=== PATIENT | female | born 1950 | race Caucasian/White ===

== ENCOUNTER 2020-08-18 10:41 | Inpatient (IN) ==
--- NOTE | 2020-08-18 11:08 | Emergency Department Note ---
Impression & Plan Sepsis, GI bleed, Anemia, Open abdominal wall wound ED Provider Note NAME: ODILIA SWANN AGE: 70 SEX: F : 1950 ARRIVES VIA: Ambulance INFORMANT: Patient, ED PROVIDER(S): Piyush Mercado MD Chief Complaint: Anemia, recent postoperative fever HPI: Patient was seen due to concern for abdominal abscess. The patient did have recent surgery completed at [facility] and was discharged on July 25. Patient is currently residing at [facility] related to blood work which did show the patient has had some anemia. The patient was admitted on August 01 for increased drainage from her midline wound. Patient underwent ERCP pancreatic sphincterotomy on August 03. Patient did receive tube feeds for time was placed on insulin drip due to concern for blood sugars. Midline wound continues to drain getting dressing changes 3 times daily. The patient did have positive blood cultures which grew Proteus for which the patient was continued on Vanco and Zosyn for 10 days in total. Patient was eventually tolerating by mouth and was discharged on August 17 to [facility] for further rehab. The patient does present today due to the concerns for fever and worsening drainage. Was concerned that the patient did have milky or purulent drainage coming from her SURJIT drain. The patient does have some nausea but no vomiting. The patient denies feeling feverish but the patient was worried to have a fever at [facility] 202. I did review the patient's blood work completed at [facility] on August 16 which showed a hemoglobin of 8.4. White count at that time was 11. ROS: See HPI for pertinent positives and negatives. A total of 10 systems were reviewed and otherwise negative. Past medical history: See below Surgical history: See below Social history: See below Physical Exam: GENERAL: Fatigued in appearance, wearing a mask. EYE EXAM: Normal conjunctiva. PERRL, no anisocoria and EOM's grossly intact w/o pain. NECK: Supple, no nuchal rigidity, no adenopathy, non-tender. No signs of meningismus. LUNGS: Clear to auscultation. Normal chest wall mechanics. HEART: NSR, no MRG. ABDOMEN: Upper ventral open wound approximately 5 x 5 cm with drainage noted, left upper quadrant SURJIT drain in place draining milky possibly purulent fluid. Mild discomfort present but without peritonitis. BACK: No CVA TTP. SKIN: No rashes and no bruising. UPPER EXTREMITIES: Upper extremities are grossly normal. LOWER EXTREMITIES: Grossly normal, 2+ symmetric bilateral lower extremity edema. NEURO EXAM: A&O x3, cranial nerves II-XII grossly intact, normal speech, moves all 4 extremities on command w/o issue. Differential diagnoses: Sepsis, UTI, pneumonia, metabolic, electrolyte abnormalities, cardiac sources, intracerebral event, toxicologic, neurologic, as well as other pathologies. Course: Patient was seen and evaluated the bedside. Full history physical exam was performed. EKG interpreted by me Imaging Studies: See below Cardiac monitoring: An order was placed for continuous cardiac monitoring. The monitor shows a rate of 72 with sinus rhythm. MDM: Patient was seen due to concern for fever and increasing drainage from the abdomen. Blood work is obtained along with broad-spectrum antibiotics. Given the patient's lower extremity swelling the patient's volume status was not aggressively resuscitated as the patient is not tachycardic and does not have hypotension. Complaint of shortness of breath. The patient did receive IV fluids with the administration of her medications. The patient also was consented for blood and the patient did receive 1 unit PRBCs. The patient did have a CAT scan which did show the patient still has fluid collections present but given the patient's fever and recent postoperative state I did speak with Dr. Alexandra with general surgery at [facility] who come accepted the patient for further evaluation and treatment. Patient did have a rectal exam performed which did show heme positive stool. Patient stool was dark in nature no bright red blood per rectum. Patient was ordered Protonix bolus and drip. The patient and family member are agreeable to transfer. Patient did finish her first unit of PRBCs and was given a second. Patient was subsequently transferred to [facility]. Critical Care: I have personally spent 180 minutes of critical care time in direct management of this patient. This includes bedside care, interpretation of diagnostic studies, and testing, discussion with consultants, patient, and family members, and other require inpatient management activities. This 180 minutes is in excess of all separately billable procedures. 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 Bermeo 02-06-19 S/P partial colectomy Family History Brother Diabetes Mother Cancer Father Hypertension Social History Smoking Status: Former smoker packs per day: 0.5; Years Smoked: 5; Second Hand Exposure: No; Hx Alcohol Use: No Hx Substance Use: No Preferred Language: Albanian Communication Ability: Effective Molecular Biology Scientist Required: No Beliefs That Will Affect Care: Shinto Shinto Beliefs: Evangelical and Spiritual marital status: Current Living Situation: Spouse current occupational status: retired Feels Safe at Home: Yes Assistive Devices: Cane and Glasses Allergies Allergies Allergy/AdvReac Type Severity Reaction Status Date / Time No Known Allergies Allergy Verified 08/18/20 13:45 Home Meds Home Medications Medication Instructions Recorded Confirmed docusate sodium 100 mg PO BID 01/08/18 08/18/20 atorvastatin 40 mg PO QAM 12/14/18 08/18/20 propranolol 80 mg PO QAM 12/14/18 08/18/20 echinacea 500 mg capsule 500 mg PO Q OTHER DAY cap 01/13/19 08/18/20 folic acid 1 mg tablet 1 mg PO QAM tab 01/13/19 08/18/20 insulin aspart U-100 100 unit/mL 20 unit SUBCUT TIDM 01/13/19 08/18/20 subcutaneous solution insulin glargine 100 unit/mL (3 44 units SUBCUT BID ml 01/13/19 08/18/20 mL) subcutaneous pen netarsudil 0.02 % eye drops 1 drops OP QPM 01/13/19 08/18/20 ondansetron 4 mg oral soluble film 4 mg PO Q8H PRN 01/13/19 08/18/20 spironolactone 100 mg tablet 100 mg PO QAM 01/28/19 08/18/20 calcium carbonate [Calcium 600] 600 mg PO QPM 01/30/19 08/18/20 cholecalciferol (vitamin D3) 25 mcg PO QAM 01/30/19 08/18/20 [Vitamin D3] cyanocobalamin (vitamin B-12) 1,000 mcg PO QAM 01/30/19 08/18/20 [Vitamin B-12] fluticasone propionate [Flonase 2 spray INTRANASAL PM 01/30/19 08/18/20 Allergy Relief] garlic 1,000 mg PO QAM 01/30/19 08/18/20 vitamin E 400 unit PO QAM 01/30/19 08/18/20 furosemide 20 mg tablet 40 mg PO QAM tab 04/07/19 08/18/20 aspirin 81 mg PO PM 08/01/20 08/18/20 clopidogrel 75 mg PO QAM 08/01/20 08/18/20 ginkgo biloba 60 mg PO QAM 08/01/20 08/18/20 magnesium hydroxide [Milk of 30 ml PO DAILY PRN 08/01/20 08/18/20 Magnesia] nitroglycerin 0.4 mg SUBLINGUAL Q5M PRN MDD up 08/01/20 08/18/20 to 3 tabs in 15 mins oxycodone 5 mg PO Q4H PRN 08/01/20 08/18/20 sennosides [senna] 8.6 mg PO DAILY PRN 08/01/20 08/18/20 Results & Data (ED) Vital Signs Vital Signs - 24 hr 08/18/20 10:44 08/18/20 10:53 08/18/20 11:26 Temperature 37.1 C Temperature Source Oral Pulse Rate 71 77 Pulse Rate from SpO2 Sensor Pulse Rhythm Regular Pulse Strength Normal Respiratory Rate 18 20 20 Respiratory Effort / Characteristics Non-Labored Spontaneous Non-Labored Respiratory Depth Normal Respiratory Pattern Regular Blood Pressure 130/63 130/63 Blood Pressure Mean 85 85 Blood Pressure Position Lying Pulse Oximetry 97 96 Oxygen Delivery Method Room Air Room Air Sepsis Recent Fever Within 48 Hours Yes Sepsis New/Unexplained Change in Mental Status No Sepsis Action Taken by Nursing No Action Required 08/18/20 12:02 08/18/20 12:39 08/18/20 12:56 Temperature Temperature Source Pulse Rate 72 Pulse Rate from SpO2 Sensor Pulse Rhythm Pulse Strength Respiratory Rate 16 20 20 Respiratory Effort / Characteristics Non-Labored Spontaneous Non-Labored Respiratory Depth Respiratory Pattern Blood Pressure 110/64 Blood Pressure Mean 79 Blood Pressure Position Pulse Oximetry 99 96 Oxygen Delivery Method Room Air Room Air Sepsis Recent Fever Within 48 Hours Sepsis New/Unexplained Change in Mental Status Sepsis Action Taken by Nursing 08/18/20 13:15 08/18/20 13:28 08/18/20 13:30 Temperature 37.3 C Temperature Source Oral Pulse Rate 74 73 Pulse Rate from SpO2 Sensor 73 Pulse Rhythm Pulse Strength Respiratory Rate 16 16 17 Respiratory Effort / Characteristics Non-Labored Respiratory Depth Respiratory Pattern Blood Pressure 153/50 H 153/50 H Blood Pressure Mean 84 84 Blood Pressure Position Lying Pulse Oximetry 96 95 95 Oxygen Delivery Method Sepsis Recent Fever Within 48 Hours Sepsis New/Unexplained Change in Mental Status Sepsis Action Taken by Nursing 08/18/20 13:44 08/18/20 13:45 08/18/20 14:00 Temperature 37.2 C Temperature Source Oral Pulse Rate 74 74 74 Pulse Rate from SpO2 Sensor 74 74 Pulse Rhythm Regular Pulse Strength Respiratory Rate 16 15 15 Respiratory Effort / Characteristics Non-Labored Respiratory Depth Respiratory Pattern Blood Pressure 147/49 H 147/49 H 123/61 Blood Pressure Mean 81 81 81 Blood Pressure Position Pulse Oximetry 95 95 95 Oxygen Delivery Method Room Air Sepsis Recent Fever Within 48 Hours Sepsis New/Unexplained Change in Mental Status Sepsis Action Taken by Nursing 08/18/20 14:16 08/18/20 14:31 08/18/20 14:35 Temperature Temperature Source Pulse Rate 73 77 Pulse Rate from SpO2 Sensor 74 Pulse Rhythm Pulse Strength Respiratory Rate 15 20 22 Respiratory Effort / Characteristics Respiratory Depth Respiratory Pattern Blood Pressure 155/49 H 153/56 H Blood Pressure Mean 84 88 Blood Pressure Position Pulse Oximetry 95 99 Oxygen Delivery Method Room Air Sepsis Recent Fever Within 48 Hours Sepsis New/Unexplained Change in Mental Status Sepsis Action Taken by Nursing 08/18/20 14:45 08/18/20 15:01 08/18/20 15:04 Temperature Temperature Source Pulse Rate 75 74 Pulse Rate from SpO2 Sensor Pulse Rhythm Pulse Strength Respiratory Rate 15 15 20 Respiratory Effort / Characteristics Non-Labored Respiratory Depth Respiratory Pattern Blood Pressure 168/57 H 154/52 H Blood Pressure Mean 94 86 Blood Pressure Position Pulse Oximetry 96 Oxygen Delivery Method Room Air Sepsis Recent Fever Within 48 Hours Sepsis New/Unexplained Change in Mental Status Sepsis Action Taken by Nursing 08/18/20 15:16 08/18/20 15:30 08/18/20 15:46 Temperature Temperature Source Pulse Rate 72 72 74 Pulse Rate from SpO2 Sensor Pulse Rhythm Pulse Strength Respiratory Rate 15 14 17 Respiratory Effort / Characteristics Respiratory Depth Respiratory Pattern Blood Pressure 154/48 H 141/51 H 143/53 H Blood Pressure Mean 83 81 83 Blood Pressure Position Pulse Oximetry Oxygen Delivery Method Sepsis Recent Fever Within 48 Hours Sepsis New/Unexplained Change in Mental Status Sepsis Action Taken by Nursing 08/18/20 16:00 08/18/20 16:13 08/18/20 16:43 Temperature 37.1 C 37.1 C Temperature Source Oral Oral Pulse Rate 71 72 69 Pulse Rate from SpO2 Sensor Pulse Rhythm Regular Pulse Strength Normal Respiratory Rate 16 16 16 Respiratory Effort / Characteristics Non-Labored Respiratory Depth Respiratory Pattern Blood Pressure 145/52 H 145/52 H 123/58 L Blood Pressure Mean 83 83 79 Blood Pressure Position Lying Pulse Oximetry 94 99 Oxygen Delivery Method Room Air Sepsis Recent Fever Within 48 Hours Sepsis New/Unexplained Change in Mental Status Sepsis Action Taken by Nursing 08/18/20 16:47 08/18/20 16:55 08/18/20 17:04 Temperature 37.1 C 37.0 C Temperature Source Oral Oral Pulse Rate 70 70 Pulse Rate from SpO2 Sensor Pulse Rhythm Regular Pulse Strength Normal Respiratory Rate 16 18 18 Respiratory Effort / Characteristics Non-Labored Respiratory Depth Respiratory Pattern Blood Pressure 141/43 H 140/52 L Blood Pressure Mean 75 81 Blood Pressure Position Lying Lying Pulse Oximetry 99 96 95 Oxygen Delivery Method Room Air Sepsis Recent Fever Within 48 Hours Sepsis New/Unexplained Change in Mental Status Sepsis Action Taken by Nursing 08/18/20 17:19 08/18/20 17:49 Temperature 37.0 C 36.8 C Temperature Source Oral Oral Pulse Rate 68 67 Pulse Rate from SpO2 Sensor Pulse Rhythm Regular Pulse Strength Normal Respiratory Rate 18 17 Respiratory Effort / Characteristics Respiratory Depth Respiratory Pattern Blood Pressure 145/47 H 143/48 H Blood Pressure Mean 79 79 Blood Pressure Position Lying Lying Pulse Oximetry 94 95 Oxygen Delivery Method Sepsis Recent Fever Within 48 Hours Sepsis New/Unexplained Change in Mental Status Sepsis Action Taken by Retirement Medications Current Medication List: was personally reviewed by me Laboratory Data Attestation: I reviewed the patient's lab results. Result diagrams: 08/18/20 11:44 08/18/20 11:44 Lab Results 08/18/20 08/18/20 08/18/20 Range/Units 11:44 11:44 11:44 WBC 17.99 H (4.8-10.8) K/uL RBC 2.30 L (4.2-5.4) M/uL Hgb 6.4 L* (12.0-16.0) g/dL Hct 21.2 L (37-47) % MCV 92.2 (80-100) fL MCH 27.8 (25-34) pg MCHC 30.2 L (32-36) g/dL RDW Std Deviation 51.8 H (36.4-46.3) fL RDW Coeff of Teresa 15.5 H (11.5-14.5) % Plt Count 491 H (130-400) K/uL MPV 11.0 H (7.4-10.4) fL Immature Gran % (Auto) 0.8 % Neut % (Auto) 62.2 % Lymph % (Auto) 19.8 % [place] % (Auto) 16.5 % Eos % (Auto) 0.1 % Baso % (Auto) 0.6 % Neut # (Auto) 11.20 H (1.4-6.5) K/uL Lymph # (Auto) 3.56 H (1.2-3.4) K/uL [place] # (Auto) 2.97 H (0.11-0.59) K/uL Eos # (Auto) 0.02 (0-0.5) K/uL Baso # (Auto) 0.10 (0-0.2) K/uL Immature Gran # (Auto) 0.14 H (0.00-0.02) K/uL Absolute Nucleated RBC 0.19 H (0-0) K/uL Nucleated RBC % (auto) 1.0 % Polychromasia 1+ PT Cancelled INR Cancelled APTT Cancelled PTT Ratio Cancelled Sodium (136-145) mmol/L Potassium (3.5-5.1) mmol/L Chloride (98-107) mmol/L Carbon Dioxide (21-32) mmol/L Anion Gap (3-11) BUN (7-18) mg/dl Creatinine (0.6-1.2) mg/dl Est Cr Clr Drug Dosing ml/min Est GFR ( Amer) ml/min Est GFR (Non-Af Amer) ml/min BUN/Creatinine Ratio (10-20) Glucose (70-99) mg/dl Lactate (0.4-2.0) mmol/L Calcium (8.5-10.1) mg/dl Magnesium (1.8-2.4) mg/dl Total Bilirubin (0.2-1) mg/dl AST (15-37) U/L ALT (12-78) U/L Alkaline Phosphatase (45-117) U/L Troponin I (0-0.045) ng/ml Total Protein (6.4-8.2) gm/dl Albumin (3.4-5.0) gm/dl Globulin (2.5-4.0) gm/dl Albumin/Globulin Ratio (0.9-2) Procalcitonin (0-0.5) ng/ml Urine Color Urine Appearance (Clear) Urine pH (4.5-7.5) Ur Specific [place] (1.000-1.030) Urine Protein (Negative) Urine Glucose (UA) (Negative) Urine Ketones (Negative) Urine Blood (Negative) Urine Nitrite (Negative) Urine Bilirubin (Negative) Urine Urobilinogen (Negative) Ur Leukocyte Esterase (Negative) POC Stool Occult Blood (Negative) COVID-19 Eval Order SARS-CoV-2, RNA, NAAT (NEGATIVE) Blood Type O Positive Antibody Screen NEGATIVE Crossmatch See Detail 08/18/20 08/18/20 08/18/20 Range/Units 11:44 11:44 11:44 WBC (4.8-10.8) K/uL RBC (4.2-5.4) M/uL Hgb (12.0-16.0) g/dL Hct (37-47) % MCV (80-100) fL MCH (25-34) pg MCHC (32-36) g/dL RDW Std Deviation (36.4-46.3) fL RDW Coeff of Teresa (11.5-14.5) % Plt Count (130-400) K/uL MPV (7.4-10.4) fL Immature Gran % (Auto) % Neut % (Auto) % Lymph % (Auto) % [place] % (Auto) % Eos % (Auto) % Baso % (Auto) % Neut # (Auto) (1.4-6.5) K/uL Lymph # (Auto) (1.2-3.4) K/uL [place] # (Auto) (0.11-0.59) K/uL Eos # (Auto) (0-0.5) K/uL Baso # (Auto) (0-0.2) K/uL Immature Gran # (Auto) (0.00-0.02) K/uL Absolute Nucleated RBC (0-0) K/uL Nucleated RBC % (auto) % Polychromasia PT INR APTT PTT Ratio Sodium 131 L (136-145) mmol/L Potassium 5.1 (3.5-5.1) mmol/L Chloride 99 (98-107) mmol/L Carbon Dioxide 25 (21-32) mmol/L Anion Gap 7.0 (3-11) BUN 44 H (7-18) mg/dl Creatinine 1.00 (0.6-1.2) mg/dl Est Cr Clr Drug Dosing 46.4 ml/min Est GFR ( Amer) 65.6 ml/min Est GFR (Non-Af Amer) 56.6 ml/min BUN/Creatinine Ratio 44.4 H (10-20) Glucose 241 H (70-99) mg/dl Lactate 2.2 H* (0.4-2.0) mmol/L Calcium 8.8 (8.5-10.1) mg/dl Magnesium 2.0 (1.8-2.4) mg/dl Total Bilirubin 0.3 (0.2-1) mg/dl AST 75 H (15-37) U/L ALT 57 (12-78) U/L Alkaline Phosphatase 197 H (45-117) U/L Troponin I < 0.015 (0-0.045) ng/ml Total Protein 6.3 L (6.4-8.2) gm/dl Albumin 1.5 L (3.4-5.0) gm/dl Globulin 4.8 H (2.5-4.0) gm/dl Albumin/Globulin Ratio 0.3 L (0.9-2) Procalcitonin 1.02 H (0-0.5) ng/ml Urine Color Urine Appearance (Clear) Urine pH (4.5-7.5) Ur Specific [place] (1.000-1.030) Urine Protein (Negative) Urine Glucose (UA) (Negative) Urine Ketones (Negative) Urine Blood (Negative) Urine Nitrite (Negative) Urine Bilirubin (Negative) Urine Urobilinogen (Negative) Ur Leukocyte Esterase (Negative) POC Stool Occult Blood (Negative) COVID-19 Eval Order SARS-CoV-2, RNA, NAAT (NEGATIVE) Blood Type Antibody Screen Crossmatch 08/18/20 08/18/20 08/18/20 Range/Units 12:01 12:01 12:32 WBC (4.8-10.8) K/uL RBC (4.2-5.4) M/uL Hgb (12.0-16.0) g/dL Hct (37-47) % MCV (80-100) fL MCH (25-34) pg MCHC (32-36) g/dL RDW Std Deviation (36.4-46.3) fL RDW Coeff of Teresa (11.5-14.5) % Plt Count (130-400) K/uL MPV (7.4-10.4) fL Immature Gran % (Auto) % Neut % (Auto) % Lymph % (Auto) % [place] % (Auto) % Eos % (Auto) % Baso % (Auto) % Neut # (Auto) (1.4-6.5) K/uL Lymph # (Auto) (1.2-3.4) K/uL [place] # (Auto) (0.11-0.59) K/uL Eos # (Auto) (0-0.5) K/uL Baso # (Auto) (0-0.2) K/uL Immature Gran # (Auto) (0.00-0.02) K/uL Absolute Nucleated RBC (0-0) K/uL Nucleated RBC % (auto) % Polychromasia PT INR APTT PTT Ratio Sodium (136-145) mmol/L Potassium (3.5-5.1) mmol/L Chloride (98-107) mmol/L Carbon Dioxide (21-32) mmol/L Anion Gap (3-11) BUN (7-18) mg/dl Creatinine (0.6-1.2) mg/dl Est Cr Clr Drug Dosing ml/min Est GFR ( Amer) ml/min Est GFR (Non-Af Amer) ml/min BUN/Creatinine Ratio (10-20) Glucose (70-99) mg/dl Lactate (0.4-2.0) mmol/L Calcium (8.5-10.1) mg/dl Magnesium (1.8-2.4) mg/dl Total Bilirubin (0.2-1) mg/dl AST (15-37) U/L ALT (12-78) U/L Alkaline Phosphatase (45-117) U/L Troponin I (0-0.045) ng/ml Total Protein (6.4-8.2) gm/dl Albumin (3.4-5.0) gm/dl Globulin (2.5-4.0) gm/dl Albumin/Globulin Ratio (0.9-2) Procalcitonin (0-0.5) ng/ml Urine Color Yellow Urine Appearance Clear (Clear) Urine pH 6.5 (4.5-7.5) Ur Specific [place] 1.028 (1.000-1.030) Urine Protein Negative (Negative) Urine Glucose (UA) Negative (Negative) Urine Ketones Negative (Negative) Urine Blood Negative (Negative) Urine Nitrite Negative (Negative) Urine Bilirubin Negative (Negative) Urine Urobilinogen Negative (Negative) Ur Leukocyte Esterase Negative (Negative) POC Stool Occult Blood (Negative) COVID-19 Eval Order Cov[facility] SARS-CoV-2, RNA, NAAT NEGATIVE (NEGATIVE) Blood Type Antibody Screen Crossmatch 08/18/20 08/18/20 08/18/20 Range/Units 12:37 15:18 15:50 WBC (4.8-10.8) K/uL RBC (4.2-5.4) M/uL Hgb (12.0-16.0) g/dL Hct (37-47) % MCV (80-100) fL MCH (25-34) pg MCHC (32-36) g/dL RDW Std Deviation (36.4-46.3) fL RDW Coeff of Teresa (11.5-14.5) % Plt Count (130-400) K/uL MPV (7.4-10.4) fL Immature Gran % (Auto) % Neut % (Auto) % Lymph % (Auto) % [place] % (Auto) % Eos % (Auto) % Baso % (Auto) % Neut # (Auto) (1.4-6.5) K/uL Lymph # (Auto) (1.2-3.4) K/uL [place] # (Auto) (0.11-0.59) K/uL Eos # (Auto) (0-0.5) K/uL Baso # (Auto) (0-0.2) K/uL Immature Gran # (Auto) (0.00-0.02) K/uL Absolute Nucleated RBC (0-0) K/uL Nucleated RBC % (auto) % Polychromasia PT 11.7 INR 1.2 H APTT 22.2 PTT Ratio 0.8 Sodium (136-145) mmol/L Potassium (3.5-5.1) mmol/L Chloride (98-107) mmol/L Carbon Dioxide (21-32) mmol/L Anion Gap (3-11) BUN (7-18) mg/dl Creatinine (0.6-1.2) mg/dl Est Cr Clr Drug Dosing ml/min Est GFR ( Amer) ml/min Est GFR (Non-Af Amer) ml/min BUN/Creatinine Ratio (10-20) Glucose (70-99) mg/dl Lactate 1.6 (0.4-2.0) mmol/L Calcium (8.5-10.1) mg/dl Magnesium (1.8-2.4) mg/dl Total Bilirubin (0.2-1) mg/dl AST (15-37) U/L ALT (12-78) U/L Alkaline Phosphatase (45-117) U/L Troponin I (0-0.045) ng/ml Total Protein (6.4-8.2) gm/dl Albumin (3.4-5.0) gm/dl Globulin (2.5-4.0) gm/dl Albumin/Globulin Ratio (0.9-2) Procalcitonin (0-0.5) ng/ml Urine Color Urine Appearance (Clear) Urine pH (4.5-7.5) Ur Specific [place] (1.000-1.030) Urine Protein (Negative) Urine Glucose (UA) (Negative) Urine Ketones (Negative) Urine Blood (Negative) Urine Nitrite (Negative) Urine Bilirubin (Negative) Urine Urobilinogen (Negative) Ur Leukocyte Esterase (Negative) POC Stool Occult Blood Positive A (Negative) COVID-19 Eval Order SARS-CoV-2, RNA, NAAT (NEGATIVE) Blood Type Antibody Screen Crossmatch Administered Medications Pantoprazole Sodium 40 mg/ (Dextrose) 100 mls @ 20 mls/hr IV Q5H LAURA Stop: 09/17/20 14:37 Last Admin: 08/18/20 16:27 Dose: 8 mg/hr, 20 mls/hr Documented by: [id number] Discontinued Medications Cefepime HCl (Maxipime) 20 mls @ 5 mls/min IV NOW STA Stop: 08/18/20 11:31 Last Admin: 08/18/20 12:11 Dose: 5 mls/min Documented by: [id number] Metronidazole (Flagyl) 500 mg in 100 mls @ 100 mls/hr IV NOW STA Stop: 08/18/20 12:28 Last Infusion: 08/18/20 13:34 Dose: 0 mls/hr Documented by: [id number] Admin: 08/18/20 12:19 Dose: 100 mls/hr Documented by: [id number] Vancomycin HCl 1,500 mg/ (Sodium Chloride) 530 mls @ 200 mls/hr IV NOW STA Stop: 08/18/20 14:08 Last Infusion: 08/18/20 15:31 Dose: 0 mls/hr Documented by: [id number] Infusion: 08/18/20 15:31 Dose: 0 mls/hr Documented by: [id number] Admin: 08/18/20 13:31 Dose: 200 mls/hr Documented by: [id number] Pantoprazole Sodium (Protonix Bolus/Drip) 0 mls @ 1 mls/hr IV ONE STA Stop: 08/18/20 14:24 Last Admin: 08/18/20 15:24 Dose: 1 mls/hr Documented by: [id number] Pantoprazole Sodium 80 mg/ (Dextrose) 120 mls @ 400 mls/hr IV NOW ONE Stop: 08/18/20 14:40 Last Infusion: 08/18/20 15:09 Dose: 0 mls/hr Documented by: [id number] Admin: 08/18/20 14:47 Dose: 400 mls/hr Documented by: [id number] Acetaminophen (Ofirmev) 1,000 mg in 100 mls @ 400 mls/hr IV NOW STA Stop: 08/18/20 14:37 Last Infusion: 08/18/20 15:08 Dose: 0 mls/hr Documented by: [id number] Admin: 08/18/20 14:46 Dose: 400 mls/hr Documented by: [id number] Ioversol (Optiray 320 100ml) 92 ml IV ONCE ONE Stop: 08/18/20 12:57 Last Admin: 08/18/20 12:57 Dose: 92 ml Documented by: [id number] Ondansetron HCl (Ondansetron Inj 2 Mg/Ml 2 Ml Vial) 4 mg IV NOW STA Stop: 08/18/20 14:24 Last Admin: 08/18/20 14:46 Dose: 4 mg Documented by: [id number] Imaging Data Radiologist's Impression: Chest X-Ray 08/18/20 11:08 XR chest 1V portable HISTORY: 70 years-old Female SEPSIS acute sepsis COMPARISON: Chest radiograph 08/01/2020 TECHNIQUE: Portable upright AP view of the chest FINDINGS: Cardiac silhouette is enlarged. Prior median sternotomy with CABG. No pneumothorax, large pleural effusion or overt pulmonary edema. A catheter pr ojects over the abdominal left upper quadrant. Degenerative changes of the shoulders and spine. IMPRESSION: Cardiomegaly without acute process. ACT 112: Negative or not required by law. The above report was generated using voice recognition software. It may contain grammatical, syntax or spelling errors. Electronically signed by: Jim Lugo M.D. 08/18/2020 11:21 AM Abdomen/Pelvis CT 08/18/20 11:11 CT abd pelvis IV con only CLINICAL HISTORY: recent surgery, purulent drainage COMPARISON STUDY: August 01, 2020 TECHNIQUE: A dose lowering technique was utilized adhering to the principles of ALARA. CT DOSE: 1159.38 mGycm FINDINGS: Limited exam due to beam hardening artifact from overlying patient's arms and patient body habitus. Lower chest: Minimal atelectasis at dependent portions of bilateral lower lobes.. Heavy coronary calcifications, possible stents. Liver: Cirrhotic appearance of the liver. No evidence of focal lesions or intrahepatic biliary dilatation. Gallbladder: Fluid-filled with questionable surrounding edema in gallbladder fossa which might be due to ascites. Spleen: Is surgically absent. Pancreas: Status post partial resection of the pancreas. Redemonstration of the hypoattenuating and possibly encapsulating collection within the anatomical region of pancreatic body containing areas of gas in slightly decreasing in size since prior study now measuring 7.3 x 4.9 cm (was measured 8.1 x 5.0 cm when measured in similar fashion). Left mid approach surgical drainage catheter with distal tip terminating at the inferior margin of this collection is again seen. Previously seen additional gas containing hypoattenuating collection within left upper quadrant decreased in size, now measuring 2.9 cm and does not contain gas (3/109). Previously seen gas containing elongated collection at the left anterior abdominal wall adjacent to the proximal aspect of the central surgical drainage significantly decreased in size and shows no evidence of gas collection. Adrenal glands: Unremarkable. Kidneys: No evidence of hydronephrosis or nephrolithiasis on the left. Status post right nephrectomy. Stable small amount of free fluid is seen within left renal bed. Pelvic viscera: Urinary bladder is fluid-filled. Uterus is normal for patient's age group. Bowel: Bowel loops are nondilated. Postoperative changes of partial right hemicolectomy with ileocolic anastomosis are again seen. Peritoneum: There is no intraperitoneal free air. Small amount ascites is again seen. Vasculature: Abdominal aorta shows heavy concentric calcifications of its wall within its distal aspect associated with luminal narrowing measuring 0.9 cm in diameter. Adenopathy: No definite retroperitoneal adenopathy seen however evaluation is limited due to ascites and mesenteric edema as well as beam hardening artifact. Skeletal structures: Multilevel degenerative changes of the spine. Redemonstration of the large abdominal wall wound/diastasis which is extending into the xiphoid process. Previously seen gas within the wound and surrounding subcutaneous soft tissue slightly decreased in size and appear to be slightly encapsulated with minimal interval enlargement of associated fluid collection. Previously seen extension of the gas from the wound to the peritoneal cavity is no longer visualized. Ill-defined fat stranding and few areas of fluid collection within inferior anterior abdominal wall appears similar to prior study. Mild interval worsening of the subcutaneous edema within bilateral flank region, example is seen on series 3 image 170. IMPRESSION: 1. Redemonstration of large abdominal wall wound/diastases. Mild prominence of fluid collection within the wound which appear to be slightly encapsulated and interval decrease in amount of gas within surrounding soft tissue. Previously seen intraperitoneal extension of the gas from the abdominal wound is no longer visualized. 2. Mild interval decrease in hypoattenuating collection within the anatomical region of pancreatic body and left upper quadrant. Stable position of left-sided mid abdominal approach surgical drainage. 3. Nondilated loops of bowel. 4. Status post pancreatic surgery, right nephrectomy and partial colectomy. 5. Ascites. 6. Liver cirrhosis 7. Additional findings as detailed above. ACT 112: Negative or not required by law. The above report was generated using voice recognition software. It may contain grammatical, syntax or spelling errors. Electronically signed by: Tasha Delvalle DO 08/18/2020 1:34 PM Discharge Plan Visit Data Chief Complaint: Abnormal Labs/Diagnostic Testing Stated Complaint: ABNORMAL LABS ED Provider: Piyush Mercado Discharge Problem: Sepsis, GI bleed, Anemia, Open abdominal wall wound Forms Stand Alone Forms: [facility] Prescriptions Prescriptions: No Action echinacea 500 mg capsule 500 mg PO Q OTHER DAY RF: 0 ondansetron 4 mg film 4 mg PO Q8H PRN (Reason: nausea and vomiting) RF: 0 Rhopressa 0.02 % drops 1 drops OP QPM RF: 0 spironolactone [Aldactone] 100 mg tablet 100 mg PO QAM RF: 0 cyanocobalamin (vitamin B-12) [Vitamin B-12] 1,000 mcg Tablet 1,000 mcg PO QAM RF: 0 garlic 1,000 mg Capsule 1,000 mg PO QAM RF: 0 calcium carbonate [Calcium 600] 600 mg calcium (1,500 mg) Tablet 600 mg PO QPM RF: 0 fluticasone propionate [Flonase Allergy Relief] 50 mcg/actuation [place],Suspension 2 spray INTRANASAL PM RF: 0 vitamin E 400 unit Capsule 400 unit PO QAM RF: 0 cholecalciferol (vitamin D3) [Vitamin D3] 25 mcg (1,000 unit) Tablet 25 mcg PO QAM RF: 0 docusate sodium 100 mg Tablet 100 mg PO BID RF: 0 folic acid 1 mg tablet 1 mg PO QAM RF: 0 Novolog U-100 Insulin aspart 100 unit/mL solution 20 unit SUBCUT TIDM RF: 0 Basaglar KwikPen U-100 Insulin 100 unit/mL (3 mL) insulin pen 44 units SUBCUT BID RF: 0 atorvastatin 40 mg tablet 40 mg PO QAM RF: 0 propranolol 80 mg capsule,extended release 24 hr 80 mg PO QAM RF: 0 furosemide 20 mg tablet 40 mg PO QAM RF: 0 sennosides [senna] 8.6 mg Tablet 8.6 mg PO DAILY PRN (Reason: Constipation) RF: 0 clopidogrel 75 mg tablet 75 mg PO QAM RF: 0 aspirin 81 mg Tablet,Delayed Release (Dr/Ec) 81 mg PO PM RF: 0 magnesium hydroxide [Milk of Magnesia] 400 mg/5 mL Suspension 30 ml PO DAILY PRN (Reason: Constipation) RF: 0 ginkgo biloba 60 mg Tablet 60 mg PO QAM RF: 0 nitroglycerin 0.4 mg Tablet, Sublingual 0.4 mg sublingual Q5M MDD up to 3 tabs in 15 mins PRN (Reason: Chest Pain) RF: 0 oxycodone 5 mg tablet 5 mg PO Q4H PRN (Reason: Pain) RF: 0 Discharge Problem: Sepsis Qualifiers: Sepsis type: sepsis due to unspecified organism Sepsis acute organ dysfunction status: unspecified Qualified Code(s): A41.9 - Sepsis, unspecified organism GI bleed Qualifiers: GI bleed type/associated pathology: melena Qualified Code(s): K92.1 - Melena Anemia Qualifiers: Anemia type: unspecified type Qualified Code(s): D64.9 - Anemia, unspecified Open abdominal wall wound Qualifiers: Encounter type: initial encounter Qualified Code(s): S31.109A - Unspecified open wound of abdominal wall, unspecified quadrant without penetration into peritoneal cavity, initial encounter
--- NOTE | 2020-08-18 11:23 | XRay Report ---
XR chest 1V portable HISTORY: 70 years-old Female SEPSIS acute sepsis COMPARISON: Chest radiograph 08/01/2020 TECHNIQUE: Portable upright AP view of the chest FINDINGS: Cardiac silhouette is enlarged. Prior median sternotomy with CABG. No pneumothorax, large pleural eff usion or overt pulmonary edema. A catheter projects over the abdominal left upper quadrant. Degenerat rich changes of the shoulders and spine. IMPRESSION: Cardiomegaly without acute process. ACT 112: Negative or not required by law. The above report was generated using voice recognition software. It may contain grammatical, syntax o r spelling errors. Electronically signed by: Jim Lugo M.D. 08/18/2020 11:21 AM
[2020-08-18] MEDS ORDERED: CEFEPIME 20 ML IV STA (11:28)
[2020-08-18] MEDS ORDERED: metroNIDAZOLE 500 MG/100 ML BAG IV STA (11:29)
[2020-08-18] MEDS ORDERED: VANCOMYCIN HCL 1,500 MG in SODIUM CHLORIDE 0.9% 500 ML IV STA (11:30)
[2020-08-18] MEDS ORDERED: SODIUM CHLORIDE 0.9% 250 ML IV PRN (11:38)
[2020-08-18 11:57] LABS: Hematocrit (blood only) 21.2 % (37-47); Hemoglobin 6.4 g/dL (12.0-16.0); Mean Corpuscular Hemoglobin 27.8 pg (25-34); Mean Corpuscular Hgb Conc 30.2 g/dL (32-36); Mean Corpuscular Volume 92.2 fL (80-100); Nucleated RBC # (auto) 0.19 K/uL (0-0); Platelet Count 491 K/uL (130-400); RDW Coefficient of Variation 15.5 % (11.5-14.5); RDW Standard Deviation 51.8 fL (36.4-46.3); White Blood Count 17.99 K/uL (4.8-10.8)
[2020-08-18 12:10] LABS: Alanine Aminotransferase 57 U/L (12-78); Albumin Level 1.5 gm/dl (3.4-5.0); Aspartate Aminotransferase 75 U/L (15-37); BUN Creatinine Ratio 44.4 (10-20); Blood Urea Nitrogen 44 mg/dl (7-18); Calcium 8.8 mg/dl (8.5-10.1); Carbon Dioxide 25 mmol/L (21-32); Chloride 99 mmol/L (98-107); Creatinine Clr Calc Pharmacy 46.4 ml/min; Est GFR (African American) 65.6 ml/min; Est GFR (Non-African American) 56.6 ml/min; Glucose 241 mg/dl (70-99); Potassium 5.1 mmol/L (3.5-5.1); Sodium 131 mmol/L (136-145)
[2020-08-18 12:15] LABS: Albumin Globulin Ratio 0.3 (0.9-2); Alkaline Phosphatase 197 U/L (45-117); Bilirubin,Total 0.3 mg/dl (0.2-1); Globulin 4.8 gm/dl (2.5-4.0); Total Protein 6.3 gm/dl (6.4-8.2); Troponin I < 0.015 ng/ml (0-0.045)
[2020-08-18 12:16] LABS: Basophils % (auto) 0.6 %; Eosinophils # (auto) 0.02 K/uL (0-0.5); Eosinophils % (auto) 0.1 %; Immature Granulocytes # (auto) 0.14 K/uL (0.00-0.02); Immature Granulocytes % (auto) 0.8 %; Lymphocytes # (auto) 3.56 K/uL (1.2-3.4); Lymphocytes % (auto) 19.8 %; Monocytes # (auto) 2.97 K/uL (0.11-0.59); Monocytes % (auto) 16.5 %; Neutrophils % (auto) 62.2 %; Polychromasia 1+
[2020-08-18] MEDS ORDERED: OPTIRAY 320 100ml IV ONE (12:56)
[2020-08-18 12:57] LABS: INR 1.2 (0.9-1.1); Partial Thromboplastin Ratio 0.8; Partial Thromboplastin Time 22.2 Seconds (21.0-31.0); Prothrombin Time 11.7 Seconds (9.0-12.0)
--- NOTE | 2020-08-18 13:36 | CT Scan Report ---
CT abd pelvis IV con only CLINICAL HISTORY: recent surgery, purulent drainage COMPARISON STUDY: August 01, 2020 TECHNIQUE: A dose lowering technique was utilized adhering to the principles of ALARA. CT DOSE: 1159.38 mGycm FINDINGS: Limited exam due to beam hardening artifact from overlying patient's arms and patient body habitus. Lower chest: Minimal atelectasis at dependent portions of bilateral lower lobes.. Heavy coronary calc ifications, possible stents. Liver: Cirrhotic appearance of the liver. No evidence of focal lesions or intrahepatic biliary dilata tion. Gallbladder: Fluid-filled with questionable surrounding edema in gallbladder fossa which might be due to ascites. Spleen: Is surgically absent. Pancreas: Status post partial resection of the pancreas. Redemonstration of the hypoattenuating and p ossibly encapsulating collection within the anatomical region of pancreatic body containing areas of gas in slightly decreasing in size since prior study now measuring 7.3 x 4.9 cm (was measured 8.1 x 5 .0 cm when measured in similar fashion). Left mid approach surgical drainage catheter with distal tip terminating at the inferior margin of th is collection is again seen. Previously seen additional gas containing hypoattenuating collection wit hin left upper quadrant decreased in size, now measuring 2.9 cm and does not contain gas (3/109). Previously seen gas containing elongated collection at the left anterior abdominal wall adjacent to t he proximal aspect of the central surgical drainage significantly decreased in size and shows no evid ence of gas collection. Adrenal glands: Unremarkable. Kidneys: No evidence of hydronephrosis or nephrolithiasis on the left. Status post right nephrectomy. Stable small amount of free fluid is seen within left renal bed. Pelvic viscera: Urinary bladder is fluid-filled. Uterus is normal for patient's age group. Bowel: Bowel loops are nondilated. Postoperative changes of partial right hemicolectomy with ileocoli c anastomosis are again seen. Peritoneum: There is no intraperitoneal free air. Small amount ascites is again seen. Vasculature: Abdominal aorta shows heavy concentric calcifications of its wall within its distal aspe ct associated with luminal narrowing measuring 0.9 cm in diameter. Adenopathy: No definite retroperitoneal adenopathy seen however evaluation is limited due to ascites and mesenteric edema as well as beam hardening artifact. Skeletal structures: Multilevel degenerative changes of the spine. Redemonstration of the large abdominal wall wound/diastasis which is extending into the xiphoid proce ss. Previously seen gas within the wound and surrounding subcutaneous soft tissue slightly decreased in size and appear to be slightly encapsulated with minimal interval enlargement of associated fluid collection. Previously seen extension of the gas from the wound to the peritoneal cavity is no longer visualized. Ill-defined fat stranding and few areas of fluid collection within inferior anterior abdominal wall a ppears similar to prior study. Mild interval worsening of the subcutaneous edema within bilateral fla nk region, example is seen on series 3 image 170. IMPRESSION: 1. Redemonstration of large abdominal wall wound/diastases. Mild prominence of fluid collection with in the wound which appear to be slightly encapsulated and interval decrease in amount of gas within s urrounding soft tissue. Previously seen intraperitoneal extension of the gas from the abdominal wound is no longer visualized. 2. Mild interval decrease in hypoattenuating collection within the anatomical region of pancreatic b elida and left upper quadrant. Stable position of left-sided mid abdominal approach surgical drainage. 3. Nondilated loops of bowel. 4. Status post pancreatic surgery, right nephrectomy and partial colectomy. 5. Ascites. 6. Liver cirrhosis 7. Additional findings as detailed above. ACT 112: Negative or not required by law. The above report was generated using voice recognition software. It may contain grammatical, syntax o r spelling errors. Electronically signed by: Tasha Delvalle DO 08/18/2020 1:34 PM
[2020-08-18] MEDS ORDERED: PANTOprazole 80 MG in DEXTROSE 5% 100 ML IV ONE (14:23)
[2020-08-18] MEDS ORDERED: PANTOPRAZOLE BOLUS/DRIP 1 EA IV STA (14:23)
[2020-08-18] MEDS ORDERED: ONDANSETRON INJ 2 MG/ML 2 ML VIAL IV STA (14:23)
[2020-08-18] MEDS ORDERED: ACETAMINOPHEN 1,000 MG/100 ML VIAL IV STA (14:23)
[2020-08-18 14:53] LABS: Appearance Urine Clear (Clear); Bilirubin Urine Negative (Negative); Blood Urine Negative (Negative); Color Urine Yellow; Glucose Urine UA Negative (Negative); Ketones Urine Negative (Negative); Leukocyte Esterase Urine Negative (Negative); Nitrite Urine Negative (Negative); Protein Urine Negative (Negative); Specific Gravity Urine 1.028 (1.000-1.030); Urobilinogen Urine Negative (Negative); pH Urine 6.5 (4.5-7.5)
[2020-08-18] MEDS: PANTOprazole 40 MG in DEXTROSE 5% 100 ML IV SCH ×2 (16:27→22:13)
[2020-08-18] MEDS ORDERED: SODIUM CHLORIDE 0.9% 1000ML 500 ML IV ONE (18:27)
--- NOTE | 2020-08-18 19:26 | Emergency Department Note ---
ED Visit Note Patient signed out to me awaiting disposition/transfer to [facility]. [facility] called back and state they will not have any beds available tonight and will take her sometime tomorrow. They recommend that she be admitted here overnight. I did speak with Dr. Young about the patient. He will see the patient for admission here overnight. . : Sepsis Qualifiers: Sepsis type: sepsis due to unspecified organism Sepsis acute organ dysfunction status: unspecified Qualified Code(s): A41.9 - Sepsis, unspecified organism GI bleed Qualifiers: GI bleed type/associated pathology: melena Qualified Code(s): K92.1 - Melena Anemia Qualifiers: Anemia type: unspecified type Qualified Code(s): D64.9 - Anemia, unspecified Open abdominal wall wound Qualifiers: Encounter type: initial encounter Qualified Code(s): S31.109A - Unspecified open wound of abdominal wall, unspecified quadrant without penetration into peritoneal cavity, initial encounter
[2020-08-18] MEDS ORDERED: PANTOprazole 40 MG in DEXTROSE 5% 100 ML IV SCH (21:25)
[2020-08-18] MEDS ORDERED: SODIUM CHLORIDE 0.9% 1000ML 1,000 ML IV SCH (21:25)
[2020-08-18] MEDS ORDERED: oxyCODONE HCL IR 5 MG TAB (IMMEDIATE RELEASE) PO PRN (21:25)
[2020-08-18] MEDS ORDERED: VANCOMYCIN CONSULT ACTIVE PRN (21:25)
[2020-08-18] MEDS ORDERED: SENNA 8.6 MG TAB PO PRN (21:25)
[2020-08-18] MEDS ORDERED: FLUTICASONE PROPIONATE NA SPR 16 GM BTL SCH (21:25)
[2020-08-18] MEDS ORDERED: ONDANSETRON INJ 2 MG/ML 2 ML VIAL IV PRN (21:25)
[2020-08-18] MEDS ORDERED: NITROGLYCERIN SL 0.4 MG/TAB TAB SL PRN ×2 (21:25)
[2020-08-18] MEDS ORDERED: ECHINACEA 500 MG PO SCH (21:25)
[2020-08-18] MEDS ORDERED: CEFEPIME CONSULT ACTIVE PRN (21:33)
[2020-08-18] MEDS ORDERED: ONDANSETRON 4 MG OD TAB PO PRN (21:35)
[2020-08-18] MEDS ORDERED: INSULIN ASPART 100 UNITS/ML 3 ML PEN SC SCH (22:00)
[2020-08-18] MEDS: metroNIDAZOLE 500 MG/100 ML BAG IV SCH (22:14)
[2020-08-18] MEDS: DOCUSATE SODIUM 100 MG CAP PO SCH (22:15)
[2020-08-18] MEDS: ACETAMINOPHEN 325 MG TAB PO PRN (22:24)
--- NOTE | 2020-08-18 22:27 | Pharmacy Report ---
Pharmacy Abx Dose Short Note - Date of Service August 18, 2020 - Assessment & Plan Assessment 70 year old F receiving Vancomycin, Cefepime and Metronidazole for treatment of an abdominal abscess * PMHx significant for T2DM, Cirrhosis and h/o colon cancer * Afebrile upon admission. Leukocytosis of 18k. Lactate elevated at 2.2, down to 1.6 after fluids. Procalcitonin elevated at 1.02. SCr elevated as well at 1. * Cultures are pending. Plan Vancomycin * Loading dose: 1500 mg (23 mg/kg) IV x 1 * Maintenance dose: 750 mg (12 mg/kg) IV every 12 hours * Goal trough level: ~15 mcg/mL * Trough level ordered for 08/20/20 prior to the 1300 dose Cefepime * Target dose: 2000 mg IV every 8 hours * Reduced dose to 2000 mg IV every 12 hours for CrCl between 30 and 60 mL/min Metronidazole * 500 mg IV every 8 hours Pharmacy will continue to follow and will adjust dose/frequency as necessary. Thank you.
[2020-08-18] MEDS: INSULIN GLARGINE SOLOSTAR 100 UNITS/ML 3 ML PEN SC SCH (22:38)
[2020-08-18 22:39] LABS: Hematocrit (blood only) 28.9 % (37-47); Hemoglobin 9.4 g/dL (12.0-16.0)
[2020-08-18] MEDS ORDERED: Nursing to Pharmacy Communication SCH (22:45)
[2020-08-18] MEDS: INSULIN ASPART 100 UNITS/ML 3 ML PEN SC SCH (23:48)
[2020-08-19] MEDS ORDERED: VANCOMYCIN HCL 750 MG in SODIUM CHLORIDE 0.9% 250 ML IV SCH (01:00)
[2020-08-19] MEDS ORDERED: VANCOMYCIN HCL 500 MG in SODIUM CHLORIDE 0.9% 250 ML IV STA (02:22)
--- NOTE | 2020-08-19 02:46 | History and Physical Report ---
DATE OF ADMISSION: 08/18/2020. CHIEF COMPLAINT: Abdominal infection. HISTORY OF PRESENT ILLNESS: This is a 70-year-old female with past medical history significant for type 2 diabetes, pancreatic fistula, cystic mass of pancreas, hypertension, CAD status post CABG, secondary esophageal varices, cirrhosis of liver with ascites, moderate malnutrition, GERD, malignant neoplasm of hepatic flexure, gastrointestinal hemorrhage associated with duodenal ulcer, obesity, osteoporosis, anemia due to chronic blood loss, metastatic colon cancer,status post nephrectomy, history of metformin adverse reaction. 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 She underwent open distal pancreatectomy and splenectomy on 07/13/2020 and postoperative course was complicated by fascial dehiscence requiring closure on 07/22/2020. She was discharged from [facility] on 07/25/2020. It looks like after discharge, she was extremely lethargic and at home her and home health nurses performed her dressing changes and when her drainage from her wound became excessive and also because of lethargy, she was brought to [facility] where she was treated with Zosyn, daptomycin, and CAT scan is showing fluid filled collection within the lesser sac measuring 8.1 cm, there is a surgical drain with it, and also peripheral enhancing intraabdominal collection abutting the anterior abdominal wall measuring 11.2 x 9.2 cm consistent with abscess. She was then transferred to [facility] for further care. At that time, she was also hyponatremic. At [facility], ID was consulted and also source controlled with IR-guided drainage, treated with vancomycin and Zosyn. GI was consulted and she was status post ERCP, pancreatic sphincterectomy, and stent placement in the ventral pancreatic duct to decrease the fluid collection in the lesser sac due to the pancreatic leak, which was found. An NG was placed past the leak at the time of the ERCP and in the hospital she required IV insulin drip. She also had a positive blood culture which grew Proteus and she was continued on vancomycin and Zosyn for 10 days total and during the period of her stay she also was on PPN, TPN for nutritional support. By 08/17/2020, she was tolerating Boost protein supplements and she was discharged to [facility] for further rehabilitation. At [facility], blood work showed some anemia and also the patient today had concerns of fever and worsening drainage from the drain,, and she was transported here. Here her hemoglobin was found to be 6.4. She has received 2 units of PRBC so far and the ER physician talked to Dr. Alexandra of general surgery at [facility] who accepted the patient for transfer, for further evaluation and treatment, but there were no beds available today, so [facility] called back and said to admit here overnight and possible transfer tomorrow to [place]. Her Hemoccult was also positive here. Currently, the patient is sleepy, but answering questions appropriately. She knows that she is in the [facility], awaiting transfer to [place]. The patient states she did not eat anything yesterday and today. Before that, she had Boost and also was able to eat some sandwich. Denies any abdominal pain currently. Denies any chest pain, no shortness of breath, no cough, no headache, no blurred visions, no nausea, no vomiting. She says she is moving her bowels okay. She is on Vital catheter now. She is currently not ambulating. Currently, hemodynamically stable. Received cefepime, Flagyl and vancomycin in the ER. Her white count is elevated at 17.9, hemoglobin was 6.4, after 2 of PRBCs is 9.4 now. Procalcitonin is 1.02. Urinalysis negative. SARS-CoV-2 negative. ALLERGIES: No known drug allergies. PAST MEDICAL HISTORY: As mentioned above. PAST SURGICAL HISTORY: Abdominal wall subcutaneous tumor removal in November 2018, CABG, , colonoscopy, multiple coronary angiograms, dilatation and curettage, EGDs multiple, EGD with endoscopic ultrasound, ERCP, exploration of abdomen on 07/22/2020, implantation of mesh for reinforcement of abdominal wall in November 2018, laparoscopic radical nephrectomy in February 2013, laparoscopic colectomy partially with anastomosis in November 2017, laser trabeculoplasty, partial removal of pancreas in July 2020, intracoronary stent placement, relieving of inner eye pressure, cataract surgery. MEDICATIONS: Currently, the patient is on aspirin 81 mg p.o. daily, atorvastatin 40 mg p.o. a.m., calcium carbonate 600 mg p.o. p.m., vitamin D mg 25 mcg p.o. a.m., Plavix 75 mg p.o. a.m., vitamin B12 1000 mcg p.o. a.m., Colace 100 mg p.o. b.i.d., echinacea 500 mg p.o. every other day, Flonase 2 sprays intranasal p.m., folic acid 1 mg p.o. a.m., furosemide 40 mg p.o. a.m., garlic 1000 mg p.o. q.a.m., ginkgo biloba 60 mg p.o. a.m., insulin aspart 20 units subcutaneous t.i.d. with meals, insulin glargine 44 units subcutaneous b.i.d., milk of magnesia 30 mL p.o. daily, p.r.n., nitroglycerin 0.4 mg sublingual p.r.n., netarsudil 0.02% eye drops q.p.m., Zofran 4 mg p.o. q. 8 hours p.r.n., oxycodone 5 mg p.o. q. 4 hours p.r.n., propranolol 80 mg p.o. a.m., Senokot 8.6 mg p.o. daily p.r.n., spironolactone 100 mg p.o. a.m., vitamin E 400 units p.o. a.m. FAMILY HISTORY: Significant for mother has kidney cancer, diabetes, heart disorder, hypertension; father has diabetes, [place], hypertension; sister has arthritis; aunt has breast cancer. SOCIAL HISTORY: , former smoker, quit in 1984, smoked quarter pack a day for 5 years. No alcohol currently. No drug use. REVIEW OF SYSTEMS: As per HPI. Rest of the review of systems negative. PHYSICAL EXAMINATION: GENERAL: Patient is somewhat drowsy, but alert and oriented. VITAL SIGNS: Temperature 36.3, pulse 61, respiratory rate 16, blood pressure 143/75, oxygen 96% on room air. HEENT: Pupils equal, round and reactive to light. Oral mucosa moist. NECK: No JVD, no neck masses. CARDIOVASCULAR: S1, S2 heard. Regular rate and rhythm. No murmur, no gallop. RESPIRATORY: Normal AP diameter. No accessory muscle use. No wheezing, no crackles. ABDOMEN: Surgical dressing seen and the drain. No distention, no guarding, no rigidity. CENTRAL NERVOUS SYSTEM: Somewhat drowsy, but alert and oriented. No facial droop. Speech is clear. Obeys simple commands. Moves extremities. EXTREMITIES: Pedal edema present, no erythema seen. LABORATORY DATA: WBC 7.9, hemoglobin 9.4, hematocrit 28.9, platelets 491. PT 11.7, INR 1.2, APTT 22.2. Sodium 131, potassium 5.1, chloride 199, bicarbonate 25, BUN 44, creatinine 1, serum glucose 241. Lactate 1.6, calcium 8.8, magnesium 2, total bilirubin 0.3, AST 75, ALT 57, alkaline phosphatase 197. Troponin I less than 0.015. Procalcitonin 1.02. Urinalysis negative. Occult stool, blood positive. SARS-CoV-2 RNA negative. IMAGING DATA: CT of the abdomen and pelvis is showing redemonstration of large abdominal wall wound diastasis, mild prominence of fluid collection within the wound, which appears to be slightly encapsulated and interval decrease in the amount of gas within surrounding soft tissue. Previously seen intraperitoneal extension of gas from the abdominal wound is no longer visualized. Mild decrease in the hypoattenuating collection within the anatomical region of the pancreatic body and left upper quadrant. Stable position of the left-sided mid abdominal approach surgical drainage. Nondilated loops of the bowel, status post pancreatic surgery, right nephrectomy, and partial colectomy, ascites, liver cirrhosis. Chest x-ray, cardiomegaly without acute process. EKG: Normal sinus rhythm at a rate of 76, nonspecific T waves. ASSESSMENT AND PLAN: 1. This is a 70-year-old female who recently underwent distal pancreatectomy and splenectomy, complicated by wound dehiscence requiring closure and readmission for fluid collection, abscess, status post drainage. Was discharged to [facility], comes back with some fever and increasing drainage from the abdominal surgical wound. [place] accepted in transfer, but awaiting bed. Meanwhile getting admitted to our hospital. . Abdominal surgical wound. The patient has lethargy,mostly encephalopathy from it. 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 Postoperative course complicated by fascial dehiscence requiring closure and also readmitted for possible pancreatic fistula and abscess formation, status post IR drainage and bacteremia with Proteus, treated with IV vancomycin and Zosyn for 10 days and discharged to [facility]. Again she comes back because of fevers and increasing drainage. Empirically started on cefepime, Flagyl and vancomycin. Hemodynamically stable currently. Lactic acid okay. [place] accepted in transfer, awaiting bed. Meanwhile, will monitor in the hospital. Placed on gentle fluids. 3. History of cirrhosis of liver with ascites. Currently, holding her diuretics. Getting gentle fluids and fluids from antibiotic. Monitor for any volume overload. 4. History of diabetes: Currently placed on Lantus 10 units b.i.d. and insulin sliding scale. Follow the blood sugars. 5. History of coronary artery disease, status post coronary artery bypass graft, currently holding aspirin and Plavix. Continue her propranolol. Currently asymptomatic. 6. Anemia, acute blood loss: Hemoccult positive. Hemoglobin was 6.4 on presentation and received 2 units of PRBCs. Repeat hemoglobin was 9.4. On Protonix drip, which will be continued.Follow labs 7. History of colon cancer, status post resection of the abdominal wall metastatic mass with abdominal wall reconstruction. 8. History of right renal mass: Status post nephrectomy. 9. History of esophageal varices: Currently on propranolol. 10. Hyperlipidemia: On statin. 11. Deep venous thrombosis prophylaxis: Sequential compression devices for now. DISPOSITION: Monitor in tele floor. Awaiting transfer to [place]. Level 1 full code. Job ID: [id number] [facility]
[2020-08-19] MEDS: PANTOprazole 40 MG in DEXTROSE 5% 100 ML IV SCH ×3 (02:55→13:23)
[2020-08-19] MEDS: metroNIDAZOLE 500 MG/100 ML BAG IV SCH ×2 (05:42→13:23)
[2020-08-19] MEDS: INSULIN ASPART 100 UNITS/ML 3 ML PEN SC SCH ×2 (05:52→12:29)
[2020-08-19 05:54] LABS: Basophils # (auto) 0.08 K/uL (0-0.2); Basophils % (auto) 0.6 %; Eosinophils # (auto) 0.22 K/uL (0-0.5); Eosinophils % (auto) 1.5 %; Hematocrit (blood only) 28.8 % (37-47); Hemoglobin 9.4 g/dL (12.0-16.0); Immature Granulocytes # (auto) 0.11 K/uL (0.00-0.02); Immature Granulocytes % (auto) 0.8 %; Lymphocytes # (auto) 2.51 K/uL (1.2-3.4); Lymphocytes % (auto) 17.6 %; Mean Corpuscular Hemoglobin 29.2 pg (25-34); Mean Corpuscular Hgb Conc 32.6 g/dL (32-36); Mean Corpuscular Volume 89.4 fL (80-100); Mean Platelet Volume 11.2 fL (7.4-10.4); Monocytes # (auto) 2.86 K/uL (0.11-0.59); Monocytes % (auto) 20.1 %; Neutrophils # (auto) 8.47 K/uL (1.4-6.5); Neutrophils % (auto) 59.4 %; Nucleated RBC # (auto) 0.31 K/uL (0-0); Nucleated RBC % (auto) 2.2 %; Platelet Count 395 K/uL (130-400); RDW Coefficient of Variation 16.6 % (11.5-14.5); RDW Standard Deviation 53.8 fL (36.4-46.3); Red Blood Count 3.22 M/uL (4.2-5.4); White Blood Count 14.25 K/uL (4.8-10.8)
--- NOTE | 2020-08-19 06:00 | Electrocardiogram Report ---
Test Reason : Blood Pressure : / mmHG Vent. Rate : 076 BPM Atrial Rate : 076 BPM P-R Int : 138 ms QRS Dur : 086 ms QT Int : 386 ms P-R-T Axes : 057 030 048 degrees QTc Int : 434 ms Normal sinus rhythm Low voltage QRS Borderline ECG When compared with ECG of 01-AUG-2020 14:10, Nonspecific T wave abnormality has improved Confirmed by Dlegado Zamorano ([id number]) on 08/19/2020 6:00:19 AM Referred By: Confirmed By:Delgado Zamorano
[2020-08-19 06:20] LABS: BUN Creatinine Ratio 38.8 (10-20); Calcium 8.1 mg/dl (8.5-10.1); Creatinine Clr Calc Pharmacy 72.5 ml/min; Est GFR (African American) 79.9 ml/min; Est GFR (Non-African American) 68.9 ml/min; Potassium 4.8 mmol/L (3.5-5.1)
[2020-08-19 06:25] LABS: Hypochromasia Present; Polychromasia 1+
[2020-08-19 07:44] LABS: Estimated Average Glucose 151 mg/dl; Hemoglobin A1C 6.9 % (4.5-5.6)
[2020-08-19] MEDS: DOCUSATE SODIUM 100 MG CAP PO SCH (08:53)
[2020-08-19] MEDS ORDERED: ATORVASTATIN 40 MG TAB PO SCH (09:00)
[2020-08-19] MEDS ORDERED: PROPRANOLOL HCL LA 80 MG CAPCR PO SCH (09:00)
[2020-08-19] MEDS ORDERED: CYANOCOBALAMIN 500 MCG TABLET (VITAMIN B-12) PO SCH (09:00)
[2020-08-19] MEDS ORDERED: FOLIC ACID 1 MG TAB PO SCH (09:00)
[2020-08-19] MEDS: ACETAMINOPHEN 325 MG TAB PO PRN ×2 (09:00→16:02)
[2020-08-19] MEDS ORDERED: CHOLECALCIFEROL 1,000 UNITS 25 MCG TAB PO SCH (09:00)
[2020-08-19] MEDS: INSULIN GLARGINE SOLOSTAR 100 UNITS/ML 3 ML PEN SC SCH (09:08)
[2020-08-19] MEDS ORDERED: CEFEPIME 2,000 MG in SYRINGE 0 ML IV SCH ×2 (10:00)
--- NOTE | 2020-08-19 10:04 | Hospitalist Progress Note ---
Date of Service August 19, 2020 Assessment & Plan (1) Sepsis: (2) Open abdominal wall wound: (3) Surgical wound, non healing: (4) GI bleed: (5) Anemia: This is a 70-year-old female who recently underwent distal pancreatectomy and splenectomy, complicated by wound dehiscence requiring closure and readmission for fluid collection, abscess, status post drainage. Was discharged to [facility], comes back with some fever and increasing drainage from the abdominal surgical wound. Joey accepted in transfer, but awaiting bed. Meanwhile getting admitted to our hospital. Concern for possible sepsis, POA Patient also found anemic, required 2 units of packed red blood cells in the emergency room, concern for GI bleed 1. Abdominal surgical wound. The patient has lethargy,mostly encephalopathy from it. 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 Postoperative course complicated by fascial dehiscence requiring closure and also readmitted for possible pancreatic fistula and abscess formation, status post IR drainage and bacteremia with Proteus, treated with IV vancomycin and Zosyn for 10 days and discharged to [facility]. Again she comes back because of fevers and increasing drainage. Empirically started on cefepime, Flagyl and vancomycin. Hemodynamically stable currently. Lactic acid okay. Joey accepted in transfer, awaiting bed. Meanwhile, will monitor in the hospital. Placed on gentle fluids. Mental status seems improved this morning. 3. History of cirrhosis of liver with ascites. Currently, holding her diuretic s. Getting gentle fluids and fluids from antibiotic. Monitor for any volume overload. 4. History of diabetes: Currently placed on Lantus 10 units b.i.d. and insulin sliding scale. Follow the blood sugars. 5. History of coronary artery disease, status post coronary artery bypass graft, currently holding aspirin and Plavix. Continue her propranolol. Currently asymptomatic. 6. Anemia, acute blood loss: Hemoccult positive. Hemoglobin was 6.4 on presentation and received 2 units of PRBCs. Repeat hemoglobin was 9.4. On Protonix drip, which will be continued.Follow labs 7. History of colon cancer, status post resection of the abdominal wall metastatic mass with abdominal wall reconstruction. 8. History of right renal mass: Status post nephrectomy. 9. History of esophageal varices: Currently on propranolol. 10. Hyperlipidemia: On statin. Deep venous thrombosis prophylaxis: Sequential compression devices for now. DISPOSITION: Monitor in tele floor. Awaiting transfer to [place]. Admission and Anticipated Discharge Date Admission Date: August 18, 2020 Subjective Patient seen in follow-up of postoperative abdominal wall wound, possible sepsis, Anemia, concern for GI bleed Patient had recent surgery in [facility], was supposed to be transferred from ER however due to lack of beds patient was admitted overnight currently laying in bed in no acute distress Denies any pain difficulty breathing or chest pain, no abdominal pain either Denies any dark stools Review of Systems Review of Systems: All systems reviewed & are unremarkable except as noted in HPI & below Physical Exam Physical Exam: GENERAL: obese elderly female in NAD HEENT: NC/AT,EOMI, Pupils equal, round and reactive to light. Oral mucosa moist. NECK: No JVD, no neck masses. CARDIOVASCULAR: S1, S2 heard. Regular rate and rhythm. No murmur, no gallop. RESPIRATORY: Normal AP diameter. No accessory muscle use. No wheezing, no crackles. ABDOMEN: Surgical dressing seen and the drain. No distention, no guarding, no rigidity. NEURO: alert and oriented and answering questions appropriately. No facial droop. Speech is clear. Moves extremities. EXTREMITIES: Pedal edema present, no erythema seen. Results & Data Results & Data ([facility]) Vital Signs (Past 12 Hours) Vital Signs Temp Pulse Pulse Resp BP Pulse Ox 08/19/20 08:05 36.8 C 68 20 146/59 H 96 08/19/20 03:46 36.8 C 65 20 112/72 95 08/19/20 00:19 64 08/18/20 23:02 36.3 C L 61 16 143/75 H 96 Laboratory Results 08/19/20 08/19/20 08/19/20 Range/Units 05:48 05:27 05:27 WBC (4.8-10.8) K/uL RBC (4.2-5.4) M/uL Hgb (12.0-16.0) g/dL Hct (37-47) % MCV (80-100) fL MCH (25-34) pg MCHC (32-36) g/dL RDW Std Deviation (36.4-46.3) fL RDW Coeff of Teresa (11.5-14.5) % Plt Count (130-400) K/uL MPV (7.4-10.4) fL Immature Gran % (Auto) % Neut % (Auto) % Lymph % (Auto) % Arthur % (Auto) % Eos % (Auto) % Baso % (Auto) % Neut # (Auto) (1.4-6.5) K/uL Lymph # (Auto) (1.2-3.4) K/uL Arthur # (Auto) (0.11-0.59) K/uL Eos # (Auto) (0-0.5) K/uL Baso # (Auto) (0-0.2) K/uL Immature Gran # (Auto) (0.00-0.02) K/uL Absolute Nucleated RBC (0-0) K/uL Nucleated RBC % (auto) % Polychromasia Hypochromasia PT INR APTT PTT Ratio Sodium 134 L (136-145) mmol/L Potassium 4.8 (3.5-5.1) mmol/L Chloride 105 (98-107) mmol/L Carbon Dioxide 25 (21-32) mmol/L Anion Gap 4.0 (3-11) BUN 33 H (7-18) mg/dl Creatinine 0.85 (0.6-1.2) mg/dl Est Cr Clr Drug Dosing 72.5 ml/min Est GFR ( Amer) 79.9 ml/min Est GFR (Non-Af Amer) 68.9 ml/min BUN/Creatinine Ratio 38.8 H (10-20) Glucose 188 H (70-99) mg/dl POC Glucose 199 H (70-99) mg/dl Estimat Average Glucose 151 mg/dl Hemoglobin A1c 6.9 H (4.5-5.6) % Lactate (0.4-2.0) mmol/L Calcium 8.1 L (8.5-10.1) mg/dl Magnesium 2.0 (1.8-2.4) mg/dl Total Bilirubin (0.2-1) mg/dl AST (15-37) U/L ALT (12-78) U/L Alkaline Phosphatase (45-117) U/L Troponin I (0-0.045) ng/ml Total Protein (6.4-8.2) gm/dl Albumin (3.4-5.0) gm/dl Globulin (2.5-4.0) gm/dl Albumin/Globulin Ratio (0.9-2) Procalcitonin (0-0.5) ng/ml Urine Color Urine Appearance (Clear) Urine pH (4.5-7.5) Ur Specific Walsh (1.000-1.030) Urine Protein (Negative) Urine Glucose (UA) (Negative) Urine Ketones (Negative) Urine Blood (Negative) Urine Nitrite (Negative) Urine Bilirubin (Negative) Urine Urobilinogen (Negative) Ur Leukocyte Esterase (Negative) POC Stool Occult Blood (Negative) COVID-19 Eval Order SARS-CoV-2, RNA, NAAT (NEGATIVE) Blood Type Antibody Screen Crossmatch 08/19/20 08/18/20 08/18/20 Range/Units 05:27 23:43 22:22 WBC 14.25 H (4.8-10.8) K/uL RBC 3.22 L (4.2-5.4) M/uL Hgb 9.4 L 9.4 L D (12.0-16.0) g/dL Hct 28.8 L 28.9 L (37-47) % MCV 89.4 (80-100) fL MCH 29.2 (25-34) pg MCHC 32.6 (32-36) g/dL RDW Std Deviation 53.8 H (36.4-46.3) fL RDW Coeff of Teresa 16.6 H (11.5-14.5) % Plt Count 395 (130-400) K/uL MPV 11.2 H (7.4-10.4) fL Immature Gran % (Auto) 0.8 % Neut % (Auto) 59.4 % Lymph % (Auto) 17.6 % Arthur % (Auto) 20.1 % Eos % (Auto) 1.5 % Baso % (Auto) 0.6 % Neut # (Auto) 8.47 H (1.4-6.5) K/uL Lymph # (Auto) 2.51 (1.2-3.4) K/uL Arthur # (Auto) 2.86 H (0.11-0.59) K/uL Eos # (Auto) 0.22 (0-0.5) K/uL Baso # (Auto) 0.08 (0-0.2) K/uL Immature Gran # (Auto) 0.11 H (0.00-0.02) K/uL Absolute Nucleated RBC 0.31 H (0-0) K/uL Nucleated RBC % (auto) 2.2 % Polychromasia 1+ Hypochromasia Present PT INR APTT PTT Ratio Sodium (136-145) mmol/L Potassium (3.5-5.1) mmol/L Chloride (98-107) mmol/L Carbon Dioxide (21-32) mmol/L Anion Gap (3-11) BUN (7-18) mg/dl Creatinine (0.6-1.2) mg/dl Est Cr Clr Drug Dosing ml/min Est GFR ( Amer) ml/min Est GFR (Non-Af Amer) ml/min BUN/Creatinine Ratio (10-20) Glucose (70-99) mg/dl POC Glucose 217 H (70-99) mg/dl Estimat Average Glucose mg/dl Hemoglobin A1c (4.5-5.6) % Lactate (0.4-2.0) mmol/L Calcium (8.5-10.1) mg/dl Magnesium (1.8-2.4) mg/dl Total Bilirubin (0.2-1) mg/dl AST (15-37) U/L ALT (12-78) U/L Alkaline Phosphatase (45-117) U/L Troponin I (0-0.045) ng/ml Total Protein (6.4-8.2) gm/dl Albumin (3.4-5.0) gm/dl Globulin (2.5-4.0) gm/dl Albumin/Globulin Ratio (0.9-2) Procalcitonin (0-0.5) ng/ml Urine Color Urine Appearance (Clear) Urine pH (4.5-7.5) Ur Specific Walsh (1.000-1.030) Urine Protein (Negative) Urine Glucose (UA) (Negative) Urine Ketones (Negative) Urine Blood (Negative) Urine Nitrite (Negative) Urine Bilirubin (Negative) Urine Urobilinogen (Negative) Ur Leukocyte Esterase (Negative) POC Stool Occult Blood (Negative) COVID-19 Eval Order SARS-CoV-2, RNA, NAAT (NEGATIVE) Blood Type Antibody Screen Crossmatch 07/08/21 07/08/21 07/08/21 Range/Units 21:47 15:50 15:18 WBC (4.8-10.8) K/uL RBC (4.2-5.4) M/uL Hgb (12.0-16.0) g/dL Hct (37-47) % MCV (80-100) fL MCH (25-34) pg MCHC (32-36) g/dL RDW Std Deviation (36.4-46.3) fL RDW Coeff of Teresa (11.5-14.5) % Plt Count (130-400) K/uL MPV (7.4-10.4) fL Immature Gran % (Auto) % Neut % (Auto) % Lymph % (Auto) % Arthur % (Auto) % Eos % (Auto) % Baso % (Auto) % Neut # (Auto) (1.4-6.5) K/uL Lymph # (Auto) (1.2-3.4) K/uL Arthur # (Auto) (0.11-0.59) K/uL Eos # (Auto) (0-0.5) K/uL Baso # (Auto) (0-0.2) K/uL Immature Gran # (Auto) (0.00-0.02) K/uL Absolute Nucleated RBC (0-0) K/uL Nucleated RBC % (auto) % Polychromasia Hypochromasia PT INR APTT PTT Ratio Sodium (136-145) mmol/L Potassium (3.5-5.1) mmol/L Chloride (98-107) mmol/L Carbon Dioxide (21-32) mmol/L Anion Gap (3-11) BUN (7-18) mg/dl Creatinine (0.6-1.2) mg/dl Est Cr Clr Drug Dosing ml/min Est GFR ( Amer) ml/min Est GFR (Non-Af Amer) ml/min BUN/Creatinine Ratio (10-20) Glucose (70-99) mg/dl POC Glucose 216 H (70-99) mg/dl Estimat Average Glucose mg/dl Hemoglobin A1c (4.5-5.6) % Lactate 1.6 (0.4-2.0) mmol/L Calcium (8.5-10.1) mg/dl Magnesium (1.8-2.4) mg/dl Total Bilirubin (0.2-1) mg/dl AST (15-37) U/L ALT (12-78) U/L Alkaline Phosphatase (45-117) U/L Troponin I (0-0.045) ng/ml Total Protein (6.4-8.2) gm/dl Albumin (3.4-5.0) gm/dl Globulin (2.5-4.0) gm/dl Albumin/Globulin Ratio (0.9-2) Procalcitonin (0-0.5) ng/ml Urine Color Urine Appearance (Clear) Urine pH (4.5-7.5) Ur Specific Walsh (1.000-1.030) Urine Protein (Negative) Urine Glucose (UA) (Negative) Urine Ketones (Negative) Urine Blood (Negative) Urine Nitrite (Negative) Urine Bilirubin (Negative) Urine Urobilinogen (Negative) Ur Leukocyte Esterase (Negative) POC Stool Occult Blood Positive A (Negative) COVID-19 Eval Order SARS-CoV-2, RNA, NAAT (NEGATIVE) Blood Type Antibody Screen Crossmatch 08/18/20 08/18/20 08/18/20 Range/Units 12:37 12:32 12:01 WBC (4.8-10.8) K/uL RBC (4.2-5.4) M/uL Hgb (12.0-16.0) g/dL Hct (37-47) % MCV (80-100) fL MCH (25-34) pg MCHC (32-36) g/dL RDW Std Deviation (36.4-46.3) fL RDW Coeff of Teresa (11.5-14.5) % Plt Count (130-400) K/uL MPV (7.4-10.4) fL Immature Gran % (Auto) % Neut % (Auto) % Lymph % (Auto) % Arthur % (Auto) % Eos % (Auto) % Baso % (Auto) % Neut # (Auto) (1.4-6.5) K/uL Lymph # (Auto) (1.2-3.4) K/uL Arthur # (Auto) (0.11-0.59) K/uL Eos # (Auto) (0-0.5) K/uL Baso # (Auto) (0-0.2) K/uL Immature Gran # (Auto) (0.00-0.02) K/uL Absolute Nucleated RBC (0-0) K/uL Nucleated RBC % (auto) % Polychromasia Hypochromasia PT 11.7 INR 1.2 H APTT 22.2 PTT Ratio 0.8 Sodium (136-145) mmol/L Potassium (3.5-5.1) mmol/L Chloride (98-107) mmol/L Carbon Dioxide (21-32) mmol/L Anion Gap (3-11) BUN (7-18) mg/dl Creatinine (0.6-1.2) mg/dl Est Cr Clr Drug Dosing ml/min Est GFR ( Amer) ml/min Est GFR (Non-Af Amer) ml/min BUN/Creatinine Ratio (10-20) Glucose (70-99) mg/dl POC Glucose (70-99) mg/dl Estimat Average Glucose mg/dl Hemoglobin A1c (4.5-5.6) % Lactate (0.4-2.0) mmol/L Calcium (8.5-10.1) mg/dl Magnesium (1.8-2.4) mg/dl Total Bilirubin (0.2-1) mg/dl AST (15-37) U/L ALT (12-78) U/L Alkaline Phosphatase (45-117) U/L Troponin I (0-0.045) ng/ml Total Protein (6.4-8.2) gm/dl Albumin (3.4-5.0) gm/dl Globulin (2.5-4.0) gm/dl Albumin/Globulin Ratio (0.9-2) Procalcitonin (0-0.5) ng/ml Urine Color Yellow Urine Appearance Clear (Clear) Urine pH 6.5 (4.5-7.5) Ur Specific Walsh 1.028 (1.000-1.030) Urine Protein Negative (Negative) Urine Glucose (UA) Negative (Negative) Urine Ketones Negative (Negative) Urine Blood Negative (Negative) Urine Nitrite Negative (Negative) Urine Bilirubin Negative (Negative) Urine Urobilinogen Negative (Negative) Ur Leukocyte Esterase Negative (Negative) POC Stool Occult Blood (Negative) COVID-19 Eval Order SARS-CoV-2, RNA, NAAT NEGATIVE (NEGATIVE) Blood Type Antibody Screen Crossmatch 08/18/20 08/18/20 08/18/20 Range/Units 12:01 11:44 11:44 WBC (4.8-10.8) K/uL RBC (4.2-5.4) M/uL Hgb (12.0-16.0) g/dL Hct (37-47) % MCV (80-100) fL MCH (25-34) pg MCHC (32-36) g/dL RDW Std Deviation (36.4-46.3) fL RDW Coeff of Teresa (11.5-14.5) % Plt Count (130-400) K/uL MPV (7.4-10.4) fL Immature Gran % (Auto) % Neut % (Auto) % Lymph % (Auto) % Arthur % (Auto) % Eos % (Auto) % Baso % (Auto) % Neut # (Auto) (1.4-6.5) K/uL Lymph # (Auto) (1.2-3.4) K/uL Arthur # (Auto) (0.11-0.59) K/uL Eos # (Auto) (0-0.5) K/uL Baso # (Auto) (0-0.2) K/uL Immature Gran # (Auto) (0.00-0.02) K/uL Absolute Nucleated RBC (0-0) K/uL Nucleated RBC % (auto) % Polychromasia Hypochromasia PT INR APTT PTT Ratio Sodium (136-145) mmol/L Potassium (3.5-5.1) mmol/L Chloride (98-107) mmol/L Carbon Dioxide (21-32) mmol/L Anion Gap (3-11) BUN (7-18) mg/dl Creatinine (0.6-1.2) mg/dl Est Cr Clr Drug Dosing ml/min Est GFR ( Amer) ml/min Est GFR (Non-Af Amer) ml/min BUN/Creatinine Ratio (10-20) Glucose (70-99) mg/dl POC Glucose (70-99) mg/dl Estimat Average Glucose mg/dl Hemoglobin A1c (4.5-5.6) % Lactate 2.2 H* (0.4-2.0) mmol/L Calcium (8.5-10.1) mg/dl Magnesium (1.8-2.4) mg/dl Total Bilirubin (0.2-1) mg/dl AST (15-37) U/L ALT (12-78) U/L Alkaline Phosphatase (45-117) U/L Troponin I (0-0.045) ng/ml Total Protein (6.4-8.2) gm/dl Albumin (3.4-5.0) gm/dl Globulin (2.5-4.0) gm/dl Albumin/Globulin Ratio (0.9-2) Procalcitonin 1.02 H (0-0.5) ng/ml Urine Color Urine Appearance (Clear) Urine pH (4.5-7.5) Ur Specific Walsh (1.000-1.030) Urine Protein (Negative) Urine Glucose (UA) (Negative) Urine Ketones (Negative) Urine Blood (Negative) Urine Nitrite (Negative) Urine Bilirubin (Negative) Urine Urobilinogen (Negative) Ur Leukocyte Esterase (Negative) POC Stool Occult Blood (Negative) COVID-19 Eval Order Covid19 IDNow atMTNC SARS-CoV-2, RNA, NAAT (NEGATIVE) Blood Type Antibody Screen Crossmatch 08/18/20 08/18/20 08/18/20 Range/Units 11:44 11:44 11:44 WBC 17.99 H (4.8-10.8) K/uL RBC 2.30 L (4.2-5.4) M/uL Hgb 6.4 L* (12.0-16.0) g/dL Hct 21.2 L (37-47) % MCV 92.2 (80-100) fL MCH 27.8 (25-34) pg MCHC 30.2 L (32-36) g/dL RDW Std Deviation 51.8 H (36.4-46.3) fL RDW Coeff of Teresa 15.5 H (11.5-14.5) % Plt Count 491 H (130-400) K/uL MPV 11.0 H (7.4-10.4) fL Immature Gran % (Auto) 0.8 % Neut % (Auto) 62.2 % Lymph % (Auto) 19.8 % Arthur % (Auto) 16.5 % Eos % (Auto) 0.1 % Baso % (Auto) 0.6 % Neut # (Auto) 11.20 H (1.4-6.5) K/uL Lymph # (Auto) 3.56 H (1.2-3.4) K/uL Arthur # (Auto) 2.97 H (0.11-0.59) K/uL Eos # (Auto) 0.02 (0-0.5) K/uL Baso # (Auto) 0.10 (0-0.2) K/uL Immature Gran # (Auto) 0.14 H (0.00-0.02) K/uL Absolute Nucleated RBC 0.19 H (0-0) K/uL Nucleated RBC % (auto) 1.0 % Polychromasia 1+ Hypochromasia PT Cancelled INR Cancelled APTT Cancelled PTT Ratio Cancelled Sodium 131 L (136-145) mmol/L Potassium 5.1 (3.5-5.1) mmol/L Chloride 99 (98-107) mmol/L Carbon Dioxide 25 (21-32) mmol/L Anion Gap 7.0 (3-11) BUN 44 H (7-18) mg/dl Creatinine 1.00 (0.6-1.2) mg/dl Est Cr Clr Drug Dosing 46.4 ml/min Est GFR ( Amer) 65.6 ml/min Est GFR (Non-Af Amer) 56.6 ml/min BUN/Creatinine Ratio 44.4 H (10-20) Glucose 241 H (70-99) mg/dl POC Glucose (70-99) mg/dl Estimat Average Glucose mg/dl Hemoglobin A1c (4.5-5.6) % Lactate (0.4-2.0) mmol/L Calcium 8.8 (8.5-10.1) mg/dl Magnesium 2.0 (1.8-2.4) mg/dl Total Bilirubin 0.3 (0.2-1) mg/dl AST 75 H (15-37) U/L ALT 57 (12-78) U/L Alkaline Phosphatase 197 H (45-117) U/L Troponin I < 0.015 (0-0.045) ng/ml Total Protein 6.3 L (6.4-8.2) gm/dl Albumin 1.5 L (3.4-5.0) gm/dl Globulin 4.8 H (2.5-4.0) gm/dl Albumin/Globulin Ratio 0.3 L (0.9-2) Procalcitonin (0-0.5) ng/ml Urine Color Urine Appearance (Clear) Urine pH (4.5-7.5) Ur Specific Walsh (1.000-1.030) Urine Protein (Negative) Urine Glucose (UA) (Negative) Urine Ketones (Negative) Urine Blood (Negative) Urine Nitrite (Negative) Urine Bilirubin (Negative) Urine Urobilinogen (Negative) Ur Leukocyte Esterase (Negative) POC Stool Occult Blood (Negative) COVID-19 Eval Order SARS-CoV-2, RNA, NAAT (NEGATIVE) Blood Type Antibody Screen Crossmatch 08/18/20 Range/Units 11:44 WBC (4.8-10.8) K/uL RBC (4.2-5.4) M/uL Hgb (12.0-16.0) g/dL Hct (37-47) % MCV (80-100) fL MCH (25-34) pg MCHC (32-36) g/dL RDW Std Deviation (36.4-46.3) fL RDW Coeff of Teresa (11.5-14.5) % Plt Count (130-400) K/uL MPV (7.4-10.4) fL Immature Gran % (Auto) % Neut % (Auto) % Lymph % (Auto) % Arthur % (Auto) % Eos % (Auto) % Baso % (Auto) % Neut # (Auto) (1.4-6.5) K/uL Lymph # (Auto) (1.2-3.4) K/uL Arthur # (Auto) (0.11-0.59) K/uL Eos # (Auto) (0-0.5) K/uL Baso # (Auto) (0-0.2) K/uL Immature Gran # (Auto) (0.00-0.02) K/uL Absolute Nucleated RBC (0-0) K/uL Nucleated RBC % (auto) % Polychromasia Hypochromasia PT INR APTT PTT Ratio Sodium (136-145) mmol/L Potassium (3.5-5.1) mmol/L Chloride (98-107) mmol/L Carbon Dioxide (21-32) mmol/L Anion Gap (3-11) BUN (7-18) mg/dl Creatinine (0.6-1.2) mg/dl Est Cr Clr Drug Dosing ml/min Est GFR ( Amer) ml/min Est GFR (Non-Af Amer) ml/min BUN/Creatinine Ratio (10-20) Glucose (70-99) mg/dl POC Glucose (70-99) mg/dl Estimat Average Glucose mg/dl Hemoglobin A1c (4.5-5.6) % Lactate (0.4-2.0) mmol/L Calcium (8.5-10.1) mg/dl Magnesium (1.8-2.4) mg/dl Total Bilirubin (0.2-1) mg/dl AST (15-37) U/L ALT (12-78) U/L Alkaline Phosphatase (45-117) U/L Troponin I (0-0.045) ng/ml Total Protein (6.4-8.2) gm/dl Albumin (3.4-5.0) gm/dl Globulin (2.5-4.0) gm/dl Albumin/Globulin Ratio (0.9-2) Procalcitonin (0-0.5) ng/ml Urine Color Urine Appearance (Clear) Urine pH (4.5-7.5) Ur Specific Walsh (1.000-1.030) Urine Protein (Negative) Urine Glucose (UA) (Negative) Urine Ketones (Negative) Urine Blood (Negative) Urine Nitrite (Negative) Urine Bilirubin (Negative) Urine Urobilinogen (Negative) Ur Leukocyte Esterase (Negative) POC Stool Occult Blood (Negative) COVID-19 Eval Order SARS-CoV-2, RNA, NAAT (NEGATIVE) Blood Type O Positive Antibody Screen NEGATIVE Crossmatch See Detail (1) Sepsis Sepsis acute organ dysfunction status: unspecified Sepsis type: sepsis due to unspecified organism Qualified Code(s): A41.9 - Sepsis, unspecified organism (2) Open abdominal wall wound Encounter type: initial encounter Qualified Code(s): S31.109A - Unspecified open wound of abdominal wall, unspecified quadrant without penetration into peritoneal cavity, initial encounter (3) GI bleed GI bleed type/associated pathology: melena Qualified Code(s): K92.1 - Melena (4) Anemia Anemia type: unspecified type Qualified Code(s): D64.9 - Anemia, unspecified
[2020-08-19] MEDS ORDERED: VANCOMYCIN HCL 1,250 MG in SODIUM CHLORIDE 0.9% 250 ML IV SCH (18:00)
--- NOTE | 2020-08-19 22:22 | Discharge Summary ---
Date of Service August 19, 2020 Admission HPI Per Admitting Provider This is a 70-year-old female with past medical history significant for type 2 diabetes, pancreatic fistula, cystic mass of pancreas, hypertension, CAD status post CABG, secondary esophageal varices, cirrhosis of liver with ascites, moderate malnutrition, GERD, malignant neoplasm of hepatic flexure, gastrointestinal hemorrhage associated with duodenal ulcer, obesity, osteoporosis, anemia due to chronic blood loss, metastatic colon cancer,status post nephrectomy, history of metformin adverse reaction. 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 She underwent open distal pancreatectomy and splenectomy on 07/13/2020 and postoperative course was complicated by fascial dehiscence requiring closure on 07/22/2020. She was discharged from [facility] on 07/25/2020. It looks like after discharge, she was extremely lethargic and at home her and home health nurses performed her dressing changes and when her drainage from her wound became excessive and also because of lethargy, she was brought to [facility] [address] where she was treated with Zosyn, daptomycin, and CAT scan is showing fluid filled collection within the lesser sac measuring 8.1 cm, there is a surgical drain with it, and also peripheral enhancing intraabdominal collection abutting the anterior abdominal wall measuring 11.2 x 9.2 cm consistent with abscess. She was then transferred to [facility] for further care. At that time, she was also hyponatremic. At [facility], ID was consulted and also source controlled with IR- guided drainage, treated with vancomycin and Zosyn. GI was consulted and she was status post ERCP, pancreatic sphincterectomy, and stent placement in the ventral pancreatic duct to decrease the fluid collection in the lesser sac due to the pancreatic leak, which was found. An NG was placed past the leak at the time of the ERCP and in the hospital she required IV insulin drip. She also had a positive blood culture which grew Proteus and she was continued on vancomycin and Zosyn for 10 days total and during the period of her stay she also was on PPN, TPN for nutritional support. By 08/17/2020, she was tolerating Boost protein supplements and she was discharged to [facility] for further rehabilitation. At [facility], blood work showed some anemia and also the patient today had concerns of fever and worsening drainage from the drain,, and she was transported here. Here her hemoglobin was found to be 6.4. She has received 2 units of PRBC so far and the ER physician talked to Dr. Alexandra of general surgery at [facility] who accepted the patient for transfer, for further evaluation and treatment, but there were no beds available today, so [facility] and said to admit here overnight and possible transfer tomorrow to [place]. Her Hemoccult was also positive here. Currently, the patient is sleepy, but answering questions appropriately. She knows that she is in the [facility], awaiting transfer to [place]. The patient states she did not eat anything yesterday and today. Before that, she had Boost and also was able to eat some sandwich. Denies any abdominal pain currently. Denies any chest pain, no shortness of breath, no cough, no headache, no blurred visions, no nausea, no vomiting. She says she is moving her bowels okay. She is on Vital catheter now. She is currently not ambulating. Currently, hemodynamically stable. Received cefepime, Flagyl and vancomycin in the ER. Her white count is elevated at 17.9, hemoglobin was 6.4, after 2 of PRBCs is 9.4 now. Procalcitonin is 1.02. Urinalysis negative. SARS-CoV-2 negative. Admission Exam Per Admitting Provider GENERAL: Patient is somewhat drowsy, but alert and oriented. VITAL SIGNS: Temperature 36.3, pulse 61, respiratory rate 16, blood pressure 143/75, oxygen 96% on room air. HEENT: Pupils equal, round and reactive to light. Oral mucosa moist. NECK: No JVD, no neck masses. CARDIOVASCULAR: S1, S2 heard. Regular rate and rhythm. No murmur, no gallop. RESPIRATORY: Normal AP diameter. No accessory muscle use. No wheezing, no crackles. ABDOMEN: Surgical dressing seen and the drain. No distention, no guarding, no rigidity. CENTRAL NERVOUS SYSTEM: Somewhat drowsy, but alert and oriented. No facial droop. Speech is clear. Obeys simple commands. Moves extremities. EXTREMITIES: Pedal edema present, no erythema seen. Principal Diagnosis Postoperative abdominal wound, possible sepsis Anemia, concern for GI bleed Discharge Exam GENERAL: obese elderly female in [facility] HEENT: NC/AT,EOMI, Pupils equal, round and reactive to light. Oral mucosa moist. NECK: No JVD, no neck masses. CARDIOVASCULAR: S1, S2 heard. Regular rate and rhythm. No murmur, no gallop. RESPIRATORY: Normal AP diameter. No accessory muscle use. No wheezing, no crackles. ABDOMEN: Surgical dressing seen and the drain. No distention, no guarding, no rigidity. NEURO: alert and oriented and answering questions appropriately. No facial droop. Speech is clear. Moves extremities. EXTREMITIES: Pedal edema present, no erythema seen. Discharge Data Allergies Allergy/AdvReac Type Severity Reaction Status Date / Time No Known Allergies Allergy Verified 08/18/20 13:45 Consultations 08/18/20 19:26 ED Decision to Admit Stat Ordered Studies 08/18/20 11:11 CT abd pelvis IV con only Stat IMPRESSION: 1. Redemonstration of large abdominal wall wound/diastases. Mild prominence of fluid collection within the wound which appear to be slightly encapsulated and interval decrease in amount of gas within surrounding soft tissue. Previously seen intraperitoneal extension of the gas from the abdominal wound is no longer visualized. 2. Mild interval decrease in hypoattenuating collection within the anatomical region of pancreatic body and left upper quadrant. Stable position of left-sided mid abdominal approach surgical drainage. 3. Nondilated loops of bowel. 4. Status post pancreatic surgery, right nephrectomy and partial colectomy. 5. Ascites. 6. Liver cirrhosis 7. Additional findings as detailed above. Hospital Course (1) Sepsis: (2) Open abdominal wall wound: (3) Surgical wound, non healing: (4) GI bleed: (5) Anemia: This is a 70-year-old female who recently underwent distal pancreatectomy and splenectomy, complicated by wound dehiscence requiring closure and readmission for fluid collection, abscess, status post drainage. Was discharged to [facility], comes back with some fever and increasing drainage from the abdominal surgical wound. [place] accepted in transfer, but awaiting bed. Meanwhile getting admitted to our hospital. Concern for possible sepsis, POA Patient also found anemic, required 2 units of packed red blood cells in the emergency room, concern for GI bleed 1. Abdominal surgical wound. The patient has lethargy,mostly encephalopathy from it. 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 Postoperative course complicated by fascial dehiscence requiring closure and also readmitted for possible pancreatic fistula and abscess formation, status post IR drainage and bacteremia with Proteus, treated with IV vancomycin and Zosyn for [address] [facility]. Again she comes back because of fevers and increasing drainage. Empirically started on cefepime, Flagyl and vancomycin. Hemodynamically stable currently. Lactic acid okay. [place] accepted in transfer, awaiting bed. Meanwhile, will monitor in the hospital. Placed on gentle fluids. Mental status seems improved this morning. 3. History of cirrhosis of liver with ascites. Currently, holding her diuretics. Getting gentle fluids and fluids from antibiotic. Monitor for any volume overload. 4. History of diabetes: Currently placed on Lantus 10 units b.i.d. and insulin sliding scale. Follow the blood sugars. 5. History of coronary artery disease, status post coronary artery bypass graft, currently holding aspirin and Plavix. Continue her propranolol. Currently asymptomatic. 6. Anemia, acute blood loss: Hemoccult positive. Hemoglobin was 6.4 on presentation and received 2 units of PRBCs. Repeat hemoglobin was 9.4. On Protonix drip, which will be continued.Follow labs 7. History of colon cancer, status post resection of the abdominal wall metastatic mass with abdominal wall reconstruction. 8. History of right renal mass: Status post nephrectomy. 9. History of esophageal varices: Currently on propranolol. 10. Hyperlipidemia: On statin. Deep venous thrombosis prophylaxis: Sequential compression devices for now. DISPOSITION: Monitor in tele floor. Plan to transfer to [facility]. Total Time Total Time Spent Total Time Spent (In Minutes): 35 Total Time Includes: Examination of the Patient, Discharge Planning, Medication Reconciliation and Communication With Other Providers Discharge Plan Discharge Items Patient Disposition: Transfer Acute Care Hospital Reason For Visit: ABNORMAL LABS, ABDOMINAL DRAINAGE Discharge Diagnosis: Postoperative abdominal wound, possible sepsis Anemia, concern for GI bleed Activity: Per Instructions section Non-emergency contact: Surgeon Call non-emergency contact if: you have any medication questions and your symptoms worsen Follow-up/Referrals: Zo Bhatt DO [Primary Care Provider] - Diet: Nothing by Mouth Addtl Attending Provider Instructions: Patient presents with postoperative abdominal wound, possible sepsis. Anemia with concern of GI bleed. Received 2 units of packed red blood cells in the emergency room. Currently on IV PPI, and IV broad-spectrum antibiotics. Recent surgery at [facility], and patient to be transferred back to [facility] in [place] for further care. Pending Studies at Discharge: No Stand-Alone Forms: My [facility] Skilled Items Patient informed of condition?: Yes DNR: No Discharge Level of Care: Other Communicable Disease: No Discharge Prognosis: Other Lines: Peripheral IV Urinary Catheter: Yes Medications and DC Order Prescriptions: Continued echinacea 500 mg capsule 500 mg PO Q OTHER DAY RF: 0 ondansetron 4 mg film 4 mg PO Q8H PRN (Reason: nausea and vomiting) RF: 0 Rhopressa 0.02 % drops 1 drops OP QPM RF: 0 spironolactone [Aldactone] 100 mg tablet 100 mg PO QAM RF: 0 cyanocobalamin (vitamin B-12) [Vitamin B-12] 1,000 mcg Tablet 1,000 mcg PO QAM RF: 0 garlic 1,000 mg Capsule 1,000 mg PO QAM RF: 0 calcium carbonate [Calcium 600] 600 mg calcium (1,500 mg) Tablet 600 mg PO QPM RF: 0 fluticasone propionate [Flonase Allergy Relief] 50 mcg/actuation [place],Suspension 2 spray INTRANASAL PM RF: 0 vitamin E 400 unit Capsule 400 unit PO QAM RF: 0 cholecalciferol (vitamin D3) [Vitamin D3] 25 mcg (1,000 unit) Tablet 25 mcg PO QAM RF: 0 docusate sodium 100 mg Tablet 100 mg PO BID RF: 0 folic acid 1 mg tablet 1 mg PO QAM RF: 0 Novolog U-100 Insulin aspart 100 unit/mL solution 20 unit SUBCUT TIDM RF: 0 Basaglar KwikPen U-100 Insulin 100 unit/mL (3 mL) insulin pen 44 units SUBCUT BID RF: 0 atorvastatin 40 mg tablet 40 mg PO QAM RF: 0 propranolol 80 mg capsule,extended release 24 hr 80 mg PO QAM RF: 0 furosemide 20 mg tablet 40 mg PO QAM RF: 0 sennosides [senna] 8.6 mg Tablet 8.6 mg PO DAILY PRN (Reason: Constipation) RF: 0 clopidogrel 75 mg tablet 75 mg PO QAM RF: 0 aspirin 81 mg Tablet,Delayed Release (Dr/Ec) 81 mg PO PM RF: 0 magnesium hydroxide [Milk of Magnesia] 400 mg/5 mL Suspension 30 ml PO DAILY PRN (Reason: Constipation) RF: 0 ginkgo biloba 60 mg Tablet 60 mg PO QAM RF: 0 nitroglycerin 0.4 mg Tablet, Sublingual 0.4 mg sublingual Q5M MDD up to 3 tabs in 15 mins PRN (Reason: Chest Pain) RF: 0 oxycodone 5 mg tablet 5 mg PO Q4H PRN (Reason: Pain) RF: 0 Discharge Orders: Discharge Order (Routine); Ordered 08/19/20 Ordered By: David Jackman Admission Data Admit Date/Time: 08/18/20 20:26 Attending Provider: David Jackman Admit Provider: Guru Jenkins Primary Care Provider: Zo Bhatt Other Providers: Guru Jenkins Other Interventions: Discharge Summary Assessment (RN) Last Done: 08/19/20 17:24
[2020-08-20] MEDS ORDERED: VANCOMYCIN TROUGH ONE ×2 (09:30→12:30)
== END 2020-08-19 17:45 | disposition short-term general hospital (02) | DRG 872 ==
LOC: ED 10:41 → 2S 20:26

== ENCOUNTER 2020-08-31 09:38 | Inpatient (IN) ==
[2020-08-31] MEDS ORDERED: PANTOprazole 40 MG in SYRINGE 0 ML IV ONE (09:43)
[2020-08-31] MEDS ORDERED: FAMOTIDINE 20MG/5ML IV PUSH IV STA (09:43)
[2020-08-31] MEDS ORDERED: SODIUM CHLORIDE 0.9% 250 ML IV PRN (09:51)
--- NOTE | 2020-08-31 10:00 | Emergency Department Note ---
Impression & Plan Acute upper gastrointestinal bleeding, Weakness, Anemia ED Provider Note NAME: ODILIA SWANN AGE: 70 SEX: F : 1950 ARRIVES VIA: Ambulance INFORMANT: Patient, EMS ED PROVIDER(S): Samuel Javed DO CHIEF COMPLAINT: GI bleeding HPI: The patient is a 70-year-old female who presented to the emergency department by ambulance for evaluation of GI bleeding. The patient had recent abdominal surgery. 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 She was admitted to our facility but then transferred to [facility]. She was transferred back to [facility] for rehab 3 days ago. She returns to the emergency department today because of low hemoglobin. She has been complaining of generalized weakness and swelling. She is also been complaining of dark stools over the last 24 hours. The patient herself states that she has no abdominal pain at this time. She does take Lovenox for DVT prophylaxis but also is on Plavix for a cardiac condition. She denies having any vomiting. She denies having any headache or chest pain. The patient was not seen by provider to the best of her knowledge but was sent to the emergency department because the abnormal labs. ROS: See above HPI for pertinent positives & negatives. A total of 10 systems reviewed and were otherwise negative. PAST MEDICAL HISTORY: See Below PAST SURGICAL HISTORY: See Below FAMILY HISTORY: See Below SOCIAL HISTORY: See Below HOME MEDICATIONS: See Below ALLERGIES: See Below VITALS: See Below PHYSICAL EXAMINATION: Patient is awake alert in no acute distress patient is resting comfortably and showing no signs of anxiety EYES: The conjunctivae are clear. The pupils are round and reactive. EARS, NOSE, MOUTH AND THROAT: The nose is without any evidence of any deformity NECK: The neck is nontender and supple. RESPIRATORY: Normal respiratory effort is noted there is no evidence of wheezing rhonchi or rales CARDIOVASCULAR: Regular rate and rhythm noted there no murmurs rubs or gallops normal S1 normal S2. GASTROINTESTINAL: The abdomen is soft and moderately distended. Abdominal wound is noted. There is packing in the superior portion of the wound. Abdominal retention sutures are still noted. There was no drainage or dehiscence. There is tenderness over the abdominal incision however there is no guarding or rigidity. Rectal exam revealed dark stool which was strongly heme positive. MUSCULOSKELETAL/EXTREMITIES: There is no evidence of gross deformity full range of motion is noted in the hips and shoulders. SKIN: Pedal edema was noted bilaterally. NEUROLOGIC: Patient is awake alert and oriented x3. MEDICAL DECISION MAKING: The patient is a 70-year-old female who presented to the emergency department for an evaluation of low hemoglobin. The patient is status post hemicolectomy with nephrectomy and pancreatectomy. She has a history of metastatic cancer. She had surgery at [facility] and was discharged from their facility back to inpatient rehab 3 days ago. She started having weakness and had outpatient labs which revealed a very low hemoglobin. The patient was sent to the emergency department today because of low hemoglobin. She was found to have signs of a GI bleed on physical exam. The patient was given a blood transfusion in the emergency department. I discussed the patient's laboratory and radiographic studies with her. She was also treated with IV antibiotics. I consented the patient for blood transfusion. I initially discussed her case with the [facility] hospitalist group. They recommended that we discussed the case with [facility] given her recent surgery and discharge. I did discuss the patient's case with her primary surgeon. At this time he does not feel the patient would require transfer back to [facility]. I discussed the case with the [facility] gastroenterology. They were able to follow in consultation if needed. I then talked to the [facility] hospitalist again and they agreed to evaluate the patient in the emergency department for further management and disposition. Triage Nursing notes reviewed. Prior medical records reviewed Vital Signs: reviewed and remarkable for no significant abnormalities Differential diagnosis: Diverticulosis, AVM, coagulopathy, colitis, inflammatory bowel disease, malignancy, Gloria-Fields tear, esophagitis, peptic ulcer disease, variceal bleed, gastritis, epistaxis, fissure, hemorrhoids, as well as other pathologies. ER treatment provided: See below Diagnostics interpreted by me: ECG: EKG was obtained in the emergency department. My interpretation is normal sinus rhythm at 80 bpm. There is no ectopy. There is no acute ST segment abnormalities noted. This was compared to a tracing from August 182020. No significant changes were noted. Cardiac Monitoring: An order was placed for continuous cardiac monitoring. The monitor shows a rate of 69 bpm with sinus rhythm. Laboratory studies: As stated above and show below. Imaging studies: See below Consultation(s): 1345: I discussed this case with Dottie who is on-call for the [facility] hospitalist group. They recommend transfer for further management and disposition. 1415: I discussed this case with Dr. Solis. He does recommend that we discussed this case with our GI physician to see if they are willing to follow along. 1450: I discussed this case with Ildefonso who is on-call for [facility] gastroenterology. 1500: I discussed this case with Dottie who is on-call for the [facility] hospitalist group again they will evaluate the patient in the emergency department. ED COURSE: Procedures: none PDMP:reviewed and no issues Critical Care: I have personally spent greater than 65 minutes of critical care time in the direct management of this patient. This includes bedside care, interpretation of diagnostic studies, and testing, discussion with consultants, patient, and family members, and other required patient management activities. This 65 minutes is in excess of all separately billable procedures. Past Med/Surg History Medical History CAD (coronary artery disease) Cirrhosis of liver Diabetes Flesh-eating bacteria right kidney four to five years ago as per pt GERD (gastroesophageal reflux disease) Glaucoma H/O colon cancer, stage IV Hyperlipidemia Hypertension Infection left arm - IV infiltration MRSA (methicillin resistant Staphylococcus aureus) abdomen - Peritoneal fluid Surgical History H/O abdominal surgery H/O: History of kidney removal right Hx of CABG vessels x3 s [place] 2018 Hx of cardiac cath 2018 S/P debridement (02/06/19) Left Arm Sharp Wound Debridement(Left) ; sharp excisional down to and including muscle; greater than [address] Bermeo 02-06-19 S/P partial colectomy Family History Brother Diabetes Mother Cancer Father Hypertension Social History Smoking Status: Former smoker packs per day: 0.5; Years Smoked: 5; Second Hand Exposure: No; Hx Alcohol Use: No Hx Substance Use: No Preferred Language: Colombian Communication Ability: Effective Hand Brush Filler Required: No Beliefs That Will Affect Care: None marital status: Current Living Situation: Spouse current occupational status: retired Feels Safe at Home: Yes Assistive Devices: Glasses Allergies Allergies Allergy/AdvReac Type Severity Reaction Status Date / Time No Known Allergies Allergy Verified 08/31/20 11:32 Home Meds Home Medications Medication Instructions Recorded Confirmed atorvastatin 40 mg tablet 40 mg PO QAM 12/14/18 08/31/20 propranolol 80 mg capsule,24 80 mg PO QAM 12/14/18 08/31/20 hr,extended release echinacea 500 mg capsule 500 mg PO Q OTHER DAY cap 01/13/19 08/31/20 folic acid 1 mg tablet 1 mg PO QAM tab 01/13/19 08/31/20 insulin aspart U-100 100 unit/mL 20 unit SUBCUT TIDM 01/13/19 08/31/20 subcutaneous solution (Novolog U-100 Insulin aspart) insulin glargine 100 unit/mL (3 44 units SUBCUT BID ml 01/13/19 08/31/20 mL) subcutaneous pen (Basaglar KwikPen U-100 Insulin) netarsudil 0.02 % eye drops 1 drops OP QPM 01/13/19 08/31/20 (Rhopressa) ondansetron 4 mg oral soluble film 4 mg PO Q8H PRN 01/13/19 08/31/20 spironolactone 100 mg tablet 100 mg PO QAM 01/28/19 08/31/20 (Aldactone) calcium carbonate 600 mg calcium 600 mg PO QPM 01/30/19 08/31/20 (1,500 mg) tablet (Calcium) cholecalciferol (vitamin D3) 25 25 mcg PO QAM 01/30/19 08/31/20 mcg (1,000 unit) tablet (Vitamin D3) cyanocobalamin (vitamin B-12) 1,000 mcg PO QAM 01/30/19 08/31/20 1,000 mcg tablet (Vitamin B-12) fluticasone propionate 50 2 spray INTRANASAL PM 01/30/19 08/31/20 mcg/actuation nasal spray,suspension (Flonase Allergy Relief) garlic 1,000 mg capsule 1,000 mg PO QAM 01/30/19 08/31/20 vitamin E 400 unit capsule 400 unit PO QAM 01/30/19 08/31/20 furosemide 20 mg tablet 40 mg PO QAM tab 04/07/19 08/31/20 aspirin 81 mg tablet,delayed 81 mg PO PM 08/01/20 08/31/20 release clopidogrel 75 mg tablet 75 mg PO QAM 08/01/20 08/31/20 magnesium hydroxide 400 mg/5 mL 30 ml PO DAILY PRN 08/01/20 08/31/20 oral suspension (Milk of Magnesia) nitroglycerin 0.4 mg sublingual 0.4 mg SUBLINGUAL Q5M PRN MDD up 08/01/20 08/31/20 tablet to 3 tabs in 15 mins oxycodone 5 mg tablet 5 mg PO Q4H PRN 08/01/20 08/31/20 sennosides 8.6 mg tablet (senna) 8.6 mg PO DAILY PRN 08/01/20 08/31/20 Results & Data (ED) Vital Signs Vital Signs - 24 hr 08/31/20 09:42 08/31/20 10:30 08/31/20 11:00 Temperature 37.2 C Temperature Source Oral Pulse Rate 79 75 73 Pulse Rate from SpO2 Sensor 79 75 73 Pulse Rhythm Regular Pulse Strength Normal Respiratory Rate 20 17 16 Respiratory Effort / Characteristics Non-Labored Spontaneous Respiratory Depth Normal Respiratory Pattern Regular Blood Pressure 120/49 L 128/73 117/54 L Blood Pressure Mean 72 91 75 Blood Pressure Position Lying Pulse Oximetry 98 97 98 Oxygen Delivery Method Room Air Sepsis Recent Fever Within 48 Hours No Sepsis New/Unexplained Change in Mental Status N/A Sepsis Action Taken by Nursing No Action Required 08/31/20 11:33 08/31/20 11:54 08/31/20 11:55 Temperature 37.2 C 37.0 C 37.2 C Temperature Source Oral Oral Oral Pulse Rate 84 71 82 Pulse Rate from SpO2 Sensor Pulse Rhythm Pulse Strength Respiratory Rate 20 19 19 Respiratory Effort / Characteristics Respiratory Depth Respiratory Pattern Blood Pressure 127/78 130/57 L 136/48 L Blood Pressure Mean 94 81 77 Blood Pressure Position Sitting Lying Lying Pulse Oximetry 98 97 98 Oxygen Delivery Method Sepsis Recent Fever Within 48 Hours Sepsis New/Unexplained Change in Mental Status Sepsis Action Taken by Nursing 08/31/20 12:10 08/31/20 12:30 08/31/20 12:40 Temperature 37.2 C Temperature Source Oral Pulse Rate 82 73 71 Pulse Rate from SpO2 Sensor 73 Pulse Rhythm Pulse Strength Respiratory Rate 19 15 14 Respiratory Effort / Characteristics Respiratory Depth Respiratory Pattern Blood Pressure 136/68 139/57 L 132/58 L Blood Pressure Mean 90 84 82 Blood Pressure Position Lying Lying Pulse Oximetry 98 97 97 Oxygen Delivery Method Sepsis Recent Fever Within 48 Hours Sepsis New/Unexplained Change in Mental Status Sepsis Action Taken by Nursing 08/31/20 13:00 08/31/20 13:30 08/31/20 13:40 Temperature Temperature Source Pulse Rate 73 73 73 Pulse Rate from SpO2 Sensor 73 73 Pulse Rhythm Regular Pulse Strength Normal Respiratory Rate 17 15 15 Respiratory Effort / Characteristics Respiratory Depth Respiratory Pattern Blood Pressure 143/58 H 144/58 H 144/58 H Blood Pressure Mean 86 86 86 Blood Pressure Position Lying Pulse Oximetry 98 98 98 Oxygen Delivery Method Sepsis Recent Fever Within 48 Hours Sepsis New/Unexplained Change in Mental Status Sepsis Action Taken by Nursing 08/31/20 14:00 08/31/20 14:30 08/31/20 15:00 Temperature Temperature Source Pulse Rate 70 71 68 Pulse Rate from SpO2 Sensor 70 71 69 Pulse Rhythm Pulse Strength Respiratory Rate 16 18 16 Respiratory Effort / Characteristics Respiratory Depth Respiratory Pattern Blood Pressure 139/60 141/61 H 135/71 Blood Pressure Mean 86 87 92 Blood Pressure Position Pulse Oximetry 97 98 98 Oxygen Delivery Method Sepsis Recent Fever Within 48 Hours Sepsis New/Unexplained Change in Mental Status Sepsis Action Taken by Nursing 08/31/20 15:30 08/31/20 15:54 08/31/20 16:00 Temperature 36.7 C Temperature Source Oral Pulse Rate 72 68 71 Pulse Rate from SpO2 Sensor 72 69 71 Pulse Rhythm Regular Pulse Strength Normal Respiratory Rate 18 17 17 Respiratory Effort / Characteristics Respiratory Depth Respiratory Pattern Blood Pressure 130/61 127/58 L 114/57 L Blood Pressure Mean 84 81 76 Blood Pressure Position Lying Pulse Oximetry 98 98 97 Oxygen Delivery Method Sepsis Recent Fever Within 48 Hours Sepsis New/Unexplained Change in Mental Status Sepsis Action Taken by Nursing 08/31/20 16:15 08/31/20 16:30 08/31/20 16:45 Temperature 37.1 C 37.1 C Temperature Source Oral Oral Pulse Rate 71 71 71 Pulse Rate from SpO2 Sensor 71 71 70 Pulse Rhythm Regular Regular Pulse Strength Normal Normal Respiratory Rate 18 12 17 Respiratory Effort / Characteristics Respiratory Depth Respiratory Pattern Blood Pressure 131/53 L 129/61 134/61 Blood Pressure Mean 79 83 85 Blood Pressure Position Lying Lying Pulse Oximetry 98 98 98 Oxygen Delivery Method Sepsis Recent Fever Within 48 Hours Sepsis New/Unexplained Change in Mental Status Sepsis Action Taken by Nursing 08/31/20 17:00 Temperature Temperature Source Pulse Rate 69 Pulse Rate from SpO2 Sensor 69 Pulse Rhythm Pulse Strength Respiratory Rate 14 Respiratory Effort / Characteristics Respiratory Depth Respiratory Pattern Blood Pressure 136/59 L Blood Pressure Mean 84 Blood Pressure Position Lying Pulse Oximetry 98 Oxygen Delivery Method Sepsis Recent Fever Within 48 Hours Sepsis New/Unexplained Change in Mental Status Sepsis Action Taken by Nursing Laboratory Data Result diagrams: 08/31/20 10:14 08/31/20 10:14 Lab Results 08/31/20 08/31/20 08/31/20 Range/Units 10:14 10:14 10:14 WBC 15.40 H (4.8-10.8) K/uL RBC 2.34 L (4.2-5.4) M/uL Hgb 6.6 L* (12.0-16.0) g/dL Hct 21.6 L (37-47) % MCV 92.3 (80-100) fL MCH 28.2 (25-34) pg MCHC 30.6 L (32-36) g/dL RDW Std Deviation 56.7 H (36.4-46.3) fL RDW Coeff of Teresa 17.4 H (11.5-14.5) % Plt Count 528 H (130-400) K/uL MPV 10.9 H (7.4-10.4) fL Immature Gran % (Auto) 0.3 % Neut % (Auto) 46.1 % Lymph % (Auto) 40.9 % [place] % (Auto) 10.4 % Eos % (Auto) 1.6 % Baso % (Auto) 0.7 % Neut # (Auto) 7.10 H (1.4-6.5) K/uL Lymph # (Auto) 6.30 H (1.2-3.4) K/uL [place] # (Auto) 1.60 H (0.11-0.59) K/uL Eos # (Auto) 0.24 (0-0.5) K/uL Baso # (Auto) 0.11 (0-0.2) K/uL Immature Gran # (Auto) 0.05 H (0.00-0.02) K/uL Absolute Nucleated RBC 0.10 H (0-0) K/uL Nucleated RBC % (auto) 0.7 % Polychromasia 1+ Hypochromasia Present PT 10.4 (9.0-12.0) Seconds INR 1.0 (0.9-1.1) APTT 20.9 L (21.0-31.0) Seconds PTT Ratio 0.8 Sodium (136-145) mmol/L Potassium (3.5-5.1) mmol/L Chloride (98-107) mmol/L Carbon Dioxide (21-32) mmol/L Anion Gap (3-11) BUN (7-18) mg/dl Creatinine (0.6-1.2) mg/dl Est Cr Clr Drug Dosing ml/min Est GFR ( Amer) ml/min Est GFR (Non-Af Amer) ml/min BUN/Creatinine Ratio (10-20) Glucose (70-99) mg/dl Calcium (8.5-10.1) mg/dl Total Bilirubin (0.2-1) mg/dl AST (15-37) U/L ALT (12-78) U/L Alkaline Phosphatase (45-117) U/L Troponin I (0-0.045) ng/ml Total Protein (6.4-8.2) gm/dl Albumin (3.4-5.0) gm/dl Globulin (2.5-4.0) gm/dl Albumin/Globulin Ratio (0.9-2) Lipase (73-393) U/L Specimen Hemolysis COVID-19 Eval Order SARS-CoV-2 (PCR) (Negative) Blood Type O Positive Antibody Screen NEGATIVE Crossmatch See Detail 08/31/20 08/31/20 08/31/20 Range/Units 10:14 12:10 12:10 WBC (4.8-10.8) K/uL RBC (4.2-5.4) M/uL Hgb (12.0-16.0) g/dL Hct (37-47) % MCV (80-100) fL MCH (25-34) pg MCHC (32-36) g/dL RDW Std Deviation (36.4-46.3) fL RDW Coeff of Teresa (11.5-14.5) % Plt Count (130-400) K/uL MPV (7.4-10.4) fL Immature Gran % (Auto) % Neut % (Auto) % Lymph % (Auto) % [place] % (Auto) % Eos % (Auto) % Baso % (Auto) % Neut # (Auto) (1.4-6.5) K/uL Lymph # (Auto) (1.2-3.4) K/uL [place] # (Auto) (0.11-0.59) K/uL Eos # (Auto) (0-0.5) K/uL Baso # (Auto) (0-0.2) K/uL Immature Gran # (Auto) (0.00-0.02) K/uL Absolute Nucleated RBC (0-0) K/uL Nucleated RBC % (auto) % Polychromasia Hypochromasia PT (9.0-12.0) Seconds INR (0.9-1.1) APTT (21.0-31.0) Seconds PTT Ratio Sodium 133 L (136-145) mmol/L Potassium 5.0 (3.5-5.1) mmol/L Chloride 100 (98-107) mmol/L Carbon Dioxide 30 (21-32) mmol/L Anion Gap 3.0 (3-11) BUN 37 H (7-18) mg/dl Creatinine 0.91 (0.6-1.2) mg/dl Est Cr Clr Drug Dosing 66.0 ml/min Est GFR ( Amer) 73.6 ml/min Est GFR (Non-Af Amer) 63.5 ml/min BUN/Creatinine Ratio 40.8 H (10-20) Glucose 297 H (70-99) mg/dl Calcium 9.7 (8.5-10.1) mg/dl Total Bilirubin 0.2 (0.2-1) mg/dl AST 60 H (15-37) U/L ALT 73 (12-78) U/L Alkaline Phosphatase 278 H (45-117) U/L Troponin I < 0.015 (0-0.045) ng/ml Total Protein 6.6 (6.4-8.2) gm/dl Albumin 1.9 L (3.4-5.0) gm/dl Globulin 4.7 H (2.5-4.0) gm/dl Albumin/Globulin Ratio 0.4 L (0.9-2) Lipase 185 (73-393) U/L Specimen Hemolysis COVID-19 Eval Order Covid19 at [facility] SARS-CoV-2 (PCR) NEGATIVE (Negative) Blood Type Antibody Screen Crossmatch Administered Medications Pantoprazole Sodium 40 mg/ (Dextrose) 100 mls @ 20 mls/hr IV Q5H LAURA Stop: 09/30/20 14:59 Last Admin: 08/31/20 15:50 Dose: 8 mg/hr, 20 mls/hr Documented by: [id number] Discontinued Medications Famotidine (Famotidine 20mg/5ml Iv Push) 20 mg IV ONE STA Stop: 08/31/20 09:44 Last Admin: 08/31/20 11:29 Dose: 20 mg Documented by: [id number] Pantoprazole Sodium 40 mg/ (Syringe) 10 mls @ 5 mls/min IV NOW ONE Stop: 08/31/20 09:44 Last Admin: 08/31/20 11:28 Dose: 5 mls/min Documented by: [id number] Cefoxitin Sodium (Mefoxin) 2,000 mg in 60 mls @ 100 mls/hr IV NOW STA; Protocol Stop: 08/31/20 14:45 Last Infusion: 08/31/20 15:15 Dose: 0 mls/hr Documented by: [id number] Admin: 08/31/20 14:42 Dose: 100 mls/hr Documented by: [id number] Ioversol (Optiray 320 100ml) 94 ml IV ONCE ONE Stop: 08/31/20 12:01 Last Admin: 08/31/20 12:01 Dose: 94 ml Documented by: [id number] Ondansetron HCl (Ondansetron Inj 2 Mg/Ml 2 Ml Vial) 4 mg IV NOW STA Stop: 08/31/20 13:56 Last Admin: 08/31/20 14:42 Dose: 4 mg Documented by: [id number] Imaging Data Radiologist's Impression: Chest X-Ray 08/31/20 09:42 XR chest 1V portable CLINICAL HISTORY: Chest Pain COMPARISON STUDY: August 18, 2020 FINDINGS: No pneumothorax. Minimal blunting of the left costophrenic angle could represent trace left pleural effusion or related to superimposition of soft tissue. No large infiltrates or consolidative lesions are seen. Lung volumes are decreased with crowded lung markings. Possible minimal atelectasis at the left base. Cardiomediastinal silhouette is within normal limits in size. No significant pulmonary vascular congestion.. Aorta is calcified. Osseous structures: Degenerative changes of the spine. Midline sternotomy wires and surgical clips projecting over cardiomediastinal silhouette are again seen. IMPRESSION: 1. Possible minimal left pleural effusion and minimal atelectasis at the left base. Evaluation is limited due to low inspiratory effort and patient body habitus. ACT 112: Negative or not required by law. The above report was generated using voice recognition software. It may contain grammatical, syntax or spelling errors. Electronically signed by: Tasha Delvalle DO 08/31/2020 10:46 AM Abdomen/Pelvis CT 08/31/20 10:01 CT abd pelvis IV con only CLINICAL HISTORY: Gastrointestinal hemorrhage ANEMIA COMPARISON STUDY: 08/18/2020 TECHNIQUE: The patient was scanned in a dynamic helical fashion during intravenous administration of 94 cc of Optiray 320 A dose lowering technique was utilized adhering to the principles of ALARA. CT DOSE: 1312.35 mGy.cm FINDINGS: Lower chest: There are mild dependent atelectatic changes Liver: The liver has a cirrhotic morphology. The hepatic and portal veins appear patent. Gallbladder: Unremarkable. Spleen: Not visualized presumed surgically absent Pancreas: The patient is status post a partial pancreatectomy. At the level of the pancreatic body there is a complex fluid collection containing air bubbles measuring 61 mm in diameter. This appears slightly smaller than on the preceding study. There is a pancreatic stent in place. Adrenal glands: Unremarkable. Kidneys: The right kidney appears surgically absent. No solid left renal masses are visualized. Bowel: There are no transition zones to indicate bowel obstruction. There is no evidence of acute diverticulitis. There are postsurgical changes present within the colon. The patient appears be status post a right hemicolectomy with ileocolic anastomosis Peritoneum: There is low volume ascites. There is no free intraperitoneal air. Vasculature: The abdominal aorta is normal in course and caliber. Adenopathy: There is a midline ventral abdominal wound likely postsurgical. There are small gas bubbles within the adjacent subcutaneous fat of the abdominal wall. There are multiple abdominal wall nodules likely secondary to prior injection sites. Pelvic viscera: The bladder, and pelvic viscera are unremarkable. Skeletal structures: No destructive osseous lesions are seen. IMPRESSION: 1. Postsurgical changes of a right hemicolectomy, splenectomy, right nephrectomy, and partial pancreatectomy 2. Hepatic cirrhosis and low volume ascites 3. Anterior abdominal wall wound/diastases with persistent gas and fluid within the base of the wound. 4. Further interval decrease in the size of the complex fluid collection containing gas at the level of the pancreatic body. 5. No evidence of bowel obstruction. No evidence of free air 6. Interval removal of the left-sided peritoneal drainage catheter. ACT 112: Negative or not required by law. Electronically signed by: Hamzah Castillo M.D. 08/31/2020 12:22 PM Discharge Plan Visit Data Chief Complaint: Abnormal Labs/Diagnostic Testing Stated Complaint: GI bleeding / low hemoglobin ED Provider: Samuel Javed Patient Disposition: Admitted As Inpatient Condition: Good Prescriptions Prescriptions: No Action echinacea 500 mg capsule 500 mg PO Q OTHER DAY RF: 0 ondansetron 4 mg film 4 mg PO Q8H PRN (Reason: nausea and vomiting) RF: 0 Rhopressa 0.02 % drops 1 drops OP QPM RF: 0 spironolactone [Aldactone] 100 mg tablet 100 mg PO QAM RF: 0 cyanocobalamin (vitamin B-12) [Vitamin B-12] 1,000 mcg Tablet 1,000 mcg PO QAM RF: 0 garlic 1,000 mg Capsule 1,000 mg PO QAM RF: 0 calcium carbonate [Calcium 600] 600 mg calcium (1,500 mg) Tablet 600 mg PO QPM RF: 0 fluticasone propionate [Flonase Allergy Relief] 50 mcg/actuation [place],Suspension 2 spray INTRANASAL PM RF: 0 vitamin E 400 unit Capsule 400 unit PO QAM RF: 0 cholecalciferol (vitamin D3) [Vitamin D3] 25 mcg (1,000 unit) Tablet 25 mcg PO QAM RF: 0 folic acid 1 mg tablet 1 mg PO QAM RF: 0 Novolog U-100 Insulin aspart 100 unit/mL solution 20 unit SUBCUT TIDM RF: 0 Basaglar KwikPen U-100 Insulin 100 unit/mL (3 mL) insulin pen 44 units SUBCUT BID RF: 0 atorvastatin 40 mg tablet 40 mg PO QAM RF: 0 propranolol 80 mg capsule,extended release 24 hr 80 mg PO QAM RF: 0 furosemide 20 mg tablet 40 mg PO QAM RF: 0 sennosides [senna] 8.6 mg Tablet 8.6 mg PO DAILY PRN (Reason: Constipation) RF: 0 clopidogrel 75 mg tablet 75 mg PO QAM RF: 0 aspirin 81 mg Tablet,Delayed Release (Dr/Ec) 81 mg PO PM RF: 0 magnesium hydroxide [Milk of Magnesia] 400 mg/5 mL Suspension 30 ml PO DAILY PRN (Reason: Constipation) RF: 0 nitroglycerin 0.4 mg Tablet, Sublingual 0.4 mg sublingual Q5M MDD up to 3 tabs in 15 mins PRN (Reason: Chest Pain) RF: 0 oxycodone 5 mg tablet 5 mg PO Q4H PRN (Reason: Pain) RF: 0
[2020-08-31 10:36] LABS: Partial Thromboplastin Ratio 0.8; Partial Thromboplastin Time 20.9 Seconds (21.0-31.0); Prothrombin Time 10.4 Seconds (9.0-12.0)
[2020-08-31 10:42] LABS: Hematocrit (blood only) 21.6 % (37-47); Hemoglobin 6.6 g/dL (12.0-16.0); Mean Corpuscular Hemoglobin 28.2 pg (25-34); Mean Corpuscular Hgb Conc 30.6 g/dL (32-36); Mean Corpuscular Volume 92.3 fL (80-100); Mean Platelet Volume 10.9 fL (7.4-10.4); Nucleated RBC % (auto) 0.7 %; Platelet Count 528 K/uL (130-400); RDW Coefficient of Variation 17.4 % (11.5-14.5); RDW Standard Deviation 56.7 fL (36.4-46.3); Red Blood Count 2.34 M/uL (4.2-5.4)
--- NOTE | 2020-08-31 10:48 | XRay Report ---
XR chest 1V portable CLINICAL HISTORY: Chest Pain COMPARISON STUDY: August 18, 2020 FINDINGS: No pneumothorax. Minimal blunting of the left costophrenic angle could represent trace left pleural effusion or relate d to superimposition of soft tissue. No large infiltrates or consolidative lesions are seen. Lung volumes are decreased with crowded lung markings. Possible minimal atelectasis at the left base. Cardiomediastinal silhouette is within normal limits in size. No significant pulmonary vascular congestion.. Aorta is calcified. Osseous structures: Degenerative changes of the spine. Midline sternotomy wires and surgical clips projecting over cardiomediastinal silhouette are again se en. IMPRESSION: 1. Possible minimal left pleural effusion and minimal atelectasis at the left base. Evaluation is li mited due to low inspiratory effort and patient body habitus. ACT 112: Negative or not required by law. The above report was generated using voice recognition software. It may contain grammatical, syntax o r spelling errors. Electronically signed by: Tasha Delvalle DO 08/31/2020 10:46 AM
[2020-08-31 10:54] LABS: Alanine Aminotransferase 73 U/L (12-78); Albumin Globulin Ratio 0.4 (0.9-2); Albumin Level 1.9 gm/dl (3.4-5.0); Alkaline Phosphatase 278 U/L (45-117); Aspartate Aminotransferase 60 U/L (15-37); BUN Creatinine Ratio 40.8 (10-20); Bilirubin,Total 0.2 mg/dl (0.2-1); Blood Urea Nitrogen 37 mg/dl (7-18); Calcium 9.7 mg/dl (8.5-10.1); Carbon Dioxide 30 mmol/L (21-32); Chloride 100 mmol/L (98-107); Est GFR (African American) 73.6 ml/min; Est GFR (Non-African American) 63.5 ml/min; Globulin 4.7 gm/dl (2.5-4.0); Glucose 297 mg/dl (70-99); Lipase 185 U/L (73-393); Sodium 133 mmol/L (136-145); Total Protein 6.6 gm/dl (6.4-8.2); Troponin I < 0.015 ng/ml (0-0.045)
[2020-08-31 11:36] LABS: Basophils # (auto) 0.11 K/uL (0-0.2); Basophils % (auto) 0.7 %; Eosinophils # (auto) 0.24 K/uL (0-0.5); Eosinophils % (auto) 1.6 %; Hypochromasia Present; Immature Granulocytes # (auto) 0.05 K/uL (0.00-0.02); Immature Granulocytes % (auto) 0.3 %; Lymphocytes % (auto) 40.9 %; Monocytes % (auto) 10.4 %; Neutrophils % (auto) 46.1 %; Polychromasia 1+
[2020-08-31] MEDS ORDERED: OPTIRAY 320 100ml IV ONE (12:00)
--- NOTE | 2020-08-31 12:23 | CT Scan Report ---
CT abd pelvis IV con only CLINICAL HISTORY: Gastrointestinal hemorrhage ANEMIA COMPARISON STUDY: 08/18/2020 TECHNIQUE: The patient was scanned in a dynamic helical fashion during intravenous administration of 94 cc of Optiray 320 A dose lowering technique was utilized adhering to the principles of ALARA. CT DOSE: 1312.35 mGy.cm FINDINGS: Lower chest: There are mild dependent atelectatic changes Liver: The liver has a cirrhotic morphology. The hepatic and portal veins appear patent. Gallbladder: Unremarkable. Spleen: Not visualized presumed surgically absent Pancreas: The patient is status post a partial pancreatectomy. At the level of the pancreatic body th ere is a complex fluid collection containing air bubbles measuring 61 mm in diameter. This appears sl ightly smaller than on the preceding study. There is a pancreatic stent in place. Adrenal glands: Unremarkable. Kidneys: The right kidney appears surgically absent. No solid left renal masses are visualized. Bowel: There are no transition zones to indicate bowel obstruction. There is no evidence of acute div erticulitis. There are postsurgical changes present within the colon. The patient appears be status p ost a right hemicolectomy with ileocolic anastomosis Peritoneum: There is low volume ascites. There is no free intraperitoneal air. Vasculature: The abdominal aorta is normal in course and caliber. Adenopathy: There is a midline ventral abdominal wound likely postsurgical. There are small gas bubbl es within the adjacent subcutaneous fat of the abdominal wall. There are multiple abdominal wall nodu les likely secondary to prior injection sites. Pelvic viscera: The bladder, and pelvic viscera are unremarkable. Skeletal structures: No destructive osseous lesions are seen. IMPRESSION: 1. Postsurgical changes of a right hemicolectomy, splenectomy, right nephrectomy, and partial pancrea tectomy 2. Hepatic cirrhosis and low volume ascites 3. Anterior abdominal wall wound/diastases with persistent gas and fluid within the base of the wound . 4. Further interval decrease in the size of the complex fluid collection containing gas at the level of the pancreatic body. 5. No evidence of bowel obstruction. No evidence of free air 6. Interval removal of the left-sided peritoneal drainage catheter. ACT 112: Negative or not required by law. Electronically signed by: Hamzah Castillo M.D. 08/31/2020 12:22 PM
--- NOTE | 2020-08-31 13:30 | History & Physical Report ---
Date of Service August 31, 2020 History of Present Illness Primary Care Provider: [facility] Allergies Allergy/AdvReac Type Severity Reaction Status Date / Time No Known Allergies Allergy Verified 08/31/20 11:32 Home Medications Medication Instructions Recorded Confirmed Type atorvastatin 40 mg tablet 40 mg PO QAM 12/14/18 08/31/20 History propranolol 80 mg capsule,24 80 mg PO QAM 12/14/18 08/31/20 History hr,extended release echinacea 500 mg capsule 500 mg PO Q OTHER DAY cap 01/13/19 08/31/20 History folic acid 1 mg tablet 1 mg PO QAM tab 01/13/19 08/31/20 History insulin aspart U-100 100 unit/mL 20 unit SUBCUT TIDM 01/13/19 08/31/20 History subcutaneous solution (Novolog U-100 Insulin aspart) insulin glargine 100 unit/mL (3 44 units SUBCUT BID ml 01/13/19 08/31/20 History mL) subcutaneous pen (Basaglar KwikPen U-100 Insulin) netarsudil 0.02 % eye drops 1 drops OP QPM 01/13/19 08/31/20 History (Rhopressa) ondansetron 4 mg oral soluble film 4 mg PO Q8H PRN 01/13/19 08/31/20 History spironolactone 100 mg tablet 100 mg PO QAM 01/28/19 08/31/20 History (Aldactone) calcium carbonate 600 mg calcium 600 mg PO QPM 01/30/19 08/31/20 History (1,500 mg) tablet (Calcium) cholecalciferol (vitamin D3) 25 25 mcg PO QAM 01/30/19 08/31/20 History mcg (1,000 unit) tablet (Vitamin D3) cyanocobalamin (vitamin B-12) 1,000 mcg PO QAM 01/30/19 08/31/20 History 1,000 mcg tablet (Vitamin B-12) fluticasone propionate 50 2 spray INTRANASAL PM 01/30/19 08/31/20 History mcg/actuation nasal spray,suspension (Flonase Allergy Relief) garlic 1,000 mg capsule 1,000 mg PO QAM 01/30/19 08/31/20 History vitamin E 400 unit capsule 400 unit PO QAM 01/30/19 08/31/20 History furosemide 20 mg tablet 40 mg PO QAM tab 04/07/19 08/31/20 History aspirin 81 mg tablet,delayed 81 mg PO PM 08/01/20 08/31/20 History release clopidogrel 75 mg tablet 75 mg PO QAM 08/01/20 08/31/20 History magnesium hydroxide 400 mg/5 mL 30 ml PO DAILY PRN 08/01/20 08/31/20 History oral suspension (Milk of Magnesia) nitroglycerin 0.4 mg sublingual 0.4 mg SUBLINGUAL Q5M PRN MDD up 08/01/20 08/31/20 History tablet to 3 tabs in 15 mins oxycodone 5 mg tablet 5 mg PO Q4H PRN 08/01/20 08/31/20 History sennosides 8.6 mg tablet (senna) 8.6 mg PO DAILY PRN 08/01/20 08/31/20 History Past Med/Surg History Medical History CAD (coronary artery disease) Cirrhosis of liver Diabetes Flesh-eating bacteria right kidney four to five years ago as per pt GERD (gastroesophageal reflux disease) Glaucoma H/O colon cancer, stage IV Hyperlipidemia Hypertension Infection left arm - IV infiltration MRSA (methicillin resistant Staphylococcus aureus) abdomen - Peritoneal fluid Surgical History H/O abdominal surgery H/O: History of kidney removal right Hx of CABG vessels x3 s [place] 2017 Hx of cardiac cath 2018 S/P debridement (02/06/19) Left Arm Sharp Wound Debridement(Left) ; sharp excisional down to and including muscle; greater than [address] 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 Required: No Beliefs That Will Affect Care: None marital status: Current Living Situation: Spouse current occupational status: retired Feels Safe at Home: Yes Assistive Devices: Glasses Results & Data Results & Data ([facility]) Vital Signs (Past 12 Hours) Vital Signs Temp Pulse Resp BP Pulse Ox 08/31/20 13:00 73 17 143/58 H 98 08/31/20 12:40 71 14 132/58 L 97 08/31/20 12:30 73 15 139/57 L 97 08/31/20 12:10 37.2 C 82 19 136/68 98 08/31/20 11:55 37.2 C 82 19 136/48 L 98 08/31/20 11:54 37.0 C 71 19 130/57 L 97 08/31/20 11:33 37.2 C 84 20 127/78 98 08/31/20 11:00 73 16 117/54 L 98 08/31/20 10:30 75 17 128/73 97 08/31/20 09:42 37.2 C 79 20 120/49 L 98 Diagnostic Findings Chest X-Ray 08/31/20 09:42 XR chest 1V portable CLINICAL HISTORY: Chest Pain COMPARISON STUDY: August 18, 2020 FINDINGS: No pneumothorax. Minimal blunting of the left costophrenic angle could represent trace left pleural effusion or related to superimposition of soft tissue. No large infiltrates or consolidative lesions are seen. Lung volumes are decreased with crowded lung markings. Possible minimal atelectasis at the left base. Cardiomediastinal silhouette is within normal limits in size. No significant pulmonary vascular congestion.. Aorta is calcified. Osseous structures: Degenerative changes of the spine. Midline sternotomy wires and surgical clips projecting over cardiomediastinal silhouette are again seen. IMPRESSION: 1. Possible minimal left pleural effusion and minimal atelectasis at the left base. Evaluation is limited due to low inspiratory effort and patient body habitus. ACT 112: Negative or not required by law. The above report was generated using voice recognition software. It may contain grammatical, syntax or spelling errors. Electronically signed by: Tasha Delvalle DO 08/31/2020 10:46 AM Abdomen/Pelvis CT 08/31/20 10:01 CT abd pelvis IV con only CLINICAL HISTORY: Gastrointestinal hemorrhage ANEMIA COMPARISON STUDY: 08/18/2020 TECHNIQUE: The patient was scanned in a dynamic helical fashion during intr avenous administration of 94 cc of Optiray 320 A dose lowering technique was utilized adhering to the principles of ALARA. CT DOSE: 1312.35 mGy.cm FINDINGS: Lower chest: There are mild dependent atelectatic changes Liver: The liver has a cirrhotic morphology. The hepatic and portal veins appear patent. Gallbladder: Unremarkable. Spleen: Not visualized presumed surgically absent Pancreas: The patient is status post a partial pancreatectomy. At the level of the pancreatic body there is a complex fluid collection containing air bubbles measuring 61 mm in diameter. This appears slightly smaller than on the preceding study. There is a pancreatic stent in place. Adrenal glands: Unremarkable. Kidneys: The right kidney appears surgically absent. No solid left renal masses are visualized. Bowel: There are no transition zones to indicate bowel obstruction. There is no evidence of acute diverticulitis. There are postsurgical changes present within the colon. The patient appears be status post a right hemicolectomy with ileocolic anastomosis Peritoneum: There is low volume ascites. There is no free intraperitoneal air. Vasculature: The abdominal aorta is normal in course and caliber. Adenopathy: There is a midline ventral abdominal wound likely postsurgical. There are small gas bubbles within the adjacent subcutaneous fat of the abdominal wall. There are multiple abdominal wall nodules likely secondary to prior injection sites. Pelvic viscera: The bladder, and pelvic viscera are unremarkable. Skeletal structures: No destructive osseous lesions are seen. IMPRESSION: 1. Postsurgical changes of a right hemicolectomy, splenectomy, right nephrectomy, and partial pancreatectomy 2. Hepatic cirrhosis and low volume ascites 3. Anterior abdominal wall wound/diastases with persistent gas and fluid within the base of the wound. 4. Further interval decrease in the size of the complex fluid collection containing gas at the level of the pancreatic body. 5. No evidence of bowel obstruction. No evidence of free air 6. Interval removal of the left-sided peritoneal drainage catheter. ACT 112: Negative or not required by law. Electronically signed by: Hamzah Castillo M.D. 08/31/2020 12:22 PM
[2020-08-31] MEDS ORDERED: ONDANSETRON INJ 2 MG/ML 2 ML VIAL IV STA (13:55)
[2020-08-31] MEDS ORDERED: cefOXitin 2,000 MG/60 ML BAG IV STA (14:10)
[2020-08-31] MEDS: PANTOprazole 40 MG in DEXTROSE 5% 100 ML IV SCH ×2 (15:50→20:42)
[2020-08-31] MEDS ORDERED: CONSULT PHARMACY STA (15:54)
--- NOTE | 2020-08-31 16:00 | History & Physical Report ---
Date of Service August 31, 2020 Assessment & Plan (1) GI bleed: Plan: Acute on chronic symptomatic anemia Likely Multifactorial: GI bleeding, anemia of chronic disease, post surgical GI bleeding (Positive FOBT) In setting Aspirin, Plavix, Lovenox use H/O esophageal varices, duodenal ulcer --CT ABD :Postsurgical changes of a right hemicolectomy, splenectomy, right nephrectomy, and partial pancreatectomy. Hepatic cirrhosis and low volume ascites. Anterior abdominal wall wound/diastases with persistent gas and fluid within the base of the wound. Further interval decrease in the size of the complex fluid collection containing gas at the level of the pancreatic body. No evidence of bowel obstruction. No evidence of free air. Interval removal of the left-sided peritoneal drainage catheter. -Hb:6.6 S/P 2 units PRBCs Hold Aspirin, Plavix and any anticoagulants Start on Protonix ggt, IV fluids GI consulted Monitor H&H and transfuse PRBCs as needed Keep her n.p.o. for now Likely plan for endoscopy tomorrow Unhealing Open abdominal wall wound CT ABD as above Recently completed a course of Bactrim Start on broad spectrum antibiotics Blood/Wound Cultures Appreciate Surgery Input Continue wound Care DM Type II: Will hold oral diabetic meds Last A1c:6.9 on 08/19/20 ISS, basal Insulin, Accu checks, Diabetic diet H/O Cirrhosis Hold home diuretics secondary to GI bleed Monitor volume status Resume diuretics as able CAD S/P CABG Hold aspirin, Plavix due to GI bleed Continue other home medications Currently denies any anginal symptoms Right renal Mass S/P nephrectomy DVT Px: SCDs Code Status DNI/DNR as per my discussion with patient History of Present Illness Chief Complaint: Abnormal Labs Primary Care Provider: Demetria Jones Patient is a 70-year-old female with complex medical history of diabetes mellitus, pancreatic fistula, cystic mass of the pancreas, hypertension, coronary artery disease S/P CABG, esophageal varices, cirrhosis of liver, GERD, malignant neoplasm of hepatic flexure, history of GI bleed, duodenal ulcer, obesity, chronic anemia, metastatic colon cancer S/P resection of abdominal wall metastatic mass with abdominal wall reconstruction, 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 Patient was discharged from [facility] to Rehab facility on 08/29/20 after being treated for pancreatic fistula, wound infection presents from rehab facility with history of generalized weakness, tiredness and abnormal Labs. Patient was noted to have Hb 6.6 and was brought to ED for evaluation of GI bleeding. Patient denies any use of NSAIDs. She is on aspirin, Plavix for coronary artery disease and on Lovenox for DVT prophylaxis while at rehab facility. Patient also noticed dark stools intermittently. She also reports having yellowish discharge from her abdominal wound but denies any significant abdominal pain, fever, chills, chest pain, dyspnea. ED physician discussed with who advised to follow up with GI at out facility. Denies any history of chest pain, SOB, dizziness, hemoptysis, epistaxis, fever, chills, headache, change in vision, nausea, vomiting, dysuria. She aslo reports diarrhea 1-2 BMs per day since last few days. She prefers to be DNI/DNR.She was tested Positive for fecal occult while in ED. Allergies Allergy/AdvReac Type Severity Reaction Status Date / Time No Known Allergies Allergy Verified 08/31/20 11:32 Home Medications Medication Instructions Recorded Confirmed Type atorvastatin 40 mg tablet 40 mg PO QAM 12/14/18 08/31/20 History propranolol 80 mg capsule,24 80 mg PO QAM 12/14/18 08/31/20 History hr,extended release echinacea 500 mg capsule 500 mg PO Q OTHER DAY cap 01/13/19 08/31/20 History folic acid 1 mg tablet 1 mg PO QAM tab 01/13/19 08/31/20 History insulin aspart U-100 100 unit/mL 20 unit SUBCUT TIDM 01/13/19 08/31/20 History subcutaneous solution (Novolog U-100 Insulin aspart) insulin glargine 100 unit/mL (3 44 units SUBCUT BID ml 01/13/19 08/31/20 History mL) subcutaneous pen (Basaglar KwikPen U-100 Insulin) netarsudil 0.02 % eye drops 1 drops OP QPM 01/13/19 08/31/20 History (Rhopressa) ondansetron 4 mg oral soluble film 4 mg PO Q8H PRN 01/13/19 08/31/20 History spironolactone 100 mg tablet 100 mg PO QAM 01/28/19 08/31/20 History (Aldactone) calcium carbonate 600 mg calcium 600 mg PO QPM 01/30/19 08/31/20 History (1,500 mg) tablet (Calcium) cholecalciferol (vitamin D3) 25 25 mcg PO QAM 01/30/19 08/31/20 History mcg (1,000 unit) tablet (Vitamin D3) cyanocobalamin (vitamin B-12) 1,000 mcg PO QAM 01/30/19 08/31/20 History 1,000 mcg tablet (Vitamin B-12) fluticasone propionate 50 2 spray INTRANASAL PM 01/30/19 08/31/20 History mcg/actuation nasal spray,suspension (Flonase Allergy Relief) garlic 1,000 mg capsule 1,000 mg PO QAM 01/30/19 08/31/20 History vitamin E 400 unit capsule 400 unit PO QAM 01/30/19 08/31/20 History furosemide 20 mg tablet 40 mg PO QAM tab 04/07/19 08/31/20 History aspirin 81 mg tablet,delayed 81 mg PO PM 08/01/20 08/31/20 History release clopidogrel 75 mg tablet 75 mg PO QAM 08/01/20 08/31/20 History magnesium hydroxide 400 mg/5 mL 30 ml PO DAILY PRN 08/01/20 08/31/20 History oral suspension (Milk of Magnesia) nitroglycerin 0.4 mg sublingual 0.4 mg SUBLINGUAL Q5M PRN MDD up 08/01/20 08/31/20 History tablet to 3 tabs in 15 mins oxycodone 5 mg tablet 5 mg PO Q4H PRN 08/01/20 08/31/20 History sennosides 8.6 mg tablet (senna) 8.6 mg PO DAILY PRN 08/01/20 08/31/20 History Past Med/Surg History Medical History CAD (coronary artery disease) Cirrhosis of liver Diabetes Flesh-eating bacteria right kidney four to five years ago as per pt GERD (gastroesophageal reflux disease) Glaucoma H/O colon cancer, stage IV Hyperlipidemia Hypertension Infection left arm - IV infiltration MRSA (methicillin resistant Staphylococcus aureus) abdomen - Peritoneal fluid Surgical History H/O abdominal surgery H/O: History of kidney removal right [facility]x [facility] CABG [facility] 2017 Hx of cardiac cath 2018 S/P debridement (02/06/19) Left Arm Sharp Wound Debridement(Left) ; sharp excisional down to and including muscle; greater than [address] 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 Required: No Beliefs That Will Affect Care: None marital status: Current Living Situation: Spouse current occupational status: retired Feels Safe at Home: Yes Assistive Devices: Glasses Review of Systems Review of Systems: All systems reviewed & are unremarkable except as noted in Subjective Physical Exam Physical Exam: Physical Exam: Vitals signs as noted above General Appearance:Obese, no apparent distress Head: normocephalic, Atraumatic Eyes: normal inspection, EOMI Neck: supple, Trachea midline Respiratory/Chest: Decreased breath sounds, CTA, No accessory muscle use Cardiovascular: S1, S2, + murmur Abdomen/GI:Soft, Non tender, Bowel sounds present, +Large abdominal wound with retention sutures, + pus appearing in dressing Extremities/Musculoskeletal:normal inspection, 2-3+ B/L LE edema Neurologic/Psych:AAOX3, grossly no focal neurological deficits Skin: normal color, warm Results & Data Results & Data ([facility]) Vital Signs (Past 12 Hours) Vital Signs Temp Pulse Resp BP Pulse Ox 08/31/20 13:40 73 15 144/58 H 98 08/31/20 13:30 73 15 144/58 H 98 08/31/20 13:00 73 17 143/58 H 98 08/31/20 12:40 71 14 132/58 L 97 08/31/20 12:30 73 15 139/57 L 97 08/31/20 12:10 37.2 C 82 19 136/68 98 08/31/20 11:55 37.2 C 82 19 136/48 L 98 08/31/20 11:54 37.0 C 71 19 130/57 L 97 08/31/20 11:33 37.2 C 84 20 127/78 98 08/31/20 11:00 73 16 117/54 L 98 08/31/20 10:30 75 17 128/73 97 08/31/20 09:42 37.2 C 79 20 120/49 L 98 Laboratory Results Short CBC 08/31/20 Range/Units 10:14 WBC 15.40 H (4.8-10.8) K/uL Hgb 6.6 L* (12.0-16.0) g/dL Hct 21.6 L (37-47) % Plt Count 528 H (130-400) K/uL BMP 08/31/20 10:14 Sodium 133 L Potassium 5.0 Chloride 100 Carbon Dioxide 30 BUN 37 H Creatinine 0.91 Glucose 297 H Calcium 9.7 Cardiac Enzymes 08/31/20 Range/Units 10:14 Troponin I < 0.015 (0-0.045) ng/ml Liver Function 08/31/20 Range/Units 10:14 Total Bilirubin 0.2 (0.2-1) mg/dl AST 60 H (15-37) U/L ALT 73 (12-78) U/L Alkaline Phosphatase 278 H (45-117) U/L Albumin 1.9 L (3.4-5.0) gm/dl Diagnostic Findings CT ABD: 1. Postsurgical changes of a right hemicolectomy, splenectomy, right nephrectomy, and partial pancreatectomy 2. Hepatic cirrhosis and low volume ascites 3. Anterior abdominal wall wound/diastases with persistent gas and fluid within the base of the wound. 4. Further interval decrease in the size of the complex fluid collection containing gas at the level of the pancreatic body. 5. No evidence of bowel obstruction. No evidence of free air 6. Interval removal of the left-sided peritoneal drainage catheter. CXR: Possible minimal left pleural effusion and minimal atelectasis at the left base. Evaluation is limited due to low inspiratory effort and patient body habitus. ECG Additional Comments: EKG:NSR, QTC:412. Code Status & VTE Plan VTE Prophylaxis Plan VTE Prophylaxis will be ordered: Yes (1) GI bleed GI bleed type/associated pathology: melena Qualified Code(s): K92.1 - Melena
--- NOTE | 2020-08-31 16:26 | Electrocardiogram Report ---
Test Reason : Blood Pressure : / mmHG Vent. Rate : 080 BPM Atrial Rate : 080 BPM P-R Int : 140 ms QRS Dur : 084 ms QT Int : 358 ms P-R-T Axes : 053 005 044 degrees QTc Int : 412 ms Normal sinus rhythm Normal ECG When compared with ECG of 18-AUG-2020 10:46, No significant change was found Confirmed by Samuel Arredondo ([id number]) on 08/31/2020 4:26:23 PM Referred By: [facility] Confirmed By:Samuel Arredondo
--- NOTE | 2020-08-31 16:38 | Surgery Consultation ---
Date of Consultation August 31, 2020 Assessment & Plan (1) Open abdominal wall wound: pt is a 70 year-old female who presents to Er with dark stool, low H/H 6.6, pt is S/P resection pancreatic cyst and spleen one month ago, biliary Stent 2 weeks ago, with unhealing abdominal wound IMP: GI bleeding, unhealing abdominal wound, Plan, no emergent surgery indication now, consult wound care nurse for dressing change, consult GI for GI bleeding, pt dose not want to transfer to [facility], pt wants to stay this hospital for treatment, will F/U (2) Surgical wound, non healing: History of Present Illness Reason for Consultation: unhealing abdominal wound Requesting Physician: Amy Elkins MD History of Present Illness CHIEF COMPLAINT: GI bleeding HPI: The patient is a 70-year-old female who presented to the emergency department by ambulance for evaluation of GI bleeding. The patient had recent abdominal surgery. 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 She was admitted to our facility but then transferred to [facility]. She was transferred back to [facility] for rehab 3 days ago. She returns to the emergency department today because of low hemoglobin. She has been complaining of generalized weakness and swelling. She is also been complaining of dark stools over the last 24 hours. The patient herself states that she has no abdominal pain at this time. She does take Lovenox for DVT prophylaxis but also is on Plavix for a cardiac condition. She denies having any vomiting. She denies having any headache or chest pain. The patient was not seen by provider to the best of her knowledge but was sent to the emergency department because the abnormal labs. I ( Ludin Umana MD ) got a call for consult unhealing abdominal wound, I reviewed pt's H/P, labs with pt and her at ER bedside, pt had resection pancreatic cyst and spleen at [facility] about one month ago, the abdomen wound is open since then, pt had dressing once a day, pt denies fever, no drainage on abdominal wound, Allergies Allergy/AdvReac Type Severity Reaction Status Date / Time No Known Allergies Allergy Verified 08/31/20 11:32 Home Medications Medication Instructions Recorded Confirmed Type atorvastatin 40 mg tablet 40 mg PO QAM 12/14/18 08/31/20 History propranolol 80 mg capsule,24 80 mg PO QAM 12/14/18 08/31/20 History hr,extended release echinacea 500 mg capsule 500 mg PO Q OTHER DAY cap 01/13/19 08/31/20 History folic acid 1 mg tablet 1 mg PO QAM tab 01/13/19 08/31/20 History insulin aspart U-100 100 unit/mL 20 unit SUBCUT TIDM 01/13/19 08/31/20 History subcutaneous solution (Novolog U-100 Insulin aspart) insulin glargine 100 unit/mL (3 44 units SUBCUT BID ml 01/13/19 08/31/20 History mL) subcutaneous pen (Basaglar KwikPen U-100 Insulin) netarsudil 0.02 % eye drops 1 drops OP QPM 01/13/19 08/31/20 History (Rhopressa) ondansetron 4 mg oral soluble film 4 mg PO Q8H PRN 01/13/19 08/31/20 History spironolactone 100 mg tablet 100 mg PO QAM 01/28/19 08/31/20 History (Aldactone) calcium carbonate 600 mg calcium 600 mg PO QPM 01/30/19 08/31/20 History (1,500 mg) tablet (Calcium) cholecalciferol (vitamin D3) 25 25 mcg PO QAM 01/30/19 08/31/20 History mcg (1,000 unit) tablet (Vitamin D3) cyanocobalamin (vitamin B-12) 1,000 mcg PO QAM 01/30/19 08/31/20 History 1,000 mcg tablet (Vitamin B-12) fluticasone propionate 50 2 spray INTRANASAL PM 01/30/19 08/31/20 History mcg/actuation nasal spray,suspension (Flonase Allergy Relief) garlic 1,000 mg capsule 1,000 mg PO QAM 01/30/19 08/31/20 History vitamin E 400 unit capsule 400 unit PO QAM 01/30/19 08/31/20 History furosemide 20 mg tablet 40 mg PO QAM tab 04/07/19 08/31/20 History aspirin 81 mg tablet,delayed 81 mg PO PM 08/01/20 08/31/20 History release clopidogrel 75 mg tablet 75 mg PO QAM 08/01/20 08/31/20 History magnesium hydroxide 400 mg/5 mL 30 ml PO DAILY PRN 08/01/20 08/31/20 History oral suspension (Milk of Magnesia) nitroglycerin 0.4 mg sublingual 0.4 mg SUBLINGUAL Q5M PRN MDD up 08/01/20 History tablet to 3 tabs in 15 mins oxycodone 5 mg tablet 5 mg PO Q4H PRN 08/01/20 08/31/20 History sennosides 8.6 mg tablet (senna) 8.6 mg PO DAILY PRN 08/01/20 08/31/20 History Patient History Medical History CAD (coronary artery disease) Cirrhosis of liver Diabetes 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 Bermeo 02-06-19 S/P partial colectomy Family History Brother Diabetes Mother Cancer Father Hypertension Social History Smoking Status: Former smoker packs per day: 0.5; Years Smoked: 5; Second Hand Exposure: No; Hx Alcohol Use: No Hx Substance Use: No Preferred Language: [place] Communication Ability: Effective [employer] Required: No Beliefs That Will Affect Care: None marital status: Current Living Situation: Spouse current occupational status: retired Feels Safe at Home: Yes Assistive Devices: Glasses Review of Systems Constitutional: as per Subjective / HPI Eyes: as per Subjective / HPI Cardiovascular: as per Subjective / HPI Additional Comments: HTN, ischemic heart disease Gastrointestinal: cirrhosis of liver, ascites, colon cancer, S/P resection pancreatic cyst and spleen Genitourinary: acute kidney injury Neurologic: as per Subjective / HPI Endocrine: as per Subjective / HPI DM, Physical Exam Constitutional: WD/WN, vitals as above Neck: trachea midline, no thyromegaly Respiratory: normal respiratory effort, lungs clear to auscultation Cardiovascular: RRR, no murmur, no edema Gastrointestinal (Abdomen): unhealing at middle line abdomen, dry, no redness, no drainage, Musculoskeletal: no cyanosis or clubbing, extremities motor strength 5/5 Neurologic: patellar DTR's 2+ bilat, sensation intact Psychiatric: A+Ox3, euthymic affect Results & Data ([facility]) Vital Signs (Past 12 Hours) Vital Signs Temp Pulse Resp BP Pulse Ox 08/31/20 16:15 37.1 C 71 16 131/53 L 97 08/31/20 16:00 36.7 C 72 20 127/58 L 98 08/31/20 15:30 72 18 130/61 98 08/31/20 15:00 68 16 135/71 98 08/31/20 14:30 71 18 141/61 H 98 08/31/20 14:00 70 16 139/60 97 08/31/20 13:40 73 15 144/58 H 98 08/31/20 13:30 73 15 144/58 H 98 08/31/20 13:00 73 17 143/58 H 98 08/31/20 12:40 71 14 132/58 L 97 08/31/20 12:30 73 15 139/57 L 97 08/31/20 12:10 37.2 C 82 19 136/68 98 08/31/20 11:55 37.2 C 82 19 136/48 L 98 08/31/20 11:54 37.0 C 71 19 130/57 L 97 08/31/20 11:33 37.2 C 84 20 127/78 98 08/31/20 11:00 73 16 117/54 L 98 08/31/20 10:30 75 17 128/73 97 08/31/20 09:42 37.2 C 79 20 120/49 L 98 Laboratory Results Abnormal lab results 08/31/20 08/31/20 08/31/20 Range/Units 10:14 10:14 10:14 WBC 15.40 H (4.8-10.8) K/uL RBC 2.34 L (4.2-5.4) M/uL Hgb 6.6 L* (12.0-16.0) g/dL Hct 21.6 L (37-47) % MCHC 30.6 L (32-36) g/dL RDW Std Deviation 56.7 H (36.4-46.3) fL RDW Coeff of Teresa 17.4 H (11.5-14.5) % Plt Count 528 H (130-400) K/uL MPV 10.9 H (7.4-10.4) fL Neut # (Auto) 7.10 H (1.4-6.5) K/uL Lymph # (Auto) 6.30 H (1.2-3.4) K/uL Hood # (Auto) 1.60 H (0.11-0.59) K/uL Immature Gran # (Auto) 0.05 H (0.00-0.02) K/uL Absolute Nucleated RBC 0.10 H (0-0) K/uL APTT 20.9 L (21.0-31.0) Seconds Sodium (136-145) mmol/L BUN (7-18) mg/dl BUN/Creatinine Ratio (10-20) Glucose (70-99) mg/dl AST (15-37) U/L Alkaline Phosphatase (45-117) U/L Albumin (3.4-5.0) gm/dl Globulin (2.5-4.0) gm/dl Albumin/Globulin Ratio (0.9-2) Crossmatch See Detail 08/31/20 Range/Units 10:14 WBC (4.8-10.8) K/uL RBC (4.2-5.4) M/uL Hgb (12.0-16.0) g/dL Hct (37-47) % MCHC (32-36) g/dL RDW Std Deviation (36.4-46.3) fL RDW Coeff of Teresa (11.5-14.5) % Plt Count (130-400) K/uL MPV (7.4-10.4) fL Neut # (Auto) (1.4-6.5) K/uL Lymph # (Auto) (1.2-3.4) K/uL Hood # (Auto) (0.11-0.59) K/uL Immature Gran # (Auto) (0.00-0.02) K/uL Absolute Nucleated RBC (0-0) K/uL APTT (21.0-31.0) Seconds Sodium 133 L (136-145) mmol/L BUN 37 H (7-18) mg/dl BUN/Creatinine Ratio 40.8 H (10-20) Glucose 297 H (70-99) mg/dl AST 60 H (15-37) U/L Alkaline Phosphatase 278 H (45-117) U/L Albumin 1.9 L (3.4-5.0) gm/dl Globulin 4.7 H (2.5-4.0) gm/dl Albumin/Globulin Ratio 0.4 L (0.9-2) Crossmatch (1) Open abdominal wall wound Encounter type: initial encounter Qualified Code(s): S31.109A - Unspecified open wound of abdominal wall, unspecified quadrant without penetration into peritoneal cavity, initial encounter
[2020-08-31] MEDS ORDERED: MoRPHine SULFATE 2 MG/ML CARP IV PRN (17:45)
[2020-08-31] MEDS ORDERED: DEXTROSE 50% 50 ML SYRINGE IV PRN (17:45)
[2020-08-31] MEDS ORDERED: SODIUM CHLORIDE 0.9% 1000ML 1,000 ML IV SCH (17:45)
[2020-08-31] MEDS ORDERED: PIPERACILLIN/TAZOBACTAM 3.375 GM in DEXTROSE 5% 100 ML IV ONE (17:45)
[2020-08-31] MEDS ORDERED: GLUCAGON FOR INJ 1 MG VIAL SQ PRN (17:45)
[2020-08-31] MEDS ORDERED: GLUCOSE 40% GEL 15 GM TUBE PO PRN (17:45)
[2020-08-31] MEDS ORDERED: ONDANSETRON INJ 2 MG/ML 2 ML VIAL IV PRN (17:45)
[2020-08-31] MEDS ORDERED: NITROGLYCERIN SL 0.4 MG/TAB TAB SL PRN (17:45)
[2020-08-31] MEDS ORDERED: ACETAMINOPHEN 325 MG TAB PO PRN (17:45)
[2020-08-31] MEDS ORDERED: GLUCOSE 10 TABS/TUBE PO PRN (17:45)
[2020-08-31] MEDS ORDERED: CARBOHYDRATES FOR HYPOGLYCEMIA PO PRN (17:45)
[2020-08-31] MEDS ORDERED: PIPERACILL/TAZOBAC CONSULT ACTIVE PRN (17:45)
[2020-08-31] MEDS ORDERED: PIPERACILLIN/TAZOBACTAM 4.5 GM in DEXTROSE 5% 100 ML IV ONE (18:45)
[2020-08-31] MEDS: SODIUM CHLORIDE 0.9% 1000ML 1,000 ML IV SCH (20:41)
[2020-08-31] MEDS: DOXYCYCLINE HYCLATE 100 MG in DEXTROSE 5% 100 ML IV SCH (20:41)
[2020-08-31] MEDS: INSULIN ASPART 100 UNITS/ML 3 ML PEN SC SCH ×2 (21:03→21:40)
[2020-08-31 21:04] LABS: Hematocrit (blood only) 29.5 % (37-47); Hemoglobin 9.3 g/dL (12.0-16.0)
[2020-08-31] MEDS ORDERED: Nursing to Pharmacy Communication SCH (22:00)
[2020-09-01 01:08] LABS: Hematocrit (blood only) 24.1 % (37-47); Hemoglobin 7.6 g/dL (12.0-16.0); Mean Corpuscular Hemoglobin 26.6 pg (25-34); Mean Corpuscular Hgb Conc 31.5 g/dL (32-36); Mean Corpuscular Volume 84.3 fL (80-100); Mean Platelet Volume 10.3 fL (7.4-10.4); Nucleated RBC # (auto) 0.14 K/uL (0-0); Platelet Count 389 K/uL (130-400); RDW Coefficient of Variation 21.6 % (11.5-14.5); RDW Standard Deviation 64.2 fL (36.4-46.3); Red Blood Count 2.86 M/uL (4.2-5.4); White Blood Count 13.85 K/uL (4.8-10.8)
[2020-09-01] MEDS: PIPERACILLIN/TAZOBACTAM 4.5 GM in DEXTROSE 5% 100 ML IV SCH ×3 (01:19→17:30)
[2020-09-01] MEDS: PANTOprazole 40 MG in DEXTROSE 5% 100 ML IV SCH ×5 (01:19→19:24)
[2020-09-01 01:31] LABS: Albumin Level 1.8 gm/dl (3.4-5.0); BUN Creatinine Ratio 38.5 (10-20); Bilirubin Direct 0.1 mg/dl (0-0.2); Calcium 8.7 mg/dl (8.5-10.1); Creatinine Clr Calc Pharmacy 77.1 ml/min; Est GFR (African American) 88.6 ml/min; Est GFR (Non-African American) 76.5 ml/min; Potassium 4.3 mmol/L (3.5-5.1)
[2020-09-01 01:34] LABS: Bilirubin,Total 0.3 mg/dl (0.2-1); Total Protein 5.7 gm/dl (6.4-8.2)
[2020-09-01 04:43] LABS: Hematocrit (blood only) 23.5 % (37-47); Hemoglobin 7.3 g/dL (12.0-16.0); Mean Corpuscular Hemoglobin 26.5 pg (25-34); Mean Corpuscular Volume 85.5 fL (80-100); Mean Platelet Volume 10.2 fL (7.4-10.4); Nucleated RBC % (auto) 0.7 %; Platelet Count 381 K/uL (130-400); RDW Standard Deviation 66.2 fL (36.4-46.3); Red Blood Count 2.75 M/uL (4.2-5.4); White Blood Count 12.92 K/uL (4.8-10.8)
[2020-09-01 04:44] LABS: Mean Corpuscular Hgb Conc 31.1 g/dL (32-36)
[2020-09-01 05:01] LABS: BUN Creatinine Ratio 40.2 (10-20); Calcium 8.5 mg/dl (8.5-10.1); Creatinine Clr Calc Pharmacy 78.8 ml/min; Est GFR (African American) 92.9 ml/min; Est GFR (Non-African American) 80.2 ml/min; Magnesium 1.8 mg/dl (1.8-2.4); Potassium 4.4 mmol/L (3.5-5.1)
[2020-09-01] MEDS ORDERED: SODIUM CHLORIDE 0.9% 250 ML IV PRN (05:01)
[2020-09-01 05:21] LABS: ALC (manual) 6.28 K/uL (1.2-3.4); ANC (manual) 5.14 K/uL (1.4-6.5); Anisocytosis Present; Basophils # (manual) 0.23 K/uL (0-0.2); Basophils % (manual) 1.8 %; Eosinophils # (manual) 0.35 K/uL (0-0.5); Eosinophils % (manual) 2.7 %; Hypochromasia Present; Large Granular Lymph # (manua 4.34 K/uL; Large Granular Lymph % (manual) 33.6 %; Lymphocytes # (manual) 1.94 K/uL (1.2-3.4); Monocytes % (manual) 6.2 %; Myelocytes # (manual) 0.12 K/uL (0-0); Myelocytes % (manual) 0.9 %; Neutrophils # (manual) 5.14 K/uL (1.4-6.5); Neutrophils % (manual) 39.8 %; Polychromasia 1+
[2020-09-01] MEDS: DOXYCYCLINE HYCLATE 100 MG in DEXTROSE 5% 100 ML IV SCH (06:05)
[2020-09-01] MEDS ORDERED: FUROSEMIDE 20 MG in SYRINGE 0 ML IV ONE (07:00)
[2020-09-01] MEDS: PROPRANOLOL HCL LA 80 MG CAPCR PO SCH (07:59)
[2020-09-01] MEDS: INSULIN ASPART 100 UNITS/ML 3 ML PEN SC SCH ×4 (08:03→21:23)
--- NOTE | 2020-09-01 08:21 | Hospitalist Progress Note ---
Date of Service September 01, 2020 Assessment & Plan (1) GI bleed: Plan: Acute on chronic symptomatic anemia Likely Multifactorial: GI bleeding, anemia of chronic disease, post surgical GI bleeding (Positive FOBT) In setting Aspirin, Plavix, Lovenox use H/O esophageal varices, duodenal ulcer --CT ABD :Postsurgical changes of a right hemicolectomy, splenectomy, right nephrectomy, and partial pancreatectomy. Hepatic cirrhosis and low volume ascites. Anterior abdominal wall wound/diastases with persistent gas and fluid within the base of the wound. Further interval decrease in the size of the complex fluid collection containing gas at the level of the pancreatic body. No evidence of bowel obstruction. No evidence of free air. Interval removal of the left-sided peritoneal drainage catheter. -Hb:6.6 S/P 2 units PRBCs Hold Aspirin, Plavix and any anticoagulants Start on Protonix ggt, IV fluids GI consulted Monitor H&H and transfuse PRBCs as needed Keep her n.p.o. for now Plan for endoscopy today (09/01/20) Unhealing Open abdominal wall wound CT ABD as above Recently completed a course of Bactrim Start on broad spectrum antibiotics Blood/Wound Cultures Appreciate Surgery Input Continue wound Care ID consulted for further antibiotic recommendations On 08/18/2020 -abdominal wound culture positive for Proteus mirabilis, Enterococcus for CM VRE Current abdominal wound culture shows Staphylococcus species, final culture pending For now we will continue with daptomycin, Zosyn DM Type II: Will hold oral diabetic meds Last A1c:6.9 on 08/19/20 ISS, basal Insulin, Accu checks, Diabetic diet H/O Cirrhosis Hold home diuretics secondary to GI bleed Monitor volume status Resume diuretics as able CAD S/P CABG Hold aspirin, Plavix due to GI bleed Continue other home medications Currently denies any anginal symptoms Likely will not resume aspirin on discharge, will further discuss with cardiology NSVT 09/01 after EGD patient had 22 beat of V. tach Cardiology consulted, plan for echocardiogram Currently patient on propranolol which we will continue Electrolytes within normal limits, will keep K>4 and Mg>2 Right renal Mass S/P nephrectomy DVT Px: SCDs Code Status DNI/DNR as per admitting provider discussion with patient. 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 Admission and Anticipated Discharge Date Admission Date: August 31, 2020 Subjective Patient seen in follow-up of Anemia, concern for GI bleed Plan for EGD today Currently laying in bed, in no acute distress Denies any chest pain, shortness of breath, dizziness also denies any fevers or chills She was placed on broad spectrum antibiotics on admission due to history of abdominal postoperative wound update: After EGD, patient had a nonsustained VT, patient was asymptomatic during the episode Review of Systems Review of Systems: All systems reviewed & are unremarkable except as noted in HPI & below Physical Exam Physical Exam: General Appearance:Obese, no apparent distress Head: normocephalic, Atraumatic Eyes: normal inspection, EOMI Neck: supple, Trachea midline Respiratory/Chest: Decreased breath sounds, CTA, No accessory muscle use Cardiovascular: S1, S2, + murmur Abdomen/GI:Soft, Non tender, Bowel sounds present, +Large abdominal wound with retention sutures, ? pus appearing in dressing Extremities/Musculoskeletal:normal inspection, 2+ B/L LE edema Neurologic/Psych:AAOX3, grossly no focal neurological deficits Skin: normal color, warm Results & Data Results & Data ([facility]) Vital Signs (Past 12 Hours) Vital Signs Temp Pulse Pulse Resp BP BP Pulse Ox 09/01/20 07:35 37.2 C 72 16 136/63 96 09/01/20 06:35 37 C 73 18 132/67 96 09/01/20 06:05 37.2 C 71 18 127/58 L 95 09/01/20 05:50 37.0 C 69 18 115/57 L 95 09/01/20 05:33 37.2 C 69 121/49 L 94 09/01/20 05:16 37.2 C 69 16 121/49 L 94 09/01/20 03:23 37.1 C 71 18 123/62 95 08/31/20 22:45 36.8 C 77 18 136/61 96 08/31/20 22:19 64 Laboratory Results 09/01/20 09/01/20 09/01/20 Range/Units 06:56 04:30 04:30 WBC 12.92 H (4.8-10.8) K/uL RBC 2.75 L (4.2-5.4) M/uL Hgb 7.3 L (12.0-16.0) g/dL Hct 23.5 L (37-47) % MCV 85.5 (80-100) fL MCH 26.5 (25-34) pg MCHC 31.1 L (32-36) g/dL RDW Std Deviation 66.2 H (36.4-46.3) fL RDW Coeff of Teresa 22.0 H (11.5-14.5) % Plt Count 381 (130-400) K/uL MPV 10.2 (7.4-10.4) fL Immature Gran % (Auto) % Neut % (Auto) % Lymph % (Auto) % Quay % (Auto) % Eos % (Auto) % Baso % (Auto) % Neut # (Auto) (1.4-6.5) K/uL Lymph # (Auto) (1.2-3.4) K/uL Quay # (Auto) (0.11-0.59) K/uL Eos # (Auto) (0-0.5) K/uL Baso # (Auto) (0-0.2) K/uL Immature Gran # (Auto) (0.00-0.02) K/uL Absolute Nucleated RBC 0.10 H (0-0) K/uL Nucleated RBC % (auto) 0.7 % Neutrophils % (Manual) 39.8 % Lymphocytes % (Manual) 15.0 % Monocytes % (Manual) 6.2 % Eosinophils % (Manual) 2.7 % Basophils % (Manual) 1.8 % Myelocytes % (Man) 0.9 % Neutrophils # (Manual) 5.14 (1.4-6.5) K/uL Total Absolute Neuts 5.14 (1.4-6.5) K/uL Lymphocytes # (Manual) 1.94 (1.2-3.4) K/uL Total Abs Lymphocytes 6.28 H (1.2-3.4) K/uL Monocytes # (Manual) 0.80 H (0.11-0.59) K/uL Eosinophils # (Manual) 0.35 (0-0.5) K/uL Basophils # (Manual) 0.23 H (0-0.2) K/uL Myelocytes # (Manual) 0.12 H (0-0) K/uL Large Granular Lymphs 33.6 % # Lrg Granular Lymphs 4.34 K/uL Polychromasia 1+ Hypochromasia Present Anisocytosis Present PT (9.0-12.0) Seconds INR (0.9-1.1) APTT (21.0-31.0) Seconds PTT Ratio Sodium 135 L (136-145) mmol/L Potassium 4.4 (3.5-5.1) mmol/L Chloride 103 (98-107) mmol/L Carbon Dioxide 29 (21-32) mmol/L Anion Gap 3.0 (3-11) BUN 30 H (7-18) mg/dl Creatinine 0.75 (0.6-1.2) mg/dl Est Cr Clr Drug Dosing 78.8 ml/min Est GFR ( Amer) 92.9 ml/min Est GFR (Non-Af Amer) 80.2 ml/min BUN/Creatinine Ratio 40.2 H (10-20) Glucose 209 H (70-99) mg/dl POC Glucose 237 H (70-99) mg/dl Calcium 8.5 (8.5-10.1) mg/dl Magnesium 1.8 (1.8-2.4) mg/dl Total Bilirubin (0.2-1) mg/dl Direct Bilirubin (0-0.2) mg/dl AST (15-37) U/L ALT (12-78) U/L Alkaline Phosphatase (45-117) U/L Troponin I (0-0.045) ng/ml Total Protein (6.4-8.2) gm/dl Albumin (3.4-5.0) gm/dl Globulin (2.5-4.0) gm/dl Albumin/Globulin Ratio (0.9-2) Lipase (73-393) U/L Specimen Hemolysis Nasal Screen MRSA (PCR) (Negative) COVID-19 Eval Order SARS-CoV-2 (PCR) (Negative) Blood Type Antibody Screen Crossmatch 09/01/20 09/01/20 09/01/20 Range/Units 01:24 00:52 00:52 WBC 13.85 H (4.8-10.8) K/uL RBC 2.86 L (4.2-5.4) M/uL Hgb 7.6 L (12.0-16.0) g/dL Hct 24.1 L (37-47) % MCV 84.3 D (80-100) fL MCH 26.6 (25-34) pg MCHC 31.5 L (32-36) g/dL RDW Std Deviation 64.2 H (36.4-46.3) fL RDW Coeff of Teresa 21.6 H (11.5-14.5) % Plt Count 389 (130-400) K/uL MPV 10.3 (7.4-10.4) fL Immature Gran % (Auto) % Neut % (Auto) % Lymph % (Auto) % Quay % (Auto) % Eos % (Auto) % Baso % (Auto) % Neut # (Auto) (1.4-6.5) K/uL Lymph # (Auto) (1.2-3.4) K/uL Quay # (Auto) (0.11-0.59) K/uL Eos # (Auto) (0-0.5) K/uL Baso # (Auto) (0-0.2) K/uL Immature Gran # (Auto) (0.00-0.02) K/uL Absolute Nucleated RBC 0.14 H (0-0) K/uL Nucleated RBC % (auto) 1.0 % Neutrophils % (Manual) % Lymphocytes % (Manual) % Monocytes % (Manual) % Eosinophils % (Manual) % Basophils % (Manual) % Myelocytes % (Man) % Neutrophils # (Manual) (1.4-6.5) K/uL Total Absolute Neuts (1.4-6.5) K/uL Lymphocytes # (Manual) (1.2-3.4) K/uL Total Abs Lymphocytes (1.2-3.4) K/uL Monocytes # (Manual) (0.11-0.59) K/uL Eosinophils # (Manual) (0-0.5) K/uL Basophils # (Manual) (0-0.2) K/uL Myelocytes # (Manual) (0-0) K/uL Large Granular Lymphs % # Lrg Granular Lymphs K/uL Polychromasia Hypochromasia Anisocytosis PT (9.0-12.0) Seconds INR (0.9-1.1) APTT (21.0-31.0) Seconds PTT Ratio Sodium 136 (136-145) mmol/L Potassium 4.3 (3.5-5.1) mmol/L Chloride 103 (98-107) mmol/L Carbon Dioxide 29 (21-32) mmol/L Anion Gap 4.0 (3-11) BUN 30 H (7-18) mg/dl Creatinine 0.78 (0.6-1.2) mg/dl Est Cr Clr Drug Dosing 77.1 ml/min Est GFR ( Amer) 88.6 ml/min Est GFR (Non-Af Amer) 76.5 ml/min BUN/Creatinine Ratio 38.5 H (10-20) Glucose 204 H (70-99) mg/dl POC Glucose 212 H (70-99) mg/dl Calcium 8.7 (8.5-10.1) mg/dl Magnesium (1.8-2.4) mg/dl Total Bilirubin 0.3 (0.2-1) mg/dl Direct Bilirubin 0.1 (0-0.2) mg/dl AST 37 (15-37) U/L ALT 53 (12-78) U/L Alkaline Phosphatase 187 H (45-117) U/L Troponin I (0-0.045) ng/ml Total Protein 5.7 L (6.4-8.2) gm/dl Albumin 1.8 L (3.4-5.0) gm/dl Globulin (2.5-4.0) gm/dl Albumin/Globulin Ratio (0.9-2) Lipase (73-393) U/L Specimen Hemolysis Nasal Screen MRSA (PCR) (Negative) COVID-19 Eval Order SARS-CoV-2 (PCR) (Negative) Blood Type Antibody Screen Crossmatch 08/31/20 08/31/20 08/31/20 Range/Units 22:47 20:38 20:36 WBC (4.8-10.8) K/uL RBC (4.2-5.4) M/uL Hgb 9.3 L (12.0-16.0) g/dL Hct 29.5 L (37-47) % MCV (80-100) fL MCH (25-34) pg MCHC (32-36) g/dL RDW Std Deviation (36.4-46.3) fL RDW Coeff of Teresa (11.5-14.5) % Plt Count (130-400) K/uL MPV (7.4-10.4) fL Immature Gran % (Auto) % Neut % (Auto) % Lymph % (Auto) % Quay % (Auto) % Eos % (Auto) % Baso % (Auto) % Neut # (Auto) (1.4-6.5) K/uL Lymph # (Auto) (1.2-3.4) K/uL Quay # (Auto) (0.11-0.59) K/uL Eos # (Auto) (0-0.5) K/uL Baso # (Auto) (0-0.2) K/uL Immature Gran # (Auto) (0.00-0.02) K/uL Absolute Nucleated RBC (0-0) K/uL Nucleated RBC % (auto) % Neutrophils % (Manual) % Lymphocytes % (Manual) % Monocytes % (Manual) % Eosinophils % (Manual) % Basophils % (Manual) % Myelocytes % (Man) % Neutrophils # (Manual) (1.4-6.5) K/uL Total Absolute Neuts (1.4-6.5) K/uL Lymphocytes # (Manual) (1.2-3.4) K/uL Total Abs Lymphocytes (1.2-3.4) K/uL Monocytes # (Manual) (0.11-0.59) K/uL Eosinophils # (Manual) (0-0.5) K/uL Basophils # (Manual) (0-0.2) K/uL Myelocytes # (Manual) (0-0) K/uL Large Granular Lymphs % # Lrg Granular Lymphs K/uL Polychromasia Hypochromasia Anisocytosis PT (9.0-12.0) Seconds INR (0.9-1.1) APTT (21.0-31.0) Seconds PTT Ratio Sodium (136-145) mmol/L Potassium (3.5-5.1) mmol/L Chloride (98-107) mmol/L Carbon Dioxide (21-32) mmol/L Anion Gap (3-11) BUN (7-18) mg/dl Creatinine (0.6-1.2) mg/dl Est Cr Clr Drug Dosing ml/min Est GFR ( Amer) ml/min Est GFR (Non-Af Amer) ml/min BUN/Creatinine Ratio (10-20) Glucose (70-99) mg/dl POC Glucose 232 H 221 H (70-99) mg/dl Calcium (8.5-10.1) mg/dl Magnesium (1.8-2.4) mg/dl Total Bilirubin (0.2-1) mg/dl Direct Bilirubin (0-0.2) mg/dl AST (15-37) U/L ALT (12-78) U/L Alkaline Phosphatase (45-117) U/L Troponin I (0-0.045) ng/ml Total Protein (6.4-8.2) gm/dl Albumin (3.4-5.0) gm/dl Globulin (2.5-4.0) gm/dl Albumin/Globulin Ratio (0.9-2) Lipase (73-393) U/L Specimen Hemolysis Nasal Screen MRSA (PCR) (Negative) COVID-19 Eval Order SARS-CoV-2 (PCR) (Negative) Blood Type Antibody Screen Crossmatch 08/31/20 08/31/20 08/31/20 Range/Units 18:14 18:08 12:10 WBC (4.8-10.8) K/uL RBC (4.2-5.4) M/uL Hgb (12.0-16.0) g/dL Hct (37-47) % MCV (80-100) fL MCH (25-34) pg MCHC (32-36) g/dL RDW Std Deviation (36.4-46.3) fL RDW Coeff of Teresa (11.5-14.5) % Plt Count (130-400) K/uL MPV (7.4-10.4) fL Immature Gran % (Auto) % Neut % (Auto) % Lymph % (Auto) % Quay % (Auto) % Eos % (Auto) % Baso % (Auto) % Neut # (Auto) (1.4-6.5) K/uL Lymph # (Auto) (1.2-3.4) K/uL Quay # (Auto) (0.11-0.59) K/uL Eos # (Auto) (0-0.5) K/uL Baso # (Auto) (0-0.2) K/uL Immature Gran # (Auto) (0.00-0.02) K/uL Absolute Nucleated RBC (0-0) K/uL Nucleated RBC % (auto) % Neutrophils % (Manual) % Lymphocytes % (Manual) % Monocytes % (Manual) % Eosinophils % (Manual) % Basophils % (Manual) % Myelocytes % (Man) % Neutrophils # (Manual) (1.4-6.5) K/uL Total Absolute Neuts (1.4-6.5) K/uL Lymphocytes # (Manual) (1.2-3.4) K/uL Total Abs Lymphocytes (1.2-3.4) K/uL Monocytes # (Manual) (0.11-0.59) K/uL Eosinophils # (Manual) (0-0.5) K/uL Basophils # (Manual) (0-0.2) K/uL Myelocytes # (Manual) (0-0) K/uL Large Granular Lymphs % # Lrg Granular Lymphs K/uL Polychromasia Hypochromasia Anisocytosis PT (9.0-12.0) Seconds INR (0.9-1.1) APTT (21.0-31.0) Seconds PTT Ratio Sodium (136-145) mmol/L Potassium (3.5-5.1) mmol/L Chloride (98-107) mmol/L Carbon Dioxide (21-32) mmol/L Anion Gap (3-11) BUN (7-18) mg/dl Creatinine (0.6-1.2) mg/dl Est Cr Clr Drug Dosing ml/min Est GFR ( Amer) ml/min Est GFR (Non-Af Amer) ml/min BUN/Creatinine Ratio (10-20) Glucose (70-99) mg/dl POC Glucose 223 H (70-99) mg/dl Calcium (8.5-10.1) mg/dl Magnesium (1.8-2.4) mg/dl Total Bilirubin (0.2-1) mg/dl Direct Bilirubin (0-0.2) mg/dl AST (15-37) U/L ALT (12-78) U/L Alkaline Phosphatase (45-117) U/L Troponin I (0-0.045) ng/ml Total Protein (6.4-8.2) gm/dl Albumin (3.4-5.0) gm/dl Globulin (2.5-4.0) gm/dl Albumin/Globulin Ratio (0.9-2) Lipase (73-393) U/L Specimen Hemolysis Nasal Screen MRSA (PCR) Positive A (Negative) COVID-19 Eval Order SARS-CoV-2 (PCR) NEGATIVE (Negative) Blood Type Antibody Screen Crossmatch 08/31/20 08/31/20 08/31/20 Range/Units 12:10 10:14 10:14 WBC (4.8-10.8) K/uL RBC (4.2-5.4) M/uL Hgb (12.0-16.0) g/dL Hct (37-47) % MCV (80-100) fL MCH (25-34) pg MCHC (32-36) g/dL RDW Std Deviation (36.4-46.3) fL RDW Coeff of Teresa (11.5-14.5) % Plt Count (130-400) K/uL MPV (7.4-10.4) fL Immature Gran % (Auto) % Neut % (Auto) % Lymph % (Auto) % Quay % (Auto) % Eos % (Auto) % Baso % (Auto) % Neut # (Auto) (1.4-6.5) K/uL Lymph # (Auto) (1.2-3.4) K/uL Quay # (Auto) (0.11-0.59) K/uL Eos # (Auto) (0-0.5) K/uL Baso # (Auto) (0-0.2) K/uL Immature Gran # (Auto) (0.00-0.02) K/uL Absolute Nucleated RBC (0-0) K/uL Nucleated RBC % (auto) % Neutrophils % (Manual) % Lymphocytes % (Manual) % Monocytes % (Manual) % Eosinophils % (Manual) % Basophils % (Manual) % Myelocytes % (Man) % Neutrophils # (Manual) (1.4-6.5) K/uL Total Absolute Neuts (1.4-6.5) K/uL Lymphocytes # (Manual) (1.2-3.4) K/uL Total Abs Lymphocytes (1.2-3.4) K/uL Monocytes # (Manual) (0.11-0.59) K/uL Eosinophils # (Manual) (0-0.5) K/uL Basophils # (Manual) (0-0.2) K/uL Myelocytes # (Manual) (0-0) K/uL Large Granular Lymphs % # Lrg Granular Lymphs K/uL Polychromasia Hypochromasia Anisocytosis PT 10.4 (9.0-12.0) Seconds INR 1.0 (0.9-1.1) APTT 20.9 L (21.0-31.0) Seconds PTT Ratio 0.8 Sodium 133 L (136-145) mmol/L Potassium 5.0 (3.5-5.1) mmol/L Chloride 100 (98-107) mmol/L Carbon Dioxide 30 (21-32) mmol/L Anion Gap 3.0 (3-11) BUN 37 H (7-18) mg/dl Creatinine 0.91 (0.6-1.2) mg/dl Est Cr Clr Drug Dosing 66.0 ml/min Est GFR ( Amer) 73.6 ml/min Est GFR (Non-Af Amer) 63.5 ml/min BUN/Creatinine Ratio 40.8 H (10-20) Glucose 297 H (70-99) mg/dl POC Glucose (70-99) mg/dl Calcium 9.7 (8.5-10.1) mg/dl Magnesium (1.8-2.4) mg/dl Total Bilirubin 0.2 (0.2-1) mg/dl Direct Bilirubin (0-0.2) mg/dl AST 60 H (15-37) U/L ALT 73 (12-78) U/L Alkaline Phosphatase 278 H (45-117) U/L Troponin I < 0.015 (0-0.045) ng/ml Total Protein 6.6 (6.4-8.2) gm/dl Albumin 1.9 L (3.4-5.0) gm/dl Globulin 4.7 H (2.5-4.0) gm/dl Albumin/Globulin Ratio 0.4 L (0.9-2) Lipase 185 (73-393) U/L Specimen Hemolysis Nasal Screen MRSA (PCR) (Negative) COVID-19 Eval Order Covid19 at [facility] SARS-CoV-2 (PCR) (Negative) Blood Type Antibody Screen Crossmatch 08/31/20 08/31/20 Range/Units 10:14 10:14 WBC 15.40 H (4.8-10.8) K/uL RBC 2.34 L (4.2-5.4) M/uL Hgb 6.6 L* (12.0-16.0) g/dL Hct 21.6 L (37-47) % MCV 92.3 (80-100) fL MCH 28.2 (25-34) pg MCHC 30.6 L (32-36) g/dL RDW Std Deviation 56.7 H (36.4-46.3) fL RDW Coeff of Teresa 17.4 H (11.5-14.5) % Plt Count 528 H (130-400) K/uL MPV 10.9 H (7.4-10.4) fL Immature Gran % (Auto) 0.3 % Neut % (Auto) 46.1 % Lymph % (Auto) 40.9 % Quay % (Auto) 10.4 % Eos % (Auto) 1.6 % Baso % (Auto) 0.7 % Neut # (Auto) 7.10 H (1.4-6.5) K/uL Lymph # (Auto) 6.30 H (1.2-3.4) K/uL Quay # (Auto) 1.60 H (0.11-0.59) K/uL Eos # (Auto) 0.24 (0-0.5) K/uL Baso # (Auto) 0.11 (0-0.2) K/uL Immature Gran # (Auto) 0.05 H (0.00-0.02) K/uL Absolute Nucleated RBC 0.10 H (0-0) K/uL Nucleated RBC % (auto) 0.7 % Neutrophils % (Manual) % Lymphocytes % (Manual) % Monocytes % (Manual) % Eosinophils % (Manual) % Basophils % (Manual) % Myelocytes % (Man) % Neutrophils # (Manual) (1.4-6.5) K/uL Total Absolute Neuts (1.4-6.5) K/uL Lymphocytes # (Manual) (1.2-3.4) K/uL Total Abs Lymphocytes (1.2-3.4) K/uL Monocytes # (Manual) (0.11-0.59) K/uL Eosinophils # (Manual) (0-0.5) K/uL Basophils # (Manual) (0-0.2) K/uL Myelocytes # (Manual) (0-0) K/uL Large Granular Lymphs % # Lrg Granular Lymphs K/uL Polychromasia 1+ Hypochromasia Present Anisocytosis PT (9.0-12.0) Seconds INR (0.9-1.1) APTT (21.0-31.0) Seconds PTT Ratio Sodium (136-145) mmol/L Potassium (3.5-5.1) mmol/L Chloride (98-107) mmol/L Carbon Dioxide (21-32) mmol/L Anion Gap (3-11) BUN (7-18) mg/dl Creatinine (0.6-1.2) mg/dl Est Cr Clr Drug Dosing ml/min Est GFR ( Amer) ml/min Est GFR (Non-Af Amer) ml/min BUN/Creatinine Ratio (10-20) Glucose (70-99) mg/dl POC Glucose (70-99) mg/dl Calcium (8.5-10.1) mg/dl Magnesium (1.8-2.4) mg/dl Total Bilirubin (0.2-1) mg/dl Direct Bilirubin (0-0.2) mg/dl AST (15-37) U/L ALT (12-78) U/L Alkaline Phosphatase (45-117) U/L Troponin I (0-0.045) ng/ml Total Protein (6.4-8.2) gm/dl Albumin (3.4-5.0) gm/dl Globulin (2.5-4.0) gm/dl Albumin/Globulin Ratio (0.9-2) Lipase (73-393) U/L Specimen Hemolysis Nasal Screen MRSA (PCR) (Negative) COVID-19 Eval Order SARS-CoV-2 (PCR) (Negative) Blood Type O Positive Antibody Screen NEGATIVE Crossmatch See Detail (1) GI bleed GI bleed type/associated pathology: melena Qualified Code(s): K92.1 - Melena
--- NOTE | 2020-09-01 08:49 | Gastrointestinal Consultation ---
Date of Consultation September 01, 2020 Assessment & Plan (1) GI bleed: (2) Anemia: Pt is a 70 y/o female who seen for symptomatic anemia, dark stools which are heme positive. 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 Also hx of metastatic colon ca s/p R hemicolectomy and R nephrectomy. - Keep NPO - PPI gtt - Monitor H/H and transfuse prn - Plan for EGD evaluation today - Further recs after EGD completed Supervising Physician Co-Signing Physician Notes I saw and evaluated the patient. We were consulted for evaluation of anemia in the setting of antiplatelet use and nonsteroidal use. The patient did have a recent colon resection [place] [facility]. She denies nausea vomiting or hematemesis. She is passing dark stool several times per day. Physical exam no apparent distress, mild pallor skin noted no abdominal tenderness noted impression patient with a history of anemia and suspected bleeding from an upper GI source. If the upper endoscopy is negative we may need to consider referral to a tertiary center as the patient did have a recent colonic surgery at [facility]. History of Present Illness Reason for Consultation: Anemia Requesting Physician: Dr. David Jackman Attending Physician: Dr. Meseret Davey History of Present Illness Pt is a 70 y/o female who presented to ED yesterday w c/o weakness, fatigue, noted to have low Hgb in outpt labs of 6. She has been noticing dark stools which tested heme positive in the ED. Complex past medical hx including: DM II, CABG on ASA and Plavix, cirrhosis w Grade I varices, hx of duodenal and gastric ulcers, pancreatic fistula, pancreas mucinous cyst (high grade dysplasia, adenocarcinoma), metastatic colon cancer s/p distal pancreatectomy, splenectomy on 07/13/2020, complicated by fascial dehiscence w/p closure on 07/22/2020. Also hx of R hemicolectomy and R nephrectomy. Labs reviewed: WBC 12, H/H 08/03 s/p 2U PRBC transfusion H/H this AM 7.3, Plt 381. PT/INR 10/1.0. LFTs, BUN/Cr normal. CT abd/pelvis w IV contrast: 1. Postsurgical changes of a right hemicolectomy, splenectomy, right nephrectomy, and partial pancreatectomy 2. Hepatic cirrhosis and low volume ascites 3. Anterior abdominal wall wound/diastases with persistent gas and fluid within the base of the wound. 4. Further interval decrease in the size of the complex fluid collection containing gas at the level of the pancreatic body. 5. No evidence of bowel obstruction. No evidence of free air 6. Interval removal of the left-sided peritoneal drainage catheter. Allergies Allergy/AdvReac Type Severity Reaction Status Date / Time No Known Allergies Allergy Verified 09/01/20 09:39 Home Medications Medication Instructions Recorded Confirmed Type atorvastatin 40 mg tablet 40 mg PO QAM 12/14/18 08/31/20 History propranolol 80 mg capsule,24 80 mg PO QAM 12/14/18 08/31/20 History hr,extended release echinacea 500 mg capsule 500 mg PO Q OTHER DAY cap 01/13/19 08/31/20 History folic acid 1 mg tablet 1 mg PO QAM tab 01/13/19 08/31/20 History insulin aspart U-100 100 unit/mL 20 unit SUBCUT TIDM 01/13/19 08/31/20 History subcutaneous solution (Novolog U-100 Insulin aspart) insulin glargine 100 unit/mL (3 44 units SUBCUT BID ml 01/13/19 08/31/20 History mL) subcutaneous pen (Basaglar KwikPen U-100 Insulin) netarsudil 0.02 % eye drops 1 drops OP QPM 01/13/19 08/31/20 History (Rhopressa) ondansetron 4 mg oral soluble film 4 mg PO Q8H PRN 01/13/19 08/31/20 History spironolactone 100 mg tablet 100 mg PO QAM 01/28/19 08/31/20 History (Aldactone) calcium carbonate 600 mg calcium 600 mg PO QPM 01/30/19 08/31/20 History (1,500 mg) tablet (Calcium) cholecalciferol (vitamin D3) 25 25 mcg PO QAM 01/30/19 08/31/20 History mcg (1,000 unit) tablet (Vitamin D3) cyanocobalamin (vitamin B-12) 1,000 mcg PO QAM 01/30/19 08/31/20 History 1,000 mcg tablet (Vitamin B-12) fluticasone propionate 50 2 spray INTRANASAL PM 01/30/19 08/31/20 History mcg/actuation nasal spray,suspension (Flonase Allergy Relief) garlic 1,000 mg capsule 1,000 mg PO QAM 01/30/19 08/31/20 History vitamin E 400 unit capsule 400 unit PO QAM 01/30/19 08/31/20 History furosemide 20 mg tablet 40 mg PO QAM tab 04/07/19 08/31/20 History aspirin 81 mg tablet,delayed 81 mg PO PM 08/01/20 08/31/20 History release clopidogrel 75 mg tablet 75 mg PO QAM 08/01/20 08/31/20 History magnesium hydroxide 400 mg/5 mL 30 ml PO DAILY PRN 08/01/20 08/31/20 History oral suspension (Milk of Magnesia) nitroglycerin 0.4 mg sublingual 0.4 mg SUBLINGUAL Q5M PRN MDD up 08/01/20 08/31/20 History tablet to 3 tabs in 15 mins oxycodone 5 mg tablet 5 mg PO Q4H PRN 08/01/20 08/31/20 History sennosides 8.6 mg tablet (senna) 8.6 mg PO DAILY PRN 08/01/20 08/31/20 History Patient History Medical History Anemia CAD (coronary artery disease) Carcinoma of colon Cirrhosis of liver Diabetes Flesh-eating bacteria right kidney four to five years ago as per pt GERD (gastroesophageal reflux disease) GI bleed Glaucoma H/O colon cancer, stage IV Hyperlipidemia Hypertension Infection left arm - IV infiltration MRSA (methicillin resistant Staphylococcus aureus) abdomen - Peritoneal fluid Surgical wound, non healing Surgical History H/O abdominal surgery H/O: History of kidney removal right Hx of CABG vessels x3 s [facility] 2017 Hx of cardiac cath 2018 S/P debridement (02/06/19) Left Arm Sharp Wound Debridement(Left) ; sharp excisional down to and including muscle; greater than [address] Bermeo 02-06-19 S/P partial colectomy Family History Brother Diabetes Mother Cancer Father Hypertension Social History Smoking Status: Former smoker packs per day: 0.5; Years Smoked: 5; Second Hand Exposure: No; Hx Alcohol Use: No Hx Substance Use: No Preferred Language: Malay Communication Ability: Effective Ride Operator Required: No Beliefs That Will Affect Care: None marital status: Current Living Situation: Rehab current occupational status: retired Other Information That Helps Us Care for You: No Feels Safe at Home: Yes Safety Concerns: Feels Safe At This Time Assistive Devices: Glasses Review of Systems Review of Systems: All systems reviewed & are unremarkable except as noted in HPI & below Physical Exam Constitutional: WD/WN, vitals as above well groomed, cooperative and comfortable Eyes: PERRL, conjunctivae normal, anicteric sclerae ENMT: external ear and nose normal, oropharynx normal Respiratory: normal respiratory effort, lungs clear to auscultation Cardiovascular: RRR, no murmur, no edema Gastrointestinal (Abdomen): normal bowel sounds, soft, nontender, no hepatosplenomegaly Mid abd wound covered w dressing CDI Skin: no rashes, warm and dry no jaundice Psychiatric: A+Ox3, euthymic affect Lymphatic: no lymphedema Results & Data ([facility]) Vital Signs (Past 12 Hours) Vital Signs Temp Pulse Pulse Resp BP BP Pulse Ox 09/01/20 07:35 37.2 C 72 16 136/63 96 09/01/20 06:35 37 C 73 18 132/67 96 09/01/20 06:05 37.2 C 71 18 127/58 L 95 09/01/20 05:50 37.0 C 69 18 115/57 L 95 09/01/20 05:33 37.2 C 69 121/49 L 94 09/01/20 05:16 37.2 C 69 16 121/49 L 94 09/01/20 03:23 37.1 C 71 18 123/62 95 08/31/20 22:45 36.8 C 77 18 136/61 96 08/31/20 22:19 64 (1) GI bleed GI bleed type/associated pathology: melena Qualified Code(s): K92.1 - Melena (2) Anemia Anemia type: unspecified type Qualified Code(s): D64.9 - Anemia, unspecified
--- NOTE | 2020-09-01 09:51 | Anesthesiology Consultation ---
Date of Service September 01, 2020 Assessment & Plan Chart Review Chart Review: Acceptable Risk for Surgery, Patient NOT seen in Pre Admission Testing and actuarial mathematician initiated Consults Requested none ASA ASA3 Proposed Anesthesia Anesthesia Type: MAC Risk / Benefits Reviewed With: PT / POA / Parent / Guardian, Accepts Plan and Informed Consent Obtained History Surgery Operation Date: 09/01/20 18:00 Proposed Procedures p Esophagogastroduodenoscopy Dr Petar Davey, DO Height/Weight Height: 5 ft 4 in Weight: 99.4 kg Allergies Allergy/AdvReac Type Severity Reaction Status Date / Time No Known Allergies Allergy Verified 09/01/20 09:39 Medications Home Medications Medication Instructions Recorded Confirmed Last Taken atorvastatin 40 mg tablet 40 mg PO QAM 12/14/18 08/31/20 08/31/20 propranolol 80 mg capsule,24 80 mg PO QAM 12/14/18 08/31/20 08/01/20 hr,extended release echinacea 500 mg capsule 500 mg PO Q OTHER DAY cap 01/13/19 08/31/20 08/01/20 folic acid 1 mg tablet 1 mg PO QAM tab 01/13/19 08/31/20 08/31/20 insulin aspart U-100 100 unit/mL 20 unit SUBCUT TIDM 01/13/19 08/31/20 08/01/20 subcutaneous solution (Novolog 0 units U-100 Insulin aspart) insulin glargine 100 unit/mL (3 44 units SUBCUT BID ml 01/13/19 08/31/20 08/01/20 mL) subcutaneous pen (Basaglar 0 units KwikPen U-100 Insulin) netarsudil 0.02 % eye drops 1 drops OP QPM 01/13/19 08/31/20 07/31/20 (Rhopressa) ondansetron 4 mg oral soluble film 4 mg PO Q8H PRN 01/13/19 08/31/20 08/31/20 spironolactone 100 mg tablet 100 mg PO QAM 01/28/19 08/31/20 07/20/20 (Aldactone) calcium carbonate 600 mg calcium 600 mg PO QPM 01/30/19 08/31/20 07/31/20 (1,500 mg) tablet (Calcium) cholecalciferol (vitamin D3) 25 25 mcg PO QAM 01/30/19 08/31/2008/31/21 mcg (1,000 unit) tablet (Vitamin D3) cyanocobalamin (vitamin B-12) 1,000 mcg PO QAM 01/30/19 08/31/20 08/31/20 1,000 mcg tablet (Vitamin B-12) fluticasone propionate 50 2 spray INTRANASAL PM 01/30/19 08/31/20 07/31/20 mcg/actuation nasal spray,suspension (Flonase Allergy Relief) garlic 1,000 mg capsule 1,000 mg PO QAM 01/30/19 08/31/20 08/31/20 vitamin E 400 unit capsule 400 unit PO QAM 01/30/19 08/31/20 08/31/20 furosemide 20 mg tablet 40 mg PO QAM tab 04/07/19 08/31/20 08/31/20 aspirin 81 mg tablet,delayed 81 mg PO PM 08/01/20 08/31/20 08/30/20 release clopidogrel 75 mg tablet 75 mg PO QAM 08/01/20 08/31/20 08/31/20 magnesium hydroxide 400 mg/5 mL 30 ml PO DAILY PRN 08/01/20 08/31/20 Unknown oral suspension (Milk of Magnesia) nitroglycerin 0.4 mg sublingual 0.4 mg SUBLINGUAL Q5M PRN MDD up 08/01/20 08/31/20 Unknown tablet to 3 tabs in 15 mins oxycodone 5 mg tablet 5 mg PO Q4H PRN 08/01/20 08/31/20 07/31/20 sennosides 8.6 mg tablet (senna) 8.6 mg PO DAILY PRN 08/01/20 08/31/20 07/25/20 Active Medications Generic Name Dose Route Start Last Admin Trade Name Freq PRN Reason Stop Dose Admin Pantoprazole Sodium 40 mg/ 100 mls @ 20 mls/hr 08/31/20 15:00 09/01/20 09:32 Dextrose IV 09/30/20 14:59 0 mg/hr Q5H LAURA 0 mls/hr Infusion 8 MG/HR Doxycycline Hyclate 100 mg/ 110 mls @ 50 mls/hr 08/31/20 19:00 09/01/20 08:17 Dextrose IV 09/07/20 18:59 Infused Q12H LAURA Infusion Sodium Chloride 1,000 mls @ 50 mls/hr 08/31/20 17:45 09/01/20 05:30 Nss 1000ml IV 09/30/20 17:44 0 mls/hr .Q20H LAURA Infusion Piperacillin Sod/Tazobactam 120 mls @ 30 mls/hr 09/01/20 00:00 09/01/20 09:32 Sod 4.5 gm/ Dextrose IV 09/11/20 00:00 0 mls/hr Q8H LAURA Infusion Protocol Insulin Aspart 0 units 08/31/20 17:45 09/01/20 08:03 Insulin Aspart 100 Units/Ml 3 Ml Pen SC 09/30/20 17:44 3 units ACHS LAURA Administration Miscellaneous 1 ea 09/01/20 00:00 09/01/20 08:00 Order Awaiting Action N/A 10/01/20 00:00 1 ea QS LAURA Administration Propranolol HCl 80 mg 09/01/20 09:00 09/01/20 07:59 Propranolol Hcl La 80 Mg Capcr PO 10/01/20 08:59 80 mg QAM LAURA Administration Past Medical History Medical History Anemia CAD (coronary artery disease) Carcinoma of colon Cirrhosis of liver Diabetes Flesh-eating bacteria right kidney four to five years ago as per pt GERD (gastroesophageal reflux disease) GI bleed Glaucoma H/O colon cancer, stage IV Hyperlipidemia Hypertension Infection left arm - IV infiltration MRSA (methicillin resistant Staphylococcus aureus) abdomen - Peritoneal fluid Surgical wound, non healing Past Family History Family History Brother Diabetes Mother Cancer Father Hypertension Past Surgical History Surgical History H/O abdominal surgery H/O: History of kidney removal right Hx of CABG vessels x3 s [place] 2018 Hx of cardiac cath 2018 S/P debridement (02/06/19) Left Arm Sharp Wound Debridement(Left) ; sharp excisional down to and including muscle; greater than [address] Bermeo 02-06-19 S/P partial colectomy Social History Smoking Status: Former smoker Hx Alcohol Use: No Hx Substance Use: No Physical Exam Vital Signs Last Vital Signs Temp 37.2 C 09/01/20 07:35 Pulse 69 09/01/20 09:00 Resp 16 09/01/20 09:00 BP 155/64 H 09/01/20 09:00 Pulse Ox 96 09/01/20 09:00 Testing Laboratory Results 09/01/20 04:30 09/01/20 04:30 PT 10.4 Seconds (9.0-12.0) 08/31/20 10:14 INR 1.0 (0.9-1.1) 08/31/20 10:14 APTT 20.9 Seconds (21.0-31.0) L 08/31/20 10:14 Blood Type O Positive 08/31/20 10:14 Antibody Screen NEGATIVE 08/31/20 10:14 08/31/20 Unknown Gram Stain - Final Abdomen 09/01/20 09/01/20 08/31/20 06:56 01:24 22:47 POC Glucose 237 H 212 H 232 H Electrocardiogram Date: 08/31/20 Test Reason : Blood Pressure : / mmHG Vent. Rate : 080 BPM Atrial Rate : 080 BPM P-R Int : 140 ms QRS Dur : 084 ms QT Int : 358 ms P-R-T Axes : 053 005 044 degrees QTc Int : 412 ms Normal sinus rhythm Normal ECG When compared with ECG of 18-AUG-2020 10:46, No significant change was found Confirmed by Samuel Arredondo ([id number]) on 08/31/2020 4:26:23 PM Chest X-Ray Date: 08/31/20 XR chest 1V portable CLINICAL HISTORY: Chest Pain COMPARISON STUDY: August 18, 2020 FINDINGS: No pneumothorax. Minimal blunting of the left costophrenic angle could represent trace left pleural effusion or related to superimposition of soft tissue. No large infiltrates or consolidative lesions are seen. Lung volumes are decreased with crowded lung markings. Possible minimal atelectasis at the left base. Cardiomediastinal silhouette is within normal limits in size. No significant pulmonary vascular congestion.. Aorta is calcified. Osseous structures: Degenerative changes of the spine. Midline sternotomy wires and surgical clips projecting over cardiomediastinal silhouette are again seen. IMPRESSION: 1. Possible minimal left pleural effusion and minimal atelectasis at the left base. Evaluation is limited due to low inspiratory effort and patient body habitus. Echocardiogram Date: 01/14/18 EF: 60-65% LV Function: normal
--- NOTE | 2020-09-01 11:02 | GI REPORT ---
Patient Name: Brandee Hwang Procedure Date: 09/01/2020 10:29 AM Date of : 1950 Admit Type: Inpatient Age: 70 Gender: Female Attending MD: Meseret Davey DO Procedure: Upper GI endoscopy Providers: Meseret Davey DO Referring MD: David Jackman Md Indications: Melena Medicines: Monitored Anesthesia Care Complications: No immediate complications. Estimated blood loss: Minimal. Estimated Blood Loss: Estimated blood loss was minimal. Procedure: Pre-Anesthesia Assessment: - Prior to the procedure, a History and Physical was performed, and patient medications, allergies and sensitivities were reviewed. The patient's tolerance of previous anesthesia was reviewed. - The risks and benefits of the procedure and the sedation options and risks were discussed with the patient. All questions were answered and informed consent was obtained. - Patient identification and proposed procedure were verified prior to the procedure by the physician, the nurse and the hvac/r service technician. The procedure was verified in the procedure room in the endoscopy suite. - Pre-procedure physical examination revealed no contraindications to sedation. - ASA Grade Assessment: IV - A patient with severe systemic disease that is a constant threat to life. - After reviewing the risks and benefits, the patient was deemed in satisfactory condition to undergo the procedure. - The anesthesia plan was to use monitored anesthesia care (MAC). - Immediately prior to administration of medications, the patient was re-assessed for adequacy to receive sedatives. - The heart rate, respiratory rate, oxygen saturations, blood pressure, adequacy of pulmonary ventilation, and response to care were monitored throughout the procedure. - The physical status of the patient was re-assessed after the procedure. After obtaining informed consent, the endoscope was passed under direct vision. Throughout the procedure, the patient's blood pressure, pulse, and oxygen saturations were monitored continuously. The Endoscope was introduced through the mouth, and advanced to the fourth part of duodenum. The upper GI endoscopy was accomplished without difficulty. The patient tolerated the procedure well. Findings: Three columns of grade I varices with no bleeding and no stigmata of recent bleeding were found in the lower third of the esophagus, 34 to 40 cm from the incisors. They were 3 mm in largest diameter. No red emperatriz signs were present. The entire examined stomach was normal. One non-obstructing oozing cratered duodenal ulcer with a large visible vessel and an adherent clot was found in the duodenal bulb. The lesion was at least 12 mm in largest dimension. Area was successfully injected with 4 mL of a 1:10,000 solution of epinephrine for drug delivery. For hemostasis, one over the scope clip (Padlock) was successfully placed (MR conditional). There was no bleeding at the end of the procedure and the clip apeared to be sealing the ulceration and vessel well. Impression: - Grade I esophageal varices with no bleeding and no stigmata of recent bleeding. - Normal stomach. - Non-obstructing oozing duodenal ulcer with adherent clot. Injected. Clip (MR conditional) was placed. - No specimens collected. Recommendation: - Return patient to [facility] for [facility] care. - Give Protonix (pantoprazole): 8 mg/hr IV by continuous infusion for 3 days. - If rebleeding occurs the patient would need referral to a center with IR support. Meseret Davey D.O. Meseret Davey, 09/01/2020 11:02:15 AM This report has been signed electronically. Note Initiated On: 09/01/2020 10:29 AM Number of Addenda: 0 I attest to the content of the Intraoperative Record and orders documented therein, exceptions below {[id number]}
--- NOTE | 2020-09-01 11:07 | Anesthesiology Progress Note ---
Date of Service September 01, 2020 Anesthesia Post Procedure Vital Signs Vital Signs: Temp Pulse Pulse Pulse Resp BP BP 09/01/20 10:50 75 12 104/48 L 09/01/20 09:40 36.2 C L 72 16 136/71 09/01/20 09:00 69 16 155/64 H 09/01/20 08:35 67 16 114/48 L 09/01/20 07:35 37.2 C 72 72 16 136/63 09/01/20 07:30 73 09/01/20 06:35 37 C 73 18 132/67 09/01/20 06:05 37.2 C 71 18 127/58 L 09/01/20 05:50 37.0 C 69 18 115/57 L 09/01/20 05:33 37.2 C 69 121/49 L 09/01/20 05:16 37.2 C 69 16 09/01/20 03:23 37.1 C 71 18 08/31/20 22:45 36.8 C 77 18 08/31/20 22:19 64 08/31/20 19:35 37.0 C 71 18 08/31/20 18:46 37.0 C 68 18 116/57 L 08/31/20 18:45 37 C 71 16 165/52 H 08/31/20 18:00 37 C 70 18 138/58 L 08/31/20 17:45 37 C 71 18 08/31/20 17:00 69 14 136/59 L 08/31/20 16:45 71 17 134/61 08/31/20 16:30 37.1 C 71 12 129/61 08/31/20 16:15 37.1 C 71 18 131/53 L 08/31/20 16:00 36.7 C 71 17 114/57 L 08/31/20 15:54 68 17 127/58 L 08/31/20 15:30 72 18 130/61 08/31/20 15:00 68 16 135/71 08/31/20 14:30 71 18 141/61 H 08/31/20 14:00 70 16 139/60 08/31/20 13:40 73 15 144/58 H 08/31/20 13:30 73 15 144/58 H 08/31/20 13:00 73 17 143/58 H 08/31/20 12:40 71 14 132/58 L 07/21/21 12:30 73 15 139/57 L 08/31/20 12:10 37.2 C 82 19 136/68 08/31/20 11:55 37.2 C 82 19 136/48 L 08/31/20 11:54 37.0 C 71 19 130/57 L 08/31/20 11:33 37.2 C 84 20 127/78 BP Pulse Ox 09/01/20 10:50 98 09/01/20 09:40 97 09/01/20 09:00 96 09/01/20 08:35 97 09/01/20 07:35 136/63 96 09/01/20 07:30 09/01/20 06:35 96 09/01/20 06:05 95 09/01/20 05:50 95 09/01/20 05:33 94 09/01/20 05:16 121/49 L 94 09/01/20 03:23 123/62 95 08/31/20 22:45 136/61 96 08/31/20 22:19 08/31/20 19:35 130/58 L 97 08/31/20 18:46 93 08/31/20 18:45 97 08/31/20 18:00 98 08/31/20 17:45 142/59 H 98 08/31/20 17:00 98 08/31/20 16:45 98 08/31/20 16:30 98 08/31/20 16:15 98 08/31/20 16:00 97 08/31/20 15:54 98 08/31/20 15:30 98 08/31/20 15:00 98 08/31/20 14:30 98 08/31/20 14:00 97 08/31/20 13:40 98 08/31/20 13:30 98 08/31/20 13:00 98 08/31/20 12:40 97 08/31/20 12:30 97 08/31/20 12:10 98 08/31/20 11:55 98 08/31/20 11:54 97 08/31/20 11:33 98 Transfer of Care Handoff Completed per policy Notes Mental Status: alert / awake / arousable and participated in evaluation Patient Amnestic to Procedure: Yes Nausea / Vomiting: adequately controlled Pain: adequately controlled Airway Patency, RR, SpO2: stable & adequate BP & HR: stable & adequate Hydration State: stable & adequate Anesthetic Complications: no major complications apparent and Pt Satisfied with anesthetic care
[2020-09-01] MEDS: DAPTOmycin 575 MG in SYRINGE 0 ML IV SCH (13:02)
[2020-09-01 13:08] LABS: Hematocrit (blood only) 31.8 % (37-47); Hemoglobin 9.9 g/dL (12.0-16.0)
[2020-09-01] MEDS: SODIUM CHLORIDE 0.9% 1000ML 1,000 ML IV SCH (13:30)
--- NOTE | 2020-09-01 15:58 | Cardiology Consultation ---
Date of Consultation September 01, 2020 Assessment & Plan (1) Nonsustained ventricular tachycardia: Chemistry panel reveals normal electrolytes this morning. Will repeat now along with a troponin level. Repeat EKG pending. No recent anginal symptoms. Update echocardiogram tomorrow. She does have a history of transient prolonged QT interval during the past episode of sepsis and gastrointestinal bleeding, QT interval was normal at the time for February 2020 follow-up as well as earlier today. Her current antibiotic regimen of Zosyn and daptomycin does not carry warnings with regards to risk of QT prolongation, and I do not think an adjustment is necessary. With regards to beta-leslie therapy, she is chronically on propranolol due to her history of cirrhosis and varices which will be continued. I had a discussion with the patient with her also present with regards to her CODE STATUS. I confirmed that she would not want resuscitative measures if she was to have a CODE BLUE event. (2) GI bleed: Patient has a complex abdominal history of colon cancer, pancreatic cyst, open abdominal surgical wound, cirrhosis felt to be due to nonalcoholic fatty liver disease (but patient also has a history of positive RAMESH) esophageal varic es, and was now noted to have a bleeding duodenal ulcer today. EGD revealed nonbleeding grade 1 esophageal varices, and a culprit duodenal ulcer treated with epinephrine injection and clip. She is now on Protonix.She received transfusion, I believe 2 units of packed red blood cells, with hemoglobin having been 6.6 yesterday, up to 9.9 this afternoon. Given her history of CABG and nonsustained VT, I think it would be prudent to have a goal hemoglobin greater than 9g/dL. Aspirin clopidogrel remain on hold for now. Refer to below. Atorvastatin on hold given daptomycin treatment. (3) Ischemic heart disease: Patient with remote right coronary stent in 2000. At time of cardiac catheterization in 2018, severe in-stent restenosis noted as well as progression of her disease elsewhere prompting CABG x3. Per her cardiology progress notes in her outpatient chart, due to heavily calcified LAD, and technically difficult left internal mammary artery graft anastomosis she has been on chronic dual antiplatelet therapy with aspirin clopidogrel since discharge post CABG. Given her recent issues with bleeding with regards to her recent surgeries and now with duodenal ulcer, her antiplatelet therapy is on hold. I think it would be most prudent for her to go on monotherapy. I will discuss with GI timing of perhaps starting one of her agents aspirin or clopidogrel. It may be that the clopidogrel will be determined to be the preferred agent in an effort to minimize the risk of ulcers related to aspirin therapy. History of Present Illness Attending Physician: David Jackman MD History of Present Illness Brandee Hwang is a 70-year-old female seen in cardiology consultation per the request of Dr. Jackman with regards to an episode of nonsustained ventricular tachycardia observed today. Patient underwent EGD earlier today and it 141, not long after arriving back to room 204 she was observed to have a 22 beat run of nonsustained ventricular tachycardia. She was asymptomatic at that time. At present, she is sitting in the bedside chair, accompanied by her , and is attempting her liquid diet without complaints. The patient's primary field support specialist is Dr. Rian Olivia of our practice. She has a very complicated recent past history of multiple intra-abdominal procedures. On 07/13/2020 she underwent a subtotal pancreatectomy with splenectomy and pedicled intra-abdominal omental flap.She has been readmitted to [facility] on 07/22/2020 and again on 08/01/2020. She underwent ERCP on 08/03/2020 at [facility] with pancreatic sphincterotomy and plastic stent placement into the ventral pancreatic duct. She has a open ongoing abdominal wound as a result of her recent surgery being followed by the general surgery service. Outpatient blood work performed 08/31/2020 revealed worsening hemoglobin to 6.3 prompting admission to the [facility] yesterday 08/31/2020. An EGD was performed earlier today with findings of grade 1 esophageal varices with no suggestion of recent variceal bleeding. 1 nonobstructing oozing cratered duodenal ulcer with large visible vessel and adherent clot was found in the duodenal bulb. It was injected with 4 mL of 1-10,000 epinephrine solution and a clip was placed. She received transfusion and her most recent hemoglobin is obtained at 12:48 PM was 9.9. Past Cardiac History: Percutaneous coronary intervention to the right coronary artery in November, Repeat cardiac catheterization 04/12/2017, [facility], with findings that the previously placed stent in the mid right coronary artery had greater than 70% in-stent restenosis. 99% stenosis of the proximal right coronary artery which fills via left to right collaterals, 70% mid LAD lesion, 100% diagonal lesion Patient therefore underwent CABG x3 with JIMENEZ to LAD, sequential SVG to diagonal and right posterior lateral branch of the RCA Hypertension Dyslipidemia Chronic right lower extremity edema Most recent outpatient echocardiogram performed 03/30/2020 with mild concentric LVH, normal LV wall motion, LVEF 60 to 64%, grade 1 diastolic dysfunction, mild aortic valve sclerosis, valve stenosis is absent. Allergies Allergy/AdvReac Type Severity Reaction Status Date / Time No Known Allergies Allergy Verified 09/01/20 09:39 Home Medications Medication Instructions Recorded Confirmed Type atorvastatin 40 mg tablet 40 mg PO QAM 12/14/18 08/31/20 History propranolol 80 mg capsule,24 80 mg PO QAM 12/14/18 08/31/20 History hr,extended release echinacea 500 mg capsule 500 mg PO Q OTHER DAY cap 01/13/19 08/31/20 History folic acid 1 mg tablet 1 mg PO QAM tab 01/13/19 08/31/20 History insulin aspart U-100 100 unit/mL 20 unit SUBCUT TIDM 01/13/19 08/31/20 History subcutaneous solution (Novolog U-100 Insulin aspart) insulin glargine 100 unit/mL (3 44 units SUBCUT BID ml 01/13/19 08/31/20 History mL) subcutaneous pen (Basaglar KwikPen U-100 Insulin) netarsudil 0.02 % eye drops 1 drops OP QPM 01/13/19 08/31/20 History (Rhopressa) ondansetron 4 mg oral soluble film 4 mg PO Q8H PRN 01/13/19 08/31/20 History spironolactone 100 mg tablet 100 mg PO QAM 01/28/19 08/31/20 History (Aldactone) calcium carbonate 600 mg calcium 600 mg PO QPM 01/30/19 08/31/20 History (1,500 mg) tablet (Calcium) cholecalciferol (vitamin D3) 25 25 mcg PO QAM 01/30/19 08/31/20 History mcg (1,000 unit) tablet (Vitamin D3) cyanocobalamin (vitamin B-12) 1,000 mcg PO QAM 01/30/19 08/31/20 History 1,000 mcg tablet (Vitamin B-12) fluticasone propionate 50 2 spray INTRANASAL PM 01/30/19 08/31/20 History mcg/actuation nasal spray,suspension (Flonase Allergy Relief) garlic 1,000 mg capsule 1,000 mg PO QAM 01/30/19 08/31/20 History vitamin E 400 unit capsule 400 unit PO QAM 01/30/19 08/31/20 History furosemide 20 mg tablet 40 mg PO QAM tab 04/07/19 08/31/20 History aspirin 81 mg tablet,delayed 81 mg PO PM 08/01/20 08/31/20 History release clopidogrel 75 mg tablet 75 mg PO QAM 08/01/20 08/31/20 History magnesium hydroxide 400 mg/5 mL 30 ml PO DAILY PRN 08/01/20 08/31/20 History oral suspension (Milk of Magnesia) nitroglycerin 0.4 mg sublingual 0.4 mg SUBLINGUAL Q5M PRN MDD up 08/01/20 08/31/20 History tablet to 3 tabs in 15 mins oxycodone 5 mg tablet 5 mg PO Q4H PRN 08/01/20 08/31/20 History sennosides 8.6 mg tablet (senna) 8.6 mg PO DAILY PRN 08/01/20 08/31/20 History Patient History Medical History Anemia CAD (coronary artery disease) Carcinoma of colon Cirrhosis of liver Diabetes Flesh-eating bacteria right kidney four to five years ago as per pt GERD (gastroesophageal reflux disease) GI bleed Glaucoma H/O colon cancer, stage IV Hyperlipidemia Hypertension Infection left arm - IV infiltration MRSA (methicillin resistant Staphylococcus aureus) abdomen - Peritoneal fluid Surgical wound, non healing Surgical History H/O abdominal surgery H/O: History of kidney removal right Hx of CABG vessels x3 s [facility] 2018 Hx of cardiac cath 2018 S/P debridement (02/06/19) Left Arm Sharp Wound Debridement(Left) ; sharp excisional down to and including muscle; greater than [address] Bermeo 02-06-19 S/P partial colectomy Family History Brother Diabetes Mother Cancer Father Hypertension Social History Smoking Status: Former smoker packs per day: 0.5; Years Smoked: 5; Second Hand Exposure: No; Hx Alcohol Use: No Hx Substance Use: No Preferred Language: Macedonian Communication Ability: Effective Small Products Assembler Required: No Beliefs That Will Affect Care: None marital status: Current Living Situation: Rehab current occupational status: retired Other Information That Helps Us Care for You: No Feels Safe at Home: Yes Safety Concerns: Feels Safe At This Time Assistive Devices: Glasses Review of Systems Review of Systems: All systems reviewed & are unremarkable except as noted in HPI & below Physical Exam Physical Exam: Temp Pulse Resp BP Pulse Ox 36.2 C L 68 19 130/65 98 09/01/20 09:40 09/01/20 15:15 09/01/20 15:15 09/01/20 15:15 09/01/20 15:15 Constitutional: No acute distress Respiratory: Auscultation: no crackles, no rales and no rhonchi Cardiovascular: Rate/Rhythm: regular rhythm Heart Sounds: no murmur Neurologic: PERRL, EOMI, accommodation nl, no face palsy, no dysarthria Results & Data ([facility]) Vital Signs (Past 12 Hours) Vital Signs Temp Pulse Pulse Resp BP BP BP 09/01/20 15:15 68 19 130/65 09/01/20 15:00 67 09/01/20 11:55 74 16 151/83 H 09/01/20 11:20 67 20 158/91 H 09/01/20 11:05 68 20 161/68 H 09/01/20 10:50 75 12 104/48 L 09/01/20 09:40 36.2 C L 72 16 136/71 09/01/20 09:00 69 16 155/64 H 09/01/20 08:35 67 16 114/48 L 09/01/20 07:35 37.2 C 72 72 16 136/63 136/63 09/01/20 07:30 73 09/01/20 06:35 37 C 73 18 132/67 09/01/20 06:05 37.2 C 71 18 127/58 L 09/01/20 05:50 37.0 C 69 18 115/57 L 09/01/20 05:33 37.2 C 69 121/49 L 09/01/20 05:16 37.2 C 69 16 121/49 L Pulse Ox 09/01/20 15:15 98 09/01/20 15:00 09/01/20 11:55 98 09/01/20 11:20 97 09/01/20 11:05 98 09/01/20 10:50 98 09/01/20 09:40 97 09/01/20 09:00 96 09/01/20 08:35 97 09/01/20 07:35 96 09/01/20 07:30 09/01/20 06:35 96 09/01/20 06:05 95 09/01/20 05:50 95 09/01/20 05:33 94 09/01/20 05:16 94 Diagnostic Findings EKG performed at 08/31/2020 at 9:47 AM revealed sinus rhythm at 80 bpm, normal EKG, unchanged compared to 08/18/2020. Repeat currently pending. (1) GI bleed GI bleed type/associated pathology: melena Qualified Code(s): K92.1 - Melena
[2020-09-01] MEDS ORDERED: INSULIN GLARGINE SOLOSTAR 100 UNITS/ML 3 ML PEN SC ONE (16:30)
[2020-09-01 17:47] LABS: Albumin Level 1.9 gm/dl (3.4-5.0); BUN Creatinine Ratio 32.5 (10-20); Blood Urea Nitrogen 28 mg/dl (7-18); Calcium 8.4 mg/dl (8.5-10.1); Carbon Dioxide 28 mmol/L (21-32); Chloride 102 mmol/L (98-107); Creatinine Clr Calc Pharmacy 68.7 ml/min; Est GFR (African American) 78.8 ml/min; Glucose 249 mg/dl (70-99); Magnesium 1.8 mg/dl (1.8-2.4); Potassium 4.1 mmol/L (3.5-5.1); Sodium 134 mmol/L (136-145)
[2020-09-01 17:53] LABS: Alanine Aminotransferase 55 U/L (12-78); Albumin Globulin Ratio 0.4 (0.9-2); Alkaline Phosphatase 182 U/L (45-117); Aspartate Aminotransferase 42 U/L (15-37); Bilirubin,Total 0.5 mg/dl (0.2-1); Globulin 4.5 gm/dl (2.5-4.0); Total Protein 6.4 gm/dl (6.4-8.2); Troponin I < 0.015 ng/ml (0-0.045)
--- NOTE | 2020-09-01 18:01 | Communication Note ---
Date of Service: September 01, 2020 EKG performed at 1747 reviewed, normal sinus rhythm 71 bpm, age-indeterminate septal infarction pattern, this is been seen before and I think this is related to lead positioning/body habitus. Nonspecific T wave changes noted in the leads V2 and V3. Normal corrected QT interval. No concerning ST depression.
[2020-09-01] MEDS ORDERED: RHOPRESSA OPTHALMIC OP SCH (21:00)
[2020-09-01 21:03] LABS: Hematocrit (blood only) 27.4 % (37-47); Hemoglobin 8.7 g/dL (12.0-16.0)
[2020-09-01] MEDS ORDERED: HYDROCORTISONE ACETATE 25 MG SUPP PR PRN (22:00)
[2020-09-01] MEDS ORDERED: COUGH DROP (SUGAR FREE) LOZ 24 LOZ/1 BOX BUCCAL PRN (22:11)
[2020-09-02] MEDS: PANTOprazole 40 MG in DEXTROSE 5% 100 ML IV SCH ×4 (00:27→14:48)
[2020-09-02] MEDS: PIPERACILLIN/TAZOBACTAM 4.5 GM in DEXTROSE 5% 100 ML IV SCH ×2 (02:18→14:01)
[2020-09-02 04:25] LABS: Hematocrit (blood only) 26.4 % (37-47); Hemoglobin 8.5 g/dL (12.0-16.0); Mean Corpuscular Hemoglobin 27.9 pg (25-34); Mean Corpuscular Hgb Conc 32.2 g/dL (32-36); Mean Corpuscular Volume 86.6 fL (80-100); Mean Platelet Volume 10.2 fL (7.4-10.4); Nucleated RBC # (auto) 0.05 K/uL (0-0); Nucleated RBC % (auto) 0.5 %; Platelet Count 346 K/uL (130-400); RDW Coefficient of Variation 20.7 % (11.5-14.5); RDW Standard Deviation 62.8 fL (36.4-46.3); Red Blood Count 3.05 M/uL (4.2-5.4); White Blood Count 10.76 K/uL (4.8-10.8)
[2020-09-02 04:41] LABS: BUN Creatinine Ratio 30.3 (10-20); Blood Urea Nitrogen 22 mg/dl (7-18); Calcium 7.7 mg/dl (8.5-10.1); Carbon Dioxide 28 mmol/L (21-32); Chloride 106 mmol/L (98-107); Est GFR (Non-African American) 82.9 ml/min; Glucose 163 mg/dl (70-99); Magnesium 1.6 mg/dl (1.8-2.4); Potassium 3.6 mmol/L (3.5-5.1); Sodium 138 mmol/L (136-145)
[2020-09-02 04:46] LABS: Creatine Kinase 19 U/L (26-192); Phosphorus 2.8 mg/dl (2.5-4.9); Troponin I < 0.015 ng/ml (0-0.045)
[2020-09-02] MEDS: MAGNESIUM SULFATE / D5W 1 GM/100 ML BAG IV SCH ×2 (05:06→06:37)
[2020-09-02] MEDS ORDERED: POTASSIUM CHLORIDE CRTAB 20 MEQ TABCR PO STA (08:22)
--- NOTE | 2020-09-02 08:22 | Hospitalist Progress Note ---
Date of Service September 02, 2020 Assessment & Plan (1) GI bleed: Plan: Acute on chronic symptomatic anemia Likely Multifactorial: GI bleeding, anemia of chronic disease, post surgical GI bleeding (Positive FOBT) In setting Aspirin, Plavix, Lovenox use H/O esophageal varices, duodenal ulcer --CT ABD :Postsurgical changes of a right hemicolectomy, splenectomy, right nephrectomy, and partial pancreatectomy. Hepatic cirrhosis and low volume ascites. Anterior abdominal wall wound/diastases with persistent gas and fluid within the base of the wound. Further interval decrease in the size of the complex fluid collection containing gas at the level of the pancreatic body. No evidence of bowel obstruction. No evidence of free air. Interval removal of the left-sided peritoneal drainage catheter. -Hb:6.6 S/P 2 units PRBCs Hold Aspirin, Plavix and any anticoagulants Start on Protonix ggt, IV fluids GI consulted Monitor H&H and transfuse PRBCs as needed S/p endoscopy (09/01/20) w/ Dr. Davey - Impression: - Grade I esophageal varices with no bleeding and no stigmata of recent bleeding. Normal stomach. - Non-obstructing oozing duodenal ulcer with adherent clot. Injected. Clip (MR conditional) was placed. - No specimens collected. Recommendation: - Give Protonix (pantoprazole): 8 mg/hr IV by continuous infusion for 3 days. - If rebleeding occurs the patient would need referral to a center with IR support. 09/02/20 Patient continued to bleed unfortunately overnight, after her EGD procedure. Current hemoglobin 8.0 Cardiology recommends, hemoglobin should be above 9, will give 1 unit now Contacted by GI, recommend transfer to [facility] for possible IR procedure Contacted [facility], plan to transfer the patient for further care Unhealing Open abdominal wall wound CT ABD as above Recently completed a course of Bactrim Start on broad spectrum antibiotics Blood/Wound Cultures Appreciate Surgery Input Continue wound Care ID consulted for further antibiotic recommendations On 08/18/2020 -abdominal wound culture positive for Proteus mirabilis, Enterococcus for CM VRE Current abdominal wound culture shows Staphylococcus species, final culture pending For now we will continue with daptomycin, Zosyn DM Type II: Will hold oral diabetic meds Last A1c:6.9 on 08/19/20 ISS, basal Insulin, Accu checks, Diabetic diet H/O Cirrhosis Hold home diuretics secondary to GI bleed Monitor volume status Resume diuretics as able CAD S/P CABG Hold aspirin, Plavix due to GI bleed Continue other home medications Currently denies any anginal symptoms Likely will not resume aspirin on discharge, will further discuss with cardiology NSVT 09/01 after EGD patient had 22 beat of V. tach Cardiology consulted, plan for echocardiogram Currently patient on propranolol which we will continue Electrolytes within normal limits, will keep K>4 and Mg>2 Right renal Mass S/P nephrectomy DVT Px: SCDs Code Status DNI/DNR as per admitting provider discussion with patient. 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 Admission and Anticipated Discharge Date Admission Date: August 31, 2020 Subjective Patient seen in follow-up of Anemia, GI bleed, postoperative abdominal wound S/p EGD yesterday Also had NSVT yesterday after EGD Patient continued to have bleeding overnight, current hemoglobin 8.0 Contacted by GI, recommend transfer to [facility] for IR intervention given continuous bleed Currently pt is sitting up in chair, in no acute distress Denies any chest pain, shortness of breath, dizziness also denies any fevers or chills She was placed on broad spectrum antibiotics on admission due to history of abdominal postoperative wound Cardiology recommends hemoglobin above 9, will give 1 unit now Contacted [facility], patient to be transferred there for further care. Review of Systems Review of Systems: All systems reviewed & are unremarkable except as noted in HPI & below Physical Exam Physical Exam: General Appearance:Obese, no apparent distress Head: normocephalic, Atraumatic Eyes: normal inspection, EOMI Neck: supple, Trachea midline Respiratory/Chest: Decreased breath sounds, CTA, No accessory muscle use Cardiovascular: S1, S2, + murmur Abdomen/GI:Soft, Non tender, Bowel sounds present, +Large abdominal wound with retention sutures, ? pus appearing in dressing Extremities/Musculoskeletal:normal inspection, 2+ B/L LE edema Neurologic/Psych:AAOX3, grossly no focal neurological deficits Skin: normal color, warm Results & Data Results & Data ([facility]) Vital Signs (Past 12 Hours) Vital Signs Temp Pulse Pulse Pulse Resp BP Pulse Ox 09/02/20 07:34 37.2 C 70 18 136/67 94 09/02/20 03:27 36.3 C L 71 20 130/64 95 09/01/20 23:34 37.1 C 72 18 132/59 L 98 09/01/20 22:20 66 07 22:07 66 138/56 L Laboratory Results 09/02/20 09/02/20 09/02/20 Range/Units 07:39 04:17 04:17 WBC 10.76 (4.8-10.8) K/uL RBC 3.05 L (4.2-5.4) M/uL Hgb 8.5 L (12.0-16.0) g/dL Hct 26.4 L (37-47) % MCV 86.6 (80-100) fL MCH 27.9 (25-34) pg MCHC 32.2 (32-36) g/dL RDW Std Deviation 62.8 H (36.4-46.3) fL RDW Coeff of Teresa 20.7 H (11.5-14.5) % Plt Count 346 (130-400) K/uL MPV 10.2 (7.4-10.4) fL Absolute Nucleated RBC 0.05 H (0-0) K/uL Nucleated RBC % (auto) 0.5 % Blood Smear Review Sodium 138 (136-145) mmol/L Potassium 3.6 (3.5-5.1) mmol/L Chloride 106 (98-107) mmol/L Carbon Dioxide 28 (21-32) mmol/L Anion Gap 4.0 (3-11) BUN 22 H (7-18) mg/dl Creatinine 0.73 (0.6-1.2) mg/dl Est Cr Clr Drug Dosing 81.0 ml/min Est GFR ( Amer) 96.0 ml/min Est GFR (Non-Af Amer) 82.9 ml/min BUN/Creatinine Ratio 30.3 H (10-20) Glucose 163 H (70-99) mg/dl POC Glucose 204 H (70-99) mg/dl Calcium 7.7 L (8.5-10.1) mg/dl Phosphorus 2.8 (2.5-4.9) mg/dl Magnesium 1.6 L (1.8-2.4) mg/dl Total Bilirubin (0.2-1) mg/dl AST (15-37) U/L ALT (12-78) U/L Alkaline Phosphatase (45-117) U/L Total Creatine Kinase 19 L (26-192) U/L Troponin I < 0.015 (0-0.045) ng/ml Total Protein (6.4-8.2) gm/dl Albumin (3.4-5.0) gm/dl Globulin (2.5-4.0) gm/dl Albumin/Globulin Ratio (0.9-2) Stl C. diff Tox B Gene (Neg) Flow Cytometry Comment Crossmatch 09/01/20 09/01/20 09/01/20 Range/Units 20:55 20:15 17:21 WBC (4.8-10.8) K/uL RBC (4.2-5.4) M/uL Hgb 8.7 L (12.0-16.0) g/dL Hct 27.4 L (37-47) % MCV (80-100) fL MCH (25-34) pg MCHC (32-36) g/dL RDW Std Deviation (36.4-46.3) fL RDW Coeff of Teresa (11.5-14.5) % Plt Count (130-400) K/uL MPV (7.4-10.4) fL Absolute Nucleated RBC (0-0) K/uL Nucleated RBC % (auto) % Blood Smear Review Sodium 134 L (136-145) mmol/L Potassium 4.1 (3.5-5.1) mmol/L Chloride 102 (98-107) mmol/L Carbon Dioxide 28 (21-32) mmol/L Anion Gap 4.0 (3-11) BUN 28 H (7-18) mg/dl Creatinine 0.86 (0.6-1.2) mg/dl Est Cr Clr Drug Dosing 68.7 ml/min Est GFR ( Amer) 78.8 ml/min Est GFR (Non-Af Amer) 68.0 ml/min BUN/Creatinine Ratio 32.5 H (10-20) Glucose 249 H (70-99) mg/dl POC Glucose 283 H (70-99) mg/dl Calcium 8.4 L (8.5-10.1) mg/dl Phosphorus (2.5-4.9) mg/dl Magnesium 1.8 (1.8-2.4) mg/dl Total Bilirubin 0.5 (0.2-1) mg/dl AST 42 H (15-37) U/L ALT 55 (12-78) U/L Alkaline Phosphatase 182 H (45-117) U/L Total Creatine Kinase (26-192) U/L Troponin I < 0.015 (0-0.045) ng/ml Total Protein 6.4 (6.4-8.2) gm/dl Albumin 1.9 L (3.4-5.0) gm/dl Globulin 4.5 H (2.5-4.0) gm/dl Albumin/Globulin Ratio 0.4 L (0.9-2) Stl C. diff Tox B Gene (Neg) Flow Cytometry Comment Crossmatch 09/01/20 09/01/20 09/01/20 Range/Units 17:07 12:48 12:17 WBC (4.8-10.8) K/uL RBC (4.2-5.4) M/uL Hgb 9.9 L (12.0-16.0) g/dL Hct 31.8 L (37-47) % MCV (80-100) fL MCH (25-34) pg MCHC (32-36) g/dL RDW Std Deviation (36.4-46.3) fL RDW Coeff of Teresa (11.5-14.5) % Plt Count (130-400) K/uL MPV (7.4-10.4) fL Absolute Nucleated RBC (0-0) K/uL Nucleated RBC % (auto) % Blood Smear Review Sodium (136-145) mmol/L Potassium (3.5-5.1) mmol/L Chloride (98-107) mmol/L Carbon Dioxide (21-32) mmol/L Anion Gap (3-11) BUN (7-18) mg/dl Creatinine (0.6-1.2) mg/dl Est Cr Clr Drug Dosing ml/min Est GFR ( Amer) ml/min Est GFR (Non-Af Amer) ml/min BUN/Creatinine Ratio (10-20) Glucose (70-99) mg/dl POC Glucose 252 H 260 H (70-99) mg/dl Calcium (8.5-10.1) mg/dl Phosphorus (2.5-4.9) mg/dl Magnesium (1.8-2.4) mg/dl Total Bilirubin (0.2-1) mg/dl AST (15-37) U/L ALT (12-78) U/L Alkaline Phosphatase (45-117) U/L Total Creatine Kinase (26-192) U/L Troponin I (0-0.045) ng/ml Total Protein (6.4-8.2) gm/dl Albumin (3.4-5.0) gm/dl Globulin (2.5-4.0) gm/dl Albumin/Globulin Ratio (0.9-2) Stl C. diff Tox B Gene (Neg) Flow Cytometry Comment Crossmatch 09/01/20 09/01/20 09/01/20 Range/Units 11:54 04:30 04:30 WBC (4.8-10.8) K/uL RBC (4.2-5.4) M/uL Hgb (12.0-16.0) g/dL Hct (37-47) % MCV (80-100) fL MCH (25-34) pg MCHC (32-36) g/dL RDW Std Deviation (36.4-46.3) fL RDW Coeff of Teresa (11.5-14.5) % Plt Count (130-400) K/uL MPV (7.4-10.4) fL Absolute Nucleated RBC (0-0) K/uL Nucleated RBC % (auto) % Blood Smear Review Sodium (136-145) mmol/L Potassium (3.5-5.1) mmol/L Chloride (98-107) mmol/L Carbon Dioxide (21-32) mmol/L Anion Gap (3-11) BUN (7-18) mg/dl Creatinine (0.6-1.2) mg/dl Est Cr Clr Drug Dosing ml/min Est GFR ( Amer) ml/min Est GFR (Non-Af Amer) ml/min BUN/Creatinine Ratio (10-20) Glucose (70-99) mg/dl POC Glucose (70-99) mg/dl Calcium (8.5-10.1) mg/dl Phosphorus (2.5-4.9) mg/dl Magnesium (1.8-2.4) mg/dl Total Bilirubin (0.2-1) mg/dl AST (15-37) U/L ALT (12-78) U/L Alkaline Phosphatase (45-117) U/L Total Creatine Kinase (26-192) U/L Troponin I (0-0.045) ng/ml Total Protein (6.4-8.2) gm/dl Albumin (3.4-5.0) gm/dl Globulin (2.5-4.0) gm/dl Albumin/Globulin Ratio (0.9-2) Stl C. diff Tox B Gene Negative Cdiff Gene (Neg) Flow Cytometry Comment Pending Crossmatch 08/31/20 Range/Units 10:14 WBC (4.8-10.8) K/uL RBC (4.2-5.4) M/uL Hgb (12.0-16.0) g/dL Hct (37-47) % MCV (80-100) fL MCH (25-34) pg MCHC (32-36) g/dL RDW Std Deviation (36.4-46.3) fL RDW Coeff of Teresa (11.5-14.5) % Plt Count (130-400) K/uL MPV (7.4-10.4) fL Absolute Nucleated RBC (0-0) K/uL Nucleated RBC % (auto) % Blood Smear Review Sodium (136-145) mmol/L Potassium (3.5-5.1) mmol/L Chloride (98-107) mmol/L Carbon Dioxide (21-32) mmol/L Anion Gap (3-11) BUN (7-18) mg/dl Creatinine (0.6-1.2) mg/dl Est Cr Clr Drug Dosing ml/min Est GFR ( Amer) ml/min Est GFR (Non-Af Amer) ml/min BUN/Creatinine Ratio (10-20) Glucose (70-99) mg/dl POC Glucose (70-99) mg/dl Calcium (8.5-10.1) mg/dl Phosphorus (2.5-4.9) mg/dl Magnesium (1.8-2.4) mg/dl Total Bilirubin (0.2-1) mg/dl AST (15-37) U/L ALT (12-78) U/L Alkaline Phosphatase (45-117) U/L Total Creatine Kinase (26-192) U/L Troponin I (0-0.045) ng/ml Total Protein (6.4-8.2) gm/dl Albumin (3.4-5.0) gm/dl Globulin (2.5-4.0) gm/dl Albumin/Globulin Ratio (0.9-2) Stl C. diff Tox B Gene (Neg) Flow Cytometry Comment Crossmatch See Detail Medications Administered Current Inpatient Medications Acetaminophen (Acetaminophen 325 Mg Tab) 650 mg PO Q4H PRN PRN Reason: Pain or Fever Stop: 09/30/20 17:44 Last Admin: 09/01/20 15:54 Dose: 650 mg Documented by: Atorvastatin Calcium (Atorvastatin 40 Mg Tab) 40 mg PO QAM LAURA Stop: 10/02/20 08:59 Dextrose (Dextrose 50% 50 Ml Syringe) 25 - 50 ml IV UD PRN; Protocol PRN Reason: Hypoglycemia Protocol Stop: 09/30/20 17:44 Glucagon (Glucagon For Inj 1 Mg Vial) 1 mg SQ UD PRN; Protocol PRN Reason: Hypoglycemia Protocol Stop: 09/30/20 17:44 Glucose (Glucose 10 Tabs/Tube) 4 - 8 tabs PO UD PRN; Protocol PRN Reason: Hypoglycemia Protocol Stop: 09/30/20 17:44 Glucose (Glucose 40% Gel 15 Gm Tube) 15 - 30 gm PO UD PRN; Protocol PRN Reason: Hypoglycemia Protocol Stop: 09/30/20 17:44 Hydrocortisone (Hydrocortisone Acetate 25 Mg Supp) 25 mg GA BID PRN PRN Reason: Hemorrhoids Stop: 09/09/20 21:59 Last Admin: 09/01/20 23:41 Dose: 25 mg Documented by: Pantoprazole Sodium 40 mg/ (Dextrose) 100 mls @ 20 mls/hr IV Q5H LAURA Stop: 09/30/20 14:59 Last Admin: 09/02/20 03:58 Dose: 8 mg/hr, 20 mls/hr Documented by: Sodium Chloride (Nss 1000ml) 1,000 mls @ 50 mls/hr IV .Q20H LAURA Stop: 09/30/20 17:44 Last Admin: 09/01/20 13:30 Dose: Not Given Documented by: Piperacillin Sod/Tazobactam (Sod 4.5 gm/ Dextrose) 120 mls @ 30 mls/hr IV Q8H LAURA; Protocol Stop: 09/11/20 00:00 Last Infusion: 09/02/20 06:37 Dose: Infused Documented by: Daptomycin 575 mg/ Syringe 11.5 mls @ 5.75 mls/min IV Q24H [facility]; Protocol Stop: 09/08/20 12:59 Last Admin: 09/01/20 13:02 Dose: 5.75 mls/min Documented by: Magnesium Sulfate/Dextrose (Magnesium Sulfate / D5w) 1 gm in 100 mls @ 50 mls/hr IV Q2H LAURA Stop: 09/02/20 08:59 Last Admin: 09/02/20 06:37 Dose: 50 mls/hr Documented by: Insulin Aspart (Insulin Aspart 100 Units/Ml 3 Ml Pen) 0 units SC ACHS [facility] Stop: 09/30/20 17:44 Last Admin: 09/01/20 21:23 Dose: 5 units Documented by: Insulin Glargine (Insulin Glargine Solostar 100 Units/Ml 3 Ml Pen) 20 units SC QAM [facility] Stop: 10/02/20 08:59 Menthol (Cough Drop (Sugar Free) Bianca 24 Bianca/1 Box) 1 bianca BUCCAL Q4H PRN PRN Reason: Sore Throat Stop: 10/01/20 22:10 Miscellaneous (Carbohydrates For Hypoglycemia ) 15 - 30 gm PO UD PRN PRN Reason: Hypoglycemia Protocol Stop: 09/30/20 17:44 Miscellaneous Information (Piperacill/Tazobac Consult Active) 1 ea N/A UD PRN PRN Reason: Consult Stop: 09/30/20 17:44 Miscellaneous Information (Daptomycin Consult Active) 1 ea N/A UD PRN PRN Reason: Consult Stop: 10/01/20 12:32 Morphine Sulfate (Morphine Sulfate 2 Mg/Ml Carp) 2 mg IV Q4H PRN PRN Reason: Moderate Pain Stop: 09/14/20 17:44 Last Admin: 09/01/20 22:06 Dose: 2 mg Documented by: Nitroglycerin (Nitroglycerin Sl 0.4 Mg/Tab Tab) 0.4 mg SL Q5M PRN PRN Reason: Chest Pain Stop: 09/30/20 17:44 Rhopressa Opthalmic - Non-Formulary Patient's Own Med 1 ea OP HS [facility] Stop: 10/01/20 20:59 Last Admin: 09/01/20 19:25 Dose: 1 drops Documented by: Ondansetron HCl (Ondansetron Inj 2 Mg/Ml 2 Ml Vial) 4 mg IV Q6H PRN PRN Reason: Nausea Stop: 09/30/20 17:44 Propranolol HCl (Propranolol Hcl La 80 Mg Capcr) 80 mg PO QAM LAURA Stop: 10/01/20 08:59 Last Admin: 09/01/20 07:59 Dose: 80 mg Documented by: (1) GI bleed GI bleed type/associated pathology: melena Qualified Code(s): K92.1 - Melena
[2020-09-02] MEDS: INSULIN ASPART 100 UNITS/ML 3 ML PEN SC SCH ×3 (08:33→17:10)
[2020-09-02] MEDS: SODIUM CHLORIDE 0.9% 1000ML 1,000 ML IV SCH (08:49)
[2020-09-02] MEDS: PROPRANOLOL HCL LA 80 MG CAPCR PO SCH (08:50)
--- NOTE | 2020-09-02 08:51 | Cardiology Progress Note ---
Date of Service September 02, 2020 Assessment & Plan (1) Nonsustained ventricular tachycardia: Plan: Isolated 20 beat rola of nonsustained ventricular tachycardia recorded 09/01/2020 post procedure. Hypomagnesemia noted. Preserved LV systolic function per most recent echocardiogram. No anginal symptoms or ischemic ECG changes. Recommend electrolyte replacement and continuation of beta-leslie therapy. (2) GI bleed: Plan: Recurrent melena overnight. Duodenal ulcer with thrombus per EGD as described above. Patient will be transferred to tertiary care center for interventional radiology procedure. (3) Ischemic heart disease: Plan: Coronary artery bypass grafting x3 in 2018. Maintained on chronic dual antiplatelet therapy due to heavily calcified left anterior descending artery and technically difficult left internal mammary artery graft anastomosis. Remote history of right coronary stenting in 1999. Given active miki rointestinal bleeding requiring transfer for interventional radiology, recommend withholding dual antiplatelet therapy currently. She may resume either aspirin or Plavix when bleeding issues have stabilized. Clopidogrel may be preferred to minimize risk of ulcers related to NSAID therapy. Admission and Anticipated Discharge Date Admission Date: August 31, 2020 Subjective Patient seen and examined. EGD performed yesterday demonstrating non- obstructing oozing duodenal ulcer with adherent clot. Dual antiplatelet therapy remains on hold. Recurrent melena noted overnight. Patient denies chest pain or shortness of breath. No recurrent ventricular tachycardia on telemetry. A.m. lab studies demonstrate hypomagnesemia. Review of Systems Review of Systems: All systems reviewed & are unremarkable except as noted in Subjective Physical Exam Constitutional: well developed, well nourished and + obese; no acute distress Respiratory: no respiratory distress, no labored breathing and no retractions Auscultation: lungs clear to auscultation bilaterally; no crackles, no rales, no rhonchi and no wheezes Cardiovascular: Rate/Rhythm: regular rate and regular rhythm Heart Sounds: normal S1 and normal S2; no gallop, no murmur and no cardiac rub Vessels: radial pulses present Gastrointestinal (Abdomen): Inspection/Auscultation: abdomen normal to inspection and normal bowel sounds; abdomen not distended Percussion/Palpation: abdomen soft; abdomen nontender, no guarding and abdomen not rigid Neurologic: CN's II-XI intact bilaterally and moves all extremities; no focal motor deficits Motor/Sensory: no tremor Psychiatric: A+Ox3, euthymic affect Results & Data ([facility]) Vital Signs (Past 12 Hours) Vital Signs Temp Pulse Pulse Pulse Resp BP Pulse Ox 09/02/20 07:34 37.2 C 70 18 136/67 94 09/02/20 03:27 36.3 C L 71 20 130/64 95 09/01/20 23:34 37.1 C 72 18 132/59 L 98 09/01/20 22:20 66 09/01/20 22:07 66 138/56 L Diagnostic Findings 2D echo report 03/30/20: The qualitative LV ejection fraction is 60-64% (normal). The LV wall thickness is mildly increased (concentric). The left ventricular diastolic function is mildly abnormal (grade I). Mild aortic valve sclerosis is present. Aortic stenosis is absent. Compared to prior study of 11/12/2017, there is no significant change. (1) GI bleed GI bleed type/associated pathology: melena Qualified Code(s): K92.1 - Melena
[2020-09-02] MEDS ORDERED: INSULIN GLARGINE SOLOSTAR 100 UNITS/ML 3 ML PEN SC SCH ×2 (09:00→21:00)
[2020-09-02] MEDS ORDERED: ATORVASTATIN 40 MG TAB PO SCH (09:00)
--- NOTE | 2020-09-02 09:05 | Electrocardiogram Report ---
Test Reason : Blood Pressure : / mmHG Vent. Rate : 071 BPM Atrial Rate : 071 BPM P-R Int : 142 ms QRS Dur : 076 ms QT Int : 418 ms P-R-T Axes : 006 022 047 degrees QTc Int : 454 ms Normal sinus rhythm Low voltage QRS Nonspecific T wave abnormality Anterior leads Abnormal ECG When compared with ECG of 31-AUG-2020 09:47, Nonspecific T wave abnormality now present Anterior leads Confirmed by Augusto Suero ([id number]) on 09/02/2020 9:04:48 AM Referred By: [facility] Confirmed By:Augusto Suero
--- NOTE | 2020-09-02 09:06 | Gastroenterology Progress Note ---
Date of Service September 02, 2020 Assessment & Plan (1) GI bleed: (2) Anemia: Plan: Pt is a 70 y/o female who seen for symptomatic anemia, dark stools which are heme positive. 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 Also hx of metastatic colon ca s/p R hemicolectomy and R nephrectomy. EGD 09/01 showed grade I esophageal varices with no bleeding and no stigmata of recent bleeding. Normal stomach. Non-obstructing oozing duodenal ulcer with adherent clot. Injected. Clip (MR conditional) was placed. She continues to pass BRBPR and melena. Hgb around 8. - CL diet - PPI gtt x 3 days total after EGD - Monitor H/H and transfuse prn - Concerning for continued GI bleeding. Would recommend transfer to [facility] for possible IR intervention Admission and Anticipated Discharge Date Admission Date: August 31, 2020 Supervising Physician Co-Signing Physician Notes I saw and evaluated the patient. The patient underwent urgent upper endoscopy yesterday for gastrointestinal bleeding and was found to have a large ulcer within the duodenal bulb. The distribution is likely related to gastroduodenal artery. We did place and over the scope clip which resulted in cessation of bleeding. Unfortunately it appears that the patient may have evidence of rebleeding. Given this I would suggest a referral to a tertiary care center with interventional radiology support. Subjective Pt reports low appetite, denies abd pain, n/v RN reports pt having BRBPR and melanotic stools Hgb noted around 8 Review of Systems Review of Systems: All systems reviewed & are unremarkable except as noted in HPI & below Physical Exam Constitutional: WD/WN, vitals as above well groomed, cooperative and comfortable Eyes: PERRL, conjunctivae normal, anicteric sclerae ENMT: external ear and nose normal, oropharynx normal Respiratory: Diminished lung sounds, no respiratory distress noted Cardiovascular: RRR, no murmur, no edema Gastrointestinal (Abdomen): Soft, non tender, + BS Skin: no rashes, warm and dry no jaundice Psychiatric: A+Ox3, euthymic affect Lymphatic: + lymphedema (+1 pitting edema on bilateral LE ) Results & Data ([facility]) Vital Signs (Past 12 Hours) Vital Signs Temp Pulse Pulse Pulse Resp BP Pulse Ox 09/02/20 07:34 37.2 C 70 18 136/67 94 09/02/20 03:27 36.3 C L 71 20 130/64 95 09/01/20 23:34 37.1 C 72 18 132/59 L 98 09/01/20 22:20 66 09/01/20 22:07 66 138/56 L (1) GI bleed GI bleed type/associated pathology: melena Qualified Code(s): K92.1 - Melena (2) Anemia Anemia type: unspecified type Qualified Code(s): D64.9 - Anemia, unspecified
[2020-09-02] MEDS ORDERED: SODIUM CHLORIDE 0.9% 250 ML IV PRN (09:22)
[2020-09-02 11:41] VITALS: O2SAT 99
[2020-09-02] MEDS: DAPTOmycin 575 MG in SYRINGE 0 ML IV SCH (12:57)
[2020-09-02 15:10] VITALS: TEMP 98.8
[2020-09-02 18:07] VITALS: BP 136/63; PULSE 66
--- NOTE | 2020-09-03 07:44 | Discharge Summary ---
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 Patient was discharged from [facility] to Rehab facility on 08/29/20 after being treated for pancreatic fistula, wound infection presents from rehab facility with history of generalized weakness, tiredness and abnormal Labs. Patient was noted to have Hb 6.6 and was brought to ED for evaluation of GI bleeding. Patient denies any use of NSAIDs. She is on aspirin, Plavix for coronary artery disease and on Lovenox for DVT prophylaxis while at rehab facility. Patient also noticed dark stools intermittently. She also reports having yellowish discharge from her abdominal wound but denies any significant abdominal pain, fever, chills, chest pain, dyspnea. ED physician discussed with who advised to follow up with GI at out facility. Denies any history of chest pain, SOB, dizziness, hemoptysis, epistaxis, fever, chills, headache, change in vision, nausea, vomiting, dysuria. She aslo reports diarrhea 1-2 BMs per day since last few days. She prefers to be DNI/DNR.She was tested Positive for fecal occult while in ED. Admission Exam Per Admitting Provider GENERAL: Patient is somewhat drowsy, but alert and oriented. VITAL SIGNS: Temperature 36.3, pulse 61, respiratory rate 16, blood pressure 143/75, oxygen 96% on room air. HEENT: Pupils equal, round and reactive to light. Oral mucosa moist. NECK: No JVD, no neck masses. CARDIOVASCULAR: S1, S2 heard. Regular rate and rhythm. No murmur, no gallop. RESPIRATORY: Normal AP diameter. No accessory muscle use. No wheezing, no crackles. ABDOMEN: Surgical dressing seen and the drain. No distention, no guarding, no rigidity. CENTRAL NERVOUS SYSTEM: Somewhat drowsy, but alert and oriented. No facial droop. Speech is clear. Obeys simple commands. Moves extremities. EXTREMITIES: Pedal edema present, no erythema seen. Principal Diagnosis Anemia secondary to GI bleed, duodenal ulcer Discharge Exam General Appearance:Obese, no apparent distress Head: normocephalic, Atraumatic Eyes: normal inspection, EOMI Neck: supple, Trachea midline Respiratory/Chest: Decreased breath sounds, CTA, No accessory muscle use Cardiovascular: S1, S2, + murmur Abdomen/GI:Soft, Non tender, Bowel sounds present, +Large abdominal wound with retention sutures, ? pus appearing in dressing Extremities/Musculoskeletal:normal inspection, 2+ B/L LE edema Neurologic/Psych:AAOX3, grossly no focal neurological deficits Skin: normal color, warm Discharge Data Allergies Allergy/AdvReac Type Severity Reaction Status Date / Time No Known Allergies Allergy Verified 09/01/20 09:39 Consultations 08/31/20 14:53 Consult Gastroenterology Stat 08/31/20 14:54 ED Decision to Admit Stat 08/31/20 15:54 Consult General Surgery Routine 08/31/20 17:45 Consult Gastroenterology Routine 09/01/20 14:03 Consult Infectious Diseases Routine 09/01/20 14:32 Consult Cardiology Routine 09/02/20 10:15 Burn CD for patient Stat Procedures Performed Operation Date: 09/01/20 18:00 Actual Procedures p EGD Hemostasis - Meseret Davey DO Ordered Studies 08/31/20 10:01 CT abd pelvis IV con only Stat IMPRESSION: 1. Postsurgical changes of a right hemicolectomy, splenectomy, right nephrectomy, and partial pancreatectomy 2. Hepatic cirrhosis and low volume ascites 3. Anterior abdominal wall wound/diastases with persistent gas and fluid within the base of the wound. 4. Further interval decrease in the size of the complex fluid collection containing gas at the level of the pancreatic body. 5. No evidence of bowel obstruction. No evidence of free air 6. Interval removal of the left-sided peritoneal drainage catheter. Hospital Course (1) GI bleed: Acute on chronic symptomatic anemia Likely Multifactorial: GI bleeding, anemia of chronic disease, post surgical GI bleeding (Positive FOBT) In setting Aspirin, Plavix, Lovenox use H/O esophageal varices, duodenal ulcer --CT ABD :Postsurgical changes of a right hemicolectomy, splenectomy, right nephrectomy, and partial pancreatectomy. Hepatic cirrhosis and low volume ascites. Anterior abdominal wall wound/diastases with persistent gas and fluid within the base of the wound. Further interval decrease in the size of the com plex fluid collection containing gas at the level of the pancreatic body. No evidence of bowel obstruction. No evidence of free air. Interval removal of the left-sided peritoneal drainage catheter. -Hb:6.6 S/P 2 units PRBCs Hold Aspirin, Plavix and any anticoagulants Start on Protonix ggt, IV fluids GI consulted Monitor H&H and transfuse PRBCs as needed S/p endoscopy (09/01/20) w/ Dr. Davey - Impression: - Grade I esophageal varices with no bleeding and no stigmata of recent bleeding. Normal stomach. - Non-obstructing oozing duodenal ulcer with adherent c lot. Injected. Clip (MR conditional) was placed. - No specimens collected. Recommendation: - Give Protonix (pantoprazole): 8 mg/hr IV by continuous infu asia for 3 days. - If rebleeding occurs the patient would need referral to a center with IR support. 09/02/20 Patient continued to bleed unfortunately overnight, after her EGD procedure. Current hemoglobin 8.0 Cardiology recommends, hemoglobin should be above 9, will give 1 unit now Contacted by GI, recommend transfer to [facility] for possible IR procedure Contacted [facility], plan to transfer the patient for further care Unhealing Open abdominal wall wound CT ABD as above Recently completed a course of Bactrim Start on broad spectrum antibiotics Blood/Wound Cultures Appreciate Surgery Input Continue wound Care ID consulted for further antibiotic recommendations On 08/18/2020 -abdominal wound culture positive for Proteus mirabilis, Enterococcus for CM VRE Current abdominal wound culture shows Staphylococcus species, final culture pending For now we will continue with daptomycin, Zosyn DM Type II: Will hold oral diabetic meds Last A1c:6.9 on 08/19/20 ISS, basal Insulin, Accu checks, Diabetic diet H/O Cirrhosis Hold home diuretics secondary to GI bleed Monitor volume status Resume diuretics as able CAD S/P CABG Hold aspirin, Plavix due to GI bleed Continue other home medications Currently denies any anginal symptoms Likely will not resume aspirin on discharge, will further discuss with cardiology NSVT 09/01 after EGD patient had 22 beat of V. tach Cardiology consulted, plan for echocardiogram Currently patient on propranolol which we will continue Electrolytes within normal limits, will keep K>4 and Mg>2 Right renal Mass S/P nephrectomy DVT Px: SCDs Code Status DNI/DNR as per admitting provider discussion with patient. This was also confirmed with field naturalist. Total Time Total Time Spent Total Time Spent (In Minutes): 40 Discharge Plan Discharge Items Patient Disposition: Transfer Acute Care Hospital Reason For Visit: ANEMIA Discharge Diagnosis: Anemia secondary to GI bleed, duodenal ulcer Condition on Discharge: Good Activity: Per Instructions section Non-emergency contact: Hospitalist and Specialist Call non-emergency contact if: you have any medication questions and your symptoms worsen Follow-up/Referrals: [facility] [Primary Care Provider] - Diet: Clear liquid Addtl Attending Provider Instructions: Patient underwent EGD yesterday, and oozing duodenal ulcer was found and clipped. Unfortunately patient continued to bleed overnight and it was recommended by GI to transfer patient to [facility] for IR procedure. Dr. Gibson contacted at the [facility] and patient was accepted, plan for transfer to their care. Pending Studies at Discharge: Yes Studies:: Final wound culture and blood culture Stand-Alone Forms: My [facility] Skilled Items Patient informed of condition?: Yes DNR: Yes Discharge Level of Care: Other Communicable Disease: No Discharge Prognosis: Other Lines: Peripheral IV Urinary Catheter: No Medications and DC Order Prescriptions: Continued echinacea 500 mg capsule 500 mg PO Q OTHER DAY RF: 0 ondansetron 4 mg film 4 mg PO Q8H PRN (Reason: nausea and vomiting) RF: 0 Rhopressa 0.02 % drops 1 drops OP QPM RF: 0 spironolactone [Aldactone] 100 mg tablet 100 mg PO QAM RF: 0 cyanocobalamin (vitamin B-12) [Vitamin B-12] 1,000 mcg Tablet 1,000 mcg PO QAM RF: 0 garlic 1,000 mg Capsule 1,000 mg PO QAM RF: 0 calcium carbonate [Calcium 600] 600 mg calcium (1,500 mg) Tablet 600 mg PO QPM RF: 0 fluticasone propionate [Flonase Allergy Relief] 50 mcg/actuation [place],Suspension 2 spray INTRANASAL PM RF: 0 vitamin E 400 unit Capsule 400 unit PO QAM RF: 0 cholecalciferol (vitamin D3) [Vitamin D3] 25 mcg (1,000 unit) Tablet 25 mcg PO QAM RF: 0 folic acid 1 mg tablet 1 mg PO QAM RF: 0 Novolog U-100 Insulin aspart 100 unit/mL solution 20 unit SUBCUT TIDM RF: 0 Basaglar KwikPen U-100 Insulin 100 unit/mL (3 mL) insulin pen 44 units SUBCUT BID RF: 0 atorvastatin 40 mg tablet 40 mg PO QAM RF: 0 propranolol 80 mg capsule,extended release 24 hr 80 mg PO QAM RF: 0 furosemide 20 mg tablet 40 mg PO QAM RF: 0 sennosides [senna] 8.6 mg Tablet 8.6 mg PO DAILY PRN (Reason: Constipation) RF: 0 clopidogrel 75 mg tablet 75 mg PO QAM RF: 0 aspirin 81 mg Tablet,Delayed Release (Dr/Ec) 81 mg PO PM RF: 0 magnesium hydroxide [Milk of Magnesia] 400 mg/5 mL Suspension 30 ml PO DAILY PRN (Reason: Constipation) RF: 0 nitroglycerin 0.4 mg Tablet, Sublingual 0.4 mg sublingual Q5M MDD up to 3 tabs in 15 mins PRN (Reason: Chest Pain) RF: 0 oxycodone 5 mg tablet 5 mg PO Q4H PRN (Reason: Pain) RF: 0 Discharge Orders: Discharge Order (Routine); Ordered 09/02/20 Ordered By: David Jackman Admission Data Admit Date/Time: 08/31/20 15:21 Attending Provider: David Jackman Admit Provider: Raul Cain Primary Care Provider: [facility] Other Providers: Meseret Davey ; Ludin Umana ; Raul Cain ; Nick Monge ; Ruben Hauser ; Davi Caputo I. ; Brayan Arzola II ; Marysol Thomas ; Alcides Wallace ; Alexx Levine Other Interventions: Discharge Summary Assessment (RN) Last Done: 09/02/20 18:04
== END 2020-09-02 18:33 | disposition short-term general hospital (02) | DRG 378 ==
LOC: ED 09:38 → SUATTDRO 15:21 → 2E 15:21

== ENCOUNTER 2021-06-27 22:18 | Inpatient (IN) ==
--- NOTE | 2021-06-27 22:30 | Emergency Department Note ---
Impression & Plan Sepsis, Hypomagnesemia, Hypoxemia, Hypocalcemia ED Provider Note NAME: ODILIA SWANN AGE: 70 SEX: F : 1950 ARRIVES VIA: Ambulance INFORMANT: Patient, ED PROVIDER(S): Piyush Mercado MD Chief Complaint: Near syncope HPI: Patient presents via EMS due to concern for near syncope. Patient states that she tried to stand up and almost passed out. I did receive a medical command call per EMS and the patient does have a known history of pancreatic cancer and is currently undergoing chemotherapy. She did receive a treatment today. The patient was noted to be hypotensive with a relatively unremarkable blood sugar. Patient did not have an oxygen requirement in route was given IV fluids and Tylenol in addition to Zofran. The patient did have an elevated temperature. The patient upon presentation here states that she does not have any URI symptoms and denies any cough. The patient denies any chest pain or shortness of breath. Patient does have some occasional leg swelling which has not changed from prior. Patient denies any current abdominal pains. The patient does have a right chest port. Patient denies any dysuria or hematuria. The patient states she has had a recent bowel movement. Patient states that her appetite may be more poor recently and the patient has not been eating or drinking as much. No known sick contacts or recent travel. Patient does follow with Dr. Cuevas. ROS: See HPI for pertinent positives and negatives. A total of 10 systems were reviewed and otherwise negative. Past medical history: See below Surgical history: See below Social history: See below Physical Exam: GENERAL: Fatigued in appearance, NAD, wearing a mask, non-toxic. EYE EXAM: Normal conjunctiva. PERRL, no anisocoria and EOM's grossly intact w/o pain. [OROPHARYNX: Dry mucus membranes. Grossly normal dentition. NECK: Supple, no nuchal rigidity, no adenopathy, non-tender. No signs of meningismus. Chest: Port in right chest, no obvious cellulitic change crepitus or tenderness to palpation. LUNGS: Clear to auscultation. Normal chest wall mechanics. HEART: NSR, no MRG. ABDOMEN: Abdomen soft, well-healed surgical scars, nontender, normo-active bowel sounds, no masses, no rebound or guarding. BACK: No CVA TTP. SKIN: No rashes and no bruising. UPPER EXTREMITIES: Upper extremities are grossly normal. LOWER EXTREMITIES: Grossly normal, 1+ symmetric lower extremity edema. NEURO EXAM: A&O x3, cranial nerves II-XII grossly intact, normal speech, moves all 4 extremities on command w/o issue. Differential diagnoses: Sepsis, UTI, pneumonia, metabolic, electrolyte abnormalities, cardiac sources, intracerebral event, toxicologic, neurologic, as well as other pathologies. Course: Patient was seen and evaluated the bedside. Full history physical exam was performed. EKG interpreted by me Normal sinus rhythm, rate of 79, normal intervals, normal axis, Q waves inferiorly. No obvious ST elevations Imaging Studies: See Below Cardiac monitoring: An order was placed for continuous cardiac monitoring. The monitor shows a rate of 80 with regular rhythm. MDM: Patient was seen due to concern for near syncope and fever. The patient did have bladder completed and was ordered empiric antibiotics. IV fluids were also ordered. Patient's abdomen is nontender. Patient did have a white count of 28 with a hemoglobin of 11.7. The patient's platelet count is unremarkable. The patient's kidney function shows prerenal azotemia. Patient's initial lactate of 2.4. Calcium and magnesium are slightly low. These were ordered for replacement. Procalcitonin of 2.3. The patient was ordered additional IV fluids and did add vancomycin as a precaution. Urinalysis without obvious infection. I did reevaluate the patient the patient abdomen was palpated and the patient states that she has no abdominal pain. The patient does look improved compared to when she initially presented in the department. Patient's chest x-ray does not show any obvious consolidation or pneumothorax. Patient was placed on 2 L supplemental oxygen as the patient was satting 89 to 90% on room air. Patient does not have obvious pneumonia seen on chest x-ray with the patient was covered with antibiotics covering chest infection. I did speak with the on-call hospitalist Dr. Jenkins and the patient was admitted to the medicine service. Critical Care: I have personally spent 47 minutes of critical care time in direct management of this patient. This includes bedside care, interpretation of diagnostic studies, and testing, discussion with consultants, patient, and family members, and other require inpatient management activities. This 47 minutes is in excess of all separately billable procedures. Past Med/Surg History Medical History Anemia CAD (coronary artery disease) Carcinoma of colon Cirrhosis of liver Diabetes Flesh-eating bacteria right kidney four to five years ago as per pt GERD (gastroesophageal reflux disease) GI bleed Glaucoma H/O colon cancer, stage IV Hyperlipidemia Hypertension Infection left arm - IV infiltration MRSA (methicillin resistant Staphylococcus aureus) abdomen - Peritoneal fluid Surgical wound, non healing Surgical History H/O abdominal surgery H/O: History of kidney removal right Hx of CABG vessels x3 s escanaba 2018 Hx of cardiac cath 2018 S/P debridement (02/06/19) Left Arm Sharp Wound Debridement(Left) ; sharp excisional down to and including muscle; greater than [address] Bermeo 02-06-19 S/P partial colectomy Family History Brother Diabetes Mother Cancer Father Hypertension Social History Smoking Status: Never smoker packs per day: 0.5; Years Smoked: 5; Second Hand Exposure: No; Hx Alcohol Use: No Hx Substance Use: No Preferred Language: Trinidadian Communication Ability: Effective Cracker Dough Mixer Required: No Beliefs That Will Affect Care: None marital status: Current Living Situation: Spouse current occupational status: retired Feels Safe at Home: Yes Assistive Devices: None Allergies Allergies Allergy/AdvReac Type Severity Reaction Status Date / Time No Known Allergies Allergy Verified 06/27/21 23:01 Home Meds Home Medications Medication Instructions Recorded Confirmed atorvastatin 40 mg tablet 40 mg PO QAM 12/14/18 06/27/21 propranolol 80 mg capsule,24 80 mg PO QAM 12/14/18 06/27/21 hr,extended release echinacea 500 mg capsule 500 mg PO Q OTHER DAY cap 01/13/19 06/27/21 folic acid 1 mg tablet 1 mg PO BID tab 01/13/19 06/27/21 insulin aspart U-100 100 unit/mL 20 unit CONTINUOUS SUBCUTANEOUS 01/13/19 06/27/21 subcutaneous solution (Novolog INFUSION CONTINOUS MDD 300 U-100 Insulin aspart) UNITS/24 HOURS netarsudil 0.02 % eye drops 1 drops OP QPM 01/13/19 06/27/21 (Rhopressa) ondansetron 4 mg oral soluble film 4 mg PO Q8H PRN 01/13/19 06/27/21 calcium carbonate 600 mg calcium 600 mg PO QPM 01/30/19 06/27/21 (1,500 mg) tablet (Calcium) cholecalciferol (vitamin D3) 25 25 mcg PO QAM 01/30/19 06/27/21 mcg (1,000 unit) tablet (Vitamin D3) cyanocobalamin (vitamin B-12) 1,000 mcg PO QAM 01/30/19 06/27/21 1,000 mcg tablet (Vitamin B-12) fluticasone propionate 50 2 spray INTRANASAL PM 01/30/19 06/27/21 mcg/actuation nasal spray,suspension (Flonase Allergy Relief) garlic 1,000 mg capsule 1,000 mg PO QAM 01/30/19 06/27/21 vitamin E 400 unit capsule 400 unit PO QAM 01/30/19 06/27/21 furosemide 20 mg tablet 40 mg PO BID tab 04/07/19 06/27/21 aspirin 81 mg tablet,delayed 81 mg PO PM 08/01/20 06/27/21 release clopidogrel 75 mg tablet 75 mg PO QAM 08/01/20 06/27/21 nitroglycerin 0.4 mg sublingual 0.4 mg SUBLINGUAL Q5M PRN MDD up 08/01/20 06/27/21 tablet to 3 tabs in 15 mins oxycodone 5 mg tablet 5 mg PO Q8H PRN 08/01/20 06/27/21 sennosides 8.6 mg tablet (senna) 8.6 mg PO DAILY PRN 08/01/20 06/27/21 acetaminophen 500 mg tablet 1,000 mg PO Q8H PRN 06/27/21 06/27/21 (Tylenol Extra Strength) cyclobenzaprine 5 mg tablet 5 mg PO BID PRN 06/27/21 06/27/21 ferrous sulfate 325 mg (65 mg 325 mg PO QAM 06/27/21 06/27/21 iron) tablet ginkgo biloba 40 mg capsule 40 mg PO DAILY 06/27/21 06/27/21 loratadine 10 mg tablet 10 mg PO DAILY PRN 06/27/21 06/27/21 pantoprazole 40 mg tablet,delayed 40 mg PO DAILY 06/27/21 06/27/21 release polyethylene glycol 3350 17 17 g PO DAILY 06/27/21 06/27/21 gram/dose oral powder (Miralax) prochlorperazine maleate 10 mg 10 mg PO Q6H PRN 06/27/21 06/27/21 tablet spironolactone 50 mg tablet 75 mg PO QAM 06/27/21 06/27/21 Results & Data (ED) Vital Signs Vital Signs - 24 hr 06/27/21 22:33 06/27/21 23:00 06/27/21 23:02 Temperature 37.1 C 37.1 C Temperature Source Oral Oral Pulse Rate 76 74 Pulse Rate [Apical] 74 Pulse Rhythm Regular Regular Pulse Rhythm [Apical] Regular Pulse Strength Normal Pulse Strength [Apical] Normal Respiratory Rate 20 20 20 Respiratory Effort / Characteristics Non-Labored Spontaneous Non-Labored Spontaneous Non-Labored Spontaneous Respiratory Depth Normal Normal Respiratory Pattern Regular Regular Blood Pressure 115/53 L Blood Pressure [Right Arm] 115/53 L Blood Pressure Mean 73 Blood Pressure Mean [Right Arm] 73 Blood Pressure Position Semi-fowlers Blood Pressure Position [Right Arm] Semi-fowlers Pulse Oximetry 94 94 94 Oxygen Delivery Method Nasal Cannula Nasal Cannula Nasal Cannula Oxygen Flow Rate 2 2 2 Sepsis Recent Fever Within 48 Hours Yes Sepsis New/Unexplained Change in Mental Status No Sepsis Action Taken by Nursing Physician Notified 06/27/21 23:18 Temperature Temperature Source Pulse Rate Pulse Rate [Apical] 75 Pulse Rhythm Pulse Rhythm [Apical] Regular Pulse Strength Pulse Strength [Apical] Normal Respiratory Rate 18 Respiratory Effort / Characteristics Non-Labored Spontaneous Respiratory Depth Normal Respiratory Pattern Regular Blood Pressure Blood Pressure [Right Arm] 103/50 L Blood Pressure Mean Blood Pressure Mean [Right Arm] 67 Blood Pressure Position Blood Pressure Position [Right Arm] Semi-fowlers Pulse Oximetry 94 Oxygen Delivery Method Nasal Cannula Oxygen Flow Rate 2 Sepsis Recent Fever Within 48 Hours Sepsis New/Unexplained Change in Mental Status Sepsis Action Taken by Jail Medications Current Medication List: was personally reviewed by me Laboratory Data Attestation: I reviewed the patient's lab results. Result diagrams: 06/27/21 22:15 06/27/21 22:15 Lab Results 05/17/22 05/17/22 05/17/22 Range/Units 22:15 22:15 22:15 WBC 28.04 H (4.8-10.8) K/uL RBC 4.11 L (4.2-5.4) M/uL Hgb 11.7 L (12.0-16.0) g/dL Hct 35.6 L (37-47) % MCV 86.6 (80-100) fL MCH 28.5 (25-34) pg MCHC 32.9 (32-36) g/dL RDW Std Deviation 56.2 H (36.4-46.3) fL RDW Coeff of Teresa 20.9 H (11.5-14.5) % Plt Count 400 (130-400) K/uL MPV 11.4 H (7.4-10.4) fL Absolute Nucleated RBC 1.99 H (0-0) K/uL Nucleated RBC % (auto) 7.1 % Neutrophils % (Manual) 94.7 % Lymphocytes % (Manual) 4.4 % Monocytes % (Manual) 0.9 % Neutrophils # (Manual) 26.55 H (1.4-6.5) K/uL Total Absolute Neuts 26.55 H (1.4-6.5) K/uL Lymphocytes # (Manual) 1.23 (1.2-3.4) K/uL Total Abs Lymphocytes 1.23 (1.2-3.4) K/uL Monocytes # (Manual) 0.25 (0.11-0.59) K/uL Polychromasia 1+ Anisocytosis Present Microcytosis Present Acanthocytes (Spur) 1+ PT 12.8 H (9.0-12.0) Seconds INR 1.2 H (0.9-1.1) APTT 25.7 (21.0-31.0) Seconds PTT Ratio 0.9 Sodium 132 L (136-145) mmol/L Potassium 3.7 (3.5-5.1) mmol/L Chloride 96 L (98-107) mmol/L Carbon Dioxide 23 (21-32) mmol/L Anion Gap 13 H (3-11) BUN 26 H (6-23) mg/dl Creatinine 1.04 (0.6-1.2) mg/dl Est Cr Clr Drug Dosing 55.5 ml/min Est GFR ( Amer) 62.6 ml/min Est GFR (Non-Af Amer) 54.0 ml/min BUN/Creatinine Ratio 25.0 H (10-20) Glucose 160 H (70-99(Fasting)) mg/dl Lactate (0.4-2.0) mmol/L Calcium 8.3 L (8.5-10.1) mg/dl Magnesium 1.4 L (1.7-2.4) mg/dl Total Bilirubin 1.1 H (0.2-1.0) mg/dl AST 48 H (13-39) U/L ALT 26 (7-52) U/L Alkaline Phosphatase 145 H (34-104) U/L Total Protein 6.8 (6.0-8.3) gm/dl Albumin 2.6 L (3.4-5.0) gm/dl Globulin 4.2 H (2.5-4.0) gm/dl Albumin/Globulin Ratio 0.6 L (0.9-2) Procalcitonin (0-0.5) ng/ml Urine Color Urine Appearance (Clear) Urine pH (4.5-7.5) Ur Specific [place] (1.000-1.030) Urine Protein (Negative) Urine Glucose (UA) (Negative) Urine Ketones (Negative) Urine Blood (Negative) Urine Nitrite (Negative) Urine Bilirubin (Negative) Urine Urobilinogen (Negative) Ur Leukocyte Esterase (Negative) Urine WBC (Auto) (0-5) /hpf Urine RBC (Auto) (0-4) /hpf U Hyaline Cast (Auto) (0-5) /lpf U Epithel Cells (Auto) (0-5) /lpf Urine Bacteria (Auto) (Negative) 06/27/21 06/27/21 06/27/21 Range/Units 22:15 23:12 23:19 WBC (4.8-10.8) K/uL RBC (4.2-5.4) M/uL Hgb (12.0-16.0) g/dL Hct (37-47) % MCV (80-100) fL MCH (25-34) pg MCHC (32-36) g/dL RDW Std Deviation (36.4-46.3) fL RDW Coeff of Teresa (11.5-14.5) % Plt Count (130-400) K/uL MPV (7.4-10.4) fL Absolute Nucleated RBC (0-0) K/uL Nucleated RBC % (auto) % Neutrophils % (Manual) % Lymphocytes % (Manual) % Monocytes % (Manual) % Neutrophils # (Manual) (1.4-6.5) K/uL Total Absolute Neuts (1.4-6.5) K/uL Lymphocytes # (Manual) (1.2-3.4) K/uL Total Abs Lymphocytes (1.2-3.4) K/uL Monocytes # (Manual) (0.11-0.59) K/uL Polychromasia Anisocytosis Microcytosis Acanthocytes (Spur) PT (9.0-12.0) Seconds INR (0.9-1.1) APTT (21.0-31.0) Seconds PTT Ratio Sodium (136-145) mmol/L Potassium (3.5-5.1) mmol/L Chloride (98-107) mmol/L Carbon Dioxide (21-32) mmol/L Anion Gap (3-11) BUN (6-23) mg/dl Creatinine (0.6-1.2) mg/dl Est Cr Clr Drug Dosing ml/min Est GFR ( Amer) ml/min Est GFR (Non-Af Amer) ml/min BUN/Creatinine Ratio (10-20) Glucose (70-99(Fasting)) mg/dl Lactate 2.4 H* (0.4-2.0) mmol/L Calcium (8.5-10.1) mg/dl Magnesium (1.7-2.4) mg/dl Total Bilirubin (0.2-1.0) mg/dl AST (13-39) U/L ALT (7-52) U/L Alkaline Phosphatase (34-104) U/L Total Protein (6.0-8.3) gm/dl Albumin (3.4-5.0) gm/dl Globulin (2.5-4.0) gm/dl Albumin/Globulin Ratio (0.9-2) Procalcitonin 2.38 H (0-0.5) ng/ml Urine Color Yellow Urine Appearance Clear (Clear) Urine pH 6.5 (4.5-7.5) Ur Specific [place] 1.011 (1.000-1.030) Urine Protein Trace H (Negative) Urine Glucose (UA) Negative (Negative) Urine Ketones Negative (Negative) Urine Blood Negative (Negative) Urine Nitrite Negative (Negative) Urine Bilirubin Negative (Negative) Urine Urobilinogen Negative (Negative) Ur Leukocyte Esterase Negative (Negative) Urine WBC (Auto) 1-5 (0-5) /hpf Urine RBC (Auto) 0-4 (0-4) /hpf U Hyaline Cast (Auto) 5-10 H (0-5) /lpf U Epithel Cells (Auto) 10-20 H (0-5) /lpf Urine Bacteria (Auto) Negative (Negative) Administered Medications Discontinued Medications Piperacillin Sod/Tazobactam Sod (Zosyn) 4.5 gm in 120 mls @ 240 mls/hr IV NOW ONE Stop: 06/27/21 23:06 Last Admin: 06/27/21 23:28 Dose: 240 mls/hr Documented by: [id number] Sodium Chloride (Nss 1000ml) 1,000 mls @ 999 mls/hr IV .Q1H1M ONE Stop: 06/28/21 00:39 Last Admin: 06/27/21 23:44 Dose: 999 mls/hr Documented by: [id number] Magnesium Sulfate/Dextrose (Magnesium Sulfate / D5w) 1 gm in 100 mls @ 100 mls/hr IV NOW STA Stop: 06/28/21 00:50 Last Admin: 06/28/21 00:39 Dose: 100 mls/hr Documented by: [id number] Calcium Gluconate () 1,000 mg in 60 mls @ 240 mls/hr IV NOW STA Stop: 06/28/21 00:04 Last Admin: 06/28/21 00:58 Dose: 240 mls/hr Documented by: [id number] Discharge Plan Visit Data Chief Complaint: Syncope (Near Syncope) ED Provider: Piyush Mercado Discharge Problem: Sepsis, Hypomagnesemia, Hypoxemia, Hypocalcemia Patient Disposition: Admitted As Inpatient Forms Stand Alone Forms: [facility] Prescriptions Prescriptions: No Action echinacea 500 mg capsule 500 mg PO Q OTHER DAY RF: 0 ondansetron 4 mg film 4 mg PO Q8H PRN (Reason: nausea and vomiting) RF: 0 Rhopressa 0.02 % drops 1 drops OP QPM RF: 0 cyanocobalamin (vitamin B-12) [Vitamin B-12] 1,000 mcg Tablet 1,000 mcg PO QAM RF: 0 garlic 1,000 mg Capsule 1,000 mg PO QAM RF: 0 calcium carbonate [Calcium 600] 600 mg calcium (1,500 mg) Tablet 600 mg PO QPM RF: 0 fluticasone propionate [Flonase Allergy Relief] 50 mcg/actuation [place],Suspension 2 spray INTRANASAL PM RF: 0 vitamin E 400 unit Capsule 400 unit PO QAM RF: 0 cholecalciferol (vitamin D3) [Vitamin D3] 25 mcg (1,000 unit) Tablet 25 mcg PO QAM RF: 0 folic acid 1 mg tablet 1 mg PO BID RF: 0 Novolog U-100 Insulin aspart 100 unit/mL solution 20 unit continuous subcutaneous infusion CONTINOUS MDD 300 UNITS/24 HOURS RF: 0 atorvastatin 40 mg tablet 40 mg PO QAM RF: 0 propranolol 80 mg capsule,extended release 24 hr 80 mg PO QAM RF: 0 furosemide 20 mg tablet 40 mg PO BID RF: 0 prochlorperazine maleate 10 mg Tablet 10 mg PO Q6H PRN (Reason: Nausea) RF: 0 acetaminophen [Tylenol Extra Strength] 500 mg Tablet 1,000 mg PO Q8H PRN (Reason: Pain) RF: 0 ginkgo biloba 40 mg Capsule 40 mg PO DAILY RF: 0 pantoprazole 40 mg Tablet,Delayed Release (Dr/Ec) 40 mg PO DAILY RF: 0 ferrous sulfate 325 mg (65 mg iron) Tablet 325 mg PO QAM RF: 0 polyethylene glycol 3350 [Miralax] 17 gram/dose Powder 17 g PO DAILY RF: 0 loratadine 10 mg Tablet 10 mg PO DAILY PRN (Reason: RHINITIS) RF: 0 spironolactone 50 mg tablet 75 mg PO QAM RF: 0 cyclobenzaprine 5 mg Tablet 5 mg PO BID PRN (Reason: Pain) RF: 0 sennosides [senna] 8.6 mg Tablet 8.6 mg PO DAILY PRN (Reason: Constipation) RF: 0 clopidogrel 75 mg tablet 75 mg PO QAM RF: 0 aspirin 81 mg Tablet,Delayed Release (Dr/Ec) 81 mg PO PM RF: 0 nitroglycerin 0.4 mg Tablet, Sublingual 0.4 mg sublingual Q5M MDD up to 3 tabs in 15 mins PRN (Reason: Chest Pain) RF: 0 oxycodone 5 mg tablet 5 mg PO Q8H PRN (Reason: Pain) RF: 0 Referrals Referrals: Zo Bhatt DO [Primary Care Provider] -
[2021-06-27] MEDS ORDERED: PIPERACILL/TAZOBAC CONSULT ACTIVE PRN (22:37)
[2021-06-27] MEDS ORDERED: PIPERACILLIN/TAZOBACTAM 4.5 GM/120 ML BAG IV ONE (22:37)
[2021-06-27] MEDS ORDERED: SODIUM CHLORIDE 0.9% 1000ML 1,000 ML IV SCH (22:45)
[2021-06-27 22:54] LABS: Mean Corpuscular Hgb Conc 32.9 g/dL (32-36); Mean Platelet Volume 11.4 fL (7.4-10.4); Nucleated RBC # (auto) 1.99 K/uL (0-0); Nucleated RBC % (auto) 7.1 %; Platelet Count 400 K/uL (130-400)
[2021-06-27 23:06] LABS: Albumin Globulin Ratio 0.6 (0.9-2); Albumin Level 2.6 gm/dl (3.4-5.0); Bilirubin,Total 1.1 mg/dl (0.2-1.0); Calcium 8.3 mg/dl (8.5-10.1); Creatinine Clr Calc Pharmacy 55.5 ml/min; Est GFR (African American) 62.6 ml/min; Globulin 4.2 gm/dl (2.5-4.0); Magnesium 1.4 mg/dl (1.7-2.4); Potassium 3.7 mmol/L (3.5-5.1); Total Protein 6.8 gm/dl (6.0-8.3)
[2021-06-27 23:10] LABS: ALC (manual) 1.23 K/uL (1.2-3.4); ANC (manual) 26.55 K/uL (1.4-6.5); Acanthocytes 1+; Anisocytosis Present; Hematocrit (blood only) 35.6 % (37-47); Hemoglobin 11.7 g/dL (12.0-16.0); Lymphocytes # (manual) 1.23 K/uL (1.2-3.4); Lymphocytes % (manual) 4.4 %; Mean Corpuscular Hemoglobin 28.5 pg (25-34); Mean Corpuscular Volume 86.6 fL (80-100); Microcytosis Present; Monocytes # (manual) 0.25 K/uL (0.11-0.59); Monocytes % (manual) 0.9 %; Neutrophils # (manual) 26.55 K/uL (1.4-6.5); Neutrophils % (manual) 94.7 %; Polychromasia 1+; RDW Coefficient of Variation 20.9 % (11.5-14.5); RDW Standard Deviation 56.2 fL (36.4-46.3); Red Blood Count 4.11 M/uL (4.2-5.4); White Blood Count 28.04 K/uL (4.8-10.8)
[2021-06-27] MEDS ORDERED: SODIUM CHLORIDE 0.9% 1000ML 1,000 ML IV ONE (23:39)
[2021-06-27] MEDS ORDERED: VANCOMYCIN HCL 2,500 MG in SODIUM CHLORIDE 0.9% 500 ML IV ONE (23:39)
[2021-06-27] MEDS ORDERED: VANCOMYCIN CONSULT ACTIVE PRN (23:39)
[2021-06-27 23:40] LABS: INR 1.2 (0.9-1.1); Partial Thromboplastin Ratio 0.9; Partial Thromboplastin Time 25.7 Seconds (21.0-31.0); Prothrombin Time 12.8 Seconds (9.0-12.0)
[2021-06-27 23:43] LABS: Appearance Urine Clear (Clear); Bacteria Urine Automated Negative (Negative); Bilirubin Urine Negative (Negative); Blood Urine Negative (Negative); Color Urine Yellow; Glucose Urine UA Negative (Negative); Ketones Urine Negative (Negative); Leukocyte Esterase Urine Negative (Negative); Nitrite Urine Negative (Negative); Protein Urine Trace (Negative); RBC Urine Automated 0-4 /hpf (0-4); Specific Gravity Urine 1.011 (1.000-1.030); Urobilinogen Urine Negative (Negative); pH Urine 6.5 (4.5-7.5)
[2021-06-27] MEDS ORDERED: CALCIUM GLUCONATE 1,000 MG/60 ML BAG IV STA (23:50)
[2021-06-27] MEDS ORDERED: MAGNESIUM SULFATE / D5W 1 GM/100 ML BAG IV STA (23:51)
[2021-06-28 02:59] LABS: Influenza A virus by PCR Negative (Neg); Influenza B virus by PCR Negative (Neg); RSV by PCR Negative (Neg); SARS CoV2 RNA(COVID-19) InHosp NEGATIVE (Negative)
[2021-06-28] MEDS ORDERED: oxyCODONE HCL IR 5 MG TAB (IMMEDIATE RELEASE) PO PRN (04:29)
[2021-06-28] MEDS ORDERED: LORATADINE 10 MG TAB PO PRN (04:29)
[2021-06-28] MEDS ORDERED: SENNA 8.6 MG TAB PO PRN (04:29)
[2021-06-28] MEDS ORDERED: INSULIN ASPART PER UNIT SC SCH (04:29)
[2021-06-28] MEDS ORDERED: NITROGLYCERIN SL 0.4 MG/TAB TAB SL PRN ×2 (04:29)
[2021-06-28] MEDS ORDERED: CYCLOBENZAPRINE HCL 5 MG TAB PO PRN (04:29)
--- NOTE | 2021-06-28 04:45 | History and Physical Report ---
DATE OF ADMISSION: 04/28/2021. CHIEF COMPLAINT: Presyncope. 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 Postoperative course complicated by fascial dehiscence requiring closure, history of hypertension, osteoporosis, history of chronic right-sided heart failure, recently her diuretics increased to Lasix 40 b.i.d. and spironolactone 75 mg p.o. daily. Followup CAT scan on 04/19/2019 showed new peritoneal metastasis over the abdomen and pelvis, there is ascites and new enhancing nodule in the right paramidline abdominal wall suspicious for metastatic disease. CA 19-9 level was increased to more than 5000. As per the Heme-Onc, the patient has recurrent metastatic disease, most likely from pancreatic origin with peritoneal carcinomatosis with high risk for complication for palliative chemotherapy. The patient is on currently getting chemo Gemzar. Patient recently about 3 weeks ago, she had a port placement and had chemo today. The patient looks like uses mostly wheelchair , at home she can ambulate short distance with a walker baseline functionality.Has lower extremity edema.Today patient says, when she was standing up, she almost passed out and she fell to the floor slowly. She did not completely passed out. She could not able to get up. She did not injure herself and she called EMS and brought in here. Here blood pressure was soft, with the fluids blood pressure improved. Her white count was 28,000. Sodium was 132. Lactate was 2.4, magnesium 1.4. Procalcitonin 2.3. Urinalysis negative. Chest x-ray, no acute findings. A port site no erythema or obvious drainage seen. The patient denies any abdominal pain. She has cough for couple of weeks now, patient brings phlegm. Denies any fever or chills. No chest pain, no headache, no neck pain. Has some back pain, no leg pains. No abdominal pain, normal bowel and bladder movements. No nausea, no vomiting, no headache, no blurred visions, no earache, no runny nose, no sore throat. Appetite is not that great when she eats she swallows okay.Lives with her . ALLERGIES: No known drug allergies. PAST MEDICAL HISTORY: As mentioned above. PAST SURGICAL HISTORY: Excision of abdominal wall subcutaneous tumor, CABG, C- section, colonoscopy, multiple left heart catheterizations, dilatation and curettage, drainage for skin abscess, multiple EGDs, EGD with endoscopic ultrasound, ERCP, exploratory laparotomy, hand finger surgery for trigger finger, implantation of mesh for reinforcement of abdominal wall, laparoscopic radical nephrectomy, laparoscopic colectomy partially with anastomosis, laser trabeculoplasty, partial removal of pancreas, cardiac stent, cataract surgery. MEDICATIONS: The patient is on Tylenol Extra Strength 1000 mg q. 8 hours p.r.n., aspirin 81 mg p.o. daily, atorvastatin 40 mg p.o. a.m., calcium 600 mg p.o. a.m., vitamin D 25 mcg p.o. a.m., Plavix 75 mg p.o. a.m., vitamin B12 1000 mcg p.o. a.m., cyclobenzaprine 5 mg p.o. b.i.d. p.r.n., ferrous sulfate 325 mg p.o. a.m., Flonase 2 sprays intranasal p.m., folic acid 1 mg p.o. b.i.d., Lasix 40 mg p.o. b.i.d., Garlic 1000 mg p.o. a.m., insulin pump, loratadine 20 mg p.o. daily p.r.n., nitroglycerin 0.4 sublingual p.r.n., Netarsudil 0.02% eye drops q.p.m., oxycodone 5 mg p.o. 8 hours p.r.n., Protonix 40 mg p.o. daily, MiraLax 17 g p.o. daily, Prochlorperazine 10 mg p.o. q. 6 hours p.r.n., propranolol 80 mg p.o. a.m., senna 8.6 mg p.o. daily p.r.n., spironolactone 75 mg p.o. a.m., vitamin E 400 units p.o. a.m. FAMILY HISTORY: Significant for sister has arthritis; mother has kidney cancer, diabetes, CABG, hypertension; father has diabetes, [place], hypertension. SOCIAL HISTORY: . Quit smoking in 1984, smoked quarter pack a day for 5 years. No alcohol, no drug use. REVIEW OF SYMPTOMS: As per HPI. Rest of review of systems is negative. PHYSICAL EXAMINATION: GENERAL: The patient is obese, not in acute distress. VITAL SIGNS: Temperature 37.1, pulse 67, respiratory rate 23, blood pressure apparently 108/51, oxygen 94% on 2 liters. HEENT: Pupils equal, round and reactive to light. Oral mucosa moist. LUNGS: No JVD, no neck masses. CARDIOVASCULAR: S1 and S2 heard. Regular rate and rhythm. No murmur, no gallop. RESPIRATORY SYSTEM: Normal AP diameter. No accessory muscle use. No wheezing, no crackles. ABDOMEN: Soft. Bowel sounds are present, nontender, no distention. CENTRAL NERVOUS SYSTEM: Alert and oriented. Speech is clear. No facial droop. Insight is good. Obeys commands. Moves extremities. EXTREMITIES: Lower extremity, +2 edema present, no erythema seen. LABORATORY DATA: WBC 28, hemoglobin 11.7, hematocrit 35.6, platelets 400. PT 12.8, INR 1.2, APTT 25.7. Sodium 132, potassium 3.7, chloride 96, bicarbonate 23, BUN 26, creatinine 1.04, serum glucose 160. Lactate 2.4, calcium 8.3, magnesium 1.4, total bilirubin 1.1, AST 48, ALT 26, alkaline phosphatase 148. Procalcitonin 2.3. Urinalysis negative for leukocyte esterase and bacteria. IMAGING: Chest x-ray, no acute findings. EKG: Normal sinus rhythm at a rate of 79. Q-waves in inferior leads. ASSESSMENT AND PLAN: This 70-year-old female with history of colon cancer stage II, status post right hemicolectomy, history of pancreatic cancer underwent distal subtotal pancreatectomy and splenectomy, recent diagnosis of peritoneal metastasis thought to be from pancreas on Gemzar infusion, history of diabetes on insulin pump, history of chronic kidney disease, coronary artery disease status post coronary artery bypass grafting, liver cirrhosis, hypertension, chronic right-sided heart failure, history of gastrointestinal bleed, history of nephrectomy, presents with near syncope and also found to have elevated leukocytosis and elevated lactic acid. 1. Near syncope, could be from possible sepsis but because of cardiac history will observe in tele floor. We will get an echo, serial enzymes and cardiac consult. 2. Possible sepsis with leukocytosis, white count 28,000. Lactic acid of 2.4. Source of infection unclear. A port site is clean. Chest x-ray okay. Urinalysis is okay. We will get a CT chest and CT abdomen and pelvis. Patient has history of ascites and history of a cough for a few weeks. ER empirically started on vancomycin and Zosyn. We will continue. Follow the cultures. Follow the response. The patient is also getting fluids, IV normal saline 100 mL per hour.repeat lactic acid 1.3 3. History of liver cirrhosis, history of right-sided heart failure. The patient currently on Lasix 40 b.i.d. and spironolactone 75 mg p.o. daily(Patient says she is atking 100mg), which is held and the patient is getting fluids. Monitor for any volume overload. 4. Diabetes, on insulin pump. The patient wants to continue insulin pump, which we will continue, if she gets confused, we need to discontinue it and place on Lantus sliding scale, monitor the blood sugars. 5. History of coronary artery disease, status post coronary artery bypass grafting, on aspirin, statin, Plavix and propranolol. We will monitor. 6. History of colon cancer, status post hemicolectomy, history of pancreatic cancer, status post surgery, currently recurrent metastatic disease with peritoneal metastasis with small ascites. Metastatic disease, currently under palliative chemotherapy with Gemzar follow up with Hem-Onc. 7. Ascites. Holding diuretics. Monitor for volume overload. If CT scan shows significant ascites, may need to do a diagnostic tap to rule out any infection. 8. History of esophageal varices without bleeding, on propranolol. Hemoglobin is stable. 9. Chronic kidney disease stage 3?, creatinine of 1 seems to baseline. We will follow the labs. 11. Deep venous thrombosis prophylaxis: Lovenox. DISPOSITION: Closely monitor in the tele floor. CODE STATUS: DNR/DNI as per discussion with the patient. PT, OT prior to discharge. Social Service to help with discharge planning. Job ID: [id number] [facility]
[2021-06-28] MEDS ORDERED: MAGNESIUM SULFATE / D5W 1 GM/100 ML BAG IV ONE (05:00)
[2021-06-28] MEDS ORDERED: INSULIN ASPART 100 UNITS/ML VIAL SC PRN (05:30)
[2021-06-28] MEDS ORDERED: CARBOHYDRATES FOR HYPOGLYCEMIA PO PRN (05:30)
[2021-06-28] MEDS ORDERED: GLUCOSE 40% GEL 15 GM TUBE PO PRN (05:30)
[2021-06-28] MEDS ORDERED: GLUCAGON FOR INJ 1 MG VIAL SQ PRN (05:30)
[2021-06-28] MEDS: SODIUM CHLORIDE 0.9% 1000ML 1,000 ML IV SCH ×2 (05:30→13:58)
[2021-06-28] MEDS ORDERED: GLUCOSE 10 TABS/TUBE PO PRN (05:30)
[2021-06-28] MEDS ORDERED: DEXTROSE 50% 50 ML SYRINGE IV PRN (05:30)
[2021-06-28] MEDS: ENOXAPARIN INJ 40 MG/0.4 ML SYR SQ SCH ×2 (06:12→18:15)
[2021-06-28] MEDS: PIPERACILLIN/TAZOBACTAM 4.5 GM in DEXTROSE 5% 100 ML IV SCH ×3 (06:12→20:40)
[2021-06-28 06:16] LABS: ALC (manual) 0.59 K/uL (1.2-3.4); ANC (manual) 31.79 K/uL (1.4-6.5); Anisocytosis Present; Hematocrit (blood only) 31.5 % (37-47); Hemoglobin 10.5 g/dL (12.0-16.0); Lymphocytes # (manual) 0.59 K/uL (1.2-3.4); Lymphocytes % (manual) 1.8 %; Mean Corpuscular Hemoglobin 29.4 pg (25-34); Mean Corpuscular Hgb Conc 33.3 g/dL (32-36); Mean Corpuscular Volume 88.2 fL (80-100); Mean Platelet Volume 11.3 fL (7.4-10.4); Monocytes # (manual) 0.29 K/uL (0.11-0.59); Monocytes % (manual) 0.9 %; Neutrophils # (manual) 31.79 K/uL (1.4-6.5); Neutrophils % (manual) 97.3 %; Nucleated RBC # (auto) 1.23 K/uL (0-0); Nucleated RBC % (auto) 3.8 %; Pappenheimer Bodies 1+; Platelet Count 351 K/uL (130-400); Polychromasia 1+; RDW Coefficient of Variation 20.7 % (11.5-14.5); Red Blood Count 3.57 M/uL (4.2-5.4)
[2021-06-28 06:20] LABS: BUN Creatinine Ratio 23.5 (10-20); Calcium 7.9 mg/dl (8.5-10.1); Creatinine Clr Calc Pharmacy 49.3 ml/min; Est GFR (African American) 53.2 ml/min; Est GFR (Non-African American) 45.9 ml/min; Magnesium 1.8 mg/dl (1.7-2.4); Potassium 3.4 mmol/L (3.5-5.1); White Blood Count 32.67 K/uL (4.8-10.8)
--- NOTE | 2021-06-28 07:03 | CT Scan Report ---
CT OF THE CHEST WITHOUT IV CONTRAST CLINICAL HISTORY: sepsis, cough COMPARISON STUDY: Chest radiograph June 27, 2021. CT DOSE: 1818.19 mGy.cm TECHNIQUE: Axial images of the chest were obtained without IV contrast. Images were reviewed in the axial, sagittal, and coronal planes. IV contrast was not administered for this examination. Automat ed exposure control was utilized for the study. A dose lowering technique was utilized adhering to t he principles of ALARA. FINDINGS: Right internal jugular [id number] is in place. There is mild adjacent stranding. This i s likely related to recent port insertion. Cardiomegaly is noted. There is extensive coronary calcifi cation. Note is made of median sternotomy wires and postoperative findings from bypass grafting. Ther e is no pericardial effusion. No enlarged axillary, mediastinal or hilar lymph nodes are present. The re is no pneumothorax. Trace left pleural effusion is noted. Subpleural opacities within lungs favor atelectasis. No consolidation is identified suggest pneumonia. Central airways are patent. No suspici ous pulmonary nodules are present. No acute fracture or suspicious lesion is identified within the vi sualized bony thorax. Upper abdominal ascites is noted. Liver is cirrhotic. Please note that the CT o f the abdomen and pelvis will be reported separately. IMPRESSION: 1. Trace left pleural effusion. Subpleural opacities within the chest which favor atelectasis. No con solidation to suggest pneumonia. 2. Mild infiltration adjacent to the right internal jugular [id number]. Although nonspecific, this is likely related to recent port insertion. 3. Cardiomegaly. 4. Cirrhosis with upper abdominal ascites. Peritoneal implants. These findings are better depicted on the CT of the abdomen and pelvis which will be reported separately. ACT 112: Negative or not required by law. Electronically signed by: Óscar Natarajan M.D. 06/28/2021 7:01 AM
--- NOTE | 2021-06-28 07:22 | XRay Report ---
XR chest 1V portable CLINICAL HISTORY: SEPSIS COMPARISON STUDY: Chest radiograph August 31, 2020. FINDINGS: Right internal jugular [id number], median sternotomy wires and mediastinal surgical clip s are noted. Mild cardiomegaly. There is pulmonary vascular congestion without overt pulmonary edema. Trace left pleural effusion is noted. There is mild left basilar opacity. No pneumothorax. IMPRESSION: 1. Pulmonary vascular congestion without evidence for pulmonary edema. 2. Trace left pleural effusion. Mild left basilar opacity which favors atelectasis. ACT 112: Negative or not required by law. Electronically signed by: Óscar Natarajan M.D. 06/28/2021 7:21 AM
--- NOTE | 2021-06-28 07:59 | CT Scan Report ---
CT abd pelvis wo con CLINICAL HISTORY: sepsiss. hx of ascites COMPARISON STUDY: 08/31/2020 CT DOSE: TECHNIQUE: Standard CT of the Abdomen and Pelvis was performed without IV contrast. The patient did not receive oral contrast. A dose lowering technique was utilized adhering to the principles of DEVAUGHN Jacobo FINDINGS: Lung base: There has been interval development of small left pleural effusion with left basilar atele ctasis. The heart is again enlarged with previous cardiothoracic surgery. Abdominal cavity: Compared to previous examination, there is increased abdominal and pelvic ascites w hich is at least moderate in degree. The patient is again status post previous abdominal surgery with diastases at the incision site again seen. Subcutaneous edema is again seen within the fat of the ab dominal wall particularly towards the left side. This appears unchanged with no focal fluid collectio ns identified. There is skin thickening again seen. There is suspicion of peritoneal seeding. This is not well delineated on this noncontrast study. Liver: The liver is homogeneous in attenuation on these limited noncontrast images.. Spleen: The spleen is not well visualized. Pancreas: The patient is again status post resection of the distal body and tail the pancreas. No junior dence for gross mass is seen on this limited noncontrast study. Gall Bladder: The gallbladder appears contracted. Adrenal glands: The adrenal glands are normal in size and attenuation on these limited noncontrast im ages. Kidneys: The patient is again status post right nephrectomy with compensatory hypertrophy of left kid mike. There is mild left-sided hydronephrosis with no evidence for renal or ureteral calculus. No steve s renal masses identified on these limited noncontrast images. Bowel: The patient is again status post right hemicolectomy with patent anastomosis. The bowel loops are displaced related to the ascites present. There is moderate fecal stasis. There is no definite im paction or obstruction. There are no inflammatory changes present. There is no evidence for free air. Bladder: Vital catheter is present within the bladder. : There is no evidence for pelvic mass or adenopathy. Vasculature: There is no evidence for focal aneurysmal dilatation of the abdominal aorta. Atheroscler otic calcification is present. Osseous structures: There is no acute osseous pathology. Degenerative changes are seen within the spi ne. IMPRESSION: 1. Compared to the previous examination, there is interval increase in moderate abdominal and pelvic ascites. 2. Interval development of small left pleural effusion and left basilar atelectasis. 3. Suspicion of peritoneal seeding. 4. No other evidence for acute intra-abdominal or pelvic abnormality on these limited noncontrast emmanuel ges. 5. Stable chronic changes are otherwise seen as delineated above. ACT 112: Negative or not required by law. Electronically signed by: Ananda Houser M.D. 06/28/2021 7:56 AM
[2021-06-28] MEDS: POLYETHYLENE (MIRALAX) 17 GM PACK PO SCH (08:02)
[2021-06-28] MEDS: CLOPIDOGREL BISULFATE 75 MG TAB PO SCH (08:03)
[2021-06-28] MEDS: ATORVASTATIN 40 MG TAB PO SCH (08:03)
[2021-06-28] MEDS: FOLIC ACID 1 MG TAB PO SCH ×2 (08:03→20:40)
[2021-06-28] MEDS: PANTOprazole 40 MG TAB PO SCH (08:03)
[2021-06-28] MEDS: SPIRONOLACTONE 25 MG TAB PO SCH (08:03)
[2021-06-28] MEDS: CHOLECALCIFEROL 1,000 UNITS 25 MCG TAB PO SCH (08:04)
[2021-06-28] MEDS: CYANOCOBALAMIN (B-12) 500 MCG TABLET PO SCH (08:04)
[2021-06-28] MEDS: FERROUS SULFATE 325 MG TAB PO SCH (08:04)
[2021-06-28] MEDS: PROPRANOLOL HCL LA 80 MG CAPCR PO SCH (08:05)
[2021-06-28] MEDS: NovoLOG INSULIN PUMP SCH ×4 (08:06→20:40)
[2021-06-28 08:33] LABS: Estimated Average Glucose 148 mg/dl; Hemoglobin A1C 6.8 % (4.5-5.6)
--- NOTE | 2021-06-28 09:02 | Pharmacy Report ---
Pharmacy Vanc AUC Short Note - Date of Service June 28, 2021 - Assessment & Plan Assessment 70 year old F who presented with near syncope, leukocytosis and elevated lactic acid. Complicated PMH including; colon cancer stage II, status post right hemicolectomy, history of pancreatic cancer underwent distal subtotal pancreatectomy and splenectomy, recent diagnosis of peritoneal metastasis, diabetes on insulin pump, CKD s/p nephrectomy. Patient has port in place for Gemzar infusions. Prcal 2.38. UA not impressive. BC pending. 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 Empiric vancomycin + pip-tazo initiated. CHEST CT: Trace left pleural effusion. Subpleural opacities within the chest which favor atelectasis. No consolidation to suggest pneumonia. ABD/PELVIC CT: 1. Compared to the previous examination, there is interval increase in moderate abdominal and pelvic ascites. 2. Interval development of small left pleural effusion and left basilar atelectasis. 3. Suspicion of peritoneal seeding. 4. No other evidence for acute intra-abdominal or pelvic abnormality on these limited noncontrast images. 5. Stable chronic changes are otherwise seen as delineated above. Plan Vancomycin * Loading dose: 2500 mg IV * Maintenance dose: 750 mg IV every 12 hours * This regimen is predicted to achieve target AUC/ARVIND of 400-600 mg/L.hr and may be associated with a 15 % risk of nephrotoxicity * Steady state trough: 18.7 mcg/mL * Steady state AUC/ARVIND: 528 mg/L.hr * Level will be obtained if vanco is continued beyond 48 hours Zosyn 4.5 g IV every 8 hours (4 hr infusion) Pharmacy will continue to follow and will adjust dose/frequency as necessary. Thank you.
--- NOTE | 2021-06-28 09:34 | Cardiology Consultation ---
Date of Consultation June 28, 2021 Assessment & Plan (1) Carcinoma of colon: (2) Cirrhosis of liver: (3) Ischemic heart disease: I do not see it listed in the orders but I think the patient had an echocardiogram or will have one soon. I will review that study when it is complete however, I do not believe any additional cardiac testing is indicated at this time. During my time with the patient she initiated a conversation regarding palliative care. The disease and chemotherapy have really played her out. She is interested in talking with the palliative care team and I have consulted them. History of Present Illness Attending Physician: Mary Carmen Mcgrath MD History of Present Illness This is a 70-year-old female with a complex oncology history due to metastatic cancer and abdominal carcinomatosis. She also has a history of ischemic heart disease with prior coronary interventions in the late and coronary artery bypass surgery in 1999. Her cardiac status has been stable and the majority of her health problems are related to her metastatic cancer. She received chemotherapy yesterday and after returning home she was extremely fatigued and had difficulty even climbing the stairs to her home. She was in bed and felt the need to go to the bathroom and could not get up. Her was not able to get her out of bed so he brought her to the hospital where she has been admitted. She flatly denies syncope or presyncope. On the telemetry she has been in a normal sinus rhythm. She has no ongoing cardiac complaints. Allergies Allergy/AdvReac Type Severity Reaction Status Date / Time No Known Allergies Allergy Verified 06/27/21 23:01 Home Medications Medication Instructions Recorded Confirmed Type atorvastatin 40 mg tablet 40 mg PO QAM 12/14/18 06/27/21 History propranolol 80 mg capsule,24 80 mg PO QAM 12/14/18 06/27/21 History hr,extended release echinacea 500 mg capsule 500 mg PO Q OTHER DAY cap 01/13/19 06/27/21 History folic acid 1 mg tablet 1 mg PO BID tab 01/13/19 06/27/21 History insulin aspart U-100 100 unit/mL 20 unit CONTINUOUS SUBCUTANEOUS 01/13/19 06/27/21 History subcutaneous solution (Novolog INFUSION CONTINOUS MDD 300 U-100 Insulin aspart) UNITS/24 HOURS netarsudil 0.02 % eye drops 1 drops OP QPM 01/13/19 06/27/21 History (Rhopressa) ondansetron 4 mg oral soluble film 4 mg PO Q8H PRN 01/13/19 06/27/21 History calcium carbonate 600 mg calcium 600 mg PO QPM 01/30/19 06/27/21 History (1,500 mg) tablet (Calcium) cholecalciferol (vitamin D3) 25 25 mcg PO QAM 01/30/19 06/27/21 History mcg (1,000 unit) tablet (Vitamin D3) cyanocobalamin (vitamin B-12) 1,000 mcg PO QAM 01/30/19 06/27/21 History 1,000 mcg tablet (Vitamin B-12) fluticasone propionate 50 2 spray INTRANASAL PM 01/30/19 06/27/21 History mcg/actuation nasal spray,suspension (Flonase Allergy Relief) garlic 1,000 mg capsule 1,000 mg PO QAM 01/30/19 06/27/21 History vitamin E 400 unit capsule 400 unit PO QAM 01/30/19 06/27/21 History furosemide 20 mg tablet 40 mg PO BID tab 04/07/19 06/27/21 History aspirin 81 mg tablet,delayed 81 mg PO PM 08/01/20 06/27/21 History release clopidogrel 75 mg tablet 75 mg PO QAM 08/01/20 06/27/21 History nitroglycerin 0.4 mg sublingual 0.4 mg SUBLINGUAL Q5M PRN MDD up 08/01/20 06/27/21 History tablet to 3 tabs in 15 mins oxycodone 5 mg tablet 5 mg PO Q8H PRN 08/01/20 06/27/21 History sennosides 8.6 mg tablet (senna) 8.6 mg PO DAILY PRN 08/01/20 06/27/21 History acetaminophen 500 mg tablet 1,000 mg PO Q8H PRN 06/27/21 06/27/21 History (Tylenol Extra Strength) cyclobenzaprine 5 mg tablet 5 mg PO BID PRN 06/27/21 06/27/21 History ferrous sulfate 325 mg (65 mg 325 mg PO QAM 06/27/21 06/27/21 History iron) tablet ginkgo biloba 40 mg capsule 40 mg PO DAILY 06/27/21 06/27/21 History loratadine 10 mg tablet 10 mg PO DAILY PRN 06/27/21 06/27/21 History pantoprazole 40 mg tablet,delayed 40 mg PO DAILY 06/27/21 06/27/21 History release polyethylene glycol 3350 17 17 g PO DAILY 06/27/21 06/27/21 History gram/dose oral powder (Miralax) prochlorperazine maleate 10 mg 10 mg PO Q6H PRN 06/27/21 06/27/21 History tablet spironolactone 50 mg tablet 75 mg PO QAM 06/27/21 06/27/21 History Patient History Medical History Anemia CAD (coronary artery disease) Carcinoma of colon Cirrhosis of liver Diabetes Flesh-eating bacteria right kidney four to five years ago as per pt GERD (gastroesophageal reflux disease) GI bleed Glaucoma H/O colon cancer, stage IV Hyperlipidemia Hypertension Infection left arm - IV infiltration MRSA (methicillin resistant Staphylococcus aureus) abdomen - Peritoneal fluid Surgical wound, non healing Surgical History H/O abdominal surgery H/O: History of kidney removal right Hx of CABG vessels x3 s delta 2018 Hx of cardiac cath 2018 S/P debridement (02/06/19) Left Arm Sharp Wound Debridement(Left) ; sharp excisional down to and including muscle; greater than [address] Bermeo 02-06-19 S/P partial colectomy Family History Brother Diabetes Mother Cancer Father Hypertension Social History Smoking Status: Never smoker packs per day: 0.5; Years Smoked: 5; Second Hand Exposure: No; Hx Alcohol Use: No Hx Substance Use: No Preferred Language: Dominican Communication Ability: Effective Promotions Assistant Required: No Beliefs That Will Affect Care: None marital status: Current Living Situation: Spouse current occupational status: retired Other Information That Helps Us Care for You: No Feels Safe at Home: Yes Safety Concerns: Feels Safe At This Time Assistive Devices: None Review of Systems Review of Systems: Review of Systems: See HPI for pertinent positives. All other 10 point review of systems are negative. Physical Exam Physical Exam: General: no acute distress and stated age Head: normocephalic, no masses, lesions, tenderness or abnormalities Eyes: conjunctiva are pink and non-injected, sclera clear Neck: supple, no adenopathy, no bruits, normal jugular venous pulse, no hepatojugular reflux Chest: normal shape and normal respiratory effort Lungs: clear to auscultation and percussion Cardiac Exam: - regular rate & rhythm, no murmurs gallops or rubs - normal S1, normal S2 Pulses: 2(+) throughout Abdomen: abdomen soft, non-tender, no abnormal masses and no hepatosplenomegaly Musculoskeletal: no gait disturbance, no joint inflammation, no deforming arthritis Extremities: no edema and no cyanosis Neuro: grossly normal exam Results & Data ([facility]) Vital Signs (Past 12 Hours) Vital Signs Temp Pulse Pulse Resp BP BP Pulse Ox 06/28/21 07:16 36.3 C L 20 129/71 98 06/28/21 04:53 69 06/28/21 04:45 36.5 C 68 18 129/72 96 06/28/21 04:29 36.5 C 68 18 129/72 96 06/28/21 04:07 66 22 100/55 L 97 06/28/21 03:50 97 06/28/21 03:46 117/57 L 98 06/28/21 03:44 60 18 117/57 L 98 06/28/21 03:43 97 06/28/21 03:42 125/50 L 06/28/21 03:18 61 22 06/28/21 03:15 62 20 104/51 L 95 06/28/21 03:10 62 16 95 06/28/21 03:00 63 18 104/51 L 95 06/28/21 02:50 65 19 95 06/28/21 02:40 65 19 95 06/28/21 02:30 67 18 95 06/28/21 02:20 69 19 97 06/28/21 02:10 68 19 96 06/28/21 02:00 65 19 117/53 L 96 06/28/21 01:50 62 19 95 06/28/21 01:40 64 18 94 06/28/21 01:30 65 19 94 06/28/21 01:20 68 19 94 06/28/21 01:10 69 18 94 06/28/21 01:03 67 23 108/51 L 94 06/28/21 01:00 68 23 108/51 L 93 06/28/21 00:50 68 25 H 94 06/28/21 00:40 69 23 94 06/28/21 00:30 70 24 93 06/28/21 00:20 70 24 94 06/28/21 00:10 70 17 93 06/28/21 00:00 71 26 H 97/46 L 94 06/27/21 23:51 71 27 H 94/44 L 94 06/27/21 23:50 72 26 H 93 06/27/21 23:40 72 28 H 94 06/27/21 23:30 73 25 H 94 06/27/21 23:20 74 26 H 94 06/27/21 23:18 75 75 28 H 103/50 L 103/50 L 94 06/27/21 23:10 74 28 H 94 06/27/21 23:02 74 20 94 06/27/21 23:00 37.1 C 74 74 24 115/53 L 94 06/27/21 22:50 77 24 94 06/27/21 22:40 78 24 94 06/27/21 22:33 37.1 C 76 20 115/53 L 94 Laboratory Results Laboratory Results - last 24 hr 06/27/21 06/27/21 06/27/21 22:15 22:15 22:15 WBC 28.04 H RBC 4.11 L Hgb 11.7 L Hct 35.6 L MCV 86.6 MCH 28.5 MCHC 32.9 RDW Std Deviation 56.2 H RDW Coeff of Teresa 20.9 H Plt Count 400 MPV 11.4 H Absolute Nucleated RBC 1.99 H Nucleated RBC % (auto) 7.1 Neutrophils % (Manual) 94.7 Lymphocytes % (Manual) 4.4 Monocytes % (Manual) 0.9 Neutrophils # (Manual) 26.55 H Total Absolute Neuts 26.55 H Lymphocytes # (Manual) 1.23 Total Abs Lymphocytes 1.23 Monocytes # (Manual) 0.25 Polychromasia 1+ Anisocytosis Present Microcytosis Present Pappenheimer Bodies Acanthocytes (Spur) 1+ PT 12.8 H INR 1.2 H APTT 25.7 PTT Ratio 0.9 Sodium 132 L Potassium 3.7 Chloride 96 L Carbon Dioxide 23 Anion Gap 13 H BUN 26 H Creatinine 1.04 Est Cr Clr Drug Dosing 55.5 Est GFR ( Amer) 62.6 Est GFR (Non-Af Amer) 54.0 BUN/Creatinine Ratio 25.0 H Glucose 160 H POC Glucose Estimat Average Glucose Hemoglobin A1c Lactate Calcium 8.3 L Magnesium 1.4 L Total Bilirubin 1.1 H AST 48 H ALT 26 Alkaline Phosphatase 145 H Troponin I High Sens Total Protein 6.8 Albumin 2.6 L Globulin 4.2 H Albumin/Globulin Ratio 0.6 L Procalcitonin Urine Color Urine Appearance Urine pH Ur Specific [place] Urine Protein Urine Glucose (UA) Urine Ketones Urine Blood Urine Nitrite Urine Bilirubin Urine Urobilinogen Ur Leukocyte Esterase Urine WBC (Auto) Urine RBC (Auto) U Hyaline Cast (Auto) U Epithel Cells (Auto) Urine Bacteria (Auto) SARS-CoV-2 (PCR) Influenza Type A (PCR) Influenza Type B (PCR) RSV (RT-PCR) 06/27/21 06/27/21 06/27/21 22:15 23:12 23:19 WBC RBC Hgb Hct MCV MCH MCHC RDW Std Deviation RDW Coeff of Teresa Plt Count MPV Absolute Nucleated RBC Nucleated RBC % (auto) Neutrophils % (Manual) Lymphocytes % (Manual) Monocytes % (Manual) Neutrophils # (Manual) Total Absolute Neuts Lymphocytes # (Manual) Total Abs Lymphocytes Monocytes # (Manual) Polychromasia Anisocytosis Microcytosis Pappenheimer Bodies Acanthocytes (Spur) PT INR APTT PTT Ratio Sodium Potassium Chloride Carbon Dioxide Anion Gap BUN Creatinine Est Cr Clr Drug Dosing Est GFR ( Amer) Est GFR (Non-Af Amer) BUN/Creatinine Ratio Glucose POC Glucose Estimat Average Glucose Hemoglobin A1c Lactate 2.4 H* Calcium Magnesium Total Bilirubin AST ALT Alkaline Phosphatase Troponin I High Sens Total Protein Albumin Globulin Albumin/Globulin Ratio Procalcitonin 2.38 H Urine Color Yellow Urine Appearance Clear Urine pH 6.5 Ur Specific [place] 1.011 Urine Protein Trace H Urine Glucose (UA) Negative Urine Ketones Negative Urine Blood Negative Urine Nitrite Negative Urine Bilirubin Negative Urine Urobilinogen Negative Ur Leukocyte Esterase Negative Urine WBC (Auto) 1-5 Urine RBC (Auto) 0-4 U Hyaline Cast (Auto) 5-10 H U Epithel Cells (Auto) 10-20 H Urine Bacteria (Auto) Negative SARS-CoV-2 (PCR) Influenza Type A (PCR) Influenza Type B (PCR) RSV (RT-PCR) 06/28/21 06/28/21 06/28/21 02:05 02:18 05:22 WBC 32.67 H* RBC 3.57 L Hgb 10.5 L Hct 31.5 L MCV 88.2 MCH 29.4 MCHC 33.3 RDW Std Deviation 57.0 H RDW Coeff of Teresa 20.7 H Plt Count 351 MPV 11.3 H Absolute Nucleated RBC 1.23 H Nucleated RBC % (auto) 3.8 Neutrophils % (Manual) 97.3 Lymphocytes % (Manual) 1.8 Monocytes % (Manual) 0.9 Neutrophils # (Manual) 31.79 H Total Absolute Neuts 31.79 H Lymphocytes # (Manual) 0.59 L Total Abs Lymphocytes 0.59 L Monocytes # (Manual) 0.29 Polychromasia 1+ Anisocytosis Present Microcytosis Pappenheimer Bodies 1+ Acanthocytes (Spur) PT INR APTT PTT Ratio Sodium Potassium Chloride Carbon Dioxide Anion Gap BUN Creatinine Est Cr Clr Drug Dosing Est GFR ( Amer) Est GFR (Non-Af Amer) BUN/Creatinine Ratio Glucose POC Glucose Estimat Average Glucose Hemoglobin A1c Lactate 1.3 Calcium Magnesium Total Bilirubin AST ALT Alkaline Phosphatase Troponin I High Sens Total Protein Albumin Globulin Albumin/Globulin Ratio Procalcitonin Urine Color Urine Appearance Urine pH Ur Specific [place] Urine Protein Urine Glucose (UA) Urine Ketones Urine Blood Urine Nitrite Urine Bilirubin Urine Urobilinogen Ur Leukocyte Esterase Urine WBC (Auto) Urine RBC (Auto) U Hyaline Cast (Auto) U Epithel Cells (Auto) Urine Bacteria (Auto) SARS-CoV-2 (PCR) NEGATIVE Influenza Type A (PCR) Negative Influenza Type B (PCR) Negative RSV (RT-PCR) Negative 06/28/21 06/28/21 06/28/21 05:22 05:22 06:28 WBC RBC Hgb Hct MCV MCH MCHC RDW Std Deviation RDW Coeff of Teresa Plt Count MPV Absolute Nucleated RBC Nucleated RBC % (auto) Neutrophils % (Manual) Lymphocytes % (Manual) Monocytes % (Manual) Neutrophils # (Manual) Total Absolute Neuts Lymphocytes # (Manual) Total Abs Lymphocytes Monocytes # (Manual) Polychromasia Anisocytosis Microcytosis Pappenheimer Bodies Acanthocytes (Spur) PT INR APTT PTT Ratio Sodium 133 L Potassium 3.4 L Chloride 100 Carbon Dioxide 23 Anion Gap 10 BUN 28 H Creatinine 1.19 Est Cr Clr Drug Dosing 49.3 Est GFR ( Amer) 53.2 Est GFR (Non-Af Amer) 45.9 BUN/Creatinine Ratio 23.5 H Glucose 214 H POC Glucose 261 H Estimat Average Glucose 148 Hemoglobin A1c 6.8 H Lactate Calcium 7.9 L Magnesium 1.8 Total Bilirubin AST ALT Alkaline Phosphatase Troponin I High Sens 26.0 H Total Protein Albumin Globulin Albumin/Globulin Ratio Procalcitonin Urine Color Urine Appearance Urine pH Ur Specific [place] Urine Protein Urine Glucose (UA) Urine Ketones Urine Blood Urine Nitrite Urine Bilirubin Urine Urobilinogen Ur Leukocyte Esterase Urine WBC (Auto) Urine RBC (Auto) U Hyaline Cast (Auto) U Epithel Cells (Auto) Urine Bacteria (Auto) SARS-CoV-2 (PCR) Influenza Type A (PCR) Influenza Type B (PCR) RSV (RT-PCR) 06/28/21 06/28/21 06:28 06:29 WBC RBC Hgb Hct MCV MCH MCHC RDW Std Deviation RDW Coeff of Teresa Plt Count MPV Absolute Nucleated RBC Nucleated RBC % (auto) Neutrophils % (Manual) Lymphocytes % (Manual) Monocytes % (Manual) Neutrophils # (Manual) Total Absolute Neuts Lymphocytes # (Manual) Total Abs Lymphocytes Monocytes # (Manual) Polychromasia Anisocytosis Microcytosis Pappenheimer Bodies Acanthocytes (Spur) PT INR APTT PTT Ratio Sodium Potassium Chloride Carbon Dioxide Anion Gap BUN Creatinine Est Cr Clr Drug Dosing Est GFR ( Amer) Est GFR (Non-Af Amer) BUN/Creatinine Ratio Glucose POC Glucose 239 H 212 H Estimat Average Glucose Hemoglobin A1c Lactate Calcium Magnesium Total Bilirubin AST ALT Alkaline Phosphatase Troponin I High Sens Total Protein Albumin Globulin Albumin/Globulin Ratio Procalcitonin Urine Color Urine Appearance Urine pH Ur Specific [place] Urine Protein Urine Glucose (UA) Urine Ketones Urine Blood Urine Nitrite Urine Bilirubin Urine Urobilinogen Ur Leukocyte Esterase Urine WBC (Auto) Urine RBC (Auto) U Hyaline Cast (Auto) U Epithel Cells (Auto) Urine Bacteria (Auto) SARS-CoV-2 (PCR) Influenza Type A (PCR) Influenza Type B (PCR) RSV (RT-PCR) Medications Administered Current Inpatient Medications Aspirin (Aspirin 81 Mg Ectab) 81 mg PO PM LAURA Stop: 07/28/21 20:59 Atorvastatin Calcium (Atorvastatin 40 Mg Tab) 40 mg PO QAM LAURA Stop: 07/28/21 08:59 Last Admin: 06/28/21 08:03 Dose: 40 mg Documented by: Clopidogrel Bisulfate (Clopidogrel Bisulfate 75 Mg Tab) 75 mg PO QAM LAURA Stop: 07/28/21 08:59 Last Admin: 06/28/21 08:03 Dose: 75 mg Documented by: Cyanocobalamin (Cyanocobalamin (B-12) 500 Mcg Tablet) 1,000 mcg PO QAM LAURA Stop: 07/28/21 08:59 Last Admin: 06/28/21 08:04 Dose: 1,000 mcg Documented by: Cyclobenzaprine HCl (Cyclobenzaprine Hcl 5 Mg Tab) 5 mg PO BID PRN PRN Reason: Pain Stop: 07/28/21 04:28 Dextrose (Dextrose 50% 50 Ml Syringe) 25 - 50 ml IV UD PRN; Protocol PRN Reason: Hypoglycemia Protocol Stop: 07/28/21 05:29 Enoxaparin Sodium (Enoxaparin Inj 40 Mg/0.4 Ml Syr) 40 mg SQ Q12H LAURA Stop: 07/28/21 05:59 Last Admin: 06/28/21 06:12 Dose: 40 mg Documented by: Ferrous Sulfate (Ferrous Sulfate 325 Mg Tab) 325 mg PO QAM [facility] Stop: 07/28/21 08:59 Last Admin: 06/28/21 08:04 Dose: 325 mg Documented by: Fluticasone Propionate (Fluticasone Propionate Na Spr 16 Gm Btl) 2 sprays NA PM LAURA Stop: 07/28/21 20:59 Folic Acid (Folic Acid 1 Mg Tab) 1 mg PO BID LAURA Stop: 07/28/21 08:59 Last Admin: 06/28/21 08:03 Dose: 1 mg Documented by: Glucagon (Glucagon For Inj 1 Mg Vial) 1 mg SQ UD PRN; Protocol PRN Reason: Hypoglycemia Protocol Stop: 07/28/21 05:29 Glucose (Glucose 40% Gel 15 Gm Tube) 15 - 30 gm PO UD PRN; Protocol PRN Reason: Hypoglycemia Protocol Stop: 07/28/21 05:29 Glucose (Glucose 10 Tabs/Tube) 4 - 8 tabs PO UD PRN; Protocol PRN Reason: Hypoglycemia Protocol Stop: 07/28/21 05:29 Sodium Chloride (Nss 1000ml) 1,000 mls @ 100 mls/hr IV .Q10H LAURA Stop: 06/29/21 00:28 Last Admin: 06/28/21 05:30 Dose: 100 mls/hr Documented by: Piperacillin Sod/Tazobactam (Sod 4.5 gm/ Dextrose) 120 mls @ 30 mls/hr IV Q8H [facility]; Protocol Stop: 06/30/21 05:59 Last Admin: 06/28/21 06:12 Dose: 30 mls/hr Documented by: Vancomycin HCl 750 mg/ Sodium (Chloride) 265 mls @ 200 mls/hr IV Q12H [facility] Stop: 06/30/21 13:59 Insulin Aspart (Novolog Insulin Pump) 1 ea N/A ACHS [facility]; Protocol Stop: 07/28/21 07:29 Last Admin: 06/28/21 08:06 Dose: 1 ea Documented by: Insulin Aspart (Insulin Aspart 100 Units/Ml Vial) 0 units SC PRN PRN PRN Reason: Insulin Pump Refill Stop: 07/28/21 05:29 Loratadine (Loratadine 10 Mg Tab) 10 mg PO DAILY PRN PRN Reason: RHINITIS Stop: 07/28/21 04:28 Miscellaneous (Order Awaiting Action: Netarsudil [Rhopressa] 0.02 % Drops) 1 ea N/A QS [facility] Stop: 07/28/21 07:59 Last Admin: 06/28/21 08:06 Dose: Not Given Documented by: Miscellaneous (Carbohydrates For Hypoglycemia ) 15 - 30 gm PO UD PRN PRN Reason: Hypoglycemia Treatment Stop: 07/28/21 05:29 Miscellaneous Information (Piperacill/Tazobac Consult Active) 1 ea N/A UD PRN PRN Reason: Consult Stop: 07/27/21 22:36 Miscellaneous Information (Vancomycin Consult Active) 1 ea N/A UD PRN PRN Reason: Consult Stop: 07/27/21 23:38 Multivitamins/Minerals (Calcium 600mg + Vit D 400 Iu Tab) 1 tab PO QPM [facility] Stop: 07/28/21 20:59 Nitroglycerin (Nitroglycerin Sl 0.4 Mg/Tab Tab) 0.4 mg SL Q5M PRN PRN Reason: Chest Pain Stop: 07/28/21 04:28 Ondansetron HCl (Ondansetron Inj 2 Mg/Ml 2 Ml Vial) 4 mg IV Q6H PRN PRN Reason: Nausea Stop: 07/28/21 04:28 Oxycodone HCl (Oxycodone Hcl Ir 5 Mg Tab (Immediate Release)) 5 mg PO Q8H PRN PRN Reason: Pain Stop: 07/12/21 04:28 Pantoprazole Sodium (Pantoprazole 40 Mg Tab) 40 mg PO DAILY LAURA Stop: 07/28/21 08:59 Last Admin: 06/28/21 08:03 Dose: 40 mg Documented by: Polyethylene Glycol (Polyethylene (Miralax) 17 Gm Pack) 17 gm PO DAILY [facility]URA Stop: 07/28/21 08:59 Last Admin: 06/28/21 08:02 Dose: 17 gm Documented by: Prochlorperazine (Prochlorperazine Maleate 10 Mg Tab) 10 mg PO Q6H PRN PRN Reason: Nausea Stop: 07/28/21 04:28 Propranolol HCl (Propranolol Hcl La 80 Mg Capcr) 80 mg PO QAM [facility] Stop: 07/28/21 08:59 Last Admin: 06/28/21 08:05 Dose: 80 mg Documented by: Sennosides (Senna 8.6 Mg Tab) 8.6 mg PO DAILY PRN PRN Reason: Constipation Stop: 07/28/21 04:28 Spironolactone (Spironolactone 25 Mg Tab) 75 mg PO QAM [facility] Stop: 07/28/21 08:59 Last Admin: 06/28/21 08:03 Dose: 75 mg Documented by: Vitamin D (Cholecalciferol 1,000 Units 25 Mcg Tab) 1,000 units PO QAM [facility] Stop: 07/28/21 08:59 Last Admin: 06/28/21 08:04 Dose: 1,000 units Documented by: (1) Cirrhosis of liver Ascites presence: with ascites Hepatic cirrhosis type: unspecified hepatic cirrhosis Qualified Code(s): K74.60 - Unspecified cirrhosis of liver; R18.8 - Other ascites
[2021-06-28] MEDS: DAPTOmycin 575 MG in SYRINGE 0 ML IV SCH (13:58)
[2021-06-28] MEDS ORDERED: VANCOMYCIN HCL 750 MG in SODIUM CHLORIDE 0.9% 250 ML IV SCH (14:00)
--- NOTE | 2021-06-28 14:50 | Electrocardiogram Report ---
Test Reason : Blood Pressure : / mmHG Vent. Rate : 079 BPM Atrial Rate : 079 BPM P-R Int : 130 ms QRS Dur : 080 ms QT Int : 374 ms P-R-T Axes : 007 010 052 degrees QTc Int : 428 ms Poor data quality, interpretation may be adversely affected Normal sinus rhythm possible Inferior infarct , age undetermined Anteroseptal infarct (cited on or before 27-JUN-2021) Abnormal ECG When compared with ECG of 01-SEP-2020 17:47, Inferior infarct is now Present Confirmed by Amaury Reyna ([id number]) on 06/28/2021 2:50:32 PM Referred By: REFERRED SELF Confirmed By:Ben Reyna
[2021-06-28] MEDS ORDERED: POTASSIUM CHLORIDE CRTAB 20 MEQ TABCR PO STA (19:19)
--- NOTE | 2021-06-28 19:33 | Hospitalist Progress Note ---
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 She is being managed for the following: #. Likely sepsis at POA, likely GI source d/t CRC hx. Patient has history of MRSA and VRE Leukocytosis and lactic acidosis at presentation with unclear source of infection but admitting blood culture came back positive for GPC in clusters. Admitting CT chest: Trace left pleural effusion, no consolidation to suggest pneumonia. Cirrhosis with upper abdominal ascites. Peritoneal implants. Admitting CTAP: Interval increase in moderate abdominal and pelvic ascites. Suspicion of peritoneal seeding. 06/27 blood culture: GPC in clusters, follow-up final results Repeat blood culture 06/28, send echo. Continue with daptomycin 06/28 and Zosyn 06/27. ID consult. #. Near syncope: Could be from possible sepsis. Pt also reports decreasing appetitie likely s/e of chemo. on IVF, holding lasix for now, monitor for volume overload. Ortho vitals. Card evaluated, appreciated rec. #. Other chronic medical conditions: History of liver cirrhosis, history of right-sided heart failure, diabetes on insulin pump, CAD status post coronary artery bypass grafting, ascites, history of colon cancer status post hemicolectomy, history of pancreatic cancer status post surgery, currently recurrent metastatic disease with peritoneal metastasis with a small ascites and under palliative chemotherapy, CKD stage III. Continue with/resume home meds as and when appropriate. Patient expressed interest in not continuing with her palliative chemo as she believes she has has more side effect than benefit from it. Palliative care consulted. DVT prophylaxis: Lovenox DNR/DNI Admission and Anticipated Discharge Date Admission Date: June 28, 2021 Subjective Patient seen and examined at bedside for follow-up of GPC bacteremia, near syncope, possible sepsis. Patient was sitting up in bed, on room air, no new acute events overnight, reports eating less, reports nausea, reports no hunger, reports feeling slightly better, moving bowels okay, still feels weak, denies headache or dizziness. Denies pain or burning while passing urine and denies belly pain. Reports dry cough ongoing for 3 weeks. Physical Exam Physical Exam: GENERAL: Alert and oriented x3. NAD, on RA. Morbidly obese. HEENT: No pallor, no icterus. Pupils equal, round and reactive to light. Oral mucosa moist. Right upper chest with port access. NECK: No JVD, no neck masses. HEART: S1 and S2 heard. Regular rate and rhythm. No murmur, no gallop. RESPIRATORY SYSTEM: Normal AP diameter. No accessory muscle use. No wheezing, no crackles. ABDOMEN: Soft, bowel sounds present, nontender, no distention. Healed midline surgical scar. CENTRAL NERVOUS SYSTEM: No facial droop. Speech is clear. Obeys simple commands. Moves extremities. EXTREMITIES: 2+ BLE edema, no erythema seen. Urinary catheter in situ, yellow urine collection noted. Results & Data Results & Data ([facility]) Vital Signs (Past 12 Hours) Vital Signs Temp Pulse Pulse Resp BP Pulse Ox 06/28/21 17:06 65 06/28/21 15:16 36.5 C 62 18 123/72 96 06/28/21 11:22 62 (1) Sepsis Sepsis acute organ dysfunction status: unspecified Sepsis type: sepsis due to unspecified organism Qualified Code(s): A41.9 - Sepsis, unspecified organism
[2021-06-28] MEDS: ASPIRIN 81 MG ECTAB PO SCH (20:39)
[2021-06-28] MEDS: CALCIUM 600MG + VIT D 400 IU TAB PO SCH (20:39)
[2021-06-28] MEDS: FLUTICASONE PROPIONATE NA SPR 16 GM BTL SCH (20:40)
[2021-06-29] MEDS: ENOXAPARIN INJ 40 MG/0.4 ML SYR SQ SCH ×2 (05:58→18:06)
[2021-06-29] MEDS: PIPERACILLIN/TAZOBACTAM 4.5 GM in DEXTROSE 5% 100 ML IV SCH ×3 (05:59→20:33)
[2021-06-29 06:56] LABS: BUN Creatinine Ratio 26.3 (10-20); Calcium 8.2 mg/dl (8.5-10.1); Creatinine Clr Calc Pharmacy 62.6 ml/min; Est GFR (African American) 69.8 ml/min; Est GFR (Non-African American) 60.3 ml/min; Phosphorus 2.8 mg/dl (2.5-4.9); Potassium 3.5 mmol/L (3.5-5.1)
[2021-06-29 07:03] LABS: Hematocrit (blood only) 32.7 % (37-47); Hemoglobin 10.8 g/dL (12.0-16.0); Mean Corpuscular Hemoglobin 28.6 pg (25-34); Mean Corpuscular Volume 86.5 fL (80-100); Mean Platelet Volume 11.6 fL (7.4-10.4); Nucleated RBC # (auto) 0.21 K/uL (0-0); Nucleated RBC % (auto) 1.2 %; Platelet Count 435 K/uL (130-400); RDW Coefficient of Variation 21.6 % (11.5-14.5); RDW Standard Deviation 59.9 fL (36.4-46.3); Red Blood Count 3.78 M/uL (4.2-5.4)
[2021-06-29] MEDS ORDERED: POTASSIUM CHLORIDE CRTAB 20 MEQ TABCR PO STA (08:57)
[2021-06-29] MEDS: CYANOCOBALAMIN (B-12) 500 MCG TABLET PO SCH (09:33)
[2021-06-29] MEDS: FOLIC ACID 1 MG TAB PO SCH ×2 (09:33→20:28)
[2021-06-29] MEDS: CLOPIDOGREL BISULFATE 75 MG TAB PO SCH (09:34)
[2021-06-29] MEDS: SPIRONOLACTONE 25 MG TAB PO SCH (09:34)
[2021-06-29] MEDS: PROPRANOLOL HCL LA 80 MG CAPCR PO SCH (09:34)
[2021-06-29] MEDS: PANTOprazole 40 MG TAB PO SCH (09:34)
[2021-06-29] MEDS: PROCHLORPERAZINE MALEATE 10 MG TAB PO PRN (09:35)
[2021-06-29] MEDS: FERROUS SULFATE 325 MG TAB PO SCH (09:35)
[2021-06-29] MEDS: POLYETHYLENE (MIRALAX) 17 GM PACK PO SCH (09:36)
[2021-06-29] MEDS: CHOLECALCIFEROL 1,000 UNITS 25 MCG TAB PO SCH (09:36)
[2021-06-29] MEDS: NovoLOG INSULIN PUMP SCH ×4 (11:04→20:29)
[2021-06-29] MEDS: ONDANSETRON INJ 2 MG/ML 2 ML VIAL IV PRN (11:59)
--- NOTE | 2021-06-29 14:03 | Palliative Care Consultation ---
Date of Consultation June 29, 2021 Assessment & Plan (1) Nausea: With peritoneal carcinomatosis and sepsis. This has been an ongoing problem for her, particularly during chemotherapy. At this time, prn zofran is effective. If this is persistent, could consider routine dosing or rotation to low dose olanzipine daily. (2) Palliative care encounter: I talked with Mrs. Hwang about her goals for care. She initially said to me "It looks bad doesn't it?" I asked her about her understanding of her illness and she has a good understanding of her current medical challenges. She feels strongly that she does not wish to continue chemotherapy at this time and knows that "the cancer will kill me if I stop". She requested that we talk further when her arrives and I returned to the room after he arrived. We discussed her wish to stop chemotherapy and understanding that her time is limited. I asked her what is most important to her and she is concerned about being a burden to her . 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 Her wish would be to be able to return home and go for a ride on the "trike" motorcycle with her . We talked about her current infection and she would like to continue antibiotics and ID consult to try and feel as well as she can before discharge. She is not wanting to focus on comfort directed care at this time. Regarding her concern about being a burden to her , we talked about having hospice support at home if she completed antibiotics. She might need home care with home IV antibiotics depending on ID recommendation and could be transitioned to hospice. Of note, she is emphatic that she does not want to at home and her is emphatic that he would not want her to be in a fdc. We discussed hospice social work support to help guide them and option for respite care if needed. At this time, they would like to continue current level of care and discuss as a family. History of Present Illness Reason for Consultation: goals of care Requesting Physician: Dr. Mckeon Attending Physician: Mary Carmen Mcgrath MD History of Present Illness 70 yo lady with history of metastatic colon cancer who is s/p hemicolectomy as well as resection and reconstruction for a metastatic abdominal wall lesion. She also has IPMN. Surveillance imaging and labs show peritoneal carcinomatosis and elevated Ca19-9 and she had been on gemzar for palliative treatment. She has comorbid CAD, DM and cirrhosis. She was admitted from home with severe weakness. She was found to have GPC positive blood culture and is being treated for sepsis. Per her cardiology consult, she had been discussing palliative care and we have been consulted to assist. She denies pain but has had nausea and received zofran earlier this afternoon. She is interested in discussing goals of care and is waiting for her to arrive. Allergies Allergy/AdvReac Type Severity Reaction Status Date / Time No Known Allergies Allergy Verified 06/27/21 23:01 Home Medications Medication Instructions Recorded Confirmed Type atorvastatin 40 mg tablet 40 mg PO QAM 12/14/18 06/27/21 History propranolol 80 mg capsule,24 80 mg PO QAM 12/14/18 06/27/21 History hr,extended release echinacea 500 mg capsule 500 mg PO Q OTHER DAY cap 01/13/19 06/27/21 History folic acid 1 mg tablet 1 mg PO BID tab 01/13/19 06/27/21 History insulin aspart U-100 100 unit/mL 20 unit CONTINUOUS SUBCUTANEOUS 01/13/19 06/27/21 History subcutaneous solution (Novolog INFUSION CONTINOUS MDD 300 U-100 Insulin aspart) UNITS/24 HOURS netarsudil 0.02 % eye drops 1 drops OP QPM 01/13/19 06/27/21 History (Rhopressa) ondansetron 4 mg oral soluble film 4 mg PO Q8H PRN 01/13/19 06/27/21 History calcium carbonate 600 mg calcium 600 mg PO QPM 01/30/19 06/27/21 History (1,500 mg) tablet (Calcium) cholecalciferol (vitamin D3) 25 25 mcg PO QAM 01/30/19 06/27/21 History mcg (1,000 unit) tablet (Vitamin D3) cyanocobalamin (vitamin B-12) 1,000 mcg PO QAM 01/30/19 06/27/21 History 1,000 mcg tablet (Vitamin B-12) fluticasone propionate 50 2 spray INTRANASAL PM 01/30/19 06/27/21 History mcg/actuation nasal spray,suspension (Flonase Allergy Relief) garlic 1,000 mg capsule 1,000 mg PO QAM 01/30/19 06/27/21 History vitamin E 400 unit capsule 400 unit PO QAM 01/30/19 06/27/21 History furosemide 20 mg tablet 40 mg PO BID tab 04/07/19 06/27/21 History aspirin 81 mg tablet,delayed 81 mg PO PM 08/01/20 06/27/21 History release clopidogrel 75 mg tablet 75 mg PO QAM 08/01/20 06/27/21 History nitroglycerin 0.4 mg sublingual 0.4 mg SUBLINGUAL Q5M PRN MDD up 08/01/20 06/27/21 History tablet to 3 tabs in 15 mins oxycodone 5 mg tablet 5 mg PO Q8H PRN 08/01/20 06/27/21 History sennosides 8.6 mg tablet (senna) 8.6 mg PO DAILY PRN 08/01/20 06/27/21 History acetaminophen 500 mg tablet 1,000 mg PO Q8H PRN 06/27/21 06/27/21 History (Tylenol Extra Strength) cyclobenzaprine 5 mg tablet 5 mg PO BID PRN 06/27/21 06/27/21 History ferrous sulfate 325 mg (65 mg 325 mg PO QAM 06/27/21 06/27/21 History iron) tablet ginkgo biloba 40 mg capsule 40 mg PO DAILY 06/27/21 06/27/21 History loratadine 10 mg tablet 10 mg PO DAILY PRN 06/27/21 06/27/21 History pantoprazole 40 mg tablet,delayed 40 mg PO DAILY 06/27/21 06/27/21 History release polyethylene glycol 3350 17 17 g PO DAILY 06/27/21 06/27/21 History gram/dose oral powder (Miralax) prochlorperazine maleate 10 mg 10 mg PO Q6H PRN 06/27/21 06/27/21 History tablet spironolactone 50 mg tablet 75 mg PO QAM 06/27/21 06/27/21 History Patient History Medical History Anemia CAD (coronary artery disease) Carcinoma of colon Cirrhosis of liver Diabetes Flesh-eating bacteria right kidney four to five years ago as per pt GERD (gastroesophageal reflux disease) GI bleed Glaucoma H/O colon cancer, stage IV Hyperlipidemia Hypertension Infection left arm - IV infiltration MRSA (methicillin resistant Staphylococcus aureus) abdomen - Peritoneal fluid Surgical wound, non healing Surgical History H/O abdominal surgery H/O: History of kidney removal right Hx of CABG vessels x3 [facility] 2017 Hx of cardiac cath 2018 S/P debridement (02/06/19) Left Arm Sharp Wound Debridement(Left) ; sharp excisional down to and including muscle; greater than [address] 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 Required: No Beliefs That Will Affect Care: None marital status: Current Living Situation: Spouse current occupational status: retired How many Children do You have: 1 Other Information That Helps Us Care for You: No Feels Safe at Home: Yes Safety Concerns: Feels Safe At This Time Assistive Devices: Walker Review of Systems Review of Systems: Rayle Symptom Assessment Scale Pain 0/3 Dyspnea 0/3 Anxiety 0/3 Anorexia 2/3 Nausea 2/3 Fatigue 2/3 Drowsiness 0/3 Palliative Performance Score 50% Physical Exam Constitutional: no acute distress Respiratory: normal respiratory effort Cardiovascular: Rate/Rhythm: regular rate and regular rhythm Results & Data ([facility]) Vital Signs (Past 12 Hours) Vital Signs Temp Pulse Pulse Pulse Resp BP Pulse Ox 06/29/21 10:15 74 06/29/21 08:05 98.2 F 74 16 125/78 95 06/29/21 03:33 97.9 F 68 18 115/63 92 PG Care Time/CCT Total # of Minutes Spent Total Time Spent: 90 Total Time Spent with Patient: Total time spent is greater than 50% in coordination of care (as documented) at patient's floor/unit and/or counseling patient: symptom management, goals of care, patient and family education and support. Coding Level of Care Code 26733 Initial Inpt Care Lvl 3 Diagnoses Nausea R11.0 Palliative care encounter Z51.5
[2021-06-29] MEDS: DAPTOmycin 575 MG in SYRINGE 0 ML IV SCH (14:19)
--- NOTE | 2021-06-29 18:32 | Hospitalist Progress Note ---
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 She is being managed for the following: #. Likely sepsis at POA, likely GI source d/t CRC hx. #. GPC bacteremia Patient has history of MRSA and VRE Leukocytosis and lactic acidosis at presentation with unclear source of infection but admitting blood culture came back positive for GPC in clusters. Admitting CT chest: Trace left pleural effusion, no consolidation to suggest pneumonia. Cirrhosis with upper abdominal ascites. Peritoneal implants. Admitting CTAP: Interval increase in moderate abdominal and pelvic ascites. Suspicion of peritoneal seeding. 06/27 blood culture: GPC in clusters, follow-up final results Repeat 06/29 Bl Cx: f/u. 06/29 ECHO: reviewed. Continue with daptomycin 06/28 and Zosyn 06/27. ID consult. #. Near syncope: Could be from possible sepsis. Pt also reports decreasing appetitie likely s/e of chemo. Pt eating better, holding lasix for now likely resume once appetite better, monitor for volume overload. Ortho vitals. Card evaluated, appreciated rec. #. Other chronic medical conditions: History of liver cirrhosis, history of right-sided heart failure, diabetes on insulin pump, CAD status post coronary artery bypass grafting, ascites, history of colon cancer status post hemicolectomy, history of pancreatic cancer status post surgery, currently recurrent metastatic disease with peritoneal metastasis with a small ascites and under palliative chemotherapy, CKD stage III. Continue with/resume home meds as and when appropriate. * Patient expressed interest in not continuing with her palliative chemo as she believes she has has more side effect than benefit from it. Palliative care evaluated, appreciate recs. . DVT prophylaxis: Lovenox DNR/DNI Admission and Anticipated Discharge Date Admission Date: June 28, 2021 Subjective Patient seen and examined at bedside for follow-up of GPC bacteremia, near syncope, possible sepsis. Patient was sitting up in bed, on room air, no new acute events overnight, reports eating better today, reports nausea, reports feeling slightly better, moving bowels okay, still feels weak, denies headache or dizziness. Denies pain or burning while passing urine and denies belly pain. Reports dry cough ongoing for 3 weeks. Physical Exam Physical Exam: GENERAL: Alert and oriented x3. NAD, on RA. Morbidly obese. HEENT: No pallor, no icterus. Pupils equal, round and reactive to light. Oral mucosa moist. Right upper chest with port access. NECK: No JVD, no neck masses. HEART: S1 and S2 heard. Regular rate and rhythm. No murmur, no gallop. RESPIRATORY SYSTEM: Normal AP diameter. No accessory muscle use. No wheezing, no crackles. ABDOMEN: Soft, bowel sounds present, nontender, no distention. Healed midline surgical scar. CENTRAL NERVOUS SYSTEM: No facial droop. Speech is clear. Obeys simple commands. Moves extremities. EXTREMITIES: 1+ BLE edema, no erythema seen. Urinary catheter in situ, yellow urine collection noted. Results & Data Results & Data ([facility]) Vital Signs (Past 12 Hours) Vital Signs Temp Pulse Pulse Resp BP Pulse Ox 06/29/21 17:37 37.0 C 78 18 122/71 95 06/29/21 16:00 72 06/29/21 10:15 74 06/29/21 08:05 36.8 C 74 16 125/78 95 (1) Sepsis Sepsis acute organ dysfunction status: unspecified Sepsis type: sepsis due to unspecified organism Qualified Code(s): A41.9 - Sepsis, unspecified organism
[2021-06-29] MEDS ORDERED: ACETAMINOPHEN 325 MG TAB PO PRN (19:46)
[2021-06-29] MEDS: ACETAMINOPHEN 325 MG TAB PO PRN (20:23)
[2021-06-29] MEDS: FLUTICASONE PROPIONATE NA SPR 16 GM BTL SCH (20:24)
[2021-06-29] MEDS: CALCIUM 600MG + VIT D 400 IU TAB PO SCH (20:28)
[2021-06-29] MEDS: ASPIRIN 81 MG ECTAB PO SCH (20:28)
[2021-06-29] MEDS: COUGH DROP (SUGAR FREE) LOZ 24 LOZ/1 BOX BUCCAL PRN ×2 (21:43→23:56)
[2021-06-30] MEDS: ENOXAPARIN INJ 40 MG/0.4 ML SYR SQ SCH ×2 (05:28→18:27)
[2021-06-30 06:18] LABS: Hematocrit (blood only) 31.3 % (37-47); Hemoglobin 10.5 g/dL (12.0-16.0); Mean Corpuscular Hemoglobin 29.1 pg (25-34); Mean Corpuscular Hgb Conc 33.5 g/dL (32-36); Mean Corpuscular Volume 86.7 fL (80-100); Mean Platelet Volume 11.5 fL (7.4-10.4); Nucleated RBC # (auto) 0.08 K/uL (0-0); Nucleated RBC % (auto) 0.4 %; Platelet Count 451 K/uL (130-400); RDW Coefficient of Variation 21.4 % (11.5-14.5); RDW Standard Deviation 59.4 fL (36.4-46.3); Red Blood Count 3.61 M/uL (4.2-5.4)
[2021-06-30] MEDS: COUGH DROP (SUGAR FREE) LOZ 24 LOZ/1 BOX BUCCAL PRN (06:28)
[2021-06-30 06:44] LABS: BUN Creatinine Ratio 22.1 (10-20); Calcium 8.7 mg/dl (8.5-10.1); Creatinine Clr Calc Pharmacy 62.3 ml/min; Est GFR (African American) 69.8 ml/min; Est GFR (Non-African American) 60.3 ml/min
[2021-06-30] MEDS: NovoLOG INSULIN PUMP SCH ×4 (07:46→20:55)
[2021-06-30] MEDS: PROPRANOLOL HCL LA 80 MG CAPCR PO SCH (08:38)
[2021-06-30] MEDS: FERROUS SULFATE 325 MG TAB PO SCH (08:39)
[2021-06-30] MEDS: PANTOprazole 40 MG TAB PO SCH (08:39)
[2021-06-30] MEDS: CLOPIDOGREL BISULFATE 75 MG TAB PO SCH (08:39)
[2021-06-30] MEDS: CHOLECALCIFEROL 1,000 UNITS 25 MCG TAB PO SCH (08:39)
[2021-06-30] MEDS: SPIRONOLACTONE 25 MG TAB PO SCH (08:40)
[2021-06-30] MEDS: CYANOCOBALAMIN (B-12) 500 MCG TABLET PO SCH (08:41)
[2021-06-30] MEDS: POLYETHYLENE (MIRALAX) 17 GM PACK PO SCH (08:42)
[2021-06-30] MEDS: PROCHLORPERAZINE MALEATE 10 MG TAB PO PRN (08:42)
[2021-06-30] MEDS: FOLIC ACID 1 MG TAB PO SCH ×2 (08:47→21:15)
--- NOTE | 2021-06-30 09:59 | Surgery Consultation ---
Date of Consultation June 30, 2021 Assessment & Plan (1) Infected venous access port: Patient with multiple blood cultures positive on different days Access port in place Plan is removal of the access port Local sedation History of Present Illness Attending Physician: Mary Carmen Mcgrath MD History of Present Illness 70-year-old female we are asked to see to remove her port which is suspected to be infected Patient admitted to the emergency room on 06/28/2021 with syncopal episode and possible sepsis She has subsequently had multiple blood cultures positive from different sites on 06/27/2021 and 06/29/2021 It is suspected that she has metastatic pancreatic cancer with carcinomatosis and ascites She has been receiving chemotherapy via her access port Allergies Allergy/AdvReac Type Severity Reaction Status Date / Time No Known Allergies Allergy Verified 06/27/21 23:01 Home Medications Medication Instructions Recorded Confirmed Type atorvastatin 40 mg tablet 40 mg PO QAM 12/14/18 06/27/21 History propranolol 80 mg capsule,24 80 mg PO QAM 12/14/18 06/27/21 History hr,extended release echinacea 500 mg capsule 500 mg PO Q OTHER DAY cap 01/13/19 06/27/21 History folic acid 1 mg tablet 1 mg PO BID tab 01/13/19 06/27/21 History insulin aspart U-100 100 unit/mL 20 unit CONTINUOUS SUBCUTANEOUS 01/13/19 06/27/21 History subcutaneous solution (Novolog INFUSION CONTINOUS MDD 300 U-100 Insulin aspart) UNITS/24 HOURS netarsudil 0.02 % eye drops 1 drops OP QPM 01/13/19 06/27/21 History (Rhopressa) ondansetron 4 mg oral soluble film 4 mg PO Q8H PRN 01/13/19 06/27/21 History calcium carbonate 600 mg calcium 600 mg PO QPM 01/30/19 06/27/21 History (1,500 mg) tablet (Calcium) cholecalciferol (vitamin D3) 25 25 mcg PO QAM 01/30/19 06/27/21 History mcg (1,000 unit) tablet (Vitamin D3) cyanocobalamin (vitamin B-12) 1,000 mcg PO QAM 01/30/19 06/27/21 History 1,000 mcg tablet (Vitamin B-12) fluticasone propionate 50 2 spray INTRANASAL PM 01/30/19 06/27/21 History mcg/actuation nasal spray,suspension (Flonase Allergy Relief) garlic 1,000 mg capsule 1,000 mg PO QAM 01/30/19 06/27/21 History vitamin E 400 unit capsule 400 unit PO QAM 01/30/19 06/27/21 History furosemide 20 mg tablet 40 mg PO BID tab 04/07/19 06/27/21 History aspirin 81 mg tablet,delayed 81 mg PO PM 08/01/20 06/27/21 History release clopidogrel 75 mg tablet 75 mg PO QAM 08/01/20 06/27/21 History nitroglycerin 0.4 mg sublingual 0.4 mg SUBLINGUAL Q5M PRN MDD up 08/01/20 06/27/21 History tablet to 3 tabs in 15 mins oxycodone 5 mg tablet 5 mg PO Q8H PRN 08/01/20 06/27/21 History sennosides 8.6 mg tablet (senna) 8.6 mg PO DAILY PRN 08/01/20 06/27/21 History acetaminophen 500 mg tablet 1,000 mg PO Q8H PRN 06/27/21 06/27/21 History (Tylenol Extra Strength) cyclobenzaprine 5 mg tablet 5 mg PO BID PRN 06/27/21 06/27/21 History ferrous sulfate 325 mg (65 mg 325 mg PO QAM 06/27/21 06/27/21 History iron) tablet ginkgo biloba 40 mg capsule 40 mg PO DAILY 06/27/21 06/27/21 History loratadine 10 mg tablet 10 mg PO DAILY PRN 06/27/21 06/27/21 History pantoprazole 40 mg tablet,delayed 40 mg PO DAILY 06/27/21 06/27/21 History release polyethylene glycol 3350 17 17 g PO DAILY 06/27/21 06/27/21 History gram/dose oral powder (Miralax) prochlorperazine maleate 10 mg 10 mg PO Q6H PRN 06/27/21 06/27/21 History tablet spironolactone 50 mg tablet 75 mg PO QAM 06/27/21 06/27/21 History Patient History Medical History Anemia CAD (coronary artery disease) Carcinoma of colon Cirrhosis of liver Diabetes Flesh-eating bacteria right kidney four to five years ago as per pt GERD (gastroesophageal reflux disease) GI bleed Glaucoma H/O colon cancer, stage IV Hyperlipidemia Hypertension Infection left arm - IV infiltration MRSA (methicillin resistant Staphylococcus aureus) abdomen - Peritoneal fluid Surgical wound, non healing Surgical History H/O abdominal surgery H/O: History of kidney removal right [facility]G [facility] Hx of cardiac cath 2018 S/P debridement (02/06/19) Left Arm Sharp Wound Debridement(Left) ; sharp excisional down to and including muscle; greater than [address] Bermeo 02-06-19 S/P partial colectomy Family History Brother Diabetes Mother Cancer Father Hypertension Social History Smoking Status: Never smoker packs per day: 0.5; Years Smoked: 5; Second Hand Exposure: No; Hx Alcohol Use: No Hx Substance Use: No Preferred Language: Citizen Of [place] Communication Ability: Effective Bill Adjuster Required: No Beliefs That Will Affect Care: None marital status: Current Living Situation: Spouse current occupational status: retired How many Children do You have: 1 Other Information That Helps Us Care for You: No Feels Safe at Home: Yes Safety Concerns: Feels Safe At This Time Assistive Devices: Walker Review of Systems Review of Systems: All systems reviewed & are unremarkable except as noted in HPI & below Physical Exam Physical Exam: Port in right chest with erythema over the tunnel to the right lower neck Constitutional: well developed and well nourished; no acute distress Eyes: + anicteric sclerae Respiratory: normal respiratory effort; no respiratory distress Cardiovascular: Rate/Rhythm: regular rate Gastrointestinal (Abdomen): Inspection/Auscultation: abdomen not distended Musculoskeletal: Patient sitting in chair at the bedside Skin: no rashes, warm and dry Neurologic: awake Psychiatric: Orientation: alert Results & Data ([facility]) Vital Signs (Past 12 Hours) Vital Signs Temp Pulse Pulse Pulse Resp BP BP 06/30/21 07:43 37.3 C 75 19 135/68 06/30/21 03:14 37.4 C 73 18 106/64 06/29/21 22:39 37.8 C H 80 18 118/57 L 06/29/21 22:20 78 Pulse Ox 06/30/21 07:43 94 06/30/21 03:14 94 06/29/21 22:39 93 06/29/21 22:20 PG Care Time/CCT Total # of Minutes Spent Total Time Spent with Patient: Total time spent is greater than 50% in coordination of care (as documented) at patient's floor/unit and/or counseling patient: Coding Level of Care Code 07070 Initial Inpt Care Lvl 3 Diagnoses Infected venous access port T80.219A
[2021-06-30] MEDS ORDERED: ePHEDrine sulfate 50 MG/ML AMP IV PRN (11:59)
[2021-06-30] MEDS ORDERED: ATROPINE SULFATE 0.1 MG/ML 10ML SYR IV PRN (11:59)
--- NOTE | 2021-06-30 11:59 | Anesthesiology Consultation ---
Date of Service June 30, 2021 Assessment & Plan Chart Review Chart Review: Acceptable Risk for Surgery Consults Requested none ASA ASA4 Proposed Anesthesia Anesthesia Type: MAC (local only due to NPO status) Risk / Benefits Reviewed With: PT / POA / Parent / Guardian, Accepts Plan and Informed Consent Obtained History Surgery Operation Date: 06/30/21 13:30 Proposed Procedures p Port Removal - Quentin Morgan MD, FACS Height/Weight Height: 5 ft 4 in Weight: 99.6 kg Allergies Allergy/AdvReac Type Severity Reaction Status Date / Time No Known Allergies Allergy Verified 06/27/21 23:01 Medications Home Medications Medication Instructions Recorded Confirmed Last Taken atorvastatin 40 mg tablet 40 mg PO QAM 12/14/18 06/27/21 06/27/21 propranolol 80 mg capsule,24 80 mg PO QAM 12/14/18 06/27/21 06/27/21 hr,extended release echinacea 500 mg capsule 500 mg PO Q OTHER DAY cap 01/13/19 06/27/21 06/26/21 folic acid 1 mg tablet 1 mg PO BID tab 01/13/19 06/27/21 06/27/21 08:00 insulin aspart U-100 100 unit/mL 20 unit CONTINUOUS SUBCUTANEOUS 01/13/19 06/27/21 08/01/20 subcutaneous solution (Novolog INFUSION CONTINOUS MDD 300 0 units U-100 Insulin aspart) UNITS/24 HOURS ondansetron 4 mg oral soluble film 4 mg PO Q8H PRN 01/13/19 06/27/21 08/31/20 calcium carbonate 600 mg calcium 600 mg PO QPM 01/30/19 06/27/21 06/26/21 (1,500 mg) tablet (Calcium) cholecalciferol (vitamin D3) 25 25 mcg PO QAM 01/30/19 06/27/21 06/27/21 mcg (1,000 unit) tablet (Vitamin D3) cyanocobalamin (vitamin B-12) 1,000 mcg PO QAM 01/30/19 06/27/21 06/27/21 1,000 mcg tablet (Vitamin B-12) fluticasone propionate 50 2 spray INTRANASAL PM 01/30/19 06/27/21 06/26/21 mcg/actuation nasal spray,suspension (Flonase Allergy Relief) garlic 1,000 mg capsule 1,000 mg PO QAM 01/30/19 06/27/21 06/27/21 vitamin E 400 unit capsule 400 unit PO QAM 01/30/19 06/27/21 06/27/21 furosemide 20 mg tablet 40 mg PO BID tab 04/07/19 06/27/21 06/27/21 08:00 aspirin 81 mg tablet,delayed 81 mg PO PM 08/01/20 06/27/21 06/26/21 release clopidogrel 75 mg tablet 75 mg PO QAM 08/01/20 06/27/21 06/27/21 nitroglycerin 0.4 mg sublingual 0.4 mg SUBLINGUAL Q5M PRN MDD up 08/01/20 06/27/21 Unknown tablet to 3 tabs in 15 mins oxycodone 5 mg tablet 5 mg PO Q8H PRN 08/01/20 06/27/21 07/31/20 sennosides 8.6 mg tablet (senna) 8.6 mg PO DAILY PRN 08/01/20 06/27/21 07/25/20 acetaminophen 500 mg tablet 1,000 mg PO Q8H PRN 06/27/21 06/27/21 Unknown (Tylenol Extra Strength) cyclobenzaprine 5 mg tablet 5 mg PO BID PRN 06/27/21 06/27/21 Unknown ferrous sulfate 325 mg (65 mg 325 mg PO QAM 06/27/21 06/27/21 06/27/21 iron) tablet ginkgo biloba 40 mg capsule 40 mg PO DAILY 06/27/21 06/27/21 06/27/21 loratadine 10 mg tablet 10 mg PO DAILY PRN 06/27/21 06/27/21 Unknown pantoprazole 40 mg tablet,delayed 40 mg PO DAILY 06/27/21 06/27/21 06/27/21 release polyethylene glycol 3350 17 17 g PO DAILY 06/27/21 06/27/21 06/27/21 gram/dose oral powder (Miralax) prochlorperazine maleate 10 mg 10 mg PO Q6H PRN 06/27/21 06/27/21 Unknown tablet spironolactone 50 mg tablet 75 mg PO QAM 06/27/21 06/27/21 06/27/21 latanoprost 0.005 % eye drops 1 drp OPHTHALMIC (EYE) PM 06/30/21 06/30/21 Unknown Active Medications Generic Name Dose Route Start Last Admin Trade Name Dexterq PRN Reason Stop Dose Admin Acetaminophen 325 mg 06/29/21 19:47 06/29/21 20:23 Acetaminophen 325 Mg Tab PO 07/29/21 19:46 325 mg Q6H PRN Administration Mild Pain Aspirin 81 mg 06/28/21 21:00 06/29/21 20:28 Aspirin 81 Mg Ectab PO 07/28/21 20:59 81 mg PM LAURA Administration Atorvastatin Calcium 40 mg 06/28/21 09:00 06/28/21 08:03 Atorvastatin 40 Mg Tab PO 07/28/21 08:59 40 mg QAM LAURA Administration Clopidogrel Bisulfate 75 mg 06/28/21 09:00 06/30/21 08:39 Clopidogrel Bisulfate 75 Mg Tab PO 07/28/21 08:59 75 mg QAM LAURA Administration Cyanocobalamin 1,000 mcg 06/28/21 09:00 06/30/21 08:41 Cyanocobalamin (B-12) 500 Mcg Tablet PO 07/28/21 08:59 1,000 mcg QAM LAURA Administration Enoxaparin Sodium 40 mg 06/28/21 06:00 06/30/21 05:28 Enoxaparin Inj 40 Mg/0.4 Ml Syr SQ 07/28/21 05:59 40 mg Q12H LAURA Administration Ferrous Sulfate 325 mg 06/28/21 09:00 06/30/21 08:39 Ferrous Sulfate 325 Mg Tab PO 07/28/21 08:59 325 mg QAM LAURA Administration Fluticasone Propionate 2 sprays 06/28/21 21:00 06/29/21 20:24 Fluticasone Propionate Na Spr 16 Gm Btl NA 07/28/21 20:59 2 sprays PM LAURA Administration Folic Acid 1 mg 06/28/21 09:00 06/30/21 08:47 Folic Acid 1 Mg Tab PO 07/28/21 08:59 1 mg BID LAURA Administration Daptomycin 575 mg/ Syringe 11.5 mls @ 5.75 mls/min 06/28/21 14:00 06/29/21 14:19 IV 07/12/21 13:59 5.75 mls/min Q24H LAURA Administration Protocol Insulin Aspart 1 ea 06/28/21 07:30 06/30/21 11:41 Novolog Insulin Pump N/A 07/28/21 07:29 1 ea ACHS LAURA Administration Protocol Menthol 1 bianca 06/29/21 21:24 06/30/21 06:28 Cough Drop (Sugar Free) Bianca 24 Bianca/1 Box BUCCAL 07/29/21 21:23 1 bianca Q2H PRN Administration Sore Throat Miscellaneous 1 ea 06/28/21 08:00 06/30/21 07:53 Order Awaiting Action: Netarsudil [Rhopressa] 0.02 % Drops N/A 07/28/21 07:59 Not Given QS LAURA Multivitamins/Minerals 1 tab 06/28/21 21:00 06/29/21 20:28 Calcium 600mg + Vit D 400 Iu Tab PO 07/28/21 20:59 1 tab QPM LAURA Administration Ondansetron HCl 4 mg 06/28/21 04:29 06/29/21 11:59 Ondansetron Inj 2 Mg/Ml 2 Ml Vial IV 07/28/21 04:28 4 mg Q6H PRN Administration Nausea Oxycodone HCl 5 mg 06/28/21 04:29 06/29/21 21:33 Oxycodone Hcl Ir 5 Mg Tab (Immediate Release) PO 07/12/21 04:28 5 mg Q8H PRN Administration Pain Pantoprazole Sodium 40 mg 06/28/21 09:00 06/30/21 08:39 Pantoprazole 40 Mg Tab PO 07/28/21 08:59 40 mg DAILY LAURA Administration Polyethylene Glycol 17 gm 06/28/21 09:00 06/30/21 08:42 Polyethylene (Miralax) 17 Gm Pack PO 07/28/21 08:59 Not Given DAILY LAURA Prochlorperazine 10 mg 06/28/21 04:29 06/30/21 08:42 Prochlorperazine Maleate 10 Mg Tab PO 07/28/21 04:28 10 mg Q6H PRN Administration Nausea Propranolol HCl 80 mg 06/28/21 09:00 06/30/21 08:38 Propranolol Hcl La 80 Mg Capcr PO 07/28/21 08:59 80 mg QAM LAURA Administration Spironolactone 75 mg 06/28/21 09:00 06/30/21 08:40 Spironolactone 25 Mg Tab PO 07/28/21 08:59 75 mg QAM LAURA Administration Vitamin D 1,000 units 06/28/21 09:00 06/30/21 08:39 Cholecalciferol 1,000 Units 25 Mcg Tab PO 07/28/21 08:59 1,000 units QAM LAURA Administration NPO Date Last Intake of Fluids: 06/30/21 Time Last Intake of Fluids: 08:30 Date Last Intake of Solids: 06/30/21 Time Last Intake of Solids: 08:30 Past Medical History Medical History Anemia CAD (coronary artery disease) Carcinoma of colon Cirrhosis of liver Diabetes Flesh-eating bacteria right kidney four to five years ago as per pt GERD (gastroesophageal reflux disease) GI bleed Glaucoma H/O colon cancer, stage IV Hyperlipidemia Hypertension Infection left arm - IV infiltration MRSA (methicillin resistant Staphylococcus aureus) abdomen - Peritoneal fluid Surgical wound, non healing Exercise / Class Metabolic Activity III < 4 Walking/Shop/Light housework Past Family History Family History Brother Diabetes Mother Cancer Father Hypertension Past Surgical History Surgical History H/O abdominal surgery H/O: History of kidney removal right Hx of CABG vessels x3 [facility] 2017 Hx of cardiac cath 2018 S/P debridement (02/06/19) Left Arm Sharp Wound Debridement(Left) ; sharp excisional down to and including muscle; greater than [address] Bermeo 02-06-19 S/P partial colectomy Past Anesthesia History No Hx of Anesthesia Complications and No Family Hx of Anesthesia Complications History of PONV No Hx of PONV and No Hx of Motion Sickness Social History Smoking Status: Never smoker Hx Alcohol Use: No Hx Substance Use: No Physical Exam Vital Signs Last Vital Signs Temp 37 C 06/30/21 12:23 Pulse 92 H 06/30/21 12:23 Resp 18 06/30/21 12:23 BP 141/68 H 06/30/21 12:23 Pulse Ox 97 06/30/21 12:23 ENMT Mouth: + dentition abnormality (Missing left upper and lower molar ); no TMJ a bnormality Thyromental Distance: > or= 3.5 Finger Breadths Mallampati Class: II Neck normal visual inspection and trachea midline; neck extension not limited Respiratory normal respiratory effort Auscultation: lungs clear to auscultation bilaterally Cardiovascular Rate/Rhythm: regular rate and regular rhythm Heart Sounds: no murmur Musculoskeletal Spine: normal cervical ROM Extremities: full ROM of extremities Neurologic moves all extremities Psychiatric Orientation: alert and oriented x 3 Testing Laboratory Results 06/30/21 05:45 06/30/21 05:45 PT 12.8 Seconds (9.0-12.0) H 06/27/21 22:15 INR 1.2 (0.9-1.1) H 06/27/21 22:15 APTT 25.7 Seconds (21.0-31.0) 06/27/21 22:15 Hemoglobin A1c 6.8 % (4.5-5.6) H 06/28/21 05:22 Urine Color Yellow 06/27/21 23:19 Urine Appearance Clear (Clear) 06/27/21 23:19 Urine pH 6.5 (4.5-7.5) 06/27/21 23:19 Ur Specific [place] 1.011 (1.000-1.030) 06/27/21 23:19 Urine Protein Trace (Negative) H 06/27/21 23:19 Urine Glucose (UA) Negative (Negative) 06/27/21 23:19 Urine Ketones Negative (Negative) 06/27/21 23:19 Urine Nitrite Negative (Negative) 06/27/21 23:19 Ur Leukocyte Esterase Negative (Negative) 06/27/21 23:19 Urine WBC (Auto) 1-5 /hpf (0-5) 06/27/21 23:19 Urine RBC (Auto) 0-4 /hpf (0-4) 06/27/21 23:19 U Hyaline Cast (Auto) 5-10 /lpf (0-5) H 06/27/21 23:19 U Epithel Cells (Auto) 10-20 /lpf (0-5) H 06/27/21 23:19 Urine Bacteria (Auto) Negative (Negative) 06/27/21 23:19 06/29/21 05:42 Aerobic Blood Culture - Preliminary Blood Staph aureus MRSA Anaerobic Blood Culture - Preliminary No growth in Anaerobic bottle after 24 hours. 06/27/21 23:19 Aerobic Blood Culture - Final Blood Staph aureus MRSA Anaerobic Blood Culture - Final Staph aureus MRSA 06/27/21 23:12 Aerobic Blood Culture - Final Blood Staph aureus MRSA Anaerobic Blood Culture - Final Staph aureus MRSA 06/29/21 05:42 Aerobic Blood Culture - Preliminary Blood Gram positive cocci clusters Anaerobic Blood Culture - Preliminary No growth in Anaerobic bottle after 24 hours. 06/30/21 07:15 POC Glucose 158 H Electrocardiogram Date: 06/27/21 Findings: + NSR @ (79) anteroseptal infarct Chest X-Ray Date: 06/27/21 Findings: + pulmonary vascular congestion and + pleural effusion Echocardiogram Date: 06/29/21 EF: 55-60 LV Function: normal RWMA: + none Valvular Disease: + no significant valvular disease
[2021-06-30] MEDS ORDERED: PIPERACILLIN/TAZOBACTAM 4.5 GM in DEXTROSE 5% 100 ML IV ONE (12:00)
[2021-06-30] MEDS ORDERED: LIDOCAINE 1% LOCAL 20 ML VIAL ONE (13:29)
--- NOTE | 2021-06-30 13:46 | Post Operative Brief Note ---
PG Immediate Post Op with CF Date of Surgery June 30, 2021 Pre & Post Diagnosis Operation Date: 06/30/21 13:30 Pre-Op Diagnosis: (1) Infected venous access port Post-Op Diagnosis: (1) Infected venous access port I identified the patient and participated in the time-out.: Yes Procedure Operation Date: 06/30/21 13:30 Actual Procedures p Port Removal(right chest)- Quentin Morgan MD, FACS Surgeon Quentin Morgan MD, FACS Regulatory Consultant Nurses Estimated Blood Loss 5 Findings Consistent with Post-Op Diagnosis Port pocket with hematoma Specimens Specimen Description: Culture A. Access Port for Culture
[2021-06-30] MEDS: DAPTOmycin 575 MG in SYRINGE 0 ML IV SCH (14:12)
--- NOTE | 2021-06-30 14:22 | Operative Report (OR) ---
DATE OF OPERATION: 06/30/2021. NAME OF OPERATION: Port removal. PREOPERATIVE DIAGNOSIS: Infected port. POSTOPERATIVE DIAGNOSIS: Infected port. STAFF SURGEON: Quentin Morgan MD ASSISTANTS: Nurses. ANESTHESIA: 1% plain lidocaine. DESCRIPTION OF PROCEDURE: The patient was brought in to the operating room, placed on the operating table in the supine position. Her right chest was prepped and draped in the usual fashion. A 1% arely in lidocaine was used to anesthetize skin and subcutaneous tissue. Incision was made through previou s scar encountering a hematoma, which was evacuated. The catheter was then removed with the tunnel o versewn using 2-0 chromic suture. Port was then removed and then the site irrigated with antibiotic solution. Then skin loosely reapproximated using 4-0 nylon suture. Dressing applied. The patient w as transferred back to her room in stable condition. Job ID: [id number]
--- NOTE | 2021-06-30 14:47 | Anesthesiology Progress Note ---
Date of Service June 30, 2021 Anesthesia Post Procedure Vital Signs Vital Signs: Temp Pulse Pulse Pulse Resp BP BP 06/30/21 14:01 37.5 C 77 16 161/80 H 06/30/21 12:23 37 C 92 H 18 141/68 H 06/30/21 11:40 37.4 C 77 19 132/71 06/30/21 08:00 70 06/30/21 07:43 37.3 C 75 19 135/68 06/30/21 03:14 37.4 C 73 18 106/64 06/29/21 22:39 37.8 C H 80 18 118/57 L 06/29/21 22:20 78 06/29/21 19:28 38.2 C H 79 18 131/79 06/29/21 17:37 37.0 C 78 18 122/71 06/29/21 16:00 72 Pulse Ox 06/30/21 14:01 96 06/30/21 12:23 97 06/30/21 11:40 93 06/30/21 08:00 06/30/21 07:43 94 06/30/21 03:14 94 06/29/21 22:39 93 06/29/21 22:20 06/29/21 19:28 95 06/29/21 17:37 95 06/29/21 16:00 Transfer of Care Handoff Completed per policy Notes Mental Status: alert / awake / arousable Patient Amnestic to Procedure: Yes Nausea / Vomiting: adequately controlled Pain: adequately controlled Airway Patency, RR, SpO2: stable & adequate BP & HR: stable & adequate Hydration State: stable & adequate Anesthetic Complications: no major complications apparent and Pt Satisfied with anesthetic care
--- NOTE | 2021-06-30 17:37 | Hospitalist Progress Note ---
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 She is being managed for the following: #. Likely sepsis at POA, likely GI source d/t CRC hx. #. GPC bacteremia Patient has history of MRSA and VRE Leukocytosis and lactic acidosis at presentation with unclear source of infection but admitting blood culture came back positive for GPC in clusters. Admitting CT chest: Trace left pleural effusion, no consolidation to suggest pneumonia. Cirrhosis with upper abdominal ascites. Peritoneal implants. Admitting CTAP: Interval increase in moderate abdominal and pelvic ascites. Suspicion of peritoneal seeding. 06/27 blood culture: MRSA +ve, follow-up final results Repeat 06/29 Bl Cx: GPC +ve, f/u 06/29 ECHO: reviewed. No valvular pathology 06/30: Rt chest access port removed, tip culture sent 06/30: Rt chest tip A port culture --> f/u Continue with daptomycin 06/28 and Zosyn 06/27. ID consult. #. Near syncope: Could be from possible sepsis. Pt also reports decreasing appetite likely s/e of chemo. Pt eating better, resume home lasix. Card evaluated, appreciated rec. #. Other chronic medical conditions: History of liver cirrhosis, history of right-sided heart failure, diabetes on insulin pump, CAD status post coronary artery bypass grafting, ascites, history of colon cancer status post hemicolectomy, history of pancreatic cancer status post surgery, currently recurrent metastatic disease with peritoneal metastasis with a small ascites and under palliative chemotherapy, CKD stage III. 06/30 d/w Dr. Rosales over the phone, updated pt status. Since patient does wish to continue palliative chemo, she would benefit from hospice eval . Continue with/resume home meds as and when appropriate. * Patient expressed interest in not continuing with her palliative chemo as she believes she has has more side effect than benefit from it. Palliative care evaluated, appreciate recs. . DVT prophylaxis: Lovenox DNR/DNI Dispo: PT/OT to home. Needs Bl Cx negative, and ID eval. Will likely need IV atb. Expect few more days. Admission and Anticipated Discharge Date Admission Date: June 28, 2021 Subjective Patient seen and examined at bedside for follow-up of GPC bacteremia, near syncope, possible sepsis. Patient was sitting up in chsir, on room air, no new acute events overnight, reports eating minimal/ok, reports nausea, reports feeling slightly better, moving bowels okay, still feels weak, denies headache or dizziness. Denies pain or burning while passing urine and denies belly pain. Pt made aware her Rt chest venous port needs to come out due to her blood culture being infected. Pt reports couldn't fall asleep overnight, will use melatonin. Physical Exam Physical Exam: GENERAL: Alert and oriented x3. NAD, on RA. Morbidly obese. HEENT: No pallor, no icterus. Pupils equal, round and reactive to light. Oral mucosa moist. Right upper chest with venous port access. NO erythema,no tenderness noted. NECK: No JVD, no neck masses. HEART: S1 and S2 heard. Regular rate and rhythm. No murmur, no gallop. RESPIRATORY SYSTEM: Normal AP diameter. No accessory muscle use. No wheezing, no crackles. ABDOMEN: Soft, bowel sounds present, nontender, no distention. Healed midline surgical scar. CENTRAL NERVOUS SYSTEM: No facial droop. Speech is clear. Obeys simple commands. Moves extremities. EXTREMITIES: 2+ BLE edema, no erythema seen. Urinary catheter in situ, yellow urine collection noted. Results & Data Results & Data ([facility]) Vital Signs (Past 12 Hours) Vital Signs Temp Pulse Pulse Pulse Resp BP BP 06/30/21 15:40 37.4 C 76 16 131/70 06/30/21 15:00 37.3 C 80 75 14 139/79 06/30/21 14:30 37.3 C 77 16 140/80 06/30/21 14:15 37.2 C 78 16 158/83 H 06/30/21 14:01 37.5 C 77 16 161/80 H 06/30/21 12:23 37 C 92 H 18 141/68 H 06/30/21 11:40 37.4 C 77 19 132/71 06/30/21 08:00 70 06/30/21 07:43 37.3 C 75 19 135/68 Pulse Ox 06/30/21 15:40 93 06/30/21 15:00 96 06/30/21 14:30 95 06/30/21 14:15 97 06/30/21 14:01 96 06/30/21 12:23 97 06/30/21 11:40 93 06/30/21 08:00 06/30/21 07:43 94 (1) Sepsis Sepsis acute organ dysfunction status: unspecified Sepsis type: sepsis due to unspecified organism Qualified Code(s): A41.9 - Sepsis, unspecified organism
[2021-06-30] MEDS: PIPERACILLIN/TAZOBACTAM 4.5 GM in DEXTROSE 5% 100 ML IV SCH (18:27)
[2021-06-30] MEDS: MELATONIN 3 MG TAB PO SCH (21:12)
[2021-06-30] MEDS: CALCIUM 600MG + VIT D 400 IU TAB PO SCH (21:13)
[2021-06-30] MEDS: FLUTICASONE PROPIONATE NA SPR 16 GM BTL SCH (21:13)
[2021-06-30] MEDS: ACETAMINOPHEN 325 MG TAB PO PRN (21:13)
[2021-06-30] MEDS: FUROSEMIDE 40 MG TAB PO SCH (21:13)
[2021-06-30] MEDS: ASPIRIN 81 MG ECTAB PO SCH (21:15)
[2021-06-30] MEDS: LATANOPROST 0.005% OP SOLN 2.5 ML BTL OP SCH (21:16)
[2021-07-01] MEDS: PIPERACILLIN/TAZOBACTAM 4.5 GM in DEXTROSE 5% 100 ML IV SCH ×3 (01:40→18:34)
[2021-07-01] MEDS: ENOXAPARIN INJ 40 MG/0.4 ML SYR SQ SCH ×2 (05:55→18:34)
[2021-07-01] MEDS: NovoLOG INSULIN PUMP SCH ×4 (07:45→21:55)
[2021-07-01] MEDS: ONDANSETRON INJ 2 MG/ML 2 ML VIAL IV PRN (08:22)
[2021-07-01] MEDS: CYANOCOBALAMIN (B-12) 500 MCG TABLET PO SCH (08:22)
[2021-07-01] MEDS: PROPRANOLOL HCL LA 80 MG CAPCR PO SCH (08:23)
[2021-07-01] MEDS: FOLIC ACID 1 MG TAB PO SCH ×2 (08:23→21:45)
[2021-07-01] MEDS: POLYETHYLENE (MIRALAX) 17 GM PACK PO SCH (08:23)
[2021-07-01] MEDS: PANTOprazole 40 MG TAB PO SCH (08:24)
[2021-07-01] MEDS: FERROUS SULFATE 325 MG TAB PO SCH (08:24)
[2021-07-01] MEDS: CHOLECALCIFEROL 1,000 UNITS 25 MCG TAB PO SCH (08:25)
[2021-07-01] MEDS: CLOPIDOGREL BISULFATE 75 MG TAB PO SCH (08:25)
[2021-07-01 09:19] LABS: Hematocrit (blood only) 27.7 % (37-47); Hemoglobin 9.2 g/dL (12.0-16.0); Mean Corpuscular Hemoglobin 28.8 pg (25-34); Mean Corpuscular Hgb Conc 33.2 g/dL (32-36); Mean Corpuscular Volume 86.8 fL (80-100); Mean Platelet Volume 11.5 fL (7.4-10.4); Nucleated RBC # (auto) 0.03 K/uL (0-0); Nucleated RBC % (auto) 0.3 %; Platelet Count 523 K/uL (130-400); RDW Coefficient of Variation 21.4 % (11.5-14.5); RDW Standard Deviation 61.2 fL (36.4-46.3); Red Blood Count 3.19 M/uL (4.2-5.4); White Blood Count 11.39 K/uL (4.8-10.8)
[2021-07-01 09:42] LABS: BUN Creatinine Ratio 23.2 (10-20); Calcium 8.6 mg/dl (8.5-10.1); Creatinine Clr Calc Pharmacy 60.3 ml/min; Est GFR (African American) 66.4 ml/min; Est GFR (Non-African American) 57.3 ml/min; Magnesium 1.8 mg/dl (1.7-2.4); Phosphorus 2.5 mg/dl (2.5-4.9); Potassium 3.9 mmol/L (3.5-5.1)
[2021-07-01] MEDS: ATORVASTATIN 40 MG TAB PO SCH (13:53)
[2021-07-01] MEDS: FUROSEMIDE 40 MG TAB PO SCH ×2 (14:03→21:46)
[2021-07-01] MEDS: SPIRONOLACTONE 25 MG TAB PO SCH (14:04)
[2021-07-01] MEDS: DAPTOmycin 575 MG in SYRINGE 0 ML IV SCH (15:56)
--- NOTE | 2021-07-01 17:59 | Hospitalist Progress Note ---
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 She is being managed for the following: #. Likely sepsis at POA, likely GI source d/t CRC hx. #. GPC bacteremia Patient has history of MRSA and VRE Leukocytosis and lactic acidosis at presentation with unclear source of infection but admitting blood culture came back positive for GPC in clusters. Admitting CT chest: Trace left pleural effusion, no consolidation to suggest pneumonia. Cirrhosis with upper abdominal ascites. Peritoneal implants. Admitting CTAP: Interval increase in moderate abdominal and pelvic ascites. Suspicion of peritoneal seeding. 06/27 blood culture: MRSA +ve, follow-up final results Repeat 06/29 Bl Cx: GPC +ve, f/u 06/29 ECHO: reviewed. No valvular pathology 06/30: Rt chest access port removed, tip culture sent 06/30: Rt chest tip A port culture --> f/u 07/01: repeat blood Cx, f/u Continue with daptomycin 06/28 and Zosyn 06/27. ID consult. #. Near syncope: Could be from possible sepsis. Pt also reports decreasing appetite likely s/e of chemo. Pt eating better, resume home lasix. Card evaluated, appreciated rec. #. Other chronic medical conditions: History of liver cirrhosis, history of right-sided heart failure, diabetes on insulin pump, CAD status post coronary artery bypass grafting, ascites, history of colon cancer status post hemicolectomy, history of pancreatic cancer status post surgery, currently recurrent metastatic disease with peritoneal metastasis with a small ascites and under palliative chemotherapy, CKD stage III. 06/30 d/w Dr. Rosales over the phone, updated pt status. Since patient does wish to continue palliative chemo, she would benefit from hospice eval . Continue with/resume home meds as and when appropriate. * Patient expressed interest in not continuing with her palliative chemo as she believes she has has more side effect than benefit from it. Palliative care evaluated, appreciate recs. . DVT prophylaxis: Lovenox DNR/DNI Dispo: PT/OT to home. Needs Bl Cx negative, and ID eval. Will likely need IV atb. Expect few more days. Admission and Anticipated Discharge Date Admission Date: June 28, 2021 Subjective Patient seen and examined at bedside for follow-up of GPC bacteremia, near syncope, possible sepsis. Patient was sitting up in bed, on room air, no new acute events overnight, reports eating minimal/ok, reports nausea, reports feeling slightly better, moving bowels okay, still feels weak, denies headache or dizziness. Denies pain or burning while passing urine and denies belly pain. Pt would like to talk with hospice while in hospital. Physical Exam Physical Exam: GENERAL: Alert and oriented x3. NAD, on RA. Morbidly obese. HEENT: No pallor, no icterus. Pupils equal, round and reactive to light. Oral mucosa moist. Right upper chest with venous port access. NO erythema,no tenderness noted. NECK: No JVD, no neck masses. HEART: S1 and S2 heard. Regular rate and rhythm. No murmur, no gallop. RESPIRATORY SYSTEM: Normal AP diameter. No accessory muscle use. No wheezing, no crackles. ABDOMEN: Soft, bowel sounds present, nontender, no distention. Healed midline surgical scar. CENTRAL NERVOUS SYSTEM: No facial droop. Speech is clear. Obeys simple commands. Moves extremities. EXTREMITIES: 2+ BLE edema, no erythema seen. Urinary catheter in situ, yellow urine collection noted. Results & Data Results & Data ([facility]) Vital Signs (Past 12 Hours) Vital Signs Temp Pulse Resp BP BP Pulse Ox 07/01/21 16:52 37.5 C 82 18 106/63 96 07/01/21 10:30 36.6 C 75 19 120/71 97 07/01/21 08:07 36.7 C 75 19 98/52 L 100 (1) Sepsis Sepsis acute organ dysfunction status: unspecified Sepsis type: sepsis due to unspecified organism Qualified Code(s): A41.9 - Sepsis, unspecified organism
[2021-07-01] MEDS: FLUTICASONE PROPIONATE NA SPR 16 GM BTL SCH (18:36)
[2021-07-01] MEDS: LATANOPROST 0.005% OP SOLN 2.5 ML BTL OP SCH (18:38)
[2021-07-01] MEDS: CALCIUM 600MG + VIT D 400 IU TAB PO SCH (21:45)
[2021-07-01] MEDS: ASPIRIN 81 MG ECTAB PO SCH (21:45)
[2021-07-01] MEDS: MELATONIN 3 MG TAB PO SCH (21:46)
[2021-07-01] MEDS: HYDROCODONE/ACETAMOPHEN 5/325MG TAB PO PRN (22:10)
[2021-07-01] MEDS: ACETAMINOPHEN 325 MG TAB PO PRN (22:13)
[2021-07-02] MEDS: PIPERACILLIN/TAZOBACTAM 4.5 GM in DEXTROSE 5% 100 ML IV SCH (01:45)
[2021-07-02] MEDS: ENOXAPARIN INJ 40 MG/0.4 ML SYR SQ SCH ×2 (06:41→18:09)
[2021-07-02] MEDS: ATORVASTATIN 40 MG TAB PO SCH (08:04)
[2021-07-02] MEDS: FERROUS SULFATE 325 MG TAB PO SCH (08:05)
[2021-07-02] MEDS: SPIRONOLACTONE 25 MG TAB PO SCH (08:05)
[2021-07-02] MEDS: NovoLOG INSULIN PUMP SCH ×4 (08:05→20:30)
[2021-07-02] MEDS: PANTOprazole 40 MG TAB PO SCH (08:05)
[2021-07-02] MEDS: CYANOCOBALAMIN (B-12) 500 MCG TABLET PO SCH (08:06)
[2021-07-02] MEDS: FUROSEMIDE 40 MG TAB PO SCH ×2 (08:06→20:17)
[2021-07-02] MEDS: CHOLECALCIFEROL 1,000 UNITS 25 MCG TAB PO SCH (08:06)
[2021-07-02] MEDS: PROPRANOLOL HCL LA 80 MG CAPCR PO SCH (08:06)
[2021-07-02] MEDS: POLYETHYLENE (MIRALAX) 17 GM PACK PO SCH (08:07)
[2021-07-02] MEDS: CLOPIDOGREL BISULFATE 75 MG TAB PO SCH (08:07)
[2021-07-02] MEDS: FOLIC ACID 1 MG TAB PO SCH ×2 (08:07→20:18)
[2021-07-02 08:43] LABS: Hematocrit (blood only) 29.5 % (37-47); Hemoglobin 9.5 g/dL (12.0-16.0); Mean Corpuscular Hgb Conc 32.2 g/dL (32-36); Mean Platelet Volume 11.3 fL (7.4-10.4); Platelet Count 483 K/uL (130-400); RDW Standard Deviation 62.3 fL (36.4-46.3); Red Blood Count 3.39 M/uL (4.2-5.4); White Blood Count 5.59 K/uL (4.8-10.8)
[2021-07-02 09:03] LABS: BUN Creatinine Ratio 22.6 (10-20); Calcium 8.6 mg/dl (8.5-10.1); Creatinine Clr Calc Pharmacy 48.1 ml/min; Est GFR (African American) 50.6 ml/min; Est GFR (Non-African American) 43.7 ml/min; Magnesium 1.8 mg/dl (1.7-2.4); Potassium 3.8 mmol/L (3.5-5.1)
[2021-07-02] MEDS: DAPTOmycin 575 MG in SYRINGE 0 ML IV SCH (15:45)
--- NOTE | 2021-07-02 19:27 | Hospitalist Progress Note ---
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 She is being managed for the following: #. Likely sepsis at POA, likely GI source d/t CRC hx. #. GPC bacteremia Patient has history of MRSA and VRE Leukocytosis and lactic acidosis at presentation with unclear source of infection but admitting blood culture came back positive for GPC in clusters. Admitting CT chest: Trace left pleural effusion, no consolidation to suggest pneumonia. Cirrhosis with upper abdominal ascites. Peritoneal implants. Admitting CTAP: Interval increase in moderate abdominal and pelvic ascites. Suspicion of peritoneal seeding. 06/27 blood culture: MRSA +ve, follow-up final results Repeat 06/29 Bl Cx: GPC +ve, f/u 06/29 ECHO: reviewed. No valvular pathology 06/30: Rt chest access port removed, tip culture sent 06/30: Rt chest tip A port culture --> f/u 07/01: repeat blood Cx, f/u, no growth so far Continue with daptomycin 06/28 and Zosyn 06/27 --> DC zosyn 07/02. ID consult. #. Near syncope: Could be from possible sepsis. Pt also reports decreasing appetite likely s/e of chemo. Pt eating better, resume home lasix. Card evaluated, appreciated rec. #. Other chronic medical conditions: History of liver cirrhosis, history of right-sided heart failure, diabetes on insulin pump, CAD status post coronary artery bypass grafting, ascites, history of colon cancer status post hemicolectomy, history of pancreatic cancer status post surgery, currently recurrent metastatic disease with peritoneal metastasis with a small ascites and under palliative chemotherapy, CKD stage III. 06/30 d/w Dr. Rosales over the phone, updated pt status. Since patient does wish to continue palliative chemo, she would benefit from hospice eval . Continue with/resume home meds as and when appropriate. * Patient expressed interest in not continuing with her palliative chemo as she believes she has has more side effect than benefit from it. Palliative care evaluated, appreciate recs. . DVT prophylaxis: Lovenox DNR/DNI Dispo: PT/OT to home. Needs Bl Cx negative, and ID eval. Will likely need IV atb. Hospice evaluated, likely DC once ID evals, PICC line and IV ATb finalized. Admission and Anticipated Discharge Date Admission Date: June 28, 2021 Subjective Patient seen and examined at bedside for follow-up of GPC bacteremia, near syncope, possible sepsis. Patient was sitting up in chair, on room air, no new acute events overnight, reports eating minimal/ok, reports nausea, reports feeling slightly better, moving bowels okay, still feels weak, denies headache or dizziness. Denies pain or burning while passing urine and denies belly pain. Pt talked with hospice today, agreed to home hospice. Remove mathis. Physical Exam Physical Exam: GENERAL: Alert and oriented x3. NAD, on RA. Morbidly obese. HEENT: No pallor, no icterus. Pupils equal, round and reactive to light. Oral mucosa moist. Right upper chest with venous port access. NO erythema,no tenderness noted. NECK: No JVD, no neck masses. HEART: S1 and S2 heard. Regular rate and rhythm. No murmur, no gallop. RESPIRATORY SYSTEM: Normal AP diameter. No accessory muscle use. No wheezing, no crackles. ABDOMEN: Soft, bowel sounds present, nontender, no distention. Healed midline surgical scar. CENTRAL NERVOUS SYSTEM: No facial droop. Speech is clear. Obeys simple commands. Moves extremities. EXTREMITIES: 2+ BLE edema, no erythema seen. Urinary catheter in situ, yellow urine collection noted. Results & Data Results & Data ([facility]) Vital Signs (Past 12 Hours) Vital Signs Temp Pulse Resp BP Pulse Ox 07/02/21 16:03 36.6 C 86 20 138/72 97 07/02/21 10:58 36.6 C 70 19 116/69 96 07/02/21 07:31 36.6 C 69 19 129/74 97 (1) Sepsis Sepsis acute organ dysfunction status: unspecified Sepsis type: sepsis due to unspecified organism Qualified Code(s): A41.9 - Sepsis, unspecified organism
[2021-07-02] MEDS: ACETAMINOPHEN 325 MG TAB PO PRN (20:13)
[2021-07-02] MEDS: CALCIUM 600MG + VIT D 400 IU TAB PO SCH (20:17)
[2021-07-02] MEDS: ASPIRIN 81 MG ECTAB PO SCH (20:17)
[2021-07-02] MEDS: MELATONIN 3 MG TAB PO SCH (20:18)
[2021-07-02] MEDS: LATANOPROST 0.005% OP SOLN 2.5 ML BTL OP SCH (20:19)
[2021-07-02] MEDS: FLUTICASONE PROPIONATE NA SPR 16 GM BTL SCH (20:19)
[2021-07-03] MEDS: ENOXAPARIN INJ 40 MG/0.4 ML SYR SQ SCH ×2 (06:40→19:39)
[2021-07-03 08:26] LABS: Hematocrit (blood only) 29.6 % (37-47); Hemoglobin 9.6 g/dL (12.0-16.0); Mean Corpuscular Hgb Conc 32.4 g/dL (32-36); Mean Corpuscular Volume 86.3 fL (80-100); Mean Platelet Volume 10.9 fL (7.4-10.4); Nucleated RBC # (auto) 0.28 K/uL (0-0); Nucleated RBC % (auto) 4.4 %; Platelet Count 416 K/uL (130-400); RDW Coefficient of Variation 22.1 % (11.5-14.5); Red Blood Count 3.43 M/uL (4.2-5.4); White Blood Count 6.27 K/uL (4.8-10.8)
[2021-07-03] MEDS: NovoLOG INSULIN PUMP SCH ×4 (08:35→21:39)
[2021-07-03 09:00] LABS: BUN Creatinine Ratio 26.1 (10-20); Creatinine Clr Calc Pharmacy 51.9 ml/min; Est GFR (African American) 55.4 ml/min; Est GFR (Non-African American) 47.8 ml/min
[2021-07-03] MEDS: PANTOprazole 40 MG TAB PO SCH (09:46)
[2021-07-03] MEDS: FOLIC ACID 1 MG TAB PO SCH ×2 (09:48→19:44)
[2021-07-03] MEDS: ATORVASTATIN 40 MG TAB PO SCH (09:48)
[2021-07-03] MEDS: FUROSEMIDE 40 MG TAB PO SCH ×2 (09:48→19:43)
[2021-07-03] MEDS: CYANOCOBALAMIN (B-12) 500 MCG TABLET PO SCH (09:48)
[2021-07-03] MEDS: SPIRONOLACTONE 25 MG TAB PO SCH (09:49)
[2021-07-03] MEDS: POLYETHYLENE (MIRALAX) 17 GM PACK PO SCH (09:49)
[2021-07-03] MEDS: CLOPIDOGREL BISULFATE 75 MG TAB PO SCH (09:49)
[2021-07-03] MEDS: PROPRANOLOL HCL LA 80 MG CAPCR PO SCH (09:50)
[2021-07-03] MEDS: CHOLECALCIFEROL 1,000 UNITS 25 MCG TAB PO SCH (09:50)
[2021-07-03] MEDS: FERROUS SULFATE 325 MG TAB PO SCH (09:50)
--- NOTE | 2021-07-03 13:26 | Palliative Care Progress Note ---
Date of Service July 03, 2021 Assessment & Plan (1) Nausea: Plan: Controlled. She has poor appetite and prefers liquids. Discussed ways to maximize calories and nutrition with liquids. (2) Palliative care encounter: Plan: Mrs. Hwang understands that she is approaching her dying time. Her wish is to be at home with her family. She describes a [employer] project that she is working on with her daughter and is hopeful that they can work on this some more. "I don't think we can get it done though". 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 She worries about how her and daughter will cope. Her biggest concern is not being a burden to her family. Her goal is to return home with hospice care. She has expressed interest in completing antibiotic course prior to hospice to maximize her time and function at home. Admission and Anticipated Discharge Date Admission Date: June 28, 2021 Subjective Sitting in chair eating lunch. Denies pain or nausea. Review of Systems Review of Systems: Placida Symptom Assessment Scale Pain 0/3 Dyspnea 0/3 Nausea 0/3 Fatigue 2/3 Anorexia 2/3 Palliative Performance Score 50% Physical Exam Constitutional: + ill appearing; no acute distress ENMT: Mouth: oral mucous membranes not dry Respiratory: normal respiratory effort; no labored breathing Skin: extremities cool to touch Neurologic: moves all extremities and awake; not confused Genitourinary: Continent Results & Data ([facility]) Vital Signs (Past 12 Hours) Vital Signs Temp Pulse Resp BP BP Pulse Ox 07/03/21 12:32 98.6 F 75 18 112/58 L 96 07/03/21 08:18 98.2 F 71 18 121/62 94 07/03/21 04:25 97.9 F 70 18 118/64 96 PG Care Time/CCT Total # of Minutes Spent Total Time Spent: 25 Total Time Spent with Patient: Total time spent is greater than 50% in coordination of care (as documented) at patient's floor/unit and/or counseling patient: Coding Level of Care Code 84022 Subseq Hosp Care Lvl 2 Diagnoses Nausea R11.0 Palliative care encounter Z51.5
[2021-07-03] MEDS: DAPTOmycin 750 MG in SYRINGE 0 ML IV SCH (13:52)
--- NOTE | 2021-07-03 18:01 | Hospitalist Progress Note ---
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 She is being managed for the following: #. Likely sepsis at POA, likely GI source d/t CRC hx. #. GPC bacteremia Patient has history of MRSA and VRE Leukocytosis and lactic acidosis at presentation with unclear source of infection but admitting blood culture came back positive for GPC in clusters. Admitting CT chest: Trace left pleural effusion, no consolidation to suggest pneumonia. Cirrhosis with upper abdominal ascites. Peritoneal implants. Admitting CTAP: Interval increase in moderate abdominal and pelvic ascites. Suspicion of peritoneal seeding. 06/27 blood culture: MRSA +ve, follow-up final results Repeat 06/29 Bl Cx: GPC +ve, f/u 06/29 ECHO: reviewed. No valvular pathology 06/30: Rt chest access port removed, tip culture sent 06/30: Rt chest tip A port culture --> negative growth 07/01: repeat blood Cx, f/u, no growth so far Continue with daptomycin 06/28 and Zosyn 06/27 --> DC zosyn 07/02. ID consult. Appreciate recs. Will get PICC line corinne, likely DC w/ iv dapto for longer duration, f/u ID as OP before ATB completion Weekly CPK, CBC and CMP while on antibiotic. #. Near syncope: Could be from possible sepsis. Pt also reports decreasing appetite likely s/e of chemo. Pt eating better, resume home lasix. Card evaluated, appreciated rec. #. Other chronic medical conditions: History of liver cirrhosis, history of right-sided heart failure, diabetes on insulin pump, CAD status post coronary artery bypass grafting, ascites, history of colon cancer status post hemicolecto my, history of pancreatic cancer status post surgery, currently recurrent metastatic disease with peritoneal metastasis with a small ascites and under palliative chemotherapy, CKD stage III. 06/30 d/w Dr. Rosales over the phone, updated pt status. Since patient does wish to continue palliative chemo, she would benefit from hospice eval . Continue with/resume home meds as and when appropriate. * Pt going home w/ hospice, Pt would like to complete IV antibiotic. DVT prophylaxis: Lovenox DNR/DNI Dispo: PT/OT to home. Needs Bl Cx negative. PICC line corinne, likely DC corinne w/ iv dapto. Home w/ hospice. . Admission and Anticipated Discharge Date Admission Date: June 28, 2021 Subjective Patient seen and examined at bedside for follow-up of GPC bacteremia, near syncope, possible sepsis. Patient was sitting up in chair, on room air, no new acute events overnight, reports eating minimal/ok, reports feeling better, moving bowels okay, still feels weak, denies headache or dizziness. Denies pain or burning while passing urine and denies belly pain. Pt talked with hospice 07/02, agreed to home hospice. Physical Exam Physical Exam: GENERAL: Alert and oriented x3. NAD, on RA. Morbidly obese. HEENT: No pallor, no icterus. Pupils equal, round and reactive to light. Oral mucosa moist. Right upper chest with venous port access. NO erythema,no tenderness noted. NECK: No JVD, no neck masses. HEART: S1 and S2 heard. Regular rate and rhythm. No murmur, no gallop. RESPIRATORY SYSTEM: Normal AP diameter. No accessory muscle use. No wheezing, no crackles. ABDOMEN: Soft, bowel sounds present, nontender, no distention. Healed midline surgical scar. CENTRAL NERVOUS SYSTEM: No facial droop. Speech is clear. Obeys simple commands. Moves extremities. EXTREMITIES: 2+ BLE edema, no erythema seen. Results & Data Results & Data ([facility]) Vital Signs (Past 12 Hours) Vital Signs Temp Pulse Pulse Resp BP BP Pulse Ox 07/03/21 15:14 36.5 C 82 19 109/57 L 97 07/03/21 14:57 75 07/03/21 12:32 37.0 C 75 18 112/58 L 96 07/03/21 08:18 36.8 C 71 18 121/62 94 07/03/21 08:00 68 (1) Sepsis Sepsis acute organ dysfunction status: unspecified Sepsis type: sepsis due to unspecified organism Qualified Code(s): A41.9 - Sepsis, unspecified organism
[2021-07-03] MEDS: FLUTICASONE PROPIONATE NA SPR 16 GM BTL SCH (19:40)
[2021-07-03] MEDS: LATANOPROST 0.005% OP SOLN 2.5 ML BTL OP SCH (19:41)
[2021-07-03] MEDS: ACETAMINOPHEN 325 MG TAB PO PRN (19:42)
[2021-07-03] MEDS: MELATONIN 3 MG TAB PO SCH (19:42)
[2021-07-03] MEDS: ASPIRIN 81 MG ECTAB PO SCH (19:44)
[2021-07-03] MEDS: CALCIUM 600MG + VIT D 400 IU TAB PO SCH (19:44)
[2021-07-04] MEDS ORDERED: MELATONIN 3 MG TAB PO STA (00:15)
[2021-07-04] MEDS: ACETAMINOPHEN 325 MG TAB PO PRN (01:14)
[2021-07-04] MEDS: ENOXAPARIN INJ 40 MG/0.4 ML SYR SQ SCH ×2 (05:43→18:15)
[2021-07-04] MEDS: CYANOCOBALAMIN (B-12) 500 MCG TABLET PO SCH (08:12)
[2021-07-04] MEDS: CHOLECALCIFEROL 1,000 UNITS 25 MCG TAB PO SCH (08:13)
[2021-07-04] MEDS: FUROSEMIDE 40 MG TAB PO SCH ×2 (08:13→20:10)
[2021-07-04] MEDS: FOLIC ACID 1 MG TAB PO SCH ×2 (08:13→20:10)
[2021-07-04] MEDS: PROPRANOLOL HCL LA 80 MG CAPCR PO SCH (08:14)
[2021-07-04] MEDS: POLYETHYLENE (MIRALAX) 17 GM PACK PO SCH (08:14)
[2021-07-04] MEDS: FERROUS SULFATE 325 MG TAB PO SCH (08:15)
[2021-07-04] MEDS: PANTOprazole 40 MG TAB PO SCH (08:15)
[2021-07-04] MEDS: ATORVASTATIN 40 MG TAB PO SCH (08:18)
[2021-07-04] MEDS: SPIRONOLACTONE 25 MG TAB PO SCH (08:24)
[2021-07-04] MEDS: NovoLOG INSULIN PUMP SCH ×4 (08:25→21:34)
[2021-07-04] MEDS: CLOPIDOGREL BISULFATE 75 MG TAB PO SCH (08:31)
--- NOTE | 2021-07-04 08:46 | XRay Report ---
XR chest 1V portable CLINICAL HISTORY: O2 requirement, ? fluid overload worsening COMPARISON STUDY: Chest radiograph June 27, 2021. Chest CT June 28, 2021. FINDINGS: There are median sternotomy wires and mediastinal surgical clips. Right internal jugular In fuse-a-Port has been removed. Cardiomegaly is noted. There is a trace left pleural effusion. Pulmonar y vascular congestion is noted with suspected mild pulmonary edema. IMPRESSION: Slight increase in mild pulmonary edema. Trace left pleural effusion. ACT 112: Negative or not required by law. Electronically signed by: Óscar Natarajan M.D. 07/04/2021 8:45 AM
[2021-07-04 10:34] LABS: Creatinine Clr Calc Pharmacy 53.3 ml/min; Est GFR (African American) 57.2 ml/min; Est GFR (Non-African American) 49.4 ml/min
[2021-07-04] MEDS: DAPTOmycin 750 MG in SYRINGE 0 ML IV SCH (13:18)
--- NOTE | 2021-07-04 17:45 | Hospitalist Progress Note ---
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 She is being managed for the following: #. Likely sepsis at POA, likely GI source d/t CRC hx. #. GPC bacteremia Patient has history of MRSA and VRE Leukocytosis and lactic acidosis at presentation with unclear source of infection but admitting blood culture came back positive for GPC in clusters. Admitting CT chest: Trace left pleural effusion, no consolidation to suggest pneumonia. Cirrhosis with upper abdominal ascites. Peritoneal implants. Admitting CTAP: Interval increase in moderate abdominal and pelvic ascites. Suspicion of peritoneal seeding. 06/27 blood culture: MRSA +ve, follow-up final results Repeat 06/29 Bl Cx: GPC +ve, f/u 06/29 ECHO: reviewed. No valvular pathology 06/30: Rt chest access port removed, tip culture sent 06/30: Rt chest tip A port culture --> negative growth 07/01: repeat blood Cx, f/u, no growth so far Continue with daptomycin 06/28 and Zosyn 06/27 --> DC zosyn 07/02. ID consult. Appreciate recs. Vanc is preferred over Dapto. Total of 4 weeks of therapy from culture negative date. Family thinking dapto would be easier due to once a day dosing. In this case will need US PIV, if vanco preferred PICC line is needed. PICC line consent obtained though. Weekly CPK, CBC and CMP while on antibiotic. #. Near syncope: Could be from possible sepsis. Pt also reports decreasing appetite likely s/e of chemo. Pt eating better, resume home lasix. Card evaluated, appreciated rec. #. Other chronic medical conditions: History of liver cirrhosis, history of rig ht-sided heart failure, diabetes on insulin pump, CAD status post coronary artery bypass grafting, ascites, history of colon cancer status post hemicolectomy, history of pancreatic cancer status post surgery, currently recurrent metastatic disease with peritoneal metastasis with a small ascites and under palliative chemotherapy, CKD stage III. 06/30 d/w Dr. Rosales over the phone, updated pt status. Since patient does wish to continue palliative chemo, she would benefit from hospice eval . Continue with/resume home meds as and when appropriate. * Pt going home w/ hospice, Pt would like to complete IV antibiotic. DVT prophylaxis: Lovenox DNR/DNI 07/04: d/w pt's and pt's dtr at bedside, updated and answered all their questions. Dispo: PT/OT to home. Needs Bl Cx negative. PICC line vs US PIV, likely DC corinne w/ iv dapto (fam preference, if doesn't change corinne). Home w/ hospice. . Admission and Anticipated Discharge Date Admission Date: June 28, 2021 Subjective Patient seen and examined at bedside for follow-up of GPC bacteremia, near syncope, possible sepsis. Patient was sitting up in chair, on room air, no new acute events overnight, reports eating minimal/ok, reports feeling better, moving bowels okay, still feels weak, denies headache or dizziness. Denies pain or burning while passing urine and denies belly pain. Pt talked with hospice 07/02, agreed to home hospice. Physical Exam Physical Exam: GENERAL: Alert and oriented x3. NAD, on RA. Morbidly obese. HEENT: No pallor, no icterus. Pupils equal, round and reactive to light. Oral mucosa moist. Right upper chest with venous port access. NO erythema,no tenderness noted. NECK: No JVD, no neck masses. HEART: S1 and S2 heard. Regular rate and rhythm. No murmur, no gallop. RESPIRATORY SYSTEM: Normal AP diameter. No accessory muscle use. No wheezing, no crackles. ABDOMEN: Soft, bowel sounds present, nontender, no distention. Healed midline surgical scar. CENTRAL NERVOUS SYSTEM: No facial droop. Speech is clear. Obeys simple commands. Moves extremities. EXTREMITIES: 2+ BLE edema, no erythema seen. Results & Data Results & Data ([facility]) Vital Signs (Past 12 Hours) Vital Signs Temp Pulse Pulse Resp BP BP Pulse Ox 07/04/21 16:50 70 07/04/21 15:21 36.9 C 66 19 114/62 95 05/24/22 11:18 36.3 C L 62 18 113/66 97 07/04/21 08:07 36.7 C 69 21 128/63 100 07/04/21 07:19 65 (1) Sepsis Sepsis acute organ dysfunction status: unspecified Sepsis type: sepsis due to unspecified organism Qualified Code(s): A41.9 - Sepsis, unspecified organism
[2021-07-04] MEDS: ASPIRIN 81 MG ECTAB PO SCH (20:09)
[2021-07-04] MEDS: CALCIUM 600MG + VIT D 400 IU TAB PO SCH (20:10)
[2021-07-04] MEDS: LATANOPROST 0.005% OP SOLN 2.5 ML BTL OP SCH (20:11)
[2021-07-04] MEDS: FLUTICASONE PROPIONATE NA SPR 16 GM BTL SCH (20:12)
[2021-07-04] MEDS: MELATONIN 3 MG TAB PO SCH (20:23)
[2021-07-05] MEDS: ENOXAPARIN INJ 40 MG/0.4 ML SYR SQ SCH ×2 (05:54→17:33)
[2021-07-05 07:56] LABS: Mean Corpuscular Hgb Conc 33.7 g/dL (32-36); Platelet Count 349 K/uL (130-400)
[2021-07-05] MEDS: SPIRONOLACTONE 25 MG TAB PO SCH (08:14)
[2021-07-05] MEDS: FERROUS SULFATE 325 MG TAB PO SCH (08:15)
[2021-07-05] MEDS: PANTOprazole 40 MG TAB PO SCH (08:15)
[2021-07-05] MEDS: FUROSEMIDE 40 MG TAB PO SCH ×2 (08:15→20:51)
[2021-07-05] MEDS: FOLIC ACID 1 MG TAB PO SCH ×2 (08:16→20:51)
[2021-07-05] MEDS: ATORVASTATIN 40 MG TAB PO SCH (08:17)
[2021-07-05] MEDS: POLYETHYLENE (MIRALAX) 17 GM PACK PO SCH (08:19)
[2021-07-05] MEDS: PROPRANOLOL HCL LA 80 MG CAPCR PO SCH (08:19)
[2021-07-05 08:21] LABS: Hematocrit (blood only) 29.7 % (37-47); Mean Corpuscular Hemoglobin 28.6 pg (25-34); Mean Corpuscular Volume 84.9 fL (80-100); Nucleated RBC # (auto) 4.83 K/uL (0-0); Nucleated RBC % (auto) 38.9 %; RDW Coefficient of Variation 22.2 % (11.5-14.5); RDW Standard Deviation 60.7 fL (36.4-46.3); White Blood Count 12.43 K/uL (4.8-10.8)
[2021-07-05] MEDS: CLOPIDOGREL BISULFATE 75 MG TAB PO SCH (08:23)
[2021-07-05] MEDS: CYANOCOBALAMIN (B-12) 500 MCG TABLET PO SCH (08:24)
[2021-07-05] MEDS: NovoLOG INSULIN PUMP SCH ×4 (08:25→21:00)
[2021-07-05 08:29] LABS: BUN Creatinine Ratio 28.4 (10-20); Calcium 9.3 mg/dl (8.5-10.1); Creatinine Clr Calc Pharmacy 58.8 ml/min; Est GFR (African American) 64.1 ml/min; Est GFR (Non-African American) 55.3 ml/min; Magnesium 1.7 mg/dl (1.7-2.4); Phosphorus 3.2 mg/dl (2.5-4.9); Potassium 4.1 mmol/L (3.5-5.1)
[2021-07-05] MEDS: CHOLECALCIFEROL 1,000 UNITS 25 MCG TAB PO SCH (10:05)
[2021-07-05] MEDS: HYDROcodone/HOMATROPINE SYRUP 5MG/1.5MG 5ML UDP PO PRN ×2 (11:55→21:06)
[2021-07-05] MEDS: DAPTOmycin 750 MG in SYRINGE 0 ML IV SCH (14:09)
--- NOTE | 2021-07-05 16:27 | Hospitalist Progress Note ---
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 She is being managed for the following: #. Likely sepsis at POA, likely GI source d/t CRC hx. #. GPC bacteremia Patient has history of MRSA and VRE Leukocytosis and lactic acidosis at presentation with unclear source of infection but admitting blood culture came back positive for GPC in clusters. Admitting CT chest: Trace left pleural effusion, no consolidation to suggest pneumonia. Cirrhosis with upper abdominal ascites. Peritoneal implants. Admitting CTAP: Interval increase in moderate abdominal and pelvic ascites. Suspicion of peritoneal seeding. 06/27 blood culture: MRSA +ve, follow-up final results Repeat 06/29 Bl Cx: GPC +ve, f/u 06/29 ECHO: reviewed. No valvular pathology 06/30: Rt chest access port removed, tip culture sent 06/30: Rt chest tip A port culture --> negative growth 07/01: repeat blood Cx, f/u, no growth so far Continue with daptomycin 06/28 and Zosyn 06/27 --> DC zosyn 07/02. ID consult. Appreciate recs. Vanc is preferred over Dapto. Total of 4 weeks of therapy from culture negative date. Family thinking dapto would be easier due to once a day dosing. In this case will need US PIV, if vanco preferred PICC line is needed. PICC line consent obtained though. Weekly CPK, CBC and CMP while on antibiotic. Medically stable with generalized weakness Like to be discharged tomorrow home with hospice on IV daptomycin Hyponatremia Likely dilutional Continue Lasix We will try oral sodium tablet - monitor PRP #. Near syncope: Could be from possible sepsis. Pt also reports decreasing appetite likely s/e of chemo. Pt eating better, resume home lasix. Card evaluated, appreciated rec. #. Other chronic medical conditions: History of liver cirrhosis, history of rig ht-sided heart failure, diabetes on insulin pump, CAD status post coronary artery bypass grafting, ascites, history of colon cancer status post hemicolectomy, history of pancreatic cancer status post surgery, currently recurrent metastatic disease with peritoneal metastasis with a small ascites and under palliative chemotherapy, CKD stage III. 06/30 d/w Dr. Rosales over the phone, updated pt status. Since patient does wish to continue palliative chemo, she would benefit from hospice eval . Continue with/resume home meds as and when appropriate. * Pt going home w/ hospice, Pt would like to complete IV antibiotic. DVT prophylaxis: Lovenox DNR/DNI 07/04: d/w pt's and pt's dtr at bedside, updated and answered all their questions. Dispo: PT/OT to home. Needs Bl Cx negative. PICC line vs US PIV, likely DC corinne w/ iv dapto (fam preference, if doesn't change corinne). Home w/ hospice. . Admission and Anticipated Discharge Date Admission Date: June 28, 2021 Subjective 07/05/2021 The patient was seen and examined in telemetry unit She remains generally weak but denies any other symptoms Denies any pain, shortness of breath Only significant symptoms as cough without any phlegm Review of Systems Review of Systems: All systems reviewed and are unremarkable except as noted below Physical Exam Physical Exam: Sitting on a chair without any acute distress Constitutional: well developed, well nourished, + ill appearing and + obese Eyes: PERRL, conjunctivae normal, anicteric sclerae ENMT: external ear and nose normal, oropharynx normal Neck: trachea midline, no thyromegaly Respiratory: no respiratory distress Auscultation: + diminished lung sounds and + crackles (Minimal bibasilar crackles) Cardiovascular: Rate/Rhythm: regular rate and regular rhythm; not tachycardic Heart Sounds: normal S1 and normal S2; no murmur Extremities: + edema (1-2+ edema bilaterally) Gastrointestinal (Abdomen): Inspection/Auscultation: + abdomen distended and normal bowel sounds Percussion/Palpation: abdomen soft; abdomen nontender Musculoskeletal: No acute arthritis in any joint Neurologic: Alert, awake and oriented x3. Generally weak but no focal sensory or no motor deficit appreciated Results & Data Results & Data ([facility]) Vital Signs (Past 12 Hours) Vital Signs Temp Pulse Pulse Pulse Resp BP BP 07/05/21 15:01 66 07/05/21 13:25 37.1 C 66 18 111/66 07/05/21 08:32 36.7 C 62 18 112/67 07/05/21 07:10 66 07/05/21 04:41 36.7 C 69 18 115/63 Pulse Ox 07/05/21 15:01 07/05/21 13:25 98 07/05/21 08:32 98 07/05/21 07:10 07/05/21 04:41 93 Laboratory Results Short CBC 07/05/21 Range/Units 07:18 WBC 12.43 H (4.8-10.8) K/uL Hgb 10.0 L (12.0-16.0) g/dL Hct 29.7 L (37-47) % Plt Count 349 (130-400) K/uL BMP 07/05/21 07:18 Sodium 128 L Potassium 4.1 Chloride 95 L Carbon Dioxide 24 BUN 29 H Creatinine 1.02 Glucose 149 H Calcium 9.3 Medications Administered Current Inpatient Medications Acetaminophen (Acetaminophen 325 Mg Tab) 325 mg PO Q6H PRN PRN Reason: Mild Pain Stop: 07/29/21 19:46 Last Admin: 07/04/21 01:14 Dose: 325 mg Documented by: Hydrocodone Bitart/Acetaminophen (Hydrocodone/Acetamophen 5/325mg Tab) 1 - 2 tab PO Q4HWA PRN PRN Reason: Pain Stop: 07/14/21 13:50 Last Admin: 07/01/21 22:10 Dose: 1 tab Documented by: Aspirin (Aspirin 81 Mg Ectab) 81 mg PO PM [facility] Stop: 07/28/21 20:59 Last Admin: 07/04/21 20:09 Dose: 81 mg Documented by: Atorvastatin Calcium (Atorvastatin 40 Mg Tab) 40 mg PO QAM [facility] Stop: 07/28/21 08:59 Last Admin: 07/05/21 08:17 Dose: 40 mg Documented by: Clopidogrel Bisulfate (Clopidogrel Bisulfate 75 Mg Tab) 75 mg PO QAM [facility] Stop: 07/28/21 08:59 Last Admin: 07/05/21 08:23 Dose: 75 mg Documented by: Cyanocobalamin (Cyanocobalamin (B-12) 500 Mcg Tablet) 1,000 mcg PO QAM [facility] Stop: 07/28/21 08:59 Last Admin: 07/05/21 08:24 Dose: 1,000 mcg Documented by: Cyclobenzaprine HCl (Cyclobenzaprine Hcl 5 Mg Tab) 5 mg PO BID PRN PRN Reason: Pain Stop: 07/28/21 04:28 Last Admin: 07/01/21 08:23 Dose: 5 mg Documented by: Dextrose (Dextrose 50% 50 Ml Syringe) 25 - 50 ml IV UD PRN; Protocol PRN Reason: Hypoglycemia Protocol Stop: 07/28/21 05:29 Enoxaparin Sodium (Enoxaparin Inj 40 Mg/0.4 Ml Syr) 40 mg SQ Q12H [facility] Stop: 07/28/21 05:59 Last Admin: 07/05/21 05:54 Dose: 40 mg Documented by: Ferrous Sulfate (Ferrous Sulfate 325 Mg Tab) 325 mg PO QAM [facility] Stop: 07/28/21 08:59 Last Admin: 07/05/21 08:15 Dose: 325 mg Documented by: Fluticasone Propionate (Fluticasone Propionate Na Spr 16 Gm Btl) 2 sprays NA PM [facility] Stop: 07/28/21 20:59 Last Admin: 07/04/21 20:12 Dose: 2 sprays Documented by: Folic Acid (Folic Acid 1 Mg Tab) 1 mg PO BID [facility] Stop: 07/28/21 08:59 Last Admin: 07/05/21 08:16 Dose: 1 mg Documented by: Furosemide (Furosemide 40 Mg Tab) 40 mg PO BID [facility] Stop: 07/30/21 20:59 Last Admin: 07/05/21 08:15 Dose: 40 mg Documented by: Glucagon (Glucagon For Inj 1 Mg Vial) 1 mg SQ UD PRN; Protocol PRN Reason: Hypoglycemia Protocol Stop: 07/28/21 05:29 Glucose (Glucose 40% Gel 15 Gm Tube) 15 - 30 gm PO UD PRN; Protocol PRN Reason: Hypoglycemia Protocol Stop: 07/28/21 05:29 Glucose (Glucose 10 Tabs/Tube) 4 - 8 tabs PO UD PRN; Protocol PRN Reason: Hypoglycemia Protocol Stop: 07/28/21 05:29 Hydrocodone Bit/Homatropine Methylb (Hydrocodone/Homatropine Syrup 5mg/1.5mg 5ml Udp) 5 ml PO Q6H PRN PRN Reason: Cough Stop: 07/19/21 11:10 Last Admin: 07/05/21 11:55 Dose: 5 ml Documented by: Daptomycin 750 mg/ Syringe 15 mls @ 7.5 mls/min IV Q24H [facility]; Protocol Stop: 07/17/21 13:59 Last Admin: 07/05/21 14:09 Dose: 7.5 mls/min Documented by: Insulin Aspart (Novolog Insulin Pump) 1 ea N/A ACHS [facility]; Protocol Stop: 07/28/21 07:29 Last Admin: 07/05/21 12:43 Dose: 1 ea Documented by: Insulin Aspart (Insulin Aspart 100 Units/Ml Vial) 0 units SC PRN PRN PRN Reason: Insulin Pump Refill Stop: 07/28/21 05:29 Latanoprost (Latanoprost 0.005% Op Soln 2.5 Ml Btl) 1 drops OP PM [facility] Stop: 07/30/21 20:59 Last Admin: 07/04/21 20:11 Dose: 1 drops Documented by: Loratadine (Loratadine 10 Mg Tab) 10 mg PO DAILY PRN PRN Reason: RHINITIS Stop: 07/28/21 04:28 Last Admin: 07/05/21 08:15 Dose: 10 mg Documented by: Melatonin (Melatonin 3 Mg Tab) 6 mg PO HS [facility] Stop: 08/03/21 20:59 Last Admin: 07/04/21 20:23 Dose: 6 mg Documented by: Menthol (Cough Drop (Sugar Free) Denisse 24 Denisse/1 Box) 1 denisse BUCCAL Q2H PRN PRN Reason: Sore Throat Stop: 07/29/21 21:23 Last Admin: 06/30/21 06:28 Dose: 1 denisse Documented by: Miscellaneous (Carbohydrates For Hypoglycemia ) 15 - 30 gm PO UD PRN PRN Reason: Hypoglycemia Treatment Stop: 07/28/21 05:29 Miscellaneous Information (Daptomycin Consult Active) 1 ea N/A UD PRN PRN Reason: Consult Stop: 07/28/21 09:54 Multivitamins/Minerals (Calcium 600mg + Vit D 400 Iu Tab) 1 tab PO QPM [facility] Stop: 07/28/21 20:59 Last Admin: 07/04/21 20:10 Dose: 1 tab Documented by: Nitroglycerin (Nitroglycerin Sl 0.4 Mg/Tab Tab) 0.4 mg SL Q5M PRN PRN Reason: Chest Pain Stop: 07/28/21 04:28 Ondansetron HCl (Ondansetron Inj 2 Mg/Ml 2 Ml Vial) 4 mg IV Q6H PRN PRN Reason: Nausea Stop: 07/28/21 04:28 Last Admin: 07/01/21 08:22 Dose: 4 mg Documented by: Pantoprazole Sodium (Pantoprazole 40 Mg Tab) 40 mg PO DAILY [facility] Stop: 07/28/21 08:59 Last Admin: 07/05/21 08:15 Dose: 40 mg Documented by: Polyethylene Glycol (Polyethylene (Miralax) 17 Gm Pack) 17 gm PO DAILY [facility] Stop: 07/28/21 08:59 Last Admin: 07/05/21 08:19 Dose: 17 gm Documented by: Prochlorperazine (Prochlorperazine Maleate 10 Mg Tab) 10 mg PO Q6H PRN PRN Reason: Nausea Stop: 07/28/21 04:28 Last Admin: 06/30/21 08:42 Dose: 10 mg Documented by: Propranolol HCl (Propranolol Hcl La 80 Mg Capcr) 80 mg PO [facility] Stop: 07/28/21 08:59 Last Admin: 07/05/21 08:19 Dose: 80 mg Documented by: Sennosides (Senna 8.6 Mg Tab) 8.6 mg PO DAILY PRN PRN Reason: Constipation Stop: 07/28/21 04:28 Last Admin: 07/02/21 08:06 Dose: 8.6 mg Documented by: Spironolactone (Spironolactone 25 Mg Tab) 75 mg PO [facility] Stop: 07/28/21 08:59 Last Admin: 07/05/21 08:14 Dose: 75 mg Documented by: Vitamin D (Cholecalciferol 1,000 Units 25 Mcg Tab) 1,000 units PO [facility] Stop: 07/28/21 08:59 Last Admin: 07/05/21 10:05 Dose: Not Given Documented by: (1) Sepsis Sepsis acute organ dysfunction status: unspecified Sepsis type: sepsis due to unspecified organism Qualified Code(s): A41.9 - Sepsis, unspecified organism
[2021-07-05] MEDS: LATANOPROST 0.005% OP SOLN 2.5 ML BTL OP SCH (20:50)
[2021-07-05] MEDS: FLUTICASONE PROPIONATE NA SPR 16 GM BTL SCH (20:50)
[2021-07-05] MEDS: MELATONIN 3 MG TAB PO SCH (20:50)
[2021-07-05] MEDS: SODIUM CHLORIDE 1 GM TABLET PO SCH (20:50)
[2021-07-05] MEDS: ASPIRIN 81 MG ECTAB PO SCH (20:51)
[2021-07-05] MEDS: CALCIUM 600MG + VIT D 400 IU TAB PO SCH (20:52)
[2021-07-06] MEDS: ENOXAPARIN INJ 40 MG/0.4 ML SYR SQ SCH ×2 (05:29→16:55)
[2021-07-06 06:32] LABS: BUN Creatinine Ratio 33.7 (10-20); Creatinine Clr Calc Pharmacy 63.1 ml/min; Est GFR (African American) 69.8 ml/min; Est GFR (Non-African American) 60.3 ml/min; Potassium 3.8 mmol/L (3.5-5.1)
[2021-07-06] MEDS: FOLIC ACID 1 MG TAB PO SCH ×2 (08:10→20:15)
[2021-07-06] MEDS: CLOPIDOGREL BISULFATE 75 MG TAB PO SCH (08:10)
[2021-07-06] MEDS: FUROSEMIDE 40 MG TAB PO SCH ×2 (08:10→20:17)
[2021-07-06] MEDS: CYANOCOBALAMIN (B-12) 500 MCG TABLET PO SCH (08:10)
[2021-07-06] MEDS: SPIRONOLACTONE 25 MG TAB PO SCH (08:11)
[2021-07-06] MEDS: FERROUS SULFATE 325 MG TAB PO SCH (08:11)
[2021-07-06] MEDS: PROPRANOLOL HCL LA 80 MG CAPCR PO SCH (08:11)
[2021-07-06] MEDS: ATORVASTATIN 40 MG TAB PO SCH (08:11)
[2021-07-06] MEDS: CHOLECALCIFEROL 1,000 UNITS 25 MCG TAB PO SCH (08:11)
[2021-07-06] MEDS: PANTOprazole 40 MG TAB PO SCH (08:11)
[2021-07-06] MEDS: POLYETHYLENE (MIRALAX) 17 GM PACK PO SCH (08:12)
[2021-07-06] MEDS: SODIUM CHLORIDE 1 GM TABLET PO SCH ×2 (08:12→20:22)
[2021-07-06] MEDS: NovoLOG INSULIN PUMP SCH ×4 (09:01→20:18)
[2021-07-06] MEDS: DAPTOmycin 750 MG in SYRINGE 0 ML IV SCH (14:16)
--- NOTE | 2021-07-06 15:05 | Ultrasound Report ---
PROCEDURE: Ultrasound-Guided Diagnostic/Therapeutic Paracentesis CLINICAL HISTORY: Ascietes MEDICATIONS: Subcutaneous Lidocaine 2%. PROCEDURE: The procedure itself was explained to the patient carefully. The patient was brought into the IR suite and a time-out was performed. The patient was positioned supine on the table. Preliminar y ultrasound of the abdomen was performed to determine a safe needle entry site. The most appropriat e approach for safe needle entry site was planned and the site for puncture was marked. The right low er quadrant was prepped and draped in the usual sterile fashion. Subcutaneous 2% lidocaine was used f or local anesthesia along the expected needle tract. Under ultrasound-guidance, an 5 [place] Yueh needle-sheath was inserted carefully into the peritoneal space towards the abdominal ascites fluid collection. The needle was removed and the sheath was conn ected to tubing and a vacuum suction device. A total of 3200 cc of serous ascites was aspirated. The sheath was removed and a sterile dressing applied. The patient tolerated the procedure well without i mmediate complications. IMPRESSION: Ultrasound-guided therapeutic paracentesis. Electronically signed by: Adair Rodriguez M.D. 07/06/2021 3:01 PM
--- NOTE | 2021-07-06 16:30 | Hospitalist Progress Note ---
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 She is being managed for the following: #. Likely sepsis at POA, likely GI source d/t CRC hx. #. GPC bacteremia Patient has history of MRSA and VRE Leukocytosis and lactic acidosis at presentation with unclear source of infection but admitting blood culture came back positive for GPC in clusters. Admitting CT chest: Trace left pleural effusion, no consolidation to suggest pneumonia. Cirrhosis with upper abdominal ascites. Peritoneal implants. Admitting CTAP: Interval increase in moderate abdominal and pelvic ascites. Suspicion of peritoneal seeding. 06/27 blood culture: MRSA +ve, follow-up final results Repeat 06/29 Bl Cx: GPC +ve, f/u 06/29 ECHO: reviewed. No valvular pathology 06/30: Rt chest access port removed, tip culture sent 06/30: Rt chest tip A port culture --> negative growth 07/01: repeat blood Cx, f/u, no growth so far Continue with daptomycin 06/28 and Zosyn 06/27 --> DC zosyn 07/02. ID consult. Appreciate recs. Vanc is preferred over Dapto. Total of 4 weeks of therapy from culture negative date. Family thinking dapto would be easier due to once a day dosing. In this case will need US PIV, if vanco preferred PICC line is needed. PICC line consent obtained though. Weekly CPK, CBC and CMP while on antibiotic. Medically stable with generalized weakness Will be discharged home on Saturday with hospice care We will continue intravenous daptomycin for 4 weeks following negative culture Metastatic cancer H/O colon cancer status post hemicolectomy, Pancreatic cancer status post surgery, currently recurrent metastatic disease with peritoneal metastasis with a small ascites and under palliative chemotherapy, Status post therapeutic paracentesis x2 and today 3.2 L of fluid was taken out Feels a little better following the procedure Awaiting discharge home with hospice care Hyponatremia Likely dilutional Continue Lasix We will try oral sodium tablet Sodium level is 130 today and will monitor #. Near syncope: Could be from possible sepsis. Pt also reports decreasing appetite likely s/e of chemo. Pt eating better, resume home lasix. Card evaluated, appreciated rec. #. Other chronic medical conditions: History of liver cirrhosis, history of right-sided heart failure, diabetes on insulin pump, CAD status post coronary artery bypass grafting, ascites, history of colon cancer status post hemicolectomy, history of pancreatic cancer status post surgery, currently recurrent metastatic disease with peritoneal metastasis with a small ascites and under palliative chemotherapy, CKD stage III. 06/30 d/w Dr. Rosales over the phone, updated pt status. Since patient does wish to continue palliative chemo, she would benefit from hospice eval . Continue with/resume home meds as and when appropriate. * Pt going home w/ hospice, Pt would like to complete IV antibiotic. DVT prophylaxis: Lovenox DNR/DNI 07/04: d/w pt's and pt's dtr at bedside, updated and answered all their questions. Dispo: PT/OT to home. Needs Bl Cx negative. PICC line vs US PIV, likely DC corinne w/ iv dapto (fam preference, if doesn't change corinne). Home w/ hospice. . Admission and Anticipated Discharge Date Admission Date: June 28, 2021 Subjective 07/05/2021 The patient was seen and examined in telemetry unit She remains generally weak but denies any other symptoms Denies any pain, shortness of breath Only significant symptoms as cough without any phlegm 07/06/2021 The patient was seen and examined in telemetry unit She remains generally weak but denies any significant symptoms She does not have any increasing abdominal distention and/or discomfort/pain Review of Systems Review of Systems: All systems reviewed and are unremarkable except as noted below Gastrointestinal: Abdominal distention without pain Physical Exam Physical Exam: Sitting on a chair without any acute distress Constitutional: well developed, well nourished, + ill appearing and + obese Eyes: PERRL, conjunctivae normal, anicteric sclerae ENMT: external ear and nose normal, oropharynx normal Neck: trachea midline, no thyromegaly Respiratory: no respiratory distress Auscultation: + diminished lung sounds and + crackles (Minimal bibasilar crackles) Cardiovascular: Rate/Rhythm: regular rate and regular rhythm; not tachycardic Heart Sounds: normal S1 and normal S2; no murmur Extremities: + edema (1-2+ edema bilaterally) Gastrointestinal (Abdomen): Inspection/Auscultation: + abdomen distended and normal bowel sounds Percussion/Palpation: abdomen soft; abdomen nontender Musculoskeletal: No acute arthritis in any joint Neurologic: Alert, awake and oriented x3. Generally very weak and lethargic Results & Data Results & Data ([facility]) Vital Signs (Past 12 Hours) Vital Signs Temp Pulse Resp BP Pulse Ox 07/06/21 12:31 37.2 C 68 18 131/72 95 Laboratory Results BMP 07/06/21 05:30 Sodium 130 L Potassium 3.8 Chloride 97 L Carbon Dioxide 24 BUN 32 H Creatinine 0.95 Glucose 151 H Calcium 9.0 Medications Administered Current Inpatient Medications Acetaminophen (Acetaminophen 325 Mg Tab) 325 mg PO Q6H PRN PRN Reason: Mild Pain Stop: 07/29/21 19:46 Last Admin: 07/04/21 01:14 Dose: 325 mg Documented by: Hydrocodone Bitart/Acetaminophen (Hydrocodone/Acetamophen 5/325mg Tab) 1 - 2 tab PO Q4HWA PRN PRN Reason: Pain Stop: 07/14/21 13:50 Last Admin: 07/01/21 22:10 Dose: 1 tab Documented by: Aspirin (Aspirin 81 Mg Ectab) 81 mg PO PM [facility] Stop: 07/28/21 20:59 Last Admin: 07/05/21 20:51 Dose: 81 mg Documented by: Atorvastatin Calcium (Atorvastatin 40 Mg Tab) 40 mg PO [facility] Stop: 07/28/21 08:59 Last Admin: 07/06/21 08:11 Dose: 40 mg Documented by: Clopidogrel Bisulfate (Clopidogrel Bisulfate 75 Mg Tab) 75 mg PO [facility] Stop: 07/28/21 08:59 Last Admin: 07/06/21 08:10 Dose: 75 mg Documented by: Cyanocobalamin (Cyanocobalamin (B-12) 500 Mcg Tablet) [facility] Stop: 07/28/21 08:59 Last Admin: 07/06/21 08:10 Dose: 1,000 mcg Documented by: Cyclobenzaprine HCl (Cyclobenzaprine Hcl 5 Mg Tab) 5 mg PO BID PRN PRN Reason: Pain Stop: 07/28/21 04:28 Last Admin: 07/01/21 08:23 Dose: 5 mg Documented by: Dextrose (Dextrose 50% 50 Ml Syringe) 25 - 50 ml IV UD PRN; Protocol PRN Reason: Hypoglycemia Protocol Stop: 07/28/21 05:29 Enoxaparin Sodium (Enoxaparin Inj 40 Mg/0.4 Ml Syr) 40 mg SQ Q12H [facility] Stop: 07/28/21 05:59 Last Admin: 07/06/21 05:29 Dose: 40 mg Documented by: Ferrous Sulfate (Ferrous Sulfate 325 Mg Tab) 325 mg PO QAM [facility] Stop: 07/28/21 08:59 Last Admin: 07/06/21 08:11 Dose: 325 mg Documented by: Fluticasone Propionate (Fluticasone Propionate Na Spr 16 Gm Btl) 2 sprays NA PM [facility] Stop: 07/28/21 20:59 Last Admin: 07/05/21 20:50 Dose: 2 sprays Documented by: Folic Acid (Folic Acid 1 Mg Tab) 1 mg PO BID [facility] Stop: 07/28/21 08:59 Last Admin: 07/06/21 08:10 Dose: 1 mg Documented by: Furosemide (Furosemide 40 Mg Tab) 40 mg PO BID [facility] Stop: 07/30/21 20:59 Last Admin: 07/06/21 08:10 Dose: 40 mg Documented by: Glucagon (Glucagon For Inj 1 Mg Vial) 1 mg SQ UD PRN; Protocol PRN Reason: Hypoglycemia Protocol Stop: 07/28/21 05:29 Glucose (Glucose 40% Gel 15 Gm Tube) 15 - 30 gm PO UD PRN; Protocol PRN Reason: Hypoglycemia Protocol Stop: 07/28/21 05:29 Glucose (Glucose 10 Tabs/Tube) 4 - 8 tabs PO UD PRN; Protocol PRN Reason: Hypoglycemia Protocol Stop: 07/28/21 05:29 Hydrocodone Bit/Homatropine Methylb (Hydrocodone/Homatropine Syrup 5mg/1.5mg 5ml Udp) 5 ml PO Q6H PRN PRN Reason: Cough Stop: 07/19/21 11:10 Last Admin: 07/05/21 21:06 Dose: 5 ml Documented by: Daptomycin 750 mg/ Syringe 15 mls @ 7.5 mls/min IV Q24H [facility]; Protocol Stop: 07/17/21 13:59 Last Admin: 07/06/21 14:16 Dose: 7.5 mls/min Documented by: Insulin Aspart (Novolog Insulin Pump) 1 ea N/A ACHS [facility]; Protocol Stop: 07/28/21 07:29 Last Admin: 07/06/21 12:00 Dose: 1 ea Documented by: Insulin Aspart (Insulin Aspart 100 Units/Ml Vial) 0 units SC PRN PRN PRN Reason: Insulin Pump Refill Stop: 07/28/21 05:29 Latanoprost (Latanoprost 0.005% Op Soln 2.5 Ml Btl) 1 drops OP PM [facility] Stop: 07/30/21 20:59 Last Admin: 07/05/21 20:50 Dose: 1 drops Documented by: Loratadine (Loratadine 10 Mg Tab) 10 mg PO DAILY PRN PRN Reason: RHINITIS Stop: 07/28/21 04:28 Last Admin: 07/05/21 08:15 Dose: 10 mg Documented by: Melatonin (Melatonin 3 Mg Tab) 6 mg PO HS [facility] Stop: 08/03/21 20:59 Last Admin: 07/05/21 20:50 Dose: 6 mg Documented by: Menthol (Cough Drop (Sugar Free) Denisse 24 Denisse/1 Box) 1 denisse BUCCAL Q2H PRN PRN Reason: Sore Throat Stop: 07/29/21 21:23 Last Admin: 06/30/21 06:28 Dose: 1 denisse Documented by: Miscellaneous (Carbohydrates For Hypoglycemia ) 15 - 30 gm PO UD PRN PRN Reason: Hypoglycemia Treatment Stop: 07/28/21 05:29 Miscellaneous Information (Daptomycin Consult Active) 1 ea N/A UD PRN PRN Reason: Consult Stop: 07/28/21 09:54 Multivitamins/Minerals (Calcium 600mg + Vit D 400 Iu Tab) 1 tab PO QPM [facility] Stop: 07/28/21 20:59 Last Admin: 07/05/21 20:52 Dose: 1 tab Documented by: Nitroglycerin (Nitroglycerin Sl 0.4 Mg/Tab Tab) 0.4 mg SL Q5M PRN PRN Reason: Chest Pain Stop: 07/28/21 04:28 Ondansetron HCl (Ondansetron Inj 2 Mg/Ml 2 Ml Vial) 4 mg IV Q6H PRN PRN Reason: Nausea Stop: 07/28/21 04:28 Last Admin: 07/01/21 08:22 Dose: 4 mg Documented by: Pantoprazole Sodium (Pantoprazole 40 Mg Tab) 40 mg PO DAILY [facility] Stop: 07/28/21 08:59 Last Admin: 07/06/21 08:11 Dose: 40 mg Documented by: Polyethylene Glycol (Polyethylene (Miralax) 17 Gm Pack) 17 gm PO DAILY [facility] Stop: 07/28/21 08:59 Last Admin: 07/06/21 08:12 Dose: 17 gm Documented by: Prochlorperazine (Prochlorperazine Maleate 10 Mg Tab) 10 mg PO Q6H PRN PRN Reason: Nausea Stop: 07/28/21 04:28 Last Admin: 06/30/21 08:42 Dose: 10 mg Documented by: Propranolol HCl (Propranolol Hcl La 80 Mg Capcr) 80 mg PO [facility] Stop: 07/28/21 08:59 Last Admin: 07/06/21 08:11 Dose: 80 mg Documented by: Sennosides (Senna 8.6 Mg Tab) 8.6 mg PO DAILY PRN PRN Reason: Constipation Stop: 07/28/21 04:28 Last Admin: 07/02/21 08:06 Dose: 8.6 mg Documented by: Sodium Chloride (Sodium Chloride 1 Gm Tablet) 1 gm PO BID [facility] Stop: 08/04/21 20:59 Last Admin: 07/06/21 08:12 Dose: 1 gm Documented by: Spironolactone (Spironolactone 25 Mg Tab) 75 mg PO [facility] Stop: 07/28/21 08:59 Last Admin: 07/06/21 08:11 Dose: 75 mg Documented by: Vitamin D (Cholecalciferol 1,000 Units 25 Mcg Tab) 1,000 units PO [facility] Stop: 07/28/21 08:59 Last Admin: 07/06/21 08:11 Dose: 1,000 units Documented by: (1) Sepsis Sepsis acute organ dysfunction status: unspecified Sepsis type: sepsis due to unspecified organism Qualified Code(s): A41.9 - Sepsis, unspecified organism
[2021-07-06] MEDS: MELATONIN 3 MG TAB PO SCH (20:11)
[2021-07-06] MEDS: CALCIUM 600MG + VIT D 400 IU TAB PO SCH (20:15)
[2021-07-06] MEDS: ASPIRIN 81 MG ECTAB PO SCH (20:15)
[2021-07-06] MEDS: FLUTICASONE PROPIONATE NA SPR 16 GM BTL SCH (20:18)
[2021-07-06] MEDS: LATANOPROST 0.005% OP SOLN 2.5 ML BTL OP SCH (20:18)
[2021-07-07] MEDS ORDERED: ZOLPIDEM TARTRATE 5 MG TAB PO STA (00:35)
[2021-07-07] MEDS: HYDROCODONE/ACETAMOPHEN 5/325MG TAB PO PRN (00:49)
[2021-07-07] MEDS: ENOXAPARIN INJ 40 MG/0.4 ML SYR SQ SCH ×2 (05:29→17:43)
[2021-07-07 06:50] LABS: Creatinine Clr Calc Pharmacy 59.9 ml/min; Est GFR (African American) 65.6 ml/min; Est GFR (Non-African American) 56.6 ml/min; Potassium 3.9 mmol/L (3.5-5.1)
[2021-07-07] MEDS: NovoLOG INSULIN PUMP SCH ×4 (08:00→21:58)
[2021-07-07] MEDS: POLYETHYLENE (MIRALAX) 17 GM PACK PO SCH (08:24)
[2021-07-07] MEDS: PANTOprazole 40 MG TAB PO SCH (08:24)
[2021-07-07] MEDS: CYANOCOBALAMIN (B-12) 500 MCG TABLET PO SCH (08:25)
[2021-07-07] MEDS: ATORVASTATIN 40 MG TAB PO SCH (08:26)
[2021-07-07] MEDS: FOLIC ACID 1 MG TAB PO SCH ×2 (08:26→20:33)
[2021-07-07] MEDS: FUROSEMIDE 40 MG TAB PO SCH ×2 (08:26→20:33)
[2021-07-07] MEDS: SPIRONOLACTONE 25 MG TAB PO SCH (08:26)
[2021-07-07] MEDS: CLOPIDOGREL BISULFATE 75 MG TAB PO SCH (08:26)
[2021-07-07] MEDS: CHOLECALCIFEROL 1,000 UNITS 25 MCG TAB PO SCH (08:27)
[2021-07-07] MEDS: SODIUM CHLORIDE 1 GM TABLET PO SCH ×2 (08:27→21:59)
[2021-07-07] MEDS: FERROUS SULFATE 325 MG TAB PO SCH (08:27)
[2021-07-07] MEDS: PROPRANOLOL HCL LA 80 MG CAPCR PO SCH (08:27)
[2021-07-07] MEDS: DAPTOmycin 750 MG in SYRINGE 0 ML IV SCH (15:06)
--- NOTE | 2021-07-07 16:19 | Hospitalist Progress Note ---
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 She is being managed for the following: Metastatic cancer H/O colon cancer status post hemicolectomy, Pancreatic cancer status post surgery, currently recurrent metastatic disease with peritoneal metastasis with a small ascites and under palliative chemotherapy, Status post therapeutic paracentesis x2 and today 3.2 L of fluid was taken out Feels a little better following the procedure Awaiting discharge home with hospice care She will need the following equipments before she can be discharged home with hospice care: Wheelchair: "The beneficiary's mobility limitation and completion of in home ADL's cannot be sufficiently resolved by the use of an appropriately fitted cane/walker/crutch. The use of a manual wheelchair will significantly improve the beneficiary ability to participate in MRADL's such as toileting, feeding, dressing, grooming and bathing and the beneficiary will use it on a regular basis in the home. The beneficiary is able to self-propel the wheelchair or has a caregiver who is available, willing, and able to provide assistance with the wheelchair." Semi-Electric Hospital Bed: "The beneficiary has a medical condition which requi res positioning of the body in ways not feasible with an ordinary bed. Elevation of the head/upper body less than 30 degrees does not usually require the use of a hospital bed."requires frequent changes in body position and/or has an immediate need for change in body position #. Likely sepsis at POA, likely GI source d/t CRC hx. #. GPC bacteremia Patient has history of MRSA and VRE Leukocytosis and lactic acidosis at presentation with unclear source of infection but admitting blood culture came back positive for GPC in clusters. Admitting CT chest: Trace left pleural effusion, no consolidation to suggest pneumonia. Cirrhosis with upper abdominal ascites. Peritoneal implants. Admitting CTAP: Interval increase in moderate abdominal and pelvic ascites. Suspicion of peritoneal seeding. 06/27 blood culture: MRSA +ve, follow-up final results Repeat 06/29 Bl Cx: GPC +ve, f/u 06/29 ECHO: reviewed. No valvular pathology 06/30: Rt chest access port removed, tip culture sent 06/30: Rt chest tip A port culture --> negative growth 07/01: repeat blood Cx, f/u, no growth so far Continue with daptomycin 06/28 and Zosyn 06/27 --> DC zosyn 07/02. ID consult. Appreciate recs. Vanc is preferred over Dapto. Total of 4 weeks of therapy from culture negative date. Family thinking dapto would be easier due to once a day dosing. In this case will need US PIV, if vanco preferred PICC line is needed. PICC line consent obtained though. Weekly CPK, CBC and CMP while on antibiotic. Medically stable with generalized weakness Will be discharged home on Saturday with hospice care We will continue intravenous daptomycin for 4 weeks following negative culture Hospice will not take the patient home as long as she finishes the intravenous antibiotic Hyponatremia Likely dilutional Continue Lasix We will try oral sodium tablet Sodium level is 130 today and will monitor #. Near syncope: Could be from possible sepsis. Pt also reports decreasing appetite likely s/e of chemo. Pt eating better, resume home lasix. Card evaluated, appreciated rec. #. Other chronic medical conditions: History of liver cirrhosis, history of right-sided heart failure, diabetes on insulin pump, CAD status post coronary artery bypass grafting, ascites, history of colon cancer status post hemicolectomy, history of pancreatic cancer status post surgery, currently recurrent metastatic disease with peritoneal metastasis with a small ascites and under palliative chemotherapy, CKD stage III. 06/30 d/w Dr. Rosales over the phone, updated pt status. Since patient does wish to continue palliative chemo, she would benefit from hospice eval . Continue with/resume home meds as and when appropriate. * Pt going home w/ hospice, Pt would like to complete IV antibiotic. DVT prophylaxis: Lovenox DNR/DNI 07/04: d/w pt's and pt's dtr at bedside, updated and answered all their questions. Dispo: PT/OT to home. Needs Bl Cx negative. PICC line vs US PIV, likely DC corinne w/ iv dapto (fam preference, if doesn't change corinne). Home w/ hospice. . Admission and Anticipated Discharge Date Admission Date: June 28, 2021 Subjective 07/05/2021 The patient was seen and examined in telemetry unit She remains generally weak but denies any other symptoms Denies any pain, shortness of breath Only significant symptoms as cough without any phlegm 07/06/2021 The patient was seen and examined in telemetry unit She remains generally weak but denies any significant symptoms She does not have any increasing abdominal distention and/or discomfort/pain 07/07/2021 The patient was seen and examined in telemetry unit She remained stable and denies any symptoms except weakness and tiredness She has been waiting to go home with hospice care She will be transferred to medical floor Review of Systems Review of Systems: All systems reviewed and are unremarkable except as noted below Gastrointestinal: Abdominal distention without pain Physical Exam Physical Exam: Sitting on a chair without any acute distress Constitutional: well developed, well nourished, + ill appearing and + obese Eyes: PERRL, conjunctivae normal, anicteric sclerae ENMT: external ear and nose normal, oropharynx normal Neck: trachea midline, no thyromegaly Respiratory: no respiratory distress Auscultation: + diminished lung sounds and + crackles (Minimal bibasilar crackles) Cardiovascular: Rate/Rhythm: regular rate and regular rhythm; not tachycardic Heart Sounds: normal S1 and normal S2; no murmur Extremities: + edema (1-2+ edema bilaterally) Gastrointestinal (Abdomen): Inspection/Auscultation: + abdomen distended and normal bowel sounds Percussion/Palpation: abdomen soft; abdomen nontender Musculoskeletal: No acute arthritis in any joint Neurologic: Alert and awake. Generally very weak and lethargic Results & Data Results & Data ([facility]) Vital Signs (Past 12 Hours) Vital Signs Temp Pulse Resp BP BP Pulse Ox 07/07/21 15:52 36.6 C 66 19 121/74 97 07/07/21 12:35 36.2 C L 67 19 138/71 97 07/07/21 07:48 36.6 C 63 15 125/74 92 Laboratory Results [facility] 07/07/21 05:54 Sodium 130 L Potassium 3.9 Chloride 98 Carbon Dioxide 24 BUN 32 H Creatinine 1.00 Glucose 149 H Calcium 9.0 Medications Administered Current Inpatient Medications Acetaminophen (Acetaminophen 325 Mg Tab) 325 mg PO Q6H PRN PRN Reason: Mild Pain Stop: 07/29/21 19:46 Last Admin: 07/04/21 01:14 Dose: 325 mg Documented by: Hydrocodone Bitart/Acetaminophen (Hydrocodone/Acetamophen 5/325mg Tab) 1 - 2 tab PO Q4HWA PRN PRN Reason: Pain Stop: 07/14/21 13:50 Last Admin: 07/07/21 00:49 Dose: 2 tab Documented by: Aspirin (Aspirin 81 Mg Ectab) 81 mg PO PM [facility] Stop: 07/28/21 20:59 Last Admin: 07/06/21 20:15 Dose: 81 mg Documented by: Atorvastatin Calcium ([facility]atin 40 Mg Tab) [facility] [place]: 07/28/21 08:59 Last Admin: 07/07/21 08:26 Dose: 40 mg Documented by: Clopidogrel Bisulfate (Clopidogrel Bisulfate 75 Mg Tab) [facility] [place]: 07/28/21 08:59 Last Admin: 07/07/21 08:26 Dose: 75 mg Documented by: Cyanocobalamin (Cyanocobalamin (B-12) 500 Mcg Tablet) 1,000 mcg [place] [facility] [place]: 07/28/21 08:59 Last Admin: 07/07/21 08:25 Dose: 1,000 mcg Documented by: Cyclobenzaprine HCl (Cyclobenzaprine Hcl 5 Mg Tab) 5 mg PO BID PRN PRN Reason: Pain Stop: 07/28/21 04:28 Last Admin: 07/01/21 08:23 Dose: 5 mg Documented by: Dextrose (Dextrose 50% 50 Ml Syringe) 25 - 50 ml IV UD PRN; Protocol PRN Reason: Hypoglycemia Protocol Stop: 07/28/21 05:29 Enoxaparin Sodium (Enoxaparin Inj 40 Mg/0.4 Ml Syr) 40 mg SQ Q12H [facility] Stop: 07/28/21 05:59 Last Admin: 07/07/21 05:29 Dose: 40 mg Documented by: Ferrous Sulfate (Ferrous Sulfate 325 Mg Tab) 325 mg PO QAM [facility] Stop: 07/28/21 08:59 Last Admin: 07/07/21 08:27 Dose: 325 mg Documented by: Fluticasone Propionate (Fluticasone Propionate Na Spr 16 Gm Btl) 2 sprays NA PM [facility] Stop: 07/28/21 20:59 Last Admin: 07/06/21 20:18 Dose: 2 sprays Documented by: Folic Acid (Folic Acid 1 Mg Tab) 1 mg PO BID [facility] Stop: 07/28/21 08:59 Last Admin: 07/07/21 08:26 Dose: 1 mg Documented by: Furosemide (Furosemide 40 Mg Tab) 40 mg PO BID [facility] Stop: 07/30/21 20:59 Last Admin: 07/07/21 08:26 Dose: 40 mg Documented by: Glucagon (Glucagon For Inj 1 Mg Vial) 1 mg SQ UD PRN; Protocol PRN Reason: Hypoglycemia Protocol Stop: 07/28/21 05:29 Glucose (Glucose 40% Gel 15 Gm Tube) 15 - 30 gm PO UD PRN; Protocol PRN Reason: Hypoglycemia Protocol Stop: 07/28/21 05:29 Glucose (Glucose 10 Tabs/Tube) 4 - 8 tabs PO UD PRN; Protocol PRN Reason: Hypoglycemia Protocol Stop: 07/28/21 05:29 Hydrocodone Bit/Homatropine Methylb (Hydrocodone/Homatropine Syrup 5mg/1.5mg 5ml Udp) 5 ml PO Q6H PRN PRN Reason: Cough Stop: 07/19/21 11:10 Last Admin: 07/05/21 21:06 Dose: 5 ml Documented by: Daptomycin 750 mg/ Syringe 15 mls @ 7.5 mls/min IV Q24H [facility]; Protocol Stop: 07/17/21 13:59 Last Admin: 07/07/21 15:06 Dose: 7.5 mls/min Documented by: Insulin Aspart (Novolog Insulin Pump) 1 ea N/A ACHS [facility]; Protocol Stop: 07/28/21 07:29 Last Admin: 07/07/21 11:58 Dose: 1 ea Documented by: Insulin Aspart (Insulin Aspart 100 Units/Ml Vial) 0 units SC PRN PRN PRN Reason: Insulin Pump Refill Stop: 07/28/21 05:29 Latanoprost (Latanoprost 0.005% Op Soln 2.5 Ml Btl) 1 drops OP PM [facility] Stop: 07/30/21 20:59 Last Admin: 07/06/21 20:18 Dose: 1 drops Documented by: Loratadine (Loratadine 10 Mg Tab) 10 mg PO DAILY PRN PRN Reason: RHINITIS Stop: 07/28/21 04:28 Last Admin: 07/05/21 08:15 Dose: 10 mg Documented by: Melatonin (Melatonin 3 Mg Tab) 6 mg PO HS [facility] Stop: 08/03/21 20:59 Last Admin: 07/06/21 20:11 Dose: 6 mg Documented by: Menthol (Cough Drop (Sugar Free) Denisse 24 Denisse/1 Box) 1 denisse BUCCAL Q2H PRN PRN Reason: Sore Throat Stop: 07/29/21 21:23 Last Admin: 06/30/21 06:28 Dose: 1 denisse Documented by: Miscellaneous (Carbohydrates For Hypoglycemia ) 15 - 30 gm PO UD PRN PRN Reason: Hypoglycemia Treatment Stop: 07/28/21 05:29 Miscellaneous Information (Daptomycin Consult Active) 1 ea N/A UD PRN PRN Reason: Consult Stop: 07/28/21 09:54 Multivitamins/Minerals (Calcium 600mg + Vit D 400 Iu Tab) 1 tab PO QPM [facility] Stop: 07/28/21 20:59 Last Admin: 07/06/21 20:15 Dose: 1 tab Documented by: Nitroglycerin (Nitroglycerin Sl 0.4 Mg/Tab Tab) 0.4 mg SL Q5M PRN PRN Reason: Chest Pain Stop: 07/28/21 04:28 Ondansetron HCl (Ondansetron Inj 2 Mg/Ml 2 Ml Vial) 4 mg IV Q6H PRN PRN Reason: Nausea Stop: 07/28/21 04:28 Last Admin: 07/01/21 08:22 Dose: 4 mg Documented by: Pantoprazole Sodium (Pantoprazole 40 Mg Tab) 40 mg PO DAILY [facility] Stop: 07/28/21 08:59 Last Admin: 07/07/21 08:24 Dose: 40 mg Documented by: Polyethylene Glycol (Polyethylene (Miralax) 17 Gm Pack) 17 gm PO DAILY [facility] Stop: 07/28/21 08:59 Last Admin: 07/07/21 08:24 Dose: 17 gm Documented by: Prochlorperazine (Prochlorperazine Maleate 10 Mg Tab) 10 mg PO Q6H PRN PRN Reason: Nausea Stop: 07/28/21 04:28 Last Admin: 06/30/21 08:42 Dose: 10 mg Documented by: Propranolol HCl (Propranolol Hcl La 80 Mg Capcr) 80 mg PO [facility] Stop: 07/28/21 08:59 Last Admin: 07/07/21 08:27 Dose: 80 mg Documented by: Sennosides (Senna 8.6 Mg Tab) 8.6 mg PO DAILY PRN PRN Reason: Constipation Stop: 07/28/21 04:28 Last Admin: 07/02/21 08:06 Dose: 8.6 mg Documented by: Sodium Chloride (Sodium Chloride 1 Gm Tablet) 1 gm PO BID [facility] Stop: 08/04/21 20:59 Last Admin: 07/07/21 08:27 Dose: 1 gm Documented by: Spironolactone (Spironolactone 25 Mg Tab) 75 mg PO [facility] Stop: 07/28/21 08:59 Last Admin: 07/07/21 08:26 Dose: 75 mg Documented by: Vitamin D (Cholecalciferol 1,000 Units 25 Mcg Tab) 1,000 units PO [facility] Stop: 07/28/21 08:59 Last Admin: 07/07/21 08:27 Dose: 1,000 units Documented by: (1) Sepsis Sepsis acute organ dysfunction status: unspecified Sepsis type: sepsis due to unspecified organism Qualified Code(s): A41.9 - Sepsis, unspecified organism
[2021-07-07] MEDS: LATANOPROST 0.005% OP SOLN 2.5 ML BTL OP SCH (20:33)
[2021-07-07] MEDS: CALCIUM 600MG + VIT D 400 IU TAB PO SCH (20:33)
[2021-07-07] MEDS: ASPIRIN 81 MG ECTAB PO SCH (20:33)
[2021-07-07] MEDS: MELATONIN 3 MG TAB PO SCH (22:04)
[2021-07-07] MEDS: FLUTICASONE PROPIONATE NA SPR 16 GM BTL SCH (23:13)
[2021-07-08] MEDS: HYDROCODONE/ACETAMOPHEN 5/325MG TAB PO PRN ×2 (01:01→22:48)
[2021-07-08] MEDS: ENOXAPARIN INJ 40 MG/0.4 ML SYR SQ SCH ×2 (05:39→17:25)
[2021-07-08] MEDS: PANTOprazole 40 MG TAB PO SCH (08:31)
[2021-07-08] MEDS: FERROUS SULFATE 325 MG TAB PO SCH (08:31)
[2021-07-08] MEDS: CYANOCOBALAMIN (B-12) 500 MCG TABLET PO SCH (08:31)
[2021-07-08] MEDS: ATORVASTATIN 40 MG TAB PO SCH (08:31)
[2021-07-08] MEDS: CLOPIDOGREL BISULFATE 75 MG TAB PO SCH (08:32)
[2021-07-08] MEDS: SPIRONOLACTONE 25 MG TAB PO SCH (08:32)
[2021-07-08] MEDS: SODIUM CHLORIDE 1 GM TABLET PO SCH ×2 (08:32→20:39)
[2021-07-08] MEDS: CHOLECALCIFEROL 1,000 UNITS 25 MCG TAB PO SCH (08:32)
[2021-07-08] MEDS: PROPRANOLOL HCL LA 80 MG CAPCR PO SCH (08:33)
[2021-07-08] MEDS: POLYETHYLENE (MIRALAX) 17 GM PACK PO SCH (08:33)
[2021-07-08] MEDS: FOLIC ACID 1 MG TAB PO SCH ×2 (08:35→20:38)
[2021-07-08] MEDS: NovoLOG INSULIN PUMP SCH ×4 (08:36→20:39)
[2021-07-08] MEDS: FUROSEMIDE 40 MG TAB PO SCH ×2 (09:42→20:38)
--- NOTE | 2021-07-08 14:19 | Hospitalist Progress Note ---
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 She is being managed for the following: Metastatic cancer H/O colon cancer status post hemicolectomy, Pancreatic cancer status post surgery, currently recurrent metastatic disease with peritoneal metastasis with a small ascites and under palliative chemotherapy, Status post therapeutic paracentesis x2 and today 3.2 L of fluid was taken out Feels a little better following the procedure Awaiting discharge home with hospice care She will need the following equipments before she can be discharged home with hospice care: Wheelchair: "The beneficiary's mobility limitation and completion of in home ADL's cannot be sufficiently resolved by the use of an appropriately fitted cane/walker/crutch. The use of a manual wheelchair will significantly improve the beneficiary ability to participate in MRADL's such as toileting, feeding, dressing, grooming and bathing and the beneficiary will use it on a regular basis in the home. The beneficiary is able to self-propel the wheelchair or has a caregiver who is available, willing, and able to provide assistance with the wheelchair." Semi-Electric Hospital Bed: "The beneficiary has a medical condition which requi res positioning of the body in ways not feasible with an ordinary bed. Elevation of the head/upper body less than 30 degrees does not usually require the use of a hospital bed."requires frequent changes in body position and/or has an immediate need for change in body position Remains medically stable Like to be discharged on Saturday with home hospice #. Likely sepsis at POA, likely GI source d/t CRC hx. #. GPC bacteremia Patient has history of MRSA and VRE Leukocytosis and lactic acidosis at presentation with unclear source of infection but admitting blood culture came back positive for GPC in clusters. Admitting CT chest: Trace left pleural effusion, no consolidation to suggest pneumonia. Cirrhosis with upper abdominal ascites. Peritoneal implants. Admitting CTAP: Interval increase in moderate abdominal and pelvic ascites. Suspicion of peritoneal seeding. 06/27 blood culture: MRSA +ve, follow-up final results Repeat 06/29 Bl Cx: GPC +ve, f/u 06/29 ECHO: reviewed. No valvular pathology 06/30: Rt chest access port removed, tip culture sent 06/30: Rt chest tip A port culture --> negative growth 07/01: repeat blood Cx, f/u, no growth so far Continue with daptomycin 06/28 and Zosyn 06/27 --> DC zosyn 07/02. ID consult. Appreciate recs. Vanc is preferred over Dapto. Total of 4 weeks of therapy from culture negative date. Family thinking dapto would be easier due to once a day dosing. In this case will need US PIV, if vanco preferred PICC line is needed. PICC line consent obtained though. Weekly CPK, CBC and CMP while on antibiotic. Medically stable with generalized weakness Will be discharged home on Saturday with hospice care We will continue intravenous daptomycin for 4 weeks following negative culture Hospice will not take the patient home as long as she finishes the intravenous antibiotic Hyponatremia Likely dilutional Continue Lasix We will try oral sodium tablet Sodium level is 130 today and will monitor #. Near syncope: Could be from possible sepsis. Pt also reports decreasing appetite likely s/e of chemo. Pt eating better, resume home lasix. Card evaluated, appreciated rec. #. Other chronic medical conditions: History of liver cirrhosis, history of right-sided heart failure, diabetes on insulin pump, CAD status post coronary artery bypass grafting, ascites, history of colon cancer status post hemicolectomy, history of pancreatic cancer status post surgery, currently recurrent metastatic disease with peritoneal metastasis with a small ascites and under palliative chemotherapy, CKD stage III. 06/30 d/w Dr. Rosales over the phone, updated pt status. Since patient does wish to continue palliative chemo, she would benefit from hospice eval . Continue with/resume home meds as and when appropriate. * Pt going home w/ hospice, Pt would like to complete IV antibiotic. DVT prophylaxis: Lovenox DNR/DNI 07/04: d/w pt's and pt's dtr at bedside, updated and answered all their questions. Dispo: PT/OT to home. Needs Bl Cx negative. PICC line vs US PIV, likely DC corinne w/ iv dapto (fam preference, if doesn't change corinne). Home w/ hospice. . Admission and Anticipated Discharge Date Admission Date: June 28, 2021 Subjective 07/05/2021 The patient was seen and examined in telemetry unit She remains generally weak but denies any other symptoms Denies any pain, shortness of breath Only significant symptoms as cough without any phlegm 07/06/2021 The patient was seen and examined in telemetry unit She remains generally weak but denies any significant symptoms She does not have any increasing abdominal distention and/or discomfort/pain 07/07/2021 The patient was seen and examined in telemetry unit She remained stable and denies any symptoms except weakness and tiredness She has been waiting to go home with hospice care She will be transferred to medical floor 07/08/2021 The patient was seen and examined in medical floor She remains stable with weakness and tiredness but no apparent distress Denies any symptoms Review of Systems Review of Systems: All systems reviewed and are unremarkable except as noted below Gastrointestinal: Abdominal distention without pain Physical Exam Physical Exam: Sitting on a chair without any acute distress Constitutional: well developed, well nourished, + ill appearing and + obese Eyes: PERRL, conjunctivae normal, anicteric sclerae ENMT: external ear and nose normal, oropharynx normal Neck: trachea midline, no thyromegaly Respiratory: no respiratory distress Auscultation: + diminished lung sounds and + crackles (Minimal bibasilar crackles) Cardiovascular: Rate/Rhythm: regular rate and regular rhythm; not tachycardic Heart Sounds: normal S1 and normal S2; no murmur Extremities: + edema (1-2+ edema bilaterally) Gastrointestinal (Abdomen): Inspection/Auscultation: + abdomen distended and normal bowel sounds Percussion/Palpation: abdomen soft; abdomen nontender Musculoskeletal: No acute arthritis in any joint Neurologic: normal touch/pain/proprioception; not confused Lymphatic: no cervical or axillary lymphadenopathy Results & Data Results & Data ([facility]) Vital Signs (Past 12 Hours) Vital Signs Temp Pulse Resp BP Pulse Ox 07/08/21 07:56 36.8 C 64 16 136/60 93 Laboratory Results Cardiac Enzymes 07/08/21 Range/Units 10:57 Total Creatine Kinase 20 L (26-192) U/L Medications Administered Current Inpatient Medications Acetaminophen (Acetaminophen 325 Mg Tab) 325 mg PO Q6H PRN PRN Reason: Mild Pain Stop: 07/29/21 19:46 Last Admin: 07/04/21 01:14 Dose: 325 mg Documented by: Hydrocodone Bitart/Acetaminophen (Hydrocodone/Acetamophen 5/325mg Tab) 1 - 2 tab PO Q4HWA PRN PRN Reason: Pain Stop: 07/14/21 13:50 Last Admin: 07/08/21 01:01 Dose: 2 tab Documented by: Aspirin (Aspirin 81 Mg Ectab) 81 mg PO PM [facility] Stop: 07/28/21 20:59 Last Admin: 07/07/21 20:33 Dose: 81 mg Documented by: Atorvastatin Calcium (Atorvastatin 40 Mg Tab) [facility] Stop: 07/28/21 08:59 Last Admin: 07/08/21 08:31 Dose: 40 mg Documented by: Clopidogrel Bisulfate (Clopidogrel Bisulfate 75 Mg Tab) 75 mg [facility] Stop: 07/28/21 08:59 Last Admin: 07/08/21 08:32 Dose: 75 mg Documented by: Cyanocobalamin (Cyanocobalamin (B-12) 500 Mcg Tablet) 1,000 mcg PO [facility] Stop: 07/28/21 08:59 Last Admin: 07/08/21 08:31 Dose: 1,000 mcg Documented by: Cyclobenzaprine HCl (Cyclobenzaprine Hcl 5 Mg Tab) 5 mg PO BID PRN PRN Reason: Pain Stop: 07/28/21 04:28 Last Admin: 07/01/21 08:23 Dose: 5 mg Documented by: Dextrose (Dextrose 50% 50 Ml Syringe) 25 - 50 ml IV UD PRN; Protocol PRN Reason: Hypoglycemia Protocol Stop: 07/28/21 05:29 Enoxaparin Sodium (Enoxaparin Inj 40 Mg/0.4 Ml Syr) 40 mg SQ Q12H [facility] Stop: 07/28/21 05:59 Last Admin: 07/08/21 05:39 Dose: 40 mg Documented by: Ferrous Sulfate (Ferrous Sulfate 325 Mg Tab) 325 mg PO QAM [facility] Stop: 07/28/21 08:59 Last Admin: 07/08/21 08:31 Dose: 325 mg Documented by: Fluticasone Propionate (Fluticasone Propionate Na Spr 16 Gm Btl) 2 sprays NA PM [facility] Stop: 07/28/21 20:59 Last Admin: 07/07/21 23:13 Dose: 2 sprays Documented by: Folic Acid (Folic Acid 1 Mg Tab) 1 mg PO BID [facility] Stop: 07/28/21 08:59 Last Admin: 07/08/21 08:35 Dose: 1 mg Documented by: Furosemide (Furosemide 40 Mg Tab) 40 mg PO BID [facility] Stop: 07/30/21 20:59 Last Admin: 07/08/21 09:42 Dose: 40 mg Documented by: Glucagon (Glucagon For Inj 1 Mg Vial) 1 mg SQ UD PRN; Protocol PRN Reason: Hypoglycemia Protocol Stop: 07/28/21 05:29 Glucose (Glucose 40% Gel 15 Gm Tube) 15 - 30 gm PO UD PRN; Protocol PRN Reason: Hypoglycemia Protocol Stop: 07/28/21 05:29 Glucose (Glucose 10 Tabs/Tube) 4 - 8 tabs PO UD PRN; Protocol PRN Reason: Hypoglycemia Protocol Stop: 07/28/21 05:29 Hydrocodone Bit/Homatropine Methylb (Hydrocodone/Homatropine Syrup 5mg/1.5mg 5ml Udp) 5 ml PO Q6H PRN PRN Reason: Cough Stop: 07/19/21 11:10 Last Admin: 07/05/21 21:06 Dose: 5 ml Documented by: Daptomycin 750 mg/ Syringe 15 mls @ 7.5 mls/min IV Q24H [facility]; Protocol Stop: 07/17/21 13:59 Last Admin: 07/07/21 15:06 Dose: 7.5 mls/min Documented by: Insulin Aspart (Novolog Insulin Pump) 1 ea N/A ACHS [facility]; Protocol Stop: 07/28/21 07:29 Last Admin: 07/08/21 13:04 Dose: 1 ea Documented by: Insulin Aspart (Insulin Aspart 100 Units/Ml Vial) 0 units SC PRN PRN PRN Reason: Insulin Pump Refill Stop: 07/28/21 05:29 Latanoprost (Latanoprost 0.005% Op Soln 2.5 Ml Btl) 1 drops OP PM [facility] Stop: 07/30/21 20:59 Last Admin: 07/07/21 20:33 Dose: 1 drops Documented by: Loratadine (Loratadine 10 Mg Tab) 10 mg PO DAILY PRN PRN Reason: RHINITIS Stop: 07/28/21 04:28 Last Admin: 07/05/21 08:15 Dose: 10 mg Documented by: Melatonin (Melatonin 3 Mg Tab) 6 mg PO HS [facility] Stop: 08/03/21 20:59 Last Admin: 07/07/21 22:04 Dose: 6 mg Documented by: Menthol (Cough Drop (Sugar Free) Denisse 24 Denisse/1 Box) 1 denisse BUCCAL Q2H PRN PRN Reason: Sore Throat Stop: 07/29/21 21:23 Last Admin: 06/30/21 06:28 Dose: 1 denisse Documented by: Miscellaneous (Carbohydrates For Hypoglycemia ) 15 - 30 gm PO UD PRN PRN Reason: Hypoglycemia Treatment Stop: 07/28/21 05:29 Miscellaneous Information (Daptomycin Consult Active) 1 ea N/A UD PRN PRN Reason: Consult Stop: 07/28/21 09:54 Multivitamins/Minerals (Calcium 600mg + Vit D 400 Iu Tab) 1 tab PO QPM [facility] Stop: 07/28/21 20:59 Last Admin: 07/07/21 20:33 Dose: 1 tab Documented by: Nitroglycerin (Nitroglycerin Sl 0.4 Mg/Tab Tab) 0.4 mg SL Q5M PRN PRN Reason: Chest Pain Stop: 07/28/21 04:28 Ondansetron HCl (Ondansetron Inj 2 Mg/Ml 2 Ml Vial) 4 mg IV Q6H PRN PRN Reason: Nausea Stop: 07/28/21 04:28 Last Admin: 07/01/21 08:22 Dose: 4 mg Documented by: Pantoprazole Sodium (Pantoprazole 40 Mg Tab) 40 mg PO DAILY [facility] Stop: 07/28/21 08:59 Last Admin: 07/08/21 08:31 Dose: 40 mg Documented by: Polyethylene Glycol (Polyethylene (Miralax) 17 Gm Pack) 17 gm PO DAILY [facility] Stop: 07/28/21 08:59 Last Admin: 07/08/21 08:33 Dose: 17 gm Documented by: Prochlorperazine (Prochlorperazine Maleate 10 Mg Tab) 10 mg PO Q6H PRN PRN Reason: Nausea Stop: 07/28/21 04:28 Last Admin: 06/30/21 08:42 Dose: 10 mg Documented by: Propranolol HCl (Propranolol Hcl La 80 Mg Capcr) 80 mg PO [facility] Stop: 07/28/21 08:59 Last Admin: 07/08/21 08:33 Dose: 80 mg Documented by: Sennosides (Senna 8.6 Mg Tab) 8.6 mg PO DAILY PRN PRN Reason: Constipation Stop: 07/28/21 04:28 Last Admin: 07/02/21 08:06 Dose: 8.6 mg Documented by: Sodium Chloride (Sodium Chloride 1 Gm Tablet) 1 gm PO BID [facility] Stop: 08/04/21 20:59 Last Admin: 07/08/21 08:32 Dose: 1 gm Documented by: Spironolactone (Spironolactone 25 Mg Tab) 75 mg PO [facility] Stop: 07/28/21 08:59 Last Admin: 07/08/21 08:32 Dose: 75 mg Documented by: Vitamin D (Cholecalciferol 1,000 Units 25 Mcg Tab) 1,000 units PO [facility] Stop: 07/28/21 08:59 Last Admin: 07/08/21 08:32 Dose: 1,000 units Documented by: (1) Sepsis Sepsis acute organ dysfunction status: unspecified Sepsis type: sepsis due to unspecified organism Qualified Code(s): A41.9 - Sepsis, unspecified organism
[2021-07-08] MEDS: DAPTOmycin 750 MG in SYRINGE 0 ML IV SCH (14:30)
[2021-07-08] MEDS: ONDANSETRON INJ 2 MG/ML 2 ML VIAL IV PRN (17:33)
[2021-07-08] MEDS: ASPIRIN 81 MG ECTAB PO SCH (20:37)
[2021-07-08] MEDS: CALCIUM 600MG + VIT D 400 IU TAB PO SCH (20:38)
[2021-07-08] MEDS: FLUTICASONE PROPIONATE NA SPR 16 GM BTL SCH (20:38)
[2021-07-08] MEDS: LATANOPROST 0.005% OP SOLN 2.5 ML BTL OP SCH (20:39)
[2021-07-08] MEDS: MELATONIN 3 MG TAB PO SCH (20:51)
[2021-07-09] MEDS: ENOXAPARIN INJ 40 MG/0.4 ML SYR SQ SCH ×2 (05:16→17:53)
[2021-07-09] MEDS: FERROUS SULFATE 325 MG TAB PO SCH (08:46)
[2021-07-09] MEDS: FOLIC ACID 1 MG TAB PO SCH ×2 (08:47→20:26)
[2021-07-09] MEDS: FUROSEMIDE 40 MG TAB PO SCH ×2 (08:47→20:26)
[2021-07-09] MEDS: SODIUM CHLORIDE 1 GM TABLET PO SCH ×2 (08:48→20:26)
[2021-07-09] MEDS: PANTOprazole 40 MG TAB PO SCH (08:48)
[2021-07-09] MEDS: ATORVASTATIN 40 MG TAB PO SCH (08:48)
[2021-07-09] MEDS: CLOPIDOGREL BISULFATE 75 MG TAB PO SCH (08:48)
[2021-07-09] MEDS: SPIRONOLACTONE 25 MG TAB PO SCH (08:49)
[2021-07-09] MEDS: CYANOCOBALAMIN (B-12) 500 MCG TABLET PO SCH (08:49)
[2021-07-09] MEDS: POLYETHYLENE (MIRALAX) 17 GM PACK PO SCH (08:50)
[2021-07-09] MEDS: NovoLOG INSULIN PUMP SCH ×4 (08:50→20:55)
[2021-07-09] MEDS: CHOLECALCIFEROL 1,000 UNITS 25 MCG TAB PO SCH (08:50)
[2021-07-09] MEDS: PROPRANOLOL HCL LA 80 MG CAPCR PO SCH (08:56)
[2021-07-09] MEDS: DAPTOmycin 750 MG in SYRINGE 0 ML IV SCH (13:31)
--- NOTE | 2021-07-09 14:38 | Hospitalist Progress Note ---
Date of Service July 09, 2021 Assessment & Plan (1) Sepsis: Plan: 70-year-old female with history of colon cancer stage II, status post right hemicolectomy, history of pancreatic cancer underwent distal subtotal pancreatectomy and splenectomy, recent diagnosis of peritoneal metastasis thought to be from pancreas on Gemzar infusion, history of diabetes on insulin pump, history of chronic kidney disease, coronary artery disease status post coronary artery bypass grafting, liver cirrhosis, hypertension, chronic right- sided heart failure, history of gastrointestinal bleed, history of nephrectomy, presents with near syncope and also found to have elevated leukocytosis and elevated lactic acid. She is being managed for the following: Metastatic cancer H/O colon cancer status post hemicolectomy, Pancreatic cancer status post surgery, currently recurrent metastatic disease with peritoneal metastasis with a small ascites and under palliative chemotherapy, Status post therapeutic paracentesis x2 and today 3.2 L of fluid was taken out Feels a little better following the procedure Awaiting discharge home with hospice care She will need the following equipments before she can be discharged home with hospice care: Wheelchair: "The beneficiary's mobility limitation and completion of in home ADL's cannot be sufficiently resolved by the use of an appropriately fitted cane/walker/crutch. The use of a manual wheelchair will significantly improve the beneficiary ability to participate in MRADL's such as toileting, feeding, dressing, grooming and bathing and the beneficiary will use it on a regular basis in the home. The beneficiary is able to self-propel the wheelchair or has a caregiver who is available, willing, and able to provide assistance with the wheelchair." Semi-Electric Hospital Bed: "The beneficiary has a medical condition which requi res positioning of the body in ways not feasible with an ordinary bed. Elevation of the head/upper body less than 30 degrees does not usually require the use of a hospital bed."requires frequent changes in body position and/or has an immediate need for change in body position Remains medically stable Like to be discharged on Saturday with home hospice Does not have any acute distress and/or symptoms #. Likely sepsis at POA, likely GI source d/t CRC hx. #. GPC bacteremia Patient has history of MRSA and VRE Leukocytosis and lactic acidosis at presentation with unclear source of infection but admitting blood culture came back positive for GPC in clusters. Admitting CT chest: Trace left pleural effusion, no consolidation to suggest pneumonia. Cirrhosis with upper abdominal ascites. Peritoneal implants. Admitting CTAP: Interval increase in moderate abdominal and pelvic ascites. Suspicion of peritoneal seeding. We will continue antibiotic 06/27 blood culture: MRSA +ve, follow-up final results Repeat 06/29 Bl Cx: GPC +ve, f/u 06/29 ECHO: reviewed. No valvular pathology 06/30: Rt chest access port removed, tip culture sent 06/30: Rt chest tip A port culture --> negative growth 07/01: repeat blood Cx, f/u, no growth so far Continue with daptomycin 06/28 and Zosyn 06/27 --> DC zosyn 07/02. ID consult. Appreciate recs. Vanc is preferred over Dapto. Total of 4 weeks of therapy from culture negative date. Family thinking dapto would be easier due to once a day dosing. In this case will need US PIV, if vanco preferred PICC line is needed. PICC line consent obtained though. Weekly CPK, CBC and CMP while on antibiotic. Medically stable with generalized weakness Will be discharged home on Saturday with hospice care We will continue intravenous daptomycin for 4 weeks following negative culture Hospice will not take the patient home as long as she finishes the intravenous antibiotic Hyponatremia Likely dilutional Continue Lasix We will try oral sodium tablet Sodium level is 130 today and will monitor #. Near syncope: Could be from possible sepsis. Pt also reports decreasing appetite likely s/e of chemo. Pt eating better, resume home lasix. Card evaluated, appreciated rec. #. Other chronic medical conditions: History of liver cirrhosis, history of right-sided heart failure, diabetes on insulin pump, CAD status post coronary artery bypass grafting, ascites, history of colon cancer status post hemicolectomy, history of pancreatic cancer status post surgery, currently recurrent metastatic disease with peritoneal metastasis with a small ascites and under palliative chemotherapy, CKD stage III. 06/30 d/w Dr. Rosales over the phone, updated pt status. Since patient does wish to continue palliative chemo, she would benefit from hospice eval . Continue with/resume home meds as and when appropriate. * Pt going home w/ hospice, Pt would like to complete IV antibiotic. DVT prophylaxis: Lovenox DNR/DNI 07/04: d/w pt's and pt's dtr at bedside, updated and answered all their questions. Dispo: PT/OT to home. Needs Bl Cx negative. PICC line vs US PIV, likely DC corinne w/ iv dapto (fam preference, if doesn't change corinne). Home w/ hospice. Likely discharge on Saturday. Admission and Anticipated Discharge Date Admission Date: June 28, 2021 Subjective 07/05/2021 The patient was seen and examined in telemetry unit She remains generally weak but denies any other symptoms Denies any pain, shortness of breath Only significant symptoms as cough without any phlegm 07/06/2021 The patient was seen and examined in telemetry unit She remains generally weak but denies any significant symptoms She does not have any increasing abdominal distention and/or discomfort/pain 07/07/2021 The patient was seen and examined in telemetry unit She remained stable and denies any symptoms except weakness and tiredness She has been waiting to go home with hospice care She will be transferred to medical floor 07/08/2021 The patient was seen and examined in medical floor She remains stable with weakness and tiredness but no apparent distress Denies any symptoms 07/09/2021 The patient was seen and examined in medical floor She remains free of any symptoms and awaiting to be discharged tomorrow Review of Systems Review of Systems: All systems reviewed and are unremarkable except as noted below Gastrointestinal: Abdominal distention without pain Physical Exam Physical Exam: Sitting on a chair without any acute distress Constitutional: well developed, well nourished, + ill appearing and + obese Eyes: PERRL, conjunctivae normal, anicteric sclerae ENMT: external ear and nose normal, oropharynx normal Neck: trachea midline, no thyromegaly Respiratory: no respiratory distress Auscultation: + diminished lung sounds and + crackles (Minimal bibasilar crackles) Cardiovascular: Rate/Rhythm: regular rate and regular rhythm; not tachycardic Heart Sounds: normal S1 and normal S2; no murmur Extremities: + edema (1-2+ edema bilaterally) Gastrointestinal (Abdomen): Inspection/Auscultation: + abdomen distended and normal bowel sounds Percussion/Palpation: abdomen soft; abdomen nontender Neurologic: normal touch/pain/proprioception; not confused Lymphatic: no cervical or axillary lymphadenopathy Results & Data Results & Data ([facility]) Vital Signs (Past 12 Hours) Vital Signs Temp Pulse Resp BP Pulse Ox Pulse Ox 05/29/22 08:55 65 97 07/09/21 07:04 36.6 C 57 L 16 130/67 92 07/09/21 06:53 91 Medications Administered Current Inpatient Medications Acetaminophen (Acetaminophen 325 Mg Tab) 325 mg PO Q6H PRN PRN Reason: Mild Pain Stop: 07/29/21 19:46 Last Admin: 07/04/21 01:14 Dose: 325 mg Documented by: Hydrocodone Bitart/Acetaminophen (Hydrocodone/Acetamophen 5/325mg Tab) 1 - 2 tab PO Q4HWA PRN PRN Reason: Pain Stop: 07/14/21 13:50 Last Admin: 07/08/21 22:48 Dose: 2 tab Documented by: Aspirin (Aspirin 81 Mg Ectab) 81 mg PO PM [facility] Stop: 07/28/21 20:59 Last Admin: 07/08/21 20:37 Dose: 81 mg Documented by: Atorvastatin Calcium (Atorvastatin 40 Mg Tab) 40 mg PO QAM [facility] Stop: 07/28/21 08:59 Last Admin: 07/09/21 08:48 Dose: 40 mg Documented by: Clopidogrel Bisulfate (Clopidogrel Bisulfate 75 Mg Tab) 75 mg PO QAM [facility] Stop: 07/28/21 08:59 Last Admin: 07/09/21 08:48 Dose: 75 mg Documented by: Cyanocobalamin (Cyanocobalamin (B-12) 500 Mcg Tablet) 1,000 mcg PO QAM [facility] Stop: 07/28/21 08:59 Last Admin: 07/09/21 08:49 Dose: 1,000 mcg Documented by: Cyclobenzaprine HCl (Cyclobenzaprine Hcl 5 Mg Tab) 5 mg PO BID PRN PRN Reason: Pain Stop: 07/28/21 04:28 Last Admin: 07/01/21 08:23 Dose: 5 mg Documented by: Dextrose (Dextrose 50% 50 Ml Syringe) 25 - 50 ml IV UD PRN; Protocol PRN Reason: Hypoglycemia Protocol Stop: 07/28/21 05:29 Enoxaparin Sodium (Enoxaparin Inj 40 Mg/0.4 Ml Syr) 40 mg SQ Q12H [facility]A Stop: 07/28/21 05:59 Last Admin: 07/09/21 05:16 Dose: 40 mg Documented by: Ferrous Sulfate (Ferrous Sulfate 325 Mg Tab) 325 mg PO QAM [facility] Stop: 07/28/21 08:59 Last Admin: 07/09/21 08:46 Dose: 325 mg Documented by: Fluticasone Propionate (Fluticasone Propionate Na Spr 16 Gm Btl) 2 sprays NA PM LA[facility]A Stop: 07/28/21 20:59 Last Admin: 07/08/21 20:38 Dose: 2 sprays Documented by: Folic Acid (Folic Acid 1 Mg Tab) 1 mg PO BID LAURA Stop: 07/28/21 08:59 Last Admin: 07/09/21 08:47 Dose: 1 mg Documented by: Furosemide (Furosemide 40 Mg Tab) 40 mg PO BID LAURA Stop: 07/30/21 20:59 Last Admin: 07/09/21 08:47 Dose: 40 mg Documented by: Glucagon (Glucagon For Inj 1 Mg Vial) 1 mg SQ UD PRN; Protocol PRN Reason: Hypoglycemia Protocol Stop: 07/28/21 05:29 Glucose (Glucose 40% Gel 15 Gm Tube) 15 - 30 gm PO UD PRN; Protocol PRN Reason: Hypoglycemia Protocol Stop: 07/28/21 05:29 Glucose (Glucose 10 Tabs/Tube) 4 - 8 tabs PO UD PRN; Protocol PRN Reason: Hypoglycemia Protocol Stop: 07/28/21 05:29 Hydrocodone Bit/Homatropine Methylb (Hydrocodone/Homatropine Syrup 5mg/1.5mg 5ml Udp) 5 ml PO Q6H PRN PRN Reason: Cough Stop: 07/19/21 11:10 Last Admin: 07/05/21 21:06 Dose: 5 ml Documented by: Daptomycin 750 mg/ Syringe 15 mls @ 7.5 mls/min IV Q24H LAURA; Protocol Stop: 07/17/21 13:59 Last Admin: 07/09/21 13:31 Dose: 7.5 mls/min Documented by: Insulin Aspart (Novolog Insulin Pump) 1 ea N/A ACHS [facility]; Protocol Stop: 07/28/21 07:29 Last Admin: 07/09/21 13:14 Dose: 1 ea Documented by: Insulin Aspart (Insulin Aspart 100 Units/Ml Vial) 0 units SC PRN PRN PRN Reason: Insulin Pump Refill Stop: 07/28/21 05:29 Latanoprost (Latanoprost 0.005% Op Soln 2.5 Ml Btl) 1 drops OP PM [facility]A Stop: 07/30/21 20:59 Last Admin: 07/08/21 20:39 Dose: 1 drops Documented by: Loratadine (Loratadine 10 Mg Tab) 10 mg PO DAILY PRN PRN Reason: RHINITIS Stop: 07/28/21 04:28 Last Admin: 07/05/21 08:15 Dose: 10 mg Documented by: Melatonin (Melatonin 3 Mg Tab) 6 mg PO HS LAURA Stop: 08/03/21 20:59 Last Admin: 07/08/21 20:51 Dose: 6 mg Documented by: Menthol (Cough Drop (Sugar Free) Denisse 24 Denisse/1 Box) 1 denisse BUCCAL Q2H PRN PRN Reason: Sore Throat Stop: 07/29/21 21:23 Last Admin: 06/30/21 06:28 Dose: 1 denisse Documented by: Miscellaneous (Carbohydrates For Hypoglycemia ) 15 - 30 gm PO UD PRN PRN Reason: Hypoglycemia Treatment Stop: 07/28/21 05:29 Miscellaneous Information (Daptomycin Consult Active) 1 ea N/A UD PRN PRN Reason: Consult Stop: 07/28/21 09:54 Multivitamins/Minerals (Calcium 600mg + Vit D 400 Iu Tab) 1 tab PO QPM [facility]A Stop: 07/28/21 20:59 Last Admin: 07/08/21 20:38 Dose: 1 tab Documented by: Nitroglycerin (Nitroglycerin Sl 0.4 Mg/Tab Tab) 0.4 mg SL Q5M PRN PRN Reason: Chest Pain Stop: 07/28/21 04:28 Ondansetron HCl (Ondansetron Inj 2 Mg/Ml 2 Ml Vial) 4 mg IV Q6H PRN PRN Reason: Nausea Stop: 07/28/21 04:28 Last Admin: 07/08/21 17:33 Dose: 4 mg Documented by: Pantoprazole Sodium (Pantoprazole 40 Mg Tab) 40 mg PO DAILY LAURA Stop: 07/28/21 08:59 Last Admin: 07/09/21 08:48 Dose: 40 mg Documented by: Polyethylene Glycol (Polyethylene (Miralax) 17 Gm Pack) 17 gm PO DAILY LAURA Stop: 07/28/21 08:59 Last Admin: 07/09/21 08:50 Dose: 17 gm Documented by: Prochlorperazine (Prochlorperazine Maleate 10 Mg Tab) 10 mg PO Q6H PRN PRN Reason: Nausea Stop: 07/28/21 04:28 Last Admin: 06/30/21 08:42 Dose: 10 mg Documented by: Propranolol HCl (Propranolol Hcl La 80 Mg Capcr) [facility] Stop: 07/28/21 08:59 Last Admin: 07/09/21 08:56 Dose: 80 mg Documented by: Sennosides (Senna 8.6 Mg Tab) 8.6 mg PO DAILY PRN PRN Reason: Constipation Stop: 07/28/21 04:28 Last Admin: 07/02/21 08:06 Dose: 8.6 mg Documented by: Sodium Chloride (Sodium Chloride 1 Gm Tablet) 1 gm PO BID [facility] Stop: 08/04/21 20:59 Last Admin: 07/09/21 08:48 Dose: 1 gm Documented by: Spironolactone (Spironolactone 25 Mg Tab) 75 mg PO [facility] Stop: 07/28/21 08:59 Last Admin: 07/09/21 08:49 Dose: 75 mg Documented by: Vitamin D (Cholecalciferol 1,000 Units 25 Mcg Tab) 1,000 units PO [facility] Stop: 07/28/21 08:59 Last Admin: 07/09/21 08:50 Dose: 1,000 units Documented by: (1) Sepsis Sepsis acute organ dysfunction status: unspecified Sepsis type: sepsis due to unspecified organism Qualified Code(s): A41.9 - Sepsis, unspecified organism
[2021-07-09] MEDS: MELATONIN 3 MG TAB PO SCH (20:25)
[2021-07-09] MEDS: ASPIRIN 81 MG ECTAB PO SCH (20:26)
[2021-07-09] MEDS: CALCIUM 600MG + VIT D 400 IU TAB PO SCH (20:26)
[2021-07-09] MEDS: LATANOPROST 0.005% OP SOLN 2.5 ML BTL OP SCH (20:27)
[2021-07-09] MEDS: FLUTICASONE PROPIONATE NA SPR 16 GM BTL SCH (20:27)
[2021-07-09] MEDS: ACETAMINOPHEN 325 MG TAB PO PRN (20:53)
[2021-07-10] MEDS: ENOXAPARIN INJ 40 MG/0.4 ML SYR SQ SCH (05:48)
[2021-07-10] MEDS: ACETAMINOPHEN 325 MG TAB PO PRN (06:40)
[2021-07-10 06:55] LABS: BUN Creatinine Ratio 30.1 (10-20); Calcium 8.8 mg/dl (8.5-10.1); Creatinine Clr Calc Pharmacy 64.4 ml/min; Est GFR (African American) 71.7 ml/min; Est GFR (Non-African American) 61.8 ml/min
[2021-07-10 07:00] LABS: Hematocrit (blood only) 28.4 % (37-47); Mean Corpuscular Hemoglobin 30.8 pg (25-34); Mean Corpuscular Hgb Conc 35.2 g/dL (32-36); Mean Corpuscular Volume 87.4 fL (80-100); Mean Platelet Volume 11.2 fL (7.4-10.4); Nucleated RBC # (auto) 11.85 K/uL (0-0); Nucleated RBC % (auto) 117.5 %; Platelet Count 356 K/uL (130-400); RDW Coefficient of Variation 24.3 % (11.5-14.5); RDW Standard Deviation 60.2 fL (36.4-46.3); Red Blood Count 3.25 M/uL (4.2-5.4); White Blood Count 10.08 K/uL (4.8-10.8)
[2021-07-10 07:03] LABS: ANC (manual) 6.36 K/uL (1.4-6.5); Acanthocytes 1+; Anisocytosis Present; Lymphocytes % (manual) 16.9 %; Monocytes # (manual) 1.55 K/uL (0.11-0.59); Monocytes % (manual) 15.4 %; Myelocytes # (manual) 0.46 K/uL (0-0); Myelocytes % (manual) 4.6 %; Neutrophils # (manual) 6.36 K/uL (1.4-6.5); Neutrophils % (manual) 63.1 %; Pappenheimer Bodies 1+; Polychromasia 1+
[2021-07-10] MEDS: PANTOprazole 40 MG TAB PO SCH (08:51)
[2021-07-10] MEDS: ATORVASTATIN 40 MG TAB PO SCH (08:51)
[2021-07-10] MEDS: SPIRONOLACTONE 25 MG TAB PO SCH (08:51)
[2021-07-10] MEDS: CLOPIDOGREL BISULFATE 75 MG TAB PO SCH (08:52)
[2021-07-10] MEDS: PROPRANOLOL HCL LA 80 MG CAPCR PO SCH (08:52)
[2021-07-10] MEDS: FERROUS SULFATE 325 MG TAB PO SCH (08:52)
[2021-07-10] MEDS: CHOLECALCIFEROL 1,000 UNITS 25 MCG TAB PO SCH (08:52)
[2021-07-10] MEDS: CYANOCOBALAMIN (B-12) 500 MCG TABLET PO SCH (08:52)
[2021-07-10] MEDS: NovoLOG INSULIN PUMP SCH ×2 (08:53→12:53)
[2021-07-10] MEDS: FUROSEMIDE 40 MG TAB PO SCH (08:54)
[2021-07-10] MEDS: FOLIC ACID 1 MG TAB PO SCH (08:54)
[2021-07-10] MEDS: POLYETHYLENE (MIRALAX) 17 GM PACK PO SCH (08:55)
[2021-07-10] MEDS: SODIUM CHLORIDE 1 GM TABLET PO SCH (08:55)
--- NOTE | 2021-07-10 12:16 | Hospitalist Progress Note ---
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 She is being managed for the following: Metastatic cancer H/O colon cancer status post hemicolectomy, Pancreatic cancer status post surgery, currently recurrent metastatic disease with peritoneal metastasis with a small ascites and under palliative chemotherapy, Status post therapeutic paracentesis x2 and today 3.2 L of fluid was taken out Feels a little better following the procedure Awaiting discharge home with hospice care She will need the following equipments before she can be discharged home with hospice care: Wheelchair: "The beneficiary's mobility limitation and completion of in home ADL's cannot be sufficiently resolved by the use of an appropriately fitted cane/walker/crutch. The use of a manual wheelchair will significantly improve the beneficiary ability to participate in MRADL's such as toileting, feeding, dressing, grooming and bathing and the beneficiary will use it on a regular basis in the home. The beneficiary is able to self-propel the wheelchair or has a caregiver who is available, willing, and able to provide assistance with the wheelchair." Semi-Electric Hospital Bed: "The beneficiary has a medical condition which requi res positioning of the body in ways not feasible with an ordinary bed. Elevation of the head/upper body less than 30 degrees does not usually require the use of a hospital bed."requires frequent changes in body position and/or has an immediate need for change in body position Remains medically stable Like to be discharged on Saturday with home hospice Does not have any acute distress and/or symptoms Remains stable and will be discharged home this afternoon #. Likely sepsis at POA, likely GI source d/t CRC hx. #. GPC bacteremia Patient has history of MRSA and VRE Leukocytosis and lactic acidosis at presentation with unclear source of infection but admitting blood culture came back positive for GPC in clusters. Admitting CT chest: Trace left pleural effusion, no consolidation to suggest pneumonia. Cirrhosis with upper abdominal ascites. Peritoneal implants. Admitting CTAP: Interval increase in moderate abdominal and pelvic ascites. Suspicion of peritoneal seeding. We will continue antibiotic-prescription is already given to home health and required blood test documented 06/27 blood culture: MRSA +ve, follow-up final results Repeat 06/29 Bl Cx: GPC +ve, f/u 06/29 ECHO: reviewed. No valvular pathology 06/30: Rt chest access port removed, tip culture sent 06/30: Rt chest tip A port culture --> negative growth 07/01: repeat blood Cx, f/u, no growth so far Continue with daptomycin 06/28 and Zosyn 06/27 --> DC zosyn 07/02. ID consult. Appreciate recs. Vanc is preferred over Dapto. Total of 4 weeks of therapy from culture negative date. Family thinking dapto would be easier due to once a day dosing. In this case will need US PIV, if vanco preferred PICC line is needed. PICC line consent obtained though. Weekly CPK, CBC and CMP while on antibiotic. Medically stable with generalized weakness Will be discharged home on Saturday with hospice care We will continue intravenous daptomycin for 4 weeks following negative culture Hospice will not take the patient home as long as she finishes the intravenous antibiotic Discharge home with home hospice Hyponatremia Likely dilutional Continue Lasix We will try oral sodium tablet Sodium level is 130 today and will monitor Sodium level is up to 133 normal kidney function #. Near syncope: Could be from possible sepsis. Pt also reports decreasing appetite likely s/e of chemo. Pt eating better, resume home lasix. Card evaluated, appreciated rec. #. Other chronic medical conditions: History of liver cirrhosis, history of right-sided heart failure, diabetes on insulin pump, CAD status post coronary artery bypass grafting, ascites, history of colon cancer status post hemicolectomy, history of pancreatic cancer status post surgery, currently r ecurrent metastatic disease with peritoneal metastasis with a small ascites and under palliative chemotherapy, CKD stage III. 06/30 d/w Dr. Rosales over the phone, updated pt status. Since patient does wish to continue palliative chemo, she would benefit from hospice eval . Continue with/resume home meds as and when appropriate. * Pt going home w/ hospice, Pt would like to complete IV antibiotic. DVT prophylaxis: Lovenox DNR/DNI 07/04: d/w pt's and pt's dtr at bedside, updated and answered all their questions. Dispo: PT/OT to home. Needs Bl Cx negative. PICC line vs US PIV, likely DC corinne w/ iv dapto (fam preference, if doesn't change corinne). Home w/ hospice. Will be discharged this afternoon following the antibiotic dose Admission and Anticipated Discharge Date Admission Date: June 28, 2021 Subjective 07/05/2021 The patient was seen and examined in telemetry unit She remains generally weak but denies any other symptoms Denies any pain, shortness of breath Only significant symptoms as cough without any phlegm 07/06/2021 The patient was seen and examined in telemetry unit She remains generally weak but denies any significant symptoms She does not have any increasing abdominal distention and/or discomfort/pain 07/07/2021 The patient was seen and examined in telemetry unit She remained stable and denies any symptoms except weakness and tiredness She has been waiting to go home with hospice care She will be transferred to medical floor 07/08/2021 The patient was seen and examined in medical floor She remains stable with weakness and tiredness but no apparent distress Denies any symptoms 07/09/2021 The patient was seen and examined in medical floor She remains free of any symptoms and awaiting to be discharged tomorrow 07/10/2021 The patient was seen and examined in medical floor She has had all the supplies at home and wants to go home today Denies any significant symptoms except weakness Review of Systems Review of Systems: All systems reviewed and are unremarkable except as noted below Gastrointestinal: Abdominal distention without pain Physical Exam Physical Exam: Sitting on a chair without any acute distress Constitutional: well developed, well nourished, + ill appearing and + obese Eyes: PERRL, conjunctivae normal, anicteric sclerae ENMT: external ear and nose normal, oropharynx normal Neck: trachea midline, no thyromegaly Respiratory: no respiratory distress Auscultation: + diminished lung sounds and + crackles (Minimal bibasilar crackles) Cardiovascular: Rate/Rhythm: regular rate and regular rhythm; not tachycardic Heart Sounds: normal S1 and normal S2; no murmur Extremities: + edema (1-2+ edema bilaterally) Gastrointestinal (Abdomen): Inspection/Auscultation: + abdomen distended and normal bowel sounds Percussion/Palpation: abdomen soft; abdomen nontender Musculoskeletal: No acute arthritis in any joint Neurologic: normal touch/pain/proprioception; not confused Psychiatric: A+Ox3, euthymic affect Lymphatic: no cervical or axillary lymphadenopathy Results & Data Results & Data (MN) Vital Signs (Past 12 Hours) Vital Signs Temp Pulse Resp BP Pulse Ox 07/10/21 07:16 36.3 C L 61 18 115/63 96 Laboratory Results Short CBC 07/10/21 Range/Units 06:13 WBC 10.08 (4.8-10.8) K/uL Hgb 10.0 L (12.0-16.0) g/dL Hct 28.4 L (37-47) % Plt Count 356 (130-400) K/uL BMP 07/10/21 07/10/21 06:13 07:41 Sodium 133 L Potassium 4.2 Chloride 99 Carbon Dioxide 25 BUN 28 H Creatinine 0.93 Glucose 138 H Calcium 8.8 Medications Administered Current Inpatient Medications Acetaminophen (Acetaminophen 325 Mg Tab) 325 mg PO Q6H PRN PRN Reason: Mild Pain Stop: 07/29/21 19:46 Last Admin: 07/10/21 06:40 Dose: 325 mg Documented by: Hydrocodone Bitart/Acetaminophen (Hydrocodone/Acetamophen 5/325mg Tab) 1 - 2 tab PO Q4HWA PRN PRN Reason: Pain Stop: 07/14/21 13:50 Last Admin: 07/08/21 22:48 Dose: 2 tab Documented by: Aspirin (Aspirin 81 Mg Ectab) 81 mg PO PM [facility] Stop: 07/28/21 20:59 Last Admin: 07/09/21 20:26 Dose: 81 mg Documented by: Atorvastatin Calcium (Atorvastatin 40 Mg Tab) 40 mg PO QAM [facility] Stop: 07/28/21 08:59 Last Admin: 07/10/21 08:51 Dose: 40 mg Documented by: Clopidogrel Bisulfate (Clopidogrel Bisulfate 75 Mg Tab) 75 mg PO QAM [facility] Stop: 07/28/21 08:59 Last Admin: 07/10/21 08:52 Dose: 75 mg Documented by: Cyanocobalamin (Cyanocobalamin (B-12) 500 Mcg Tablet) 1,000 mcg PO QAM [facility] Stop: 07/28/21 08:59 Last Admin: 07/10/21 08:52 Dose: 1,000 mcg Documented by: Cyclobenzaprine HCl (Cyclobenzaprine Hcl 5 Mg Tab) 5 mg PO BID PRN PRN Reason: Pain Stop: 07/28/21 04:28 Last Admin: 07/01/21 08:23 Dose: 5 mg Documented by: Dextrose (Dextrose 50% 50 Ml Syringe) 25 - 50 ml IV UD PRN; Protocol PRN Reason: Hypoglycemia Protocol Stop: 07/28/21 05:29 Enoxaparin Sodium (Enoxaparin Inj 40 Mg/0.4 Ml Syr) 40 mg SQ Q12H [facility] Stop: 07/28/21 05:59 Last Admin: 07/10/21 05:48 Dose: 40 mg Documented by: Ferrous Sulfate (Ferrous Sulfate 325 Mg Tab) 325 mg PO QAM [facility] Stop: 07/28/21 08:59 Last Admin: 07/10/21 08:52 Dose: 325 mg Documented by: Fluticasone Propionate (Fluticasone Propionate Na Spr 16 Gm Btl) 2 sprays NA PM [facility] Stop: 07/28/21 20:59 Last Admin: 07/09/21 20:27 Dose: 2 sprays Documented by: Folic Acid (Folic Acid 1 Mg Tab) 1 mg PO BID [facility] Stop: 07/28/21 08:59 Last Admin: 07/10/21 08:54 Dose: 1 mg Documented by: Furosemide (Furosemide 40 Mg Tab) 40 mg PO BID [facility] Stop: 07/30/21 20:59 Last Admin: 07/10/21 08:54 Dose: 40 mg Documented by: Glucagon (Glucagon For Inj 1 Mg Vial) 1 mg SQ UD PRN; Protocol PRN Reason: Hypoglycemia Protocol Stop: 07/28/21 05:29 Glucose (Glucose 40% Gel 15 Gm Tube) 15 - 30 gm PO UD PRN; Protocol PRN Reason: Hypoglycemia Protocol Stop: 07/28/21 05:29 Glucose (Glucose 10 Tabs/Tube) 4 - 8 tabs PO UD PRN; Protocol PRN Reason: Hypoglycemia Protocol Stop: 07/28/21 05:29 Hydrocodone Bit/Homatropine Methylb (Hydrocodone/Homatropine Syrup 5mg/1.5mg 5ml Udp) 5 ml PO Q6H PRN PRN Reason: Cough Stop: 07/19/21 11:10 Last Admin: 07/05/21 21:06 Dose: 5 ml Documented by: Daptomycin 750 mg/ Syringe 15 mls @ 7.5 mls/min IV Q24H [facility]; Protocol Stop: 07/17/21 13:59 Last Admin: 07/09/21 13:31 Dose: 7.5 mls/min Documented by: Insulin Aspart (Novolog Insulin Pump) 1 ea N/A ACHS [facility]; Protocol Stop: 07/28/21 07:29 Last Admin: 07/10/21 08:53 Dose: 1 ea Documented by: Insulin Aspart (Insulin Aspart 100 Units/Ml Vial) 0 units SC PRN PRN PRN Reason: Insulin Pump Refill Stop: 07/28/21 05:29 Latanoprost (Latanoprost 0.005% Op Soln 2.5 Ml Btl) 1 drops OP PM [facility] Stop: 07/30/21 20:59 Last Admin: 07/09/21 20:27 Dose: 1 drops Documented by: Loratadine (Loratadine 10 Mg Tab) 10 mg PO DAILY PRN PRN Reason: RHINITIS Stop: 07/28/21 04:28 Last Admin: 07/05/21 08:15 Dose: 10 mg Documented by: Melatonin (Melatonin 3 Mg Tab) 6 mg PO HS [facility] Stop: 08/03/21 20:59 Last Admin: 07/09/21 20:25 Dose: 6 mg Documented by: Menthol (Cough Drop (Sugar Free) Denisse 24 Denisse/1 Box) 1 denisse BUCCAL Q2H PRN PRN Reason: Sore Throat Stop: 07/29/21 21:23 Last Admin: 06/30/21 06:28 Dose: 1 denisse Documented by: Miscellaneous (Carbohydrates For Hypoglycemia ) 15 - 30 gm PO UD PRN PRN Reason: Hypoglycemia Treatment Stop: 07/28/21 05:29 Miscellaneous Information (Daptomycin Consult Active) 1 ea N/A UD PRN PRN Reason: Consult Stop: 07/28/21 09:54 Multivitamins/Minerals (Calcium 600mg + Vit D 400 Iu Tab) 1 tab PO QPM [facility] Stop: 07/28/21 20:59 Last Admin: 07/09/21 20:26 Dose: 1 tab Documented by: Nitroglycerin (Nitroglycerin Sl 0.4 Mg/Tab Tab) 0.4 mg SL Q5M PRN PRN Reason: Chest Pain Stop: 07/28/21 04:28 Ondansetron HCl (Ondansetron Inj 2 Mg/Ml 2 Ml Vial) 4 mg IV Q6H PRN PRN Reason: Nausea Stop: 07/28/21 04:28 Last Admin: 07/08/21 17:33 Dose: 4 mg Documented by: Pantoprazole Sodium (Pantoprazole 40 Mg Tab) 40 mg PO DAILY [facility] Stop: 07/28/21 08:59 Last Admin: 07/10/21 08:51 Dose: 40 mg Documented by: Polyethylene Glycol (Polyethylene (Miralax) 17 Gm Pack) 17 gm PO DAILY [facility] Stop: 07/28/21 08:59 Last Admin: 07/10/21 08:55 Dose: 17 gm Documented by: Prochlorperazine (Prochlorperazine Maleate 10 Mg Tab) 10 mg PO Q6H PRN PRN Reason: Nausea Stop: 07/28/21 04:28 Last Admin: 06/30/21 08:42 Dose: 10 mg Documented by: Propranolol HCl (Propranolol Hcl La 80 Mg Capcr) 80 mg PO QAM [facility] Stop: 07/28/21 08:59 Last Admin: 07/10/21 08:52 Dose: 80 mg Documented by: Sennosides (Senna 8.6 Mg Tab) 8.6 mg PO DAILY PRN PRN Reason: Constipation Stop: 07/28/21 04:28 Last Admin: 07/02/21 08:06 Dose: 8.6 mg Documented by: Sodium Chloride (Sodium Chloride 1 Gm Tablet) 1 gm PO BID [facility] Stop: 08/04/21 20:59 Last Admin: 07/10/21 08:55 Dose: 1 gm Documented by: Spironolactone (Spironolactone 25 Mg Tab) 75 mg PO QAM [facility] Stop: 07/28/21 08:59 Last Admin: 07/10/21 08:51 Dose: 75 mg Documented by: Vitamin D (Cholecalciferol 1,000 Units 25 Mcg Tab) 1,000 units PO QAM [facility] Stop: 07/28/21 08:59 Last Admin: 07/10/21 08:52 Dose: 1,000 units Documented by: (1) Sepsis Sepsis acute organ dysfunction status: unspecified Sepsis type: sepsis due to unspecified organism Qualified Code(s): A41.9 - Sepsis, unspecified organism
[2021-07-10] MEDS: DAPTOmycin 750 MG in SYRINGE 0 ML IV SCH (13:32)
--- NOTE | 2021-07-11 07:52 | Discharge Summary ---
Date of Service July 11, 2021 Admission HPI Per Admitting Provider DICTATED BY:Guru Jenkins MD DATE OF ADMISSION: 04/28/2021. CHIEF COMPLAINT: Presyncope. 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 Postoperative course complicated by fascial dehiscence requiring closure, history of hypertension, osteoporosis, history of chronic right-sided heart failure, recently her diuretics increased to Lasix 40 b.i.d. and spironolactone 75 mg p.o. daily. Followup CAT scan on 04/19/2019 showed new peritoneal metastasis over the abdomen and pelvis, there is ascites and new enhancing nodule in the right paramidline abdominal wall suspicious for metastatic disease. CA 19-9 level was increased to more than 5000. As per the Heme-Onc, the patient has recurrent metastatic disease, most likely from pancreatic origin with peritoneal carcinomatosis with high risk for complication for palliative chemotherapy. The patient is on currently getting chemo Gemzar. Patient recently about 3 weeks ago, she had a port placement and had chemo today. The patient looks like uses mostly wheelchair , at home she can ambulate short distance with a walker baseline functionality.Has lower extremity edema.Today patient says, when she was standing up, she almost passed out and she fell to the floor slowly. She did not completely passed out. She could not able to get up. She did not injure herself and she called EMS and brought in here. Here blood pressure was soft, with the fluids blood pressure improved. Her white count was 28,000. Sodium was 132. Lactate was 2.4, magnesium 1.4. Procalcitonin 2.3. Urinalysis negative. Chest x-ray, no acute findings. A port site no erythema or obvious drainage seen. The patient denies any abdominal pain. She has cough for couple of weeks now, patient brings phlegm. Denies any fever or chills. No chest pain, no headache, no neck pain. Has some back pain, no leg pains. No abdominal pain, normal bowel and bladder movements. No nausea, no vomiting, no headache, no blurred visions, no earache, no runny nose, no sore throat. Appetite is not that great when she eats she swallows okay.Lives with her . Admission Exam Per Admitting Provider GENERAL: The patient is obese, not in acute distress. VITAL SIGNS: Temperature 37.1, pulse 67, respiratory rate 23, blood pressure apparently 108/51, oxygen 94% on 2 liters. HEENT: Pupils equal, round and reactive to light. Oral mucosa moist. LUNGS: No JVD, no neck masses. CARDIOVASCULAR: S1 and S2 heard. Regular rate and rhythm. No murmur, no gallop. RESPIRATORY SYSTEM: Normal AP diameter. No accessory muscle use. No wheezing, no crackles. ABDOMEN: Soft. Bowel sounds are present, nontender, no distention. CENTRAL NERVOUS SYSTEM: Alert and oriented. Speech is clear. No facial droop. Insight is good. Obeys commands. Moves extremities. EXTREMITIES: Lower extremity, +2 edema present, no erythema seen. Principal Diagnosis Metastatic cancer, history of colon cancer status post hemicolectomy and metastatic pancreatic cancer status post surgery, sepsis with gram-positive bacteremia on IV daptomycin, cirrhosis of liver, Discharge Exam Sitting on a chair without any acute distress Constitutional well developed, well nourished, + ill appearing and + obese Eyes PERRL, conjunctivae normal, anicteric sclerae ENMT external ear and nose normal, oropharynx normal Neck trachea midline, no thyromegaly Respiratory no respiratory distress Auscultation: + diminished lung sounds and + crackles (Minimal bibasilar crackles) Cardiovascular Rate/Rhythm: regular rate and regular rhythm; not tachycardic Heart Sounds: normal S1 and normal S2; no murmur Extremities: + edema (1-2+ edema bilaterally) Gastrointestinal (Abdomen) Inspection/Auscultation: + abdomen distended and normal bowel sounds Percussion/Palpation: abdomen soft; abdomen nontender Neurologic normal touch/pain/proprioception; not confused Psychiatric A+Ox3, euthymic affect Lymphatic no cervical or axillary lymphadenopathy Discharge Data Allergies Allergy/AdvReac Type Severity Reaction Status Date / Time No Known Allergies Allergy Verified 06/27/21 23:01 Consultations 06/28/21 00:03 ED Decision to Admit Stat 06/28/21 09:27 Consult Palliative Care Routine 06/28/21 13:10 Consult Infectious Diseases Routine 06/29/21 08:00 Consult Cardiology Routine 06/30/21 08:43 Consult General Surgery Routine Procedures Performed Operation Date: 06/30/21 13:30 Actual Procedures p Port Removal(Left) - Quentin Morgan MD, FACS Ordered Studies 06/28/21 01:16 CT abd pelvis wo con Urgent CT chest diagnostic wo con Urgent 07/06/21 08:00 US paracentesis abd w/image Routine Hospital Course (1) Sepsis: 70-year-old female with history of colon cancer stage II, status post right hemicolectomy, history of pancreatic cancer underwent distal subtotal pancreatectomy and splenectomy, recent diagnosis of peritoneal metastasis thought to be from pancreas on Gemzar infusion, history of diabetes on insulin pump, history of chronic kidney disease, coronary artery disease status post coronary artery bypass grafting, liver cirrhosis, hypertension, chronic right- sided heart failure, history of gastrointestinal bleed, history of nephrectomy, presents with near syncope and also found to have elevated leukocytosis and elevated lactic acid. She is being managed for the following: Metastatic cancer H/O colon cancer status post hemicolectomy, Pancreatic cancer status post surgery, currently recurrent metastatic disease with peritoneal metastasis with a small ascites and under palliative chemotherapy, Status post therapeutic paracentesis x2 and today 3.2 L of fluid was taken out Feels a little better following the procedure Awaiting discharge home with hospice care She will need the following equipments before she can be discharged home with hospice care: Wheelchair: "The beneficiary's mobility limitation and completion of in home ADL's cannot be sufficiently resolved by the use of an appropriately fitted cane/walker/crutch. The use of a manual wheelchair will significantly improve the beneficiary ability to participate in MRADL's such as toileting, feeding, dressing, grooming and bathing and the beneficiary will use it on a regular basis in the home. The beneficiary is able to self-propel the wheelchair or has a caregiver who is available, willing, and able to provide assistance with the wheelchair." Semi-Electric Hospital Bed: "The beneficiary has a medical condition which requires positioning of the body in ways not feasible with an ordinary bed. Elevation of the head/upper body less than 30 degrees does not usually require the use of a hospital bed."requires frequent changes in body position and/or has an immediate need for change in body position Remains medically stable Like to be discharged on Saturday with home hospice Does not have any acute distress and/or symptoms Remains stable and will be discharged home this afternoon #. Likely sepsis at POA, likely GI source d/t CRC hx. #. GPC bacteremia Patient has history of MRSA and VRE Leukocytosis and lactic acidosis at presentation with unclear source of infection but admitting blood culture came back positive for GPC in clusters. Admitting CT chest: Trace left pleural effusion, no consolidation to suggest pneumonia. Cirrhosis with upper abdominal ascites. Peritoneal implants. Admitting CTAP: Interval increase in moderate abdominal and pelvic ascites. Suspicion of peritoneal seeding. We will continue antibiotic-prescription is already given to home health and required blood test documented 06/27 blood culture: MRSA +ve, follow-up final results Repeat 06/29 Bl Cx: GPC +ve, f/u 06/29 ECHO: reviewed. No valvular pathology 06/30: Rt chest access port removed, tip culture sent 06/30: Rt chest tip A port culture --> negative growth 07/01: repeat blood Cx, f/u, no growth so far Continue with daptomycin 06/28 and Zosyn 06/27 --> DC zosyn 07/02. ID consult. Appreciate recs. Vanc is preferred over Dapto. Total of 4 weeks of therapy from culture negative date. Family thinking dapto would be easier due to once a day dosing. In this case will need US PIV, if vanco preferred PICC line is needed. PICC line consent obtained though. Weekly CPK, CBC and CMP while on antibiotic. Medically stable with generalized weakness Will be discharged home on Saturday with hospice care We will continue intravenous daptomycin for 4 weeks following negative culture Hospice will not take the patient home as long as she finishes the intravenous antibiotic Discharge home with home hospice Hyponatremia Likely dilutional Continue Lasix We will try oral sodium tablet Sodium level is 130 today and will monitor Sodium level is up to 133 normal kidney function #. Near syncope: Could be from possible sepsis. Pt also reports decreasing appetite likely s/e of chemo. Pt eating better, resume home lasix. Card evaluated, appreciated rec. #. Other chronic medical conditions: History of liver cirrhosis, history of right-sided heart failure, diabetes on insulin pump, CAD status post coronary artery bypass grafting, ascites, history of colon cancer status post hem icolectomy, history of pancreatic cancer status post surgery, currently recurrent metastatic disease with peritoneal metastasis with a small ascites and under palliative chemotherapy, CKD stage III. 06/30 d/w Dr. Rosales over the phone, updated pt status. Since patient does wish to continue palliative chemo, she would benefit from hospice eval . Continue with/resume home meds as and when appropriate. * Pt going home w/ hospice, Pt would like to complete IV antibiotic. DVT prophylaxis: Lovenox DNR/DNI 07/04: d/w pt's and pt's dtr at bedside, updated and answered all their questions. Dispo: PT/OT to home. Needs Bl Cx negative. PICC line vs US PIV, likely DC corinne w/ iv dapto (fam preference, if doesn't change corinne). Home w/ hospice. Will be discharged this afternoon following the antibiotic dose Total Time Total Time Spent Total Time Spent (In Minutes): 45 minutes Discharge Plan Discharge Items Patient Disposition: Home - Home Health Services Reason For Visit: NEAR SYNCOPE Discharge Diagnosis: Metastatic cancer, history of colon cancer status post hemicolectomy and metastatic pancreatic cancer status post surgery, sepsis with gram-positive bacteremia on IV daptomycin, cirrhosis of liver, Condition on Discharge: Fair Activity: As commented below Activity Comment: Advised to take precaution to avoid fall and use the appliances Non-emergency contact: Primary Care Provider Call non-emergency contact if: you have any medication questions and your symptoms worsen Follow-up/Referrals: Zo Bhatt, [Primary Care Provider] - (Will make an appointment with your PCP within 7 days) Diet: Regular and Carb Consistent or DM2 Fluids: 1500ml (6 cups) Addtl Attending Provider Instructions: Please take precautions to avoid falls Please take your time to initiate any activities and use the appliances to move around Finish the course of antibiotic as advised You will be transition to home hospice following the course of antibiotic is done Change right chest dressing daily Call Dr. Morgan's office [phone] to come in in 2 weeks for suture removal Also because needed for other questions Pending Studies at Discharge: No Stand-Alone Forms: [employer], Opioid Pain Management, Smoking Cessation Medications and DC Order Prescriptions: New hydrocodone-acetaminophen 5-325 mg Tablet 1 tab PO Q4HWA PRN (Reason: pain) 5 Days Qty: 20 RF: 0 Continued echinacea 500 mg capsule 500 mg PO Q OTHER DAY RF: 0 ondansetron 4 mg film 4 mg PO Q8H PRN (Reason: nausea and vomiting) RF: 0 cyanocobalamin (vitamin B-12) [Vitamin B-12] 1,000 mcg Tablet 1,000 mcg PO QAM RF: 0 garlic 1,000 mg Capsule 1,000 mg PO QAM RF: 0 calcium carbonate [Calcium 600] 600 mg calcium (1,500 mg) Tablet 600 mg PO QPM RF: 0 fluticasone propionate [Flonase Allergy Relief] 50 mcg/actuation Atkins,Suspension 2 spray INTRANASAL PM RF: 0 vitamin E 400 unit Capsule 400 unit PO QAM RF: 0 cholecalciferol (vitamin D3) [Vitamin D3] 25 mcg (1,000 unit) Tablet 25 mcg PO QAM RF: 0 folic acid 1 mg tablet 1 mg PO BID RF: 0 Novolog U-100 Insulin aspart 100 unit/mL solution 20 unit continuous subcutaneous infusion CONTINOUS MDD 300 UNITS/24 HOURS RF: 0 atorvastatin 40 mg tablet 40 mg PO QAM RF: 0 propranolol 80 mg capsule,extended release 24 hr 80 mg PO QAM RF: 0 furosemide 20 mg tablet 40 mg PO BID RF: 0 prochlorperazine maleate 10 mg Tablet 10 mg PO Q6H PRN (Reason: Nausea) RF: 0 acetaminophen [Tylenol Extra Strength] 500 mg Tablet 1,000 mg PO Q8H PRN (Reason: Pain) RF: 0 ginkgo biloba 40 mg Capsule 40 mg PO DAILY RF: 0 pantoprazole 40 mg Tablet,Delayed Release (Dr/Ec) 40 mg PO DAILY RF: 0 ferrous sulfate 325 mg (65 mg iron) Tablet 325 mg PO QAM RF: 0 polyethylene glycol 3350 [Miralax] 17 gram/dose Powder 17 g PO DAILY RF: 0 loratadine 10 mg Tablet 10 mg PO DAILY PRN (Reason: RHINITIS) RF: 0 spironolactone 50 mg tablet 75 mg PO QAM RF: 0 cyclobenzaprine 5 mg Tablet 5 mg PO BID PRN (Reason: Pain) RF: 0 latanoprost 0.005 % Drops 1 drp OPHTHALMIC (EYE) PM RF: 0 sennosides [senna] 8.6 mg Tablet 8.6 mg PO DAILY PRN (Reason: Constipation) RF: 0 clopidogrel 75 mg tablet 75 mg PO QAM RF: 0 aspirin 81 mg Tablet,Delayed Release (Dr/Ec) 81 mg PO PM RF: 0 nitroglycerin 0.4 mg Tablet, Sublingual 0.4 mg sublingual Q5M MDD up to 3 tabs in 15 mins PRN (Reason: Chest Pain) RF: 0 oxycodone 5 mg tablet 5 mg PO Q8H PRN (Reason: Pain) RF: 0 Discharge Orders: Discharge Order (Routine); Ordered 07/10/21 Ordered By: Peter Duran Admission Data Admit Date/Time: 06/28/21 01:16 Attending Provider: Peter Duran Admit Provider: Guru Jenkins Primary Care Provider: Zo Bhatt Other Providers: Mary Carmen Mcgrath ; Guru Jenkins ; Susie Urbina ; Nick Monge ; Ruben Hauser ; Davi Caputo I. ; Brayan Arzola II ; Marysol Thomas ; Alcides Wallace ; Quentin Kitchen ; Uche Betancourt ; Alexx Levine ; Vaughn Isbell ; Rian Olivia ; Sai Mckeon ; Alcides Leigh ; Cathy Ackerman ; Michelle Fagan ; Meaghan Burgos ; Narendra Zheng ; Quentin Morgan Other Interventions: Discharge Summary Assessment (RN) Last Done: 07/10/21 15:06
== END 2021-07-10 16:38 | disposition home health service (06) | DRG 872 ==
LOC: ED 22:18 → SUATTDRO 06-28 01:16 → 2S 06-28 01:16 → 3W 07-07 16:38